=== PATIENT | female | born 1940 | race Caucasian/White ===

== ENCOUNTER 2017-05-23 14:51 | Outpatient (CLI) | payer MEDICARE, SELFPAY | END 2017-05-23 15:25 | disposition home or self-care (01) | PROVIDERS: Visit Provider Internal Medicine Hematology & Oncology | DX: C83.30 Diffuse large B-cell lymphoma, unspecified site (principal); Z45.2 Encounter for adjustment and management of vascular access device; Z48.00 Encounter for change or removal of nonsurgical wound dressing | CPT/HCPCS: 96523; J1642 ==

== ENCOUNTER 2017-05-29 14:25 | Outpatient (CLI) | payer MEDICARE, SELFPAY | END 2017-05-29 14:45 | disposition home or self-care (01) | PROVIDERS: Visit Provider Internal Medicine Hematology & Oncology | DX: C83.30 Diffuse large B-cell lymphoma, unspecified site (principal); Z45.2 Encounter for adjustment and management of vascular access device; Z48.00 Encounter for change or removal of nonsurgical wound dressing | CPT/HCPCS: 96523; J1642 ==

== ENCOUNTER 2017-06-05 13:00 | Outpatient (CLI) | payer MEDICARE, SELFPAY ==
[2017-06-05 17:06] VITALS: BMI 21.6
== END 2017-06-05 13:30 | disposition home or self-care (01) ==
LOC: INF 13:17
PROVIDERS: Family Provider Family Medicine; Visit Provider Internal Medicine Hematology & Oncology
DX: Z45.2 Encounter for adjustment and management of vascular access device (principal); Z48.00 Encounter for change or removal of nonsurgical wound dressing; C83.30 Diffuse large B-cell lymphoma, unspecified site
CPT/HCPCS: 96523; J1642

== ENCOUNTER 2017-06-13 14:19 | Outpatient (CLI) | payer MEDICARE, SELFPAY ==
[2017-06-13 14:21] VITALS: BMI 21.7
[2017-06-13 14:57] LABS: Basophils % 0.9 % (0.1-2.0); Eosinophils # 0.3 K/mm3 (0.0-0.4); Hematocrit 30.2 % (37.0-47.0); Hemoglobin 10.1 g/dL (12.2-16.2); Lymphocytes # 1.3 K/mm3 (0.7-4.5); Lymphocytes % 57.7 K/mm3 (10-50); Mean Corpuscular HGB Conc 33.6 g/dL (31.8-35.4); Mean Corpuscular Hemoglobin 28.2 pg (27.0-31.2); Mean Corpuscular Volume 84.1 fl (81-99); Mean Platelet Volume 9.7 fl (7.4-10.4); Monocytes # 0.4 K/mm3 (0.1-1.0); Monocytes % 17.3 % (1.7-9.3); Neutrophils # 0.3 K/mm3 (1.8-7.8); Platelet Count 156 K/mm3 (142-424); Red Blood Count 3.59 M/mm3 (4.20-5.40); Red Cell Distribution Width 16.2 % (11.5-17.5); White Blood Count 2.3 K/mm3 (4.8-10.8)
[2017-06-13 15:19] LABS: Chol/HDL Ratio 2.7 (1-3.5); Cholesterol 104 mg/dL (140-200); HDL Cholesterol 39 mg/dL (29-89); LDL Cholesterol 49 mg/dL (0-130); Magnesium 1.4 mg/dL (1.4-2.2); Triglycerides 80 mg/dL (30-200); VLDL Cholesterol 16 mg/dL (0-40)
[2017-06-13 15:29] LABS: Alanine Aminotransferase 18 U/L (12-78); Albumin/Globulin Ratio 0.9 (1.1-1.8); Alkaline Phosphatase 94 U/L (46-116); Anion Gap 13.8 mEq/L (5-15); Aspartate Amino Transferase 18 U/L (15-37); Bilirubin,Total 0.5 mg/dL (0.2-1.0); Blood Urea Nitrogen 17 mg/dL (7-18); Calcium 8.2 mg/dL (8.5-10.1); Carbon Dioxide 21 mmol/L (21.0-32.0); Chloride 103 mmol/L (98-107); Creatinine Clearance Estimated 34 mL/min (0-300); Creatinine,Serum 1.32 mg/dL (0.55-1.02); Estimated Glomerular Filt Rate 39 ml/min (>60); Free T4 (Free Thyroxine) 1.01 ng/dl (0.76-1.46); GFR (African American) 47 ML/MIN (>60); Globulin 3.2 gm/dl (1.3-3.2); Glucose 102 mg/dL (74-106); Potassium 3.8 mmoL/L (3.5-5.1); Sodium 134 mmol/L (136-145); Thyroid Stimulating Hormone 1.89 uIU/ml (0.358-3.740); Total Protein,Serum 6.2 gm/dL (6.4-8.2)
[2017-06-13 15:53] LABS: MANUAL DIFFERENTIAL MANUAL DIFFERENTIAL (MANUAL DIFF)
[2017-06-13 15:55] LABS: Eosinophils % 9 % (0-3); Lymphocytes % 56 % (10-50); Monocytes % 24 % (2-9); Neutrophils % 9 % (42-76); Platelet Estimate Slight Decrease; RBC Morphology Normal; Total Cells Counted 100
--- NOTE | 2017-06-13 16:17 | PC.NURSE ---
BLOOD DRAWN FROM PICC LINE AND SENT TO LAB FOR ORDERS BY DR DUNCAN. BOTH LUMENS FLUSHED EASILY AND BLOOD RETURN OBTAINED.
[2017-06-14 16:23] LABS: Phosphorous 3.4 mg/dL (2.4-4.9)
[2017-06-15 16:09] LABS: Peripheral Smear Review Scanned Result
== END 2017-06-13 15:00 | disposition home or self-care (01) ==
LOC: INF 14:20
PROVIDERS: Family Medicine; Visit Provider Internal Medicine Hematology & Oncology
DX: R42 Dizziness and giddiness (principal); E03.9 Hypothyroidism, unspecified; E78.00 Pure hypercholesterolemia, unspecified; I10 Essential (primary) hypertension; Z45.2 Encounter for adjustment and management of vascular access device
CPT/HCPCS: 80053; 80061; 83735; 84100; 84439; 84443; 85007; 85025; J1642

== ENCOUNTER 2017-06-26 11:47 | Outpatient (CLI) | payer MEDICARE, SELFPAY | END 2017-06-26 12:15 | disposition home health service (06) | PROVIDERS: Family Provider Family Medicine; Visit Provider Internal Medicine Hematology & Oncology | DX: C83.30 Diffuse large B-cell lymphoma, unspecified site (principal) | CPT/HCPCS: G0463; J1642 ==

== ENCOUNTER 2017-07-04 13:42 | Outpatient (CLI) | payer MEDICARE, SELFPAY ==
[2017-07-04 14:00] VITALS: BP 118/69; PULSE 98; RESP 18; TEMP 36.5
== END 2017-07-04 14:10 | disposition home or self-care (01) ==
LOC: INF 13:46
PROVIDERS: Visit Provider Internal Medicine Hematology & Oncology
DX: C83.30 Diffuse large B-cell lymphoma, unspecified site (principal); Z45.2 Encounter for adjustment and management of vascular access device
CPT/HCPCS: 96523

== ENCOUNTER 2017-07-12 10:42 | Outpatient (CLI) | payer MEDICARE, SELFPAY ==
[2017-07-12 11:40] VITALS: BP 120/60; PULSE 66; RESP 20; TEMP 36.4; O2SAT 96
== END 2017-07-12 11:40 | disposition home or self-care (01) ==
LOC: INF 10:44
PROVIDERS: Visit Provider Internal Medicine Hematology & Oncology
DX: Z45.2 Encounter for adjustment and management of vascular access device (principal)
CPT/HCPCS: 96523; J1642

== ENCOUNTER 2017-07-16 13:10 | Outpatient (CLI) | payer MEDICARE, SELFPAY ==
[2017-07-16 15:00] VITALS: BP 118/54; PULSE 82; RESP 18; TEMP 36.6; O2SAT 96
== END 2017-07-16 15:00 | disposition home or self-care (01) ==
LOC: INF 13:59
PROVIDERS: Family Provider Family Medicine; Visit Provider Internal Medicine Hematology & Oncology
DX: Z45.2 Encounter for adjustment and management of vascular access device (principal); Z48.00 Encounter for change or removal of nonsurgical wound dressing
CPT/HCPCS: G0463

== ENCOUNTER 2018-06-09 14:19 | Inpatient (IN) ==
--- NOTE | 2018-06-09 14:33 | History & Physical Report ---
*Admission Date: 06/09/18 <Luna Thomas 06/09/18 14:33> *Chief complaint: Shortness of breath and cough <Luna Thomas 06/09/18 14:58> *History of present illness: Ms. Bueno is a 77-year-old female with a history of hypertension, hyperlipidemia, and B-cell lymphoma who presented for follow-up in the office of [facility] for her cough and shortness of breath. She was also seen 06/02/2018 and 06/05/2018 for the same without improvement. Patient states that she is actually feeling worse and has been lethargic. She is weak and has pain in her back when she coughs. The new cough medicine has not helped. She is coughing up some yellow sputum, has nasal congestion with a runny nose, and has had fever with chills. Her shortness of breath is associated with wheezing and some chest tightness. She describes a bitemporal headache with a pressure-like sensation. She is also dizzy. Her body aches and she is weak and fatigued and has difficulty with walking. She is eating minimally and drinking poorly. Due to her failure of treatment as an outpatient she will be admitted for further evaluation and treatment with probable pneumonia. CBC done in the office revealed a white blood cell count 7300 with 20.9% lymphocytes and 75.2% granulocytes. Hemoglobin is 9.4 with a hematocrit of 29.3. <Luna Thomas 06/09/18 14:58> [facility] History Medical History: Reports:: Cancer (B-cell lymphoma) Denies:: Diabetes Mellitus Type 1, Diabetes Mellitus Type 2, MRSA <Luna Thomas 06/09/18 14:58> Have you ever received a pneumonia vaccine?: Yes <Luna Thomas 06/09/18 14:33> Other Medical History: Reports: Chemotherapy, Hypothyroidism <Luna Thomas 06/09/18 14:58> Laterality Cases: Bilateral: Other <Luna Thomas 06/09/18 14:33> Other Surgeries: Yes: Hysterectomy-Total <Luna Thomas 06/09/18 14:33> Amputation: No <Luna Thomas 06/09/18 14:33> Fractures: No <Luna Thomas 06/09/18 14:33> - *Social History Smoking Status: Former smoker <Luna Thomas 06/09/18 14:33> Alcohol Intake: never <Luna Thomas 06/09/18 14:33> *Family Hx:: Hyperlipidemia, Hypertension, Stroke <Amberly Thomashy 06/09/18 14:58> Review of Systems - Constitutional Reports body ache(s), Reports fatigue, Reports fever(s), Reports malaise, Reports weakness, Reports weight loss <ThomasLuna 06/09/18 14:58> - ENT Reports nasal congestion, Reports dizziness, Denies ear pain, Denies sore throat <ThomasLuna 06/09/18 14:58> - *Cardiovascular Reports shortness of breath, Denies chest pain, Denies irregular heart rhythm, Denies foot swelling <ThomasLuna 06/09/18 14:58> - *Respiratory Reports change in phlegm color, Reports chest congestion, Reports cough, Reports shortness of breath, Reports pain with cough, Reports wheezing, Denies coughing up blood <ThomasLuna 06/09/18 14:58> - *Gastrointestinal Reports constipation, Reports nausea, Denies bright, red blood in stools, Denies vomiting <ThomasLuna 06/09/18 14:58> - *Genitourinary Denies difficulty urinating <Amberly Thomashy 06/09/18 14:58> - *Musculoskeletal Comments: About 1 month ago patient tripped on her toe resulting in a fall. She landed on her face and was knocked out. She was evaluated in the emergency room at this time and found to have nose and left facial fractures. <ThomasLuna 06/09/18 14:58> - *Neurologic Reports headache(s), Reports dizziness, Denies abnormal walking, Denies confusion, Denies seizure-like activity <ThomasLuna 06/09/18 14:58> Meds Home Medications Medication Instructions Recorded Confirmed Type Atorvastatin Calcium [Atorvastatin 10 mg PO DAILY 06/05/17 05/12/18 History 10mg Tab] Lenalidomide [Revlimid] 20 mg PO DAILY 06/05/17 05/12/18 History Levothyroxine Sodium 50 mcg PO DAILY 06/05/17 05/12/18 History [Levothyroxine 50mcg (0.05mg) Tab] Metoprolol Tartrate [Lopressor 25 mg PO BID 06/05/17 05/12/18 History 25mg tablet] Ondansetron HCl [Ondansetron 4mg 4 mg PO NEEDED PRN 06/05/17 05/12/18 History Tab] PARoxetine HCl [Paxil] 20 mg PO DAILY 06/05/17 05/12/18 History cephALEXin [Keflex 500mg Cap] 500 mg PO TID #30 cap 04/23/18 05/12/18 Rx lenalidomide 5 mg capsule 5 mg PO DAILY 04/28/18 05/12/18 History <Shahid Lopez - 06/09/18 19:48> Allergies Allergy/AdvReac Type Severity Reaction Status Date / Time cucumber [CUCUMBER] Allergy Severe HIVES, Verified 06/09/18 16:03 SWELLING, TROUBLE BREATHING alprazolam [From XANAX] Allergy Intermediate ADVERSE Verified 06/09/18 16:03 tetanus and diphtheria Allergy Mild Verified 06/09/18 16:03 toxoids [TETANUS AND DIPHTHERIA TOXOIDS] ibuprofen [IBUPROFEN] Allergy Unknown STATED IT Verified 06/09/18 16:03 INTERACTS WITH CHEMO Iodinated Contrast Media - Allergy Unknown Verified 06/09/18 16:03 Oral and [IODINATED CONTRAST MEDIA - ORAL AND] acetaminophen [From TYLENOL] AdvReac Unknown INTERACT Verified 06/09/18 16:03 WITH CHEMO <JohnShahid - 06/09/18 19:48> Exam Vital signs and Labs for Last 24 Hours: Temp Pulse Resp BP Pulse Ox 98.3 F 87 18 130/69 99 06/09/18 16:00 06/09/18 16:00 06/09/18 16:00 06/09/18 16:00 06/09/18 16:00 Laboratory Results - last 24 hr 06/09/18 15:45: WBC 6.5, RBC 2.63 L, Hgb 8.2 L, Hct 24.7 L, MCV 93.9, MCH 31.2, MCHC 33.2, RDW 14.6, Plt Count 347, MPV 8.8, Neut % (Auto) 76.7, Lymph % (Auto) 17.1, [place] % (Auto) 3.1, Eos % (Auto) 2.7, Baso % (Auto) 0.4, Neut # (Auto) 5.0, Lymph # (Auto) 1.1, [place] # (Auto) 0.2, Eos # (Auto) 0.2, Baso # (Auto) 0.0 06/09/18 15:45: Sodium 135 L, Potassium 3.4 L, Chloride 99, Carbon Dioxide 22, Anion Gap 17.4 H, BUN 22 H, Creatinine 1.96 H, Estimated Creat Clear 23, Estimated GFR 25 L, Est GFR ( Amer) 30 L, Glucose 107 H, Calcium 8.4 L, Total Bilirubin 0.6, AST 21, ALT 33, Alkaline Phosphatase 508 H, Total Protein 7.0, Albumin 2.4 L, Globulin 4.6 H, Albumin/Globulin Ratio 0.5 L 06/09/18 15:55: Influenza Type A Ag Negative, Influenza Type B Ag Negative <Shahid Lopez 06/09/18 19:48> I & O for Last 24 hours: Intake & Output 06/07/18 06/08/18 06/09/18 06/10/18 11:59 11:59 11:59 11:59 Intake Total 1480 / 1480 Balance 1480 / 1480 Weight 135 lb 14.4 oz <Shahid Lopez 06/09/18 19:48> - Constitutional no acute distress, thin <Luna Thomas 06/09/18 14:58> Comments: Appears not to feel well <Luna Thomas 06/09/18 14:58> - *Routine HEENT Exam Head: Present: normocephalic, atraumatic <Luna Thomas 06/09/18 14:58> Eye: Present: PERRL <Luna Thomas 06/09/18 14:58> ENT: Present: mucous membranes dry, oropharynx clear, TM's clear bilaterally <Luna Thomas 06/09/18 14:58> - *Routine Neck Exam Present: supple, full ROM. Absent: carotid bruit, lymphadenopathy, thyromegaly <Luna Thomas 06/09/18 14:58> - *Routine Respiratory Exam Present: CTA bilaterally <Luna Thomas 06/09/18 14:58> Comments: Diminished breath sounds posteriorly. Pain on deep inspiration in the right lower lung. <Luna Thomas - 06/09/18 14:58> - *Routine Cardiovascular Exam Present: RRR <Luna Thomas 06/09/18 14:58> - *Routine Abdominal Exam Present: soft, normoactive bowel sounds. Absent: tenderness, distended <Luna Thomas - 06/09/18 14:58> - *Routine Extremities Exam Absent: edema, calf tenderness <Luna Thomas 06/09/18 14:58> - *Routine Neurological Exam Present: alert, oriented X3 <Luna Thomas - 06/09/18 14:58> Assessment and Plan (1) Pneumonia Current visit: Yes Status: Acute Category: Medical Code(s): J18.9 - Pneumonia, unspecified organism (2) B-cell lymphoma Current visit: Yes Status: Acute Category: Medical Code(s): C85.10 - Unspecified B-cell lymphoma, unspecified site (3) Hypertension Current visit: Yes Status: Acute Category: Medical Code(s): I10 - Essential (primary) hypertension (4) Hypothyroidism Current visit: Yes Status: Acute Category: Medical Code(s): E03.9 - Hypothyroidism, unspecified (5) Anemia Current visit: Yes Status: Acute Category: Medical Code(s): D64.9 - Anemia, unspecified (6) Renal insufficiency Current visit: Yes Status: Acute Category: Medical Code(s): N28.9 - Disorder of kidney and ureter, unspecified (7) Dehydration Current visit: Yes Status: Acute Category: Medical Code(s): E86.0 - Dehydration (8) Elevated alkaline phosphatase level Current visit: Yes Status: Acute Category: Medical Code(s): R74.8 - Abnormal levels of other serum enzymes (9) Hypokalemia Current visit: Yes Status: Acute Category: Medical Code(s): E87.6 - Hypokalemia <JohnShahid - 06/09/18 19:48> (1) Pneumonia Current visit: Yes Status: Acute Category: Medical Code(s): J18.9 - Pneumonia, unspecified organism (2) B-cell lymphoma Current visit: Yes Status: Acute Category: Medical Code(s): C85.10 - Unspecified B-cell lymphoma, unspecified site (3) Hypertension Current visit: Yes Status: Acute Category: Medical Code(s): I10 - Essential (primary) hypertension (4) Hypothyroidism Current visit: Yes Status: Acute Category: Medical Code(s): E03.9 - Hypothyroidism, unspecified <Luna Thomas - 06/09/18 15:03> - Assessment and plan all Dx Assessment and Plan for all problems:: Saw patient in office and after admission today. Her medication list in the H&P is incorrect. Patient has a RLL pneumonia and anemia along with renal insufficiency and dehydration. She should be an acute admission. <Shahid Lopez - 06/09/18 19:48> Patient will be tested for the flu. To receive Rocephin and Zithromax and be started on DuoNeb treatments. She also will be given a 1 L bolus of IV fluids. Some of home meds have been ordered. <Luna Thomas - 06/09/18 15:05>
--- NOTE | 2018-06-09 14:55 | Pharmacy Consult Notes ---
[facility] Pharmacy VTE Monitoring - Patient Demographics Admission date: 06/09/18 Report Date: 06/09/18 Time: 14:55 Allergies/Adverse Reactions: Patient Allergies cucumber [CUCUMBER] Allergy (Severe, Verified 04/28/18 13:01) HIVES, SWELLING, TROUBLE BREATHING alprazolam [From XANAX] Allergy (Intermediate, Verified 04/28/18 13:01) ADVERSE tetanus and diphtheria toxoids [TETANUS AND DIPHTHERIA TOXOIDS] Allergy (Mild, Verified 04/28/18 13:01) ibuprofen [IBUPROFEN] Allergy (Unknown, Verified 04/28/18 13:01) STATED IT INTERACTS WITH CHEMO Iodinated Contrast Media - Oral and [IODINATED CONTRAST MEDIA - ORAL AND] Allergy (Unknown, Verified 04/28/18 13:01) acetaminophen [From TYLENOL] Adverse Reaction (Unknown, Verified 04/28/18 13:01) INTERACT WITH CHEMO - VTE Risk Was VTE Risk Assessment Performed: Yes Clinical Trial Participant: No - Prophylaxis VTE Prophylaxis Ordered?: Yes Types of VTE Prophylaxis: TEDS Knee High
[2018-06-09 15:54] LABS: Basophils % 0.4 % (0.1-2.0); Eosinophils # 0.2 K/mm3 (0.0-0.4); Eosinophils % 2.7 % (0.1-12.0); Hematocrit 24.7 % (37.0-47.0); Hemoglobin 8.2 g/dL (12.2-16.2); Lymphocytes # 1.1 K/mm3 (0.7-4.5); Lymphocytes % 17.1 % (10-50); Mean Corpuscular HGB Conc 33.2 g/dL (31.8-35.4); Mean Corpuscular Hemoglobin 31.2 pg (27.0-31.2); Mean Corpuscular Volume 93.9 fl (81-99); Mean Platelet Volume 8.8 fl (7.4-10.4); Monocytes # 0.2 K/mm3 (0.1-1.0); Monocytes % 3.1 % (1.7-9.3); Neutrophils % 76.7 % (37.0-80.0); Platelet Count 347 K/mm3 (142-424); Red Blood Count 2.63 M/mm3 (4.20-5.40); Red Cell Distribution Width 14.6 % (11.5-17.5); White Blood Count 6.5 K/mm3 (4.8-10.8)
[2018-06-09 16:06] LABS: Albumin Level 2.4 gm/dL (3.4-5.0); Albumin/Globulin Ratio 0.5 (1.1-1.8); Anion Gap 17.4 mEq/L (5-15); Bilirubin,Total 0.6 mg/dL (0.2-1.0); Calcium 8.4 mg/dL (8.5-10.1); Globulin 4.6 gm/dl (1.3-3.2); Potassium 3.4 mmoL/L (3.5-5.1)
[2018-06-10 06:41] LABS: Anion Gap 13.3 mEq/L (5-15); Potassium 3.3 mmoL/L (3.5-5.1)
[2018-06-10 07:27] LABS: Basophils % 0.5 % (0.1-2.0); Eosinophils # 0.1 K/mm3 (0.0-0.4); Eosinophils % 2.4 % (0.1-12.0); Hematocrit 24.9 % (37.0-47.0); Lymphocytes # 1.1 K/mm3 (0.7-4.5); Lymphocytes % 19.3 % (10-50); Mean Corpuscular HGB Conc 31.7 g/dL (31.8-35.4); Mean Corpuscular Hemoglobin 30.3 pg (27.0-31.2); Mean Corpuscular Volume 95.6 fl (81-99); Monocytes # 0.3 K/mm3 (0.1-1.0); Monocytes % 4.6 % (1.7-9.3); Neutrophils % 73.2 % (37.0-80.0); Platelet Count 270 K/mm3 (142-424); Red Cell Distribution Width 14.6 % (11.5-17.5); White Blood Count 5.5 K/mm3 (4.8-10.8)
[2018-06-10 07:31] LABS: Hemoglobin 7.9 g/dL (12.2-16.2)
--- NOTE | 2018-06-10 08:48 | Progress Note ---
Internal Medicine - PN: Subj *Date: 06/10/18 *Time: 08:46 Interval history: Patient with no new complaints today, still coughing, feels weak. Exam Vital signs and Labs for Last 24 Hours: Temp Pulse Resp BP Pulse Ox 98.2 F 67 22 125/53 L 93 L 06/10/18 04:00 06/10/18 06:15 06/10/18 04:00 06/10/18 04:00 06/10/18 06:15 Laboratory Results - last 24 hr 06/09/18 15:45: Mycoplasma pneumon IgM Non-reactive 06/09/18 15:45: WBC 6.5, RBC 2.63 L, Hgb 8.2 L, Hct 24.7 L, MCV 93.9, MCH 31.2, MCHC 33.2, RDW 14.6, Plt Count 347, MPV 8.8, Neut % (Auto) 76.7, Lymph % (Auto) 17.1, [place] % (Auto) 3.1, Eos % (Auto) 2.7, Baso % (Auto) 0.4, Neut # (Auto) 5.0, Lymph # (Auto) 1.1, [place] # (Auto) 0.2, Eos # (Auto) 0.2, Baso # (Auto) 0.0 06/09/18 15:45: Sodium 135 L, Potassium 3.4 L, Chloride 99, Carbon Dioxide 22, Anion Gap 17.4 H, BUN 22 H, Creatinine 1.96 H, Estimated Creat Clear 23, Estimated GFR 25 L, Est GFR ( Amer) 30 L, Glucose 107 H, Calcium 8.4 L, Total Bilirubin 0.6, AST 21, ALT 33, Alkaline Phosphatase 508 H, Total Protein 7.0, Albumin 2.4 L, Globulin 4.6 H, Albumin/Globulin Ratio 0.5 L 06/09/18 15:55: Influenza Type A Ag Negative, Influenza Type B Ag Negative 06/10/18 05:21: WBC 5.5, RBC 2.60 L, Hgb 7.9 L*, Hct 24.9 L, MCV 95.6, MCH 30.3, MCHC 31.7 L, RDW 14.6, Plt Count 270, MPV 9.0, Neut % (Auto) 73.2, Lymph % (Auto) 19.3, [place] % (Auto) 4.6, Eos % (Auto) 2.4, Baso % (Auto) 0.5, Neut # (Auto) 4.0, Lymph # (Auto) 1.1, [place] # (Auto) 0.3, Eos # (Auto) 0.1, Baso # (Auto) 0.0 06/10/18 05:21: Sodium 136, Potassium 3.3 L, Chloride 103, Carbon Dioxide 23, Anion Gap 13.3, BUN 18, Creatinine 1.78 H, Estimated Creat Clear 25, Estimated GFR 27 L, Est GFR ( Amer) 33 L, Glucose 118 H, Calcium 8.0 L I & O for Last 24 hours: Intake & Output 06/07/18 06/08/18 06/09/18 06/10/18 11:59 11:59 11:59 11:59 Intake Total 2466 / 2466 Balance 2466 / 2466 Weight 135 lb 14.4 oz - Constitutional no acute distress - *Routine HEENT Exam Head: Present: normocephalic Eye: Present: EOMI, PERRL ENT: Present: mucous membranes moist - *Routine Neck Exam Present: supple. Absent: lymphadenopathy - *Routine Respiratory Exam Present: crackles (right base) - *Routine Cardiovascular Exam Present: RRR - *Routine Abdominal Exam Present: soft, normoactive bowel sounds. Absent: tenderness - *Routine Extremities Exam Absent: cyanosis, clubbing, edema - *Routine Skin Exam Present: warm. Absent: rash - *Routine Neurological Exam Present: alert, oriented X3 Assessment and Plan (1) Pneumonia Current visit: Yes Status: Acute Category: Medical Code(s): J18.9 - Pneumonia, unspecified organism (2) B-cell lymphoma Current visit: Yes Status: Acute Category: Medical Code(s): C85.10 - Unspecified B-cell lymphoma, unspecified site (3) Hypertension Current visit: Yes Status: Acute Category: Medical Code(s): I10 - Essential (primary) hypertension (4) Hypothyroidism Current visit: Yes Status: Acute Category: Medical Code(s): E03.9 - Hypothyroidism, unspecified (5) Anemia Current visit: Yes Status: Acute Category: Medical Code(s): D64.9 - Anemia, unspecified (6) Renal insufficiency Current visit: Yes Status: Acute Category: Medical Code(s): N28.9 - Disorder of kidney and ureter, unspecified (7) Dehydration Current visit: Yes Status: Acute Category: Medical Code(s): E86.0 - Dehydration (8) Elevated alkaline phosphatase level Current visit: Yes Status: Acute Category: Medical Code(s): R74.8 - Abnormal levels of other serum enzymes (9) Hypokalemia Current visit: Yes Status: Acute Category: Medical Code(s): E87.6 - Hypokalemia - Assessment and plan all Dx Assessment and Plan for all problems:: Plan transfusion of 2 units of PRBCs today, continue treatment for pneumonia.
[2018-06-10 21:32] LABS: Hematocrit 32.2 % (37.0-47.0)
[2018-06-11 06:51] LABS: Basophils % 0.8 % (0.1-2.0); Eosinophils # 0.2 K/mm3 (0.0-0.4); Eosinophils % 3.6 % (0.1-12.0); Hemoglobin 10.6 g/dL (12.2-16.2); Mean Corpuscular HGB Conc 33.1 g/dL (31.8-35.4); Mean Corpuscular Hemoglobin 30.5 pg (27.0-31.2); Mean Platelet Volume 8.6 fl (7.4-10.4); Monocytes # 0.3 K/mm3 (0.1-1.0); Monocytes % 6.7 % (1.7-9.3); Neutrophils # 3.2 K/mm3 (1.8-7.8); Neutrophils % 67.8 % (37.0-80.0); Platelet Count 242 K/mm3 (142-424); Red Blood Count 3.48 M/mm3 (4.20-5.40); Red Cell Distribution Width 15.2 % (11.5-17.5); White Blood Count 4.6 K/mm3 (4.8-10.8)
[2018-06-11 07:03] LABS: Anion Gap 12.7 mEq/L (5-15); Calcium 7.8 mg/dL (8.5-10.1); Potassium 3.7 mmoL/L (3.5-5.1)
--- NOTE | 2018-06-11 08:05 | Progress Note ---
<Luna Thomas - Last Filed: 06/11/18 08:02> Internal Medicine - PN: Subj *Date: 06/11/18 *Time: 08:02 Interval history: Still has a frequent nonproductive cough. She denies shortness of breath. She slept periodically in the night. Chest is sore from coughing. She is in some. Bowels have not moved. She denies nausea. She has been up to the bathroom. Exam Vital signs and Labs for Last 24 Hours: Temp Pulse Resp BP Pulse Ox 98.4 F 69 18 134/57 L 98 06/11/18 04:00 06/11/18 04:00 06/11/18 04:00 06/11/18 04:00 06/11/18 00:00 Laboratory Results - last 24 hr 06/10/18 09:10: Blood Type B Positive, Antibody Screen Negative, Crossmatch (AHG) See Detail 06/10/18 21:20: Hgb 11.0 L D, Hct 32.2 L 06/11/18 05:43: WBC 4.6 L, RBC 3.48 L D, Hgb 10.6 L, Hct 32.0 L, MCV 92.0, MCH 30.5, MCHC 33.1, RDW 15.2, Plt Count 242, MPV 8.6, Neut % (Auto) 67.8, Lymph % (Auto) 21.0, [place] % (Auto) 6.7, Eos % (Auto) 3.6, Baso % (Auto) 0.8, Neut # (Auto) 3.2, Lymph # (Auto) 1.0, [place] # (Auto) 0.3, Eos # (Auto) 0.2, Baso # (Auto) 0.0 06/11/18 05:43: Sodium 135 L, Potassium 3.7, Chloride 104, Carbon Dioxide 22, Anion Gap 12.7, BUN 13 D, Creatinine 1.50 H, Estimated Creat Clear 30, Estimated GFR 33 L, Est GFR ( Amer) 41 L D, Glucose 109 H, Calcium 7.8 L I & O for Last 24 hours: Intake & Output 06/08/18 06/09/18 06/10/18 06/11/18 11:59 11:59 11:59 11:59 Intake Total 2586 / 2586 1749 / 1749 Balance 2585 Weight 135 lb 14.4 oz 139 lb 8 oz - Constitutional no acute distress Comments: Calm - *Routine Respiratory Exam Comments: Right basilar crackles - *Routine Cardiovascular Exam Present: RRR - *Routine Abdominal Exam Present: soft, normoactive bowel sounds. Absent: tenderness, distended - *Routine Extremities Exam Absent: edema, calf tenderness - *Routine Neurological Exam Present: alert, oriented X3 Assessment and Plan (1) Pneumonia Current visit: Yes Status: Acute Category: Medical Code(s): J18.9 - Pneumonia, unspecified organism (2) B-cell lymphoma Current visit: Yes Status: Acute Category: Medical Code(s): C85.10 - Unspecified B-cell lymphoma, unspecified site (3) Hypertension Current visit: Yes Status: Acute Category: Medical Code(s): I10 - Essential (primary) hypertension (4) Hypothyroidism Current visit: Yes Status: Acute Category: Medical Code(s): E03.9 - Hypo thyroidism, unspecified (5) Anemia Current visit: Yes Status: Acute Category: Medical Code(s): D64.9 - Anemia, unspecified (6) Renal insufficiency Current visit: Yes Status: Acute Category: Medical Code(s): N28.9 - Disorder of kidney and ureter, unspecified (7) Dehydration Current visit: Yes Status: Acute Category: Medical Code(s): E86.0 - Dehydration (8) Elevated alkaline phosphatase level Current visit: Yes Status: Acute Category: Medical Code(s): R74.8 - Abnormal levels of other serum enzymes (9) Hypokalemia Current visit: Yes Status: Acute Category: Medical Code(s): E87.6 - Hypokalemia - Assessment and plan all Dx Assessment and Plan for all problems:: His hemoglobin this morning is 10.6. Renal function has improved. We will continue with antibiotics and duo nebs. <Shahid Lopez - Last Filed: 06/11/18 08:24> Exam Vital signs and Labs for Last 24 Hours: Temp Pulse Resp BP Pulse Ox 98.4 F 72 18 120/58 L 98 06/11/18 08:00 06/11/18 08:00 06/11/18 08:00 06/11/18 08:00 06/11/18 08:00 Laboratory Results - last 24 hr 06/10/18 09:10: Blood Type B Positive, Antibody Screen Negative, Crossmatch (AHG) See Detail 06/10/18 21:20: Hgb 11.0 L D, Hct 32.2 L 06/11/18 05:43: WBC 4.6 L, RBC 3.48 L D, Hgb 10.6 L, Hct 32.0 L, MCV 92.0, MCH 30.5, MCHC 33.1, RDW 15.2, Plt Count 242, MPV 8.6, Neut % (Auto) 67.8, Lymph % (Auto) 21.0, [place] % (Auto) 6.7, Eos % (Auto) 3.6, Baso % (Auto) 0.8, Neut # (Auto) 3.2, Lymph # (Auto) 1.0, [place] # (Auto) 0.3, Eos # (Auto) 0.2, Baso # (Auto) 0.0 06/11/18 05:43: Sodium 135 L, Potassium 3.7, Chloride 104, Carbon Dioxide 22, Anion Gap 12.7, BUN 13 D, Creatinine 1.50 H, Estimated Creat Clear 30, Estimated GFR 33 L, Est GFR ( Amer) 41 L D, Glucose 109 H, Calcium 7.8 L I & O for Last 24 hours: Intake & Output 06/08/18 06/09/18 06/10/18 06/11/18 11:59 11:59 11:59 11:59 Intake Total 879 / 269 1749 / 174 Balance 2585 / 258 174 / 174 Weight 135 lb 14.4 oz 139 lb 8 oz Assessment and Plan (1) Pneumonia Current visit: Yes Status: Acute Category: Medical Code(s): J18.9 - Pneumonia, unspecified organism (2) B-cell lymphoma Current visit: Yes Status: Acute Category: Medical Code(s): C85.10 - Unspecified B-cell lymphoma, unspecified site (3) Hypertension Current visit: Yes Status: Acute Category: Medical Code(s): I10 - Essential (primary) hypertension (4) Hypothyroidism Current visit: Yes Status: Acute Category: Medical Code(s): E03.9 - Hypothyroidism, unspecified (5) Anemia Current visit: Yes Status: Acute Category: Medical Code(s): D64.9 - Anemia, unspecified (6) Renal insufficiency Current visit: Yes Status: Acute Category: Medical Code(s): N28.9 - Disorder of kidney and ureter, unspecified (7) Dehydration Current visit: Yes Status: Acute Category: Medical Code(s): E86.0 - Dehydration (8) Elevated alkaline phosphatase level Current visit: Yes Status: Acute Category: Medical Code(s): R74.8 - Abnormal levels of other serum enzymes (9) Hypokalemia Current visit: Yes Status: Acute Category: Medical Code(s): E87.6 - Hypokalemia - Assessment and plan all Dx Assessment and Plan for all problems:: Saw patient. Plan to recheck CXR today, await culture results.
--- NOTE | 2018-06-12 08:26 | Progress Note ---
Internal Medicine - PN: Subj *Date: 06/12/18 *Time: 08:24 Interval history: Patient feels better today, no new complaints today, still coughing. Exam Vital signs and Labs for Last 24 Hours: Temp Pulse Resp BP Pulse Ox 98.2 F 68 17 136/74 97 06/12/18 08:00 06/12/18 08:00 06/12/18 08:00 06/12/18 08:00 06/12/18 08:00 I & O for Last 24 hours: Intake & Output 06/09/18 06/10/18 06/11/18 06/12/18 11:59 11:59 11:59 11:59 Intake Total 2586 / 2586 2155 / 2155 2834 / 2834 Balance 2586 / 2586 2155 / 2155 2834 / 2834 Weight 135 lb 14.4 oz 139 lb 8 oz 141 lb 4 oz Microbiology Reports for the Last 24 Hours: Microbiology 06/09/18 15:45 Blood Blood Culture - Preliminary NO GROWTH AFTER 48 HOURS 06/09/18 15:45 Blood Blood Culture - Preliminary NO GROWTH AFTER 48 HOURS - Constitutional no acute distress - *Routine HEENT Exam Head: Present: normocephalic ENT: Present: mucous membranes moist - *Routine Neck Exam Present: supple. Absent: lymphadenopathy - *Routine Respiratory Exam Present: crackles (in right base) - *Routine Cardiovascular Exam Present: RRR - *Routine Abdominal Exam Present: soft, normoactive bowel sounds. Absent: tenderness - *Routine Extremities Exam Absent: cyanosis, clubbing, edema - *Routine Skin Exam Present: warm. Absent: rash - *Routine Neurological Exam Present: alert, oriented X3 Assessment and Plan (1) Pneumonia Current visit: Yes Status: Acute Category: Medical Code(s): J18.9 - Pneumonia, unspecified organism (2) B-cell lymphoma Current visit: Yes Status: Acute Category: Medical Code(s): C85.10 - Unspecified B-cell lymphoma, unspecified site (3) Hypertension Current visit: Yes Status: Acute Category: Medical Code(s): I10 - Essential (primary) hypertension (4) Hypothyroidism Current visit: Yes Status: Acute Category: Medical Code(s): E03.9 - Hypothyroidism, unspecified (5) Anemia Current visit: Yes Status: Acute Category: Medical Code(s): D64.9 - Anemia, unspecified (6) Renal insufficiency Current visit: Yes Status: Acute Category: Medical Code(s): N28.9 - Disorder of kidney and ureter, unspecified (7) Dehydration Current visit: Yes Status: Acute Category: Medical Code(s): E86.0 - Dehydration (8) Elevated alkaline phosphatase level Current visit: Yes Status: Acute Category: Medical Code(s): R74.8 - Abnormal levels of other serum enzymes (9) Hypokalemia Current visit: Yes Status: Acute Category: Medical Code(s): E87.6 - Hypokalemia - Assessment and plan all Dx Assessment and Plan for all problems:: Patient slowly improving. Plan to saline lock IVF today.
--- NOTE | 2018-06-12 10:41 | Progress Note ---
Internal Medicine - PN: Subj *Date: 06/12/18 *Time: 10:40 Exam Vital signs and Labs for Last 24 Hours: Temp Pulse Resp BP Pulse Ox 98.2 F 68 17 136/74 97 06/12/18 08:00 06/12/18 08:00 06/12/18 08:00 06/12/18 08:00 06/12/18 08:00 I & O for Last 24 hours: Intake & Output 06/09/18 06/10/18 06/11/18 06/12/18 23:59 23:59 23:59 23:59 Intake Total 1480 / 1480 1846 / 1846 2337 / 2337 1911 Balance 1480 / 1480 1846 / 1846 2337 / 2337 1911 Weight 61.643 kg 63.276 kg 64.07 kg Microbiology Reports for the Last 24 Hours: Microbiology 06/09/18 15:45 Blood Blood Culture - Preliminary NO GROWTH AFTER 48 HOURS 06/09/18 15:45 Blood Blood Culture - Preliminary NO GROWTH AFTER 48 HOURS Assessment and Plan (1) Pneumonia Current visit: Yes Status: Acute Category: Medical Code(s): J18.9 - Pneumonia, unspecified organism (2) B-cell lymphoma Current visit: Yes Status: Acute Category: Medical Code(s): C85.10 - Unspecified B-cell lymphoma, unspecified site (3) Hypertension Current visit: Yes Status: Acute Category: Medical Code(s): I10 - Essential (primary) hypertension (4) Hypothyroidism Current visit: Yes Status: Acute Category: Medical Code(s): E03.9 - Hy pothyroidism, unspecified (5) Anemia Current visit: Yes Status: Acute Category: Medical Code(s): D64.9 - Anemia, unspecified (6) Renal insufficiency Current visit: Yes Status: Acute Category: Medical Code(s): N28.9 - Disorder of kidney and ureter, unspecified (7) Dehydration Current visit: Yes Status: Acute Category: Medical Code(s): E86.0 - Dehydration (8) Elevated alkaline phosphatase level Current visit: Yes Status: Acute Category: Medical Code(s): R74.8 - Abnormal levels of other serum enzymes (9) Hypokalemia Current visit: Yes Status: Acute Category: Medical Code(s): E87.6 - Hypokalemia The patient's infection will respond to the chosen ABx?: Yes Is the patient receiving the right drug, dose, and route?: Yes Could a more targeted ABx be ordered?: No (CULTURES PENDING)
[2018-06-13 06:14] LABS: Basophils # 0.1 K/mm3 (0-0.2); Eosinophils # 0.1 K/mm3 (0.0-0.4); Eosinophils % 2.6 % (0.1-12.0); Hemoglobin 10.7 g/dL (12.2-16.2); Lymphocytes # 1.3 K/mm3 (0.7-4.5); Lymphocytes % 25.4 % (10-50); Mean Corpuscular HGB Conc 31.5 g/dL (31.8-35.4); Mean Corpuscular Hemoglobin 29.8 pg (27.0-31.2); Mean Corpuscular Volume 94.5 fl (81-99); Mean Platelet Volume 8.4 fl (7.4-10.4); Monocytes # 0.5 K/mm3 (0.1-1.0); Monocytes % 10.1 % (1.7-9.3); Neutrophils # 3.1 K/mm3 (1.8-7.8); Neutrophils % 60.9 % (37.0-80.0); Platelet Count 228 K/mm3 (142-424); Red Blood Count 3.59 M/mm3 (4.20-5.40); Red Cell Distribution Width 15.2 % (11.5-17.5); White Blood Count 5.1 K/mm3 (4.8-10.8)
[2018-06-13 07:11] LABS: Anion Gap 13.5 mEq/L (5-15); Calcium 8.3 mg/dL (8.5-10.1); Potassium 4.5 mmoL/L (3.5-5.1)
--- NOTE | 2018-06-13 08:37 | Progress Note ---
<Cheyenne Porras - Last Filed: 06/13/18 08:34> Internal Medicine - PN: Subj *Date: 06/13/18 *Time: 08:34 Interval history: Patient states she has been clammy and diaphoretic throughout the night. She is very fatigued. I spoke with her nurse and they have checked her blood pressure, temperature, and glucose and everything has been normal. Her hemoglobin was checked and has improved. Her labs are improving. She denies any pain. She is trying to eat some breakfast this morning. Exam Vital signs and Labs for Last 24 Hours: Temp Pulse Resp BP Pulse Ox 97.9 F 75 18 120/55 L 96 06/13/18 08:00 06/13/18 08:00 06/13/18 08:23 06/13/18 08:00 06/13/18 08:00 Laboratory Results - last 24 hr 06/13/18 05:24: WBC 5.1, RBC 3.59 L, Hgb 10.7 L, Hct 34.0 L, MCV 94.5, MCH 29.8, MCHC 31.5 L, RDW 15.2, Plt Count 228, MPV 8.4, Neut % (Auto) 60.9, Lymph % (Auto) 25.4, [place] % (Auto) 10.1 H, Eos % (Auto) 2.6, Baso % (Auto) 1.0, Neut # (Auto) 3.1, Lymph # (Auto) 1.3, [place] # (Auto) 0.5, Eos # (Auto) 0.1, Baso # (Auto) 0.1 06/13/18 05:24: Sodium 134 L, Potassium 4.5 D, Chloride 99, Carbon Dioxide 26, Anion Gap 13.5, BUN 10, Creatinine 1.51 H, Estimated Creat Clear 30, Estimated GFR 33 L, Est GFR ( Amer) 40 L, Glucose 93, Calcium 8.3 L 06/13/18 07:25: POC Glucose 84 I & O for Last 24 hours: Intake & Output 06/10/18 06/11/18 06/12/18 06/13/18 11:59 11:59 11:59 11:59 Intake Total 2586 / 2586 2155 / 2155 2834 / 2834 2228 / 2228 Balance 2586 / 2586 2155 / 2155 2834 / 2834 2228 / 2228 Weight 135 lb 14.4 oz 139 lb 8 oz 141 lb 4 oz 139 lb 4 oz - Constitutional no acute distress - *Routine HEENT Exam ENT: Present: mucous membranes dry - *Routine Respiratory Exam Present: rhonchi (right), wheezes (right side of the chest). Absent: rales - *Routine Cardiovascular Exam Present: RRR - *Routine Abdominal Exam Present: soft, normoactive bowel sounds. Absent: tenderness - *Routine Extremities Exam Absent: cyanosis, clubbing, edema Assessment and Plan (1) Pneumonia Current visit: Yes Status: Acute Category: Medical Code(s): J18.9 - Pneumonia, unspecified organism (2) B-cell lymphoma Current visit: Yes Status: Acute Category: Medical Code(s): C85.10 - Unspecified B-cell lymphoma, unspecified site (3) Hypertension Current visit: Yes Status: Acute Category: Medical Code(s): I10 - Essential (primary) hypertension (4) Hypothyroidism Current visit: Yes Status: Acute Category: Medical Code(s): E03.9 - Hypothyroidism, unspecified (5) Anemia Current visit: Yes Status: Acute Category: Medical Code(s): D64.9 - Anemia, unspecified (6) Renal insufficiency Current visit: Yes Status: Acute Category: Medical Code(s): N28.9 - Disorder of kidney and ureter, unspecified (7) Dehydration Current visit: Yes Status: Acute Category: Medical Code(s): E86.0 - Dehydration (8) Elevated alkaline phosphatase level Current visit: Yes Status: Acute Category: Medical Code(s): R74.8 - Abnormal levels of other serum enzymes (9) Hypokalemia Current visit: Yes Status: Acute Category: Medical Code(s): E87.6 - Hypokalemia - Assessment and plan all Dx Assessment and Plan for all problems:: Patient's labs are improving. Will discuss further care with Dr. Lopez. <Shahid Lopez - Last Filed: 06/13/18 09:05> Exam Vital signs and Labs for Last 24 Hours: Temp Pulse Resp BP Pulse Ox 97.9 F 75 18 120/55 L 96 06/13/18 08:00 06/13/18 08:00 06/13/18 08:23 06/13/18 08:00 06/13/18 08:00 Laboratory Results - last 24 hr 06/13/18 05:24: WBC 5.1, RBC 3.59 L, Hgb 10.7 L, Hct 34.0 L, MCV 94.5, MCH 29.8, MCHC 31.5 L, RDW 15.2, Plt Count 228, MPV 8.4, Neut % (Auto) 60.9, Lymph % (Auto) 25.4, [place] % (Auto) 10.1 H, Eos % (Auto) 2.6, Baso % (Auto) 1.0, Neut # (Auto) 3.1, Lymph # (Auto) 1.3, [place] # (Auto) 0.5, Eos # (Auto) 0.1, Baso # (Auto) 0.1 06/13/18 05:24: Sodium 134 L, Potassium 4.5 D, Chloride 99, Carbon Dioxide 26, Anion Gap 13.5, BUN 10, Creatinine 1.51 H, Estimated Creat Clear 30, Estimated GFR 33 L, Est GFR ( Amer) 40 L, Glucose 93, Calcium 8.3 L 06/13/18 07:25: POC Glucose 84 I & O for Last 24 hours: Intake & Output 06/10/18 06/11/18 06/12/18 06/13/18 11:59 11:59 11:59 11:59 Intake Total 2586 / 2586 2155 / 2155 2834 / 2834 2228 / 2228 Balance 2586 / 2586 2155 / 2155 2834 / 2834 2228 / 2228 Weight 135 lb 14.4 oz 139 lb 8 oz 141 lb 4 oz 139 lb 4 oz Assessment and Plan (1) Pneumonia Current visit: Yes Status: Acute Category: Medical Code(s): J18.9 - Pneumonia, unspecified organism (2) B-cell lymphoma Current visit: Yes Status: Chronic Qualifiers: 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, intrathoracic lymph nodes Category: Medical Code(s): C85.10 - Unspecified B-cell lymphoma, unspecified site (3) Hypertension Current visit: Yes Status: Acute Category: Medical Code(s): I10 - Essential (primary) hypertension (4) Hypothyroidism Current visit: Yes Status: Acute Category: Medical Code(s): E03.9 - Hypothyroidism, unspecified (5) Anemia Current visit: Yes Status: Acute Category: Medical Code(s): D64.9 - Anemia, unspecified (6) Renal insufficiency Current visit: Yes Status: Acute Category: Medical Code(s): N28.9 - Disorder of kidney and ureter, unspecified (7) Dehydration Current visit: Yes Status: Acute Category: Medical Code(s): E86.0 - Dehydration (8) Elevated alkaline phosphatase level Current visit: Yes Status: Acute Category: Medical Code(s): R74.8 - Abnormal levels of other serum enzymes (9) Hypokalemia Current visit: Yes Status: Acute Category: Medical Code(s): E87.6 - Hypokalemia - Assessment and plan all Dx Assessment and Plan for all problems:: Saw patient, agree with above note.
[2018-06-13 19:26] LABS: Microscopic, Urine URINE MICROSCOPIC (MICROSCOPIC)
[2018-06-13 19:27] LABS: Appearance,Urine CLEAR (Clear); Bilirubin,Urine Negative (Negative); Blood, Urine TRACE-L (Negative); Color,Urine YELLOW (Yellow); Glucose,Urine (UA) Negative (Negative); Ketones,Urine Negative (Negative); Leukocyte Esterase,Urine Negative (Negative); Protein,Urine Negative (Negative); Specific Gravity, Urine 1.025 (1.005-1.030); Urobilinogen,Urine 0.2 EU/dl (0.2)
[2018-06-13 19:29] LABS: RBC,Urine Occasional #/hpf (0-3)
--- NOTE | 2018-06-14 09:19 | Progress Note ---
Internal Medicine - PN: Subj *Date: 06/14/18 *Time: 09:17 Interval history: No new complaints today, less coughing overnight. Still confused at times. Exam Vital signs and Labs for Last 24 Hours: Temp Pulse Resp BP Pulse Ox 97.7 F 72 19 120/61 97 06/14/18 04:00 06/14/18 04:00 06/14/18 04:00 06/14/18 04:00 06/14/18 04:00 Laboratory Results - last 24 hr 06/13/18 19:20: Urine Color Yellow, Urine Appearance Clear, Urine pH 6.0, Ur Specific [place] 1.025, Urine Protein Negative, Urine Glucose (UA) Negative, Urine Ketones Negative, Urine Blood Trace-l, Urine Nitrate Negative, Urine Bilirubin Negative, Urine Urobilinogen 0.2, Ur Leukocyte Esterase Negative, Urine RBC Occasional, Ur Squamous Epith Cells 3-5 I & O for Last 24 hours: Intake & Output 06/11/18 06/12/18 06/13/18 06/14/18 11:59 11:59 11:59 11:59 Intake Total 2155 / 2155 2834 / 2834 2708 / 2708 660 / 660 Output Total 100 / 100 Balance 2155 / 2155 2834 / 2834 2708 / 2708 560 / 560 Weight 139 lb 8 oz 141 lb 4 oz 139 lb 4 oz - Constitutional no acute distress - *Routine HEENT Exam Head: Present: normocephalic Eye: Present: EOMI ENT: Present: mucous membranes moist - *Routine Neck Exam Present: supple. Absent: lymphadenopathy - *Routine Respiratory Exam Present: crackles (right base) - *Routine Cardiovascular Exam Present: RRR - *Routine Abdominal Exam Present: soft, normoactive bowel sounds. Absent: tenderness - *Routine Extremities Exam Absent: cyanosis, clubbing, edema - *Routine Skin Exam Present: warm. 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, intrathoracic lymph nodes Category: Medical Code(s): C85.10 - Unspecified B-cell lymphoma, unspecified site (3) Hypertension Current visit: Yes Status: Acute Category: Medical Code(s): I10 - Essential (primary) hypertension (4) Hypothyroidism Current visit: Yes Status: Acute Category: Medical Code(s): E03.9 - Hypothyroidism, unspecified (5) Anemia Current visit: Yes Status: Acute Category: Medical Code(s): D64.9 - Anemia, unspecified (6) Renal insufficiency Current visit: Yes Status: Acute Category: Medical Code(s): N28.9 - Disorder of kidney and ureter, unspecified (7) Dehydration Current visit: Yes Status: Acute Category: Medical Code(s): E86.0 - Dehydration (8) Elevated alkaline phosphatase level Current visit: Yes Status: Acute Category: Medical Code(s): R74.8 - Abnormal levels of other serum enzymes (9) Hypokalemia Current visit: Yes Status: Acute Category: Medical Code(s): E87.6 - Hypokalemia - Assessment and plan all Dx Assessment and Plan for all problems:: Patient is slowly improving. Plan OOB today and encourage oral intake.
--- NOTE | 2018-06-15 09:24 | Progress Note ---
Internal Medicine - PN: Subj *Date: 06/15/18 *Time: 09:21 Interval history: Patient was up in chair yesterday and walked in hallway but was more confused last night. She is conversant this morning and has no complaints. Exam Vital signs and Labs for Last 24 Hours: Temp Pulse Resp BP Pulse Ox 97.8 F 74 16 106/45 L 97 06/15/18 08:00 06/15/18 08:00 06/15/18 08:00 06/15/18 08:00 06/15/18 08:00 Vital Signs Temp Pulse Resp BP BP Pulse Ox 06/15/18 08:00 97.8 F 74 16 106/45 L 97 06/15/18 06:04 94 L 06/15/18 04:00 98.4 F 81 18 111/70 96 06/15/18 00:00 98.6 F 68 19 98/50 L 96 06/14/18 20:00 97.6 F 73 18 135/54 L 97 06/14/18 16:00 98.0 F 75 20 104/47 L 96 06/14/18 12:00 97.6 F 77 18 109/46 L 98 Intake and Output 06/14/18 06/15/18 06/15/18 19:59 03:59 11:59 Intake Total 240 / 240 Balance 240 / 240 Intake: Intake, Oral Amount 240 / 240 I & O for Last 24 hours: Intake & Output 06/12/18 06/13/18 06/14/18 06/15/18 11:59 11:59 11:59 11:59 Intake Total 2834 / 2834 2708 / 2708 660 / 660 240 / 240 Output Total 100 / 100 Balance 2834 / 2834 2708 / 2708 560 / 560 240 / 240 Weight 141 lb 4 oz 139 lb 4 oz Microbiology Reports for the Last 24 Hours: Microbiology 06/09/18 15:45 Blood Blood Culture - Final NO GROWTH AFTER 5 DAYS 06/09/18 15:45 Blood Blood Culture - Final NO GROWTH AFTER 5 DAYS - Constitutional no acute distress - *Routine HEENT Exam Head: Present: normocephalic Eye: Present: EOMI ENT: Present: mucous membranes moist - *Routine Neck Exam Present: supple. Absent: lymphadenopathy - *Routine Respiratory Exam Present: CTA bilaterally - *Routine Cardiovascular Exam Present: RRR - *Routine Abdominal Exam Present: soft, normoactive bowel sounds. Absent: tenderness - *Routine Extremities Exam Absent: cyanosis, clubbing, edema - *Routine Skin Exam Present: warm. 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, intrathoracic lymph nodes Category: Medical Code(s): C85.10 - Unspecified B-cell lymphoma, unspecified site (3) Hypertension Current visit: Yes Status: Acute Category: Medical Code(s): I10 - Essential (primary) hypertension (4) Hypothyroidism Current visit: Yes Status: Acute Category: Medical Code(s): E03.9 - Hypothyroidism, unspecified (5) Anemia Current visit: Yes Status: Acute Category: Medical Code(s): D64.9 - Anemia, unspecified (6) Renal insufficiency Current visit: Yes Status: Acute Category: Medical Code(s): N28.9 - Disorder of kidney and ureter, unspecified (7) Dehydration Current visit: Yes Status: Acute Category: Medical Code(s): E86.0 - Dehydration (8) Elevated alkaline phosphatase level Current visit: Yes Status: Acute Category: Medical Code(s): R74.8 - Abnormal levels of other serum enzymes (9) Hypokalemia Current visit: Yes Status: Acute Category: Medical Code(s): E87.6 - Hypokalemia - Assessment and plan all Dx Assessment and Plan for all problems:: Plan to recheck labs and CXR tomorrow morning. Patient has improved other than her current confusion.
[2018-06-16 06:53] LABS: Basophils # 0.1 K/mm3 (0-0.2); Basophils % 1.4 % (0.1-2.0); Eosinophils # 0.2 K/mm3 (0.0-0.4); Eosinophils % 4.3 % (0.1-12.0); Hematocrit 34.8 % (37.0-47.0); Hemoglobin 11.5 g/dL (12.2-16.2); Lymphocytes # 1.2 K/mm3 (0.7-4.5); Lymphocytes % 25.8 % (10-50); Mean Corpuscular HGB Conc 33.1 g/dL (31.8-35.4); Mean Corpuscular Hemoglobin 30.8 pg (27.0-31.2); Mean Corpuscular Volume 93.1 fl (81-99); Mean Platelet Volume 8.2 fl (7.4-10.4); Monocytes # 0.4 K/mm3 (0.1-1.0); Monocytes % 8.4 % (1.7-9.3); Neutrophils # 2.9 K/mm3 (1.8-7.8); Neutrophils % 60.1 % (37.0-80.0); Platelet Count 242 K/mm3 (142-424); Red Blood Count 3.74 M/mm3 (4.20-5.40); Red Cell Distribution Width 14.6 % (11.5-17.5); White Blood Count 4.8 K/mm3 (4.8-10.8)
[2018-06-16 07:01] LABS: Albumin Level 2.2 gm/dL (3.4-5.0); Albumin/Globulin Ratio 0.5 (1.1-1.8); Anion Gap 14.2 mEq/L (5-15); Bilirubin,Total 0.3 mg/dL (0.2-1.0); Calcium 8.6 mg/dL (8.5-10.1); Globulin 4.4 gm/dl (1.3-3.2); Potassium 4.2 mmoL/L (3.5-5.1); Total Protein,Serum 6.6 gm/dL (6.4-8.2)
--- NOTE | 2018-06-16 08:29 | Progress Note ---
Internal Medicine - PN: Subj *Date: 06/16/18 *Time: 08:28 Interval history: Patient feels better, no new complaints, wants to go home. Exam Vital signs and Labs for Last 24 Hours: Temp Pulse Resp BP Pulse Ox 98.2 F 82 18 129/65 97 06/16/18 08:00 06/16/18 08:00 06/16/18 08:00 06/16/18 08:00 06/16/18 08:00 Laboratory Results - last 24 hr 06/16/18 06:24: WBC 4.8, RBC 3.74 L, Hgb 11.5 L, Hct 34.8 L, MCV 93.1, MCH 30.8, MCHC 33.1, RDW 14.6, Plt Count 242, MPV 8.2, Neut % (Auto) 60.1, Lymph % (Auto) 25.8, [place] % (Auto) 8.4, Eos % (Auto) 4.3, Baso % (Auto) 1.4, Neut # (Auto) 2.9, Lymph # (Auto) 1.2, [place] # (Auto) 0.4, Eos # (Auto) 0.2, Baso # (Auto) 0.1 06/16/18 06:24: Sodium 136, Potassium 4.2, Chloride 101, Carbon Dioxide 25, Anion Gap 14.2, BUN 17, Creatinine 1.47 H, Estimated Creat Clear 31, Estimated GFR 34 L, Est GFR ( Amer) 41 L, Glucose 98, Calcium 8.6, Total Bilirubin 0.3, AST 17, ALT 29, Alkaline Phosphatase 255 H, Total Protein 6.6, Albumin 2.2 L, Globulin 4.4 H, Albumin/Globulin Ratio 0.5 L Vital Signs Temp Pulse Resp BP Pulse Ox 06/16/18 08:00 98.2 F 82 18 129/65 97 06/16/18 04:00 98.2 F 85 18 142/97 H 95 06/16/18 00:00 99.2 F 78 18 148/59 H 96 06/15/18 20:00 97.8 F 76 18 141/67 H 98 06/15/18 16:27 97.9 F 73 16 99/46 L 98 06/15/18 12:00 98.0 F 67 17 111/45 L 96 Intake and Output 06/15/18 06/16/18 06/16/18 19:59 03:59 11:59 Intake Total 290 / 290 360 / 360 Output Total 200 / 200 Balance 290 / 290 160 / 160 Intake: Intake, Oral Amount 240 / 240 360 / 360 Intake, Total IV Amount 50 / 50 Ceftriaxone 1 gm 1 gm In 0.9 % 50 / 50 Sodium Chloride 50 ml @ 100 mls /hr IV 1300 [id number] Rx#:[id number] Output: Output, Urine Amount 200 / 200 Other: Number of Voids 1 1 Number of Unmeasured Voids 1 1 I & O for Last 24 hours: Intake & Output 06/13/18 06/14/18 06/15/18 06/16/18 11:59 11:59 11:59 11:59 Intake Total 2708 / 2708 660 / 660 240 / 240 650 / 650 Output Total 100 / 100 200 / 200 Balance 2708 / 2708 560 / 560 240 / 240 450 / 450 Weight 139 lb 4 oz - Constitutional no acute distress - *Routine HEENT Exam Head: Present: normocephalic Eye: Present: EOMI ENT: Present: mucous membranes moist - *Routine Neck Exam Present: supple. Absent: lymphadenopathy - *Routine Respiratory Exam Present: CTA bilaterally - *Routine Cardiovascular Exam Present: RRR - *Routine Abdominal Exam Present: soft, normoactive bowel sounds. Absent: tenderness - *Routine Extremities Exam Absent: cyanosis, clubbing, edema - *Routine Skin Exam Present: warm. 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, intrathoracic lymph nodes Category: Medical Code(s): C85.10 - Unspecified B-cell lymphoma, unspecified site (3) Hypertension Current visit: Yes Status: Acute Category: Medical Code(s): I10 - Essential (primary) hypertension (4) Hypothyroidism Current visit: Yes Status: Acute Category: Medical Code(s): E03.9 - Hypothyroidism, unspecified (5) Anemia Current visit: Yes Status: Acute Category: Medical Code(s): D64.9 - Anemia, unspecified (6) Renal insufficiency Current visit: Yes Status: Acute Category: Medical Code(s): N28.9 - Disorder of kidney and ureter, unspecified (7) Dehydration Current visit: Yes Status: Acute Category: Medical Code(s): E86.0 - Dehydration (8) Elevated alkaline phosphatase level Current visit: Yes Status: Acute Category: Medical Code(s): R74.8 - Abnormal levels of other serum enzymes (9) Hypokalemia Current visit: Yes Status: Acute Category: Medical Code(s): E87.6 - Hypokalemia - Assessment and plan all Dx Assessment and Plan for all problems:: CXR and labs have improved, OK to discharge home today with office f/u in 4 days.
--- NOTE | 2018-06-17 11:15 | Discharge Summary ---
General - General Admission date:: 06/09/18 Discharge date: 06/16/18 HPI HPI: Ms. Bueno is a 77-year-old female with a history of hypertension, hyperlipidemia, and B-cell lymphoma who presented for follow-up in the office of [facility] for her cough and shortness of breath. She was also seen 06/02/2018 and 06/05/2018 for the same without improvement. Patient states that she is actually feeling worse and has been lethargic. She is weak and has pain in her back when she coughs. The new cough medicine has not helped. She is coughing up some yellow sputum, has nasal congestion with a runny nose, and has had fever with chills. Her shortness of breath is associated with wheezing and some chest tightness. She describes a bitemporal headache with a pressure-like sensation. She is also dizzy. Her body aches and she is weak and fatigued and has difficulty with walking. She is eating minimally and drinking poorly. Due to her failure of treatment as an outpatient she will be admitted for further evaluation and treatment with probable pneumonia. CBC done in the office revealed a white blood cell count 7300 with 20.9% lymphocytes and 75.2% granulocytes. Hemoglobin is 9.4 with a hematocrit of 29.3. Hospital Course Hospital Course: The patient was started on Zithromax, Rocephin, duo nebs, and was given a 1 L bolus of IV fluids. Her chest x-ray showed a right lower lobe pneumonia. Flu test was negative. Her H&H dropped, therefore she was given 2 units of packed red blood cells. Her hemoglobin improved from 7.9 to 11. She continued to feel poorly and a repeat chest x-ray was ordered. It showed a worsening right lower lobe pneumonia. She became very fatigued and diaphoretic. Her blood pressure and temperature were normal and her labs were all improving. Urinalysis was ordered but showed nothing acute. The patient did improve slowly. She was able to start tolerating a diet and was able to get up and move about her room. She did have periods of confusion off and on throughout her admission. Her blood culture showed no growth. A repeat chest x-ray showed a persistent but improved pneumonia. The patient's labs were all improving and she wanted to go home. She was stable to be discharged home and will follow-up in the office [facility] in 4 days. Objective Vital signs: Temp Pulse Resp BP Pulse Ox 98.2 F 82 18 129/65 97 06/16/18 08:00 06/16/18 08:00 06/16/18 08:00 06/16/18 08:00 06/16/18 08:00 Narrative: - Constitutional no acute distress, thin Comments: Appears not to feel well - *Routine HEENT Exam Head: Present: normocephalic, atraumatic Eye: Present: PERRL ENT: Present: mucous membranes dry, oropharynx clear, TM's clear bilaterally - *Routine Neck Exam Present: supple, full ROM. Absent: carotid bruit, lymphadenopathy, thyromegaly - *Routine Respiratory Exam Present: CTA bilaterally Comments: Diminished breath sounds posteriorly. Pain on deep inspiration in the right lower lung. - *Routine Cardiovascular Exam Present: RRR - *Routine Abdominal Exam Present: soft, normoactive bowel sounds. Absent: tenderness, distended - *Routine Extremities Exam Absent: edema, calf tenderness - *Routine Neurological Exam Present: alert, oriented X3 DS: Diagnosis - Discharge Diagnosis (1) Pneumonia Status: Acute (2) B-cell lymphoma Status: Chronic (3) Hypertension Status: Acute (4) Hypothyroidism Status: Acute (5) Anemia Status: Acute (6) Renal insufficiency Status: Acute (7) Dehydration Status: Acute (8) Elevated alkaline phosphatase level Status: Acute (9) Hypokalemia Status: Acute Discharge Plan - Patient Discharge Instructions ACTIVITY: Continue current activity DIET: continue same diet Patient Instructions: Anemia, DI for Dehydration -- Adult, DI for Pneumonia -- Adult - Follow up Plan Follow up with: Shahid Lopez MD [Primary Care Provider] - 06/20/18 Disposition: Home, Self-Usp Medications: Home Medications Medication Instructions Recorded Confirmed Type Atorvastatin Calcium [Atorvastatin 10 mg PO DAILY 06/05/17 06/10/18 History 10mg Tab] Levothyroxine Sodium 50 mcg PO DAILY 06/05/17 06/10/18 History [Levothyroxine 50mcg (0.05mg) Tab] PARoxetine HCl [Paxil] 20 mg PO DAILY 06/05/17 06/10/18 History lenalidomide 5 mg capsule 5 mg PO HS 04/28/18 06/10/18 History Aspirin [Aspir 81] 81 mg PO HS 06/10/18 06/10/18 History Benzonatate [Benzonatate 200mg Cap] 200 mg PO TIDP PRN 06/10/18 06/10/18 History Celecoxib 200 mg PO BID 06/10/18 06/10/18 History Famotidine [Pepcid 20mg Tablet] 20 mg PO DAILY 06/10/18 06/10/18 History Ferrous Sulfate [Slow Release Iron] 142 mg PO DAILY 06/10/18 06/10/18 History Hydrocodone Bit/Homatrop Me-Br 1 each PO Q4HP PRN 06/10/18 06/10/18 History [Hydrocodone-Homatropine 5-1.5] Loratadine [Claritin 10mg Tablet] 10 mg PO DAILYP PRN 06/10/18 06/10/18 History Megestrol Acetate [Megestrol 40 mg PO BID 06/10/18 06/10/18 History Acetate 40mg Tablet] Morphine Sulfate [MS Contin 15mg 15 mg PO DAILY 06/10/18 06/10/18 History EXTENDED RELEASE tablet] Prescriptions/Medication Reconciliation: Continue lenalidomide 5 mg capsule 5 mg PO HS Levothyroxine Sodium [Levothyroxine 50mcg (0.05mg) Tab] 50 mcg PO DAILY Morphine Sulfate [MS Contin 15mg EXTENDED RELEASE tablet] 15 mg PO DAILY Famotidine [Pepcid 20mg Tablet] 20 mg PO DAILY Celecoxib 200 mg PO BID Ferrous Sulfate [Slow Release Iron] 142 mg PO DAILY Aspirin [Aspir 81] 81 mg PO HS PARoxetine HCl [Paxil] 20 mg PO DAILY Atorvastatin Calcium [Atorvastatin 10mg Tab] 10 mg PO DAILY Benzonatate [Benzonatate 200mg Cap] 200 mg PO TIDP PRN PRN Reason: Cough Hydrocodone Bit/Homatrop Me-Br [Hydrocodone-Homatropine 5-1.5] 1 each PO Q4HP PRN PRN Reason: Cough Megestrol Acetate [Megestrol Acetate 40mg Tablet] 40 mg PO BID Loratadine [Claritin 10mg Tablet] 10 mg PO DAILYP PRN PRN Reason: ALLERGIES
== END 2018-06-16 09:10 | disposition home or self-care (01) | DRG 194 ==
LOC: 2ND → OBSVTOIN 14:19 → 2ND 06-15 15:05
PROVIDERS: ADMIT Family Medicine; ATTEND Family Medicine
CPT/HCPCS: 36415; 71020; 71046; 80048; 80053; 81001; 82962; 85014; 85018; 85025; 86738; 86850; 87040; 87275; 87276; 94640; 94760; 94761; 97162; J0456; P9016

== ENCOUNTER → 2018-11-03 15:33 | Outpatient (CLI) | payer MEDICARE, SELFPAY ==
--- NOTE | 2018-11-03 15:39 | XR_ITS ---
XR chest 2V HISTORY: Cough and shortness of air ITS.REASON: COUGH ORDERING PHYSICIAN: Shahid Lopez MD PATIENT AGE: 78 years COMPARISON: 06/11/2018 FINDINGS: Unremarkable heart size. The carlos are prominent and may be better byway with enhanced chest CT. There is increased density in the right upper lobe medially. Possible developing infiltrate at this area. COPD. No acute bony findings. IMPRESSION: COPD with chronic changes and prominent carlos which may be better byway with CT with contrast. Infiltrate or atelectatic change in the right upper lobe
== END ==
PROVIDERS: PCP Family Medicine; Visit Provider Family Medicine
DX: R05 Cough (principal)
CPT/HCPCS: 71046

== ENCOUNTER → 2018-11-11 13:49 | Outpatient (CLI) | payer MEDICARE, SELFPAY ==
--- NOTE | 2018-11-11 13:53 | XR_ITS ---
XR chest 2V HISTORY: ITS.REASON: PNEUMONIA OF RT UPPER LOBE ORDERING PHYSICIAN: Shahid Lopez MD PATIENT AGE: 78 years COMPARISON: 11/03/2018 FINDINGS: Chronic changes are once again noted. There is normal heart size. Perihilar fibrotic changes are noted. There is increased density in the right upper lobe medially which appears slightly more apparent but may be due to patient positioning. Consider chest CT for further evaluation. There is normal heart size. IMPRESSION: COPD with chronic changes with increasing density in the right suprahilar region. This could be due to worsening infiltrate or atelectatic changes. Neoplasm is an additional consideration. Chest CT with contrast may be of further value..
== END ==
PROVIDERS: PCP Family Medicine; Visit Provider Family Medicine
DX: J18.1 Lobar pneumonia, unspecified organism (principal)
CPT/HCPCS: 71046

== ENCOUNTER → 2018-11-26 12:14 | Outpatient (CLI) | payer MEDICARE, SELFPAY ==
[2018-11-26 12:43] LABS: Blood Urea Nitrogen 21 mg/dL (7-18); Creatinine,Serum 1.55 mg/dL (0.55-1.02); Estimated Glomerular Filt Rate 32 ml/min (>60); GFR (African American) 39 ML/MIN (>60)
--- NOTE | 2018-11-26 13:15 | CT_ITS ---
CT chest wo con HISTORY: ITS.REASON: NEOPLASM,,ALLERGIC TO CONTRAST ORDERING PHYSICIAN: Shahid Lopez MD PATIENT AGE: 78 years COMPARISON: 08/18/2016. Technique: Axial images obtained. Sagittal, and coronal reformatted images are also generated and reviewed. All CT scans at the facility use one or more dose reduction, viz: automated exposure control, ma/kV adjustment per patient size (including targeted exams where dose is matched to indication, i.e. head), or iterative reconstruction technique. FINDINGS: There is a small mottled density likely retained or aspirated secretion along the left lateral wall of the distal thoracic trachea. The remainder of the airways are patent. There is evidence of some areas of bronchiectasis is now present at the perihilar areas bilaterally. This is also associated with some peribronchial soft tissue densities which are nonspecific. There is a stable 2 mm noncalcified nodule in the superior segment left lower lobe. This would suggest a benign granuloma. There is some prominence of the medial posterior mid left sided pleura. This could be some small pleural effusion or pleural thickening. There is stable slight prominence of the anterior lateral inferior pericardium suggesting pericardial thickening. Heart size is normal. There is a smaller residual soft tissue density in the pretracheal area. Again seen are the coronary and aortic calcified plaques. The visualized upper abdominal structures are unremarkable. Impression: Changes in the perihilar areas with the bronchiectasis and peribronchial densities could be related to post therapeutic such as post radiation fibrotic changes. Underlying peribronchial infiltrate is not ruled out. This could also account for the medial mid left posterior pleural reaction which could be pleural thickening from radiation changes as well. Small pretracheal soft tissue density is more nonspecific. This study cannot distinguish between residual neoplasm versus abnormal adenopathy or fibrosis. I would suggest either 3 month follow-up CT chest to confirm stability or preferably a PET/CT scan.
== END ==
PROVIDERS: Visit Provider Family Medicine
DX: D38.1 Neoplasm of uncertain behavior of trachea, bronchus and lung (principal)
CPT/HCPCS: 36415; 71250; 82565; 84520

== ENCOUNTER → 2018-11-28 13:48 | Outpatient (CLI) | payer MEDICARE, SELFPAY ==
[2018-12-01 03:26] LABS: C difficile Toxins AB, EIA Negative (Negative)
== END ==
PROVIDERS: Visit Provider Family Medicine
DX: R19.7 Diarrhea, unspecified (principal); A04.72 Enterocolitis due to Clostridium difficile, not specified as recurrent
CPT/HCPCS: 87324

== ENCOUNTER 2019-12-04 12:28 | Inpatient (IN) | payer MEDICARE, SELFPAY ==
[2019-12-04] VITALS (13 sets, daily range): BP systolic 137–209; BP diastolic 76–97; PULSE 80–122; RESP 20–26; TEMP 36.4–36.8; O2SAT 67–100; BMI 22.8; BMI 50.7
--- NOTE | 2019-12-04 12:43 | CT_ITS ---
PROCEDURE: CT CERVICAL SPINE WO CON CLINICAL INDICATION: fall COMPARISON: CT CERVICAL SPINE WO CON from 03/26/2019 TECHNIQUE: Axial images obtained with sagittal and coronal reformats. All CT scans at the facility use one or more dose reduction, viz: automated exposure control, ma/kV adjustment per patient size (including targeted exams where dose is matched to indication, i.e. head), or iterative reconstruction technique. Axial spiral CT scanning performed of the cervical spine beginning at the base of the skull and continuing to the upper T-spine. 3-D multiplanar reconstruction with 3-D manipulation of volumetric data set in image rendering was completed by the radiologist and/or technologist with the supervision of the radiologist on independent workstation. FINDINGS: No fracture nor subluxation is evident. There is basically normal curvature and alignment. There has been previous anterior cervical fusion of the C 3 4 and 5 levels. There is mild generalized osteopenia. Normal prevertebral soft tissues. There is bilateral neural foraminal narrowing at the cervical fusion levels more prominent right side than left. Facets, neural foramen and vertebral bodies intact and unremarkable. Prominent osteoarthritic changes are seen at the atlantoaxial 1joint. Scans into the upper chest show prominent focal bronchiectasis and what is likely postinflammatory scarring medial aspect of the apical segment right upper lobe IMPRESSION: Stable postsurgical changes mid cervical spine and osteoarthritic changes at the C1-2 level, no acute pathology identified Dictated by: Dr. Rivera Park MD 12/04/2019 13:[address] Rivera Park MD in [place] 12/04/2019 13:47
--- NOTE | 2019-12-04 12:43 | CT_ITS ---
PROCEDURE: CT HEAD/BRAIN WO CON CLINICAL INDICATION: fall COMPARISON: CT HEAD/BRAIN WO CON from 03/26/2019 TECHNIQUE: Axial images obtained. All CT scans at the facility use one or more dose reduction, viz: automated exposure control, ma/kV adjustment per patient size (including targeted exams where dose is matched to indication, i.e. head), or iterative reconstruction technique. . FINDINGS: No midline shift, mass effect, intracranial hemorrhage, hydrocephalus, or extra-axial fluid collection is evident. Sylvian fissures and cortical sulci are prominent. There are mild periventricular hypodensities consistent with chronic ischemic white matter changes. The calvarium has an unremarkable appearance. No mastoid effusion. There is a stable mucous retention cyst medial wall left maxillary sinus measuring 1.5 cm in diameter.. IMPRESSION: Findings of age-appropriate cortical atrophy and mild chronic ischemic white matter changes, no acute intracranial pathology noted Dictated by: Dr. Rivera Park MD 12/04/2019 13:[address] Rivera Park MD in [place] 12/04/2019 13:37
--- NOTE | 2019-12-04 12:43 | CT_ITS ---
PROCEDURE: CT FACIAL BONES WO CON CLINICAL HISTORY: fall COMPARISON: No exams were available for comparison TECHNIQUE: Axial images obtained with sagittal and coronal reformats. All CT scans at the facility use one or more dose reduction, viz: automated exposure control, ma/kV adjustment per patient size (including targeted exams where dose is matched to indication, i.e. head), or iterative reconstruction technique. FINDINGS: Bones: Unremarkable. No fracture, lytic, or blastic changes evident. Extracranial soft tissues: Unremarkable. Sinuses: Stable 1.5 cm mucous retention cyst medial wall left maxillary sinus. The paranasal sinuses otherwise appear clear.. There is mild rightward bowing of the nasal septum. Orbits: Unremarkable. Other: There is mild arthritic change of the right TMJ, left TMJ is unremarkable. IMPRESSION: Negative for facial bone fracture and negative for any significant soft tissue injury Dictated by: Dr. Rivera Park MD 12/04/2019 13:[address] Rivera Park MD in [place] 12/04/2019 13:41
--- NOTE | 2019-12-04 13:02 | CT_ITS ---
PROCEDURE: CT PELVIS WO CON CLINICAL INDICATION: hip fx after a fall COMPARISON: [id number] HIP RT 2-3V W/PELVIS IF PERFOR from 12/24/2016 TECHNIQUE: Axial images obtained with sagittal and coronal reformats. All CT scans at the facility use one or more dose reduction, viz: automated exposure control, ma/kV adjustment per patient size (including targeted exams where dose is matched to indication, i.e. head), or iterative reconstruction technique. FINDINGS: Bony pelvis: There is generalized osteopenia. There is a subcapital femoral neck fracture left side. The femoral head remains well seated within the acetabulum. There is slight anterior angulation of the femoral neck portion of the femoral neck fracture. The right hip is intact. The iliac bones and pubic bones appear intact. The SI joints are normal. There is moderate degenerate change of the AC joint. Hips:Left-sided subcapital femoral neck fracture Sacrum/coccyx: Unremarkable as visualized. No acute fracture. Soft tissues:Unremarkable Other findings: No other pertinent findings IMPRESSION: Subcapital femoral neck fracture left side Dictated by: Dr. Rivera Park MD 12/04/2019 13:[address] Rivera Park MD in [place] 12/04/2019 13:54
--- NOTE | 2019-12-04 13:14 | PC.NURSE ---
director tradingmeghann Ramos called and stated that pt is unable to lay still and that she needed pain medicine. Spoke with Dr Negrete about it and he gave a verbal order for pain meds. Pt nurse aware
--- NOTE | 2019-12-04 13:28 | PC.NURSE ---
Pt returned from rad
--- NOTE | 2019-12-04 14:24 | HMH.EDGENADL ---
ED Disposition Clinical Impression: Closed left hip fracture Qualifiers: Encounter type: initial encounter Qualified Code(s): S72.002A - Fracture of unspecified part of neck of left femur, initial encounter for closed fracture Facial contusion Qualifiers: Encounter type: initial encounter Qualified Code(s): S00.83XA - Contusion of other part of head, initial encounter Disposition: Admitted As Inpatient Condition on Discharge: Fair Referrals: Shahid Lopez MD [Primary Care Provider] - - Critical Care Critical Care Time: No Attestation: On 12/04/19, the high probability of a clinically significant, sudden or life threatening deterioration of the following system(s) required my full and direct attention, intervention and personal management. The time I documented below is in addition to time spent performing reported procedures but includes the following listed in this critical care notation. Medical Decision Making - Eduardo Inquiry Pt receiving controlled substance: Yes Eduardo was queried for this patient: No Reason not queried -: Emergent pt cond-no time Risks and benefits of using a controlled substance: were not discussed with pt by me Vital Signs: 12/04/19 12:29 12/04/19 12:52 12/04/19 13:29 Temperature 97.6 F Temperature Source Oral Pulse Rate [Right Brachial] 81 80 83 Respiratory Rate 22 Blood Pressure [Right Arm] 181/76 H 170/83 H 172/89 H Blood Pressure Mean [Right Arm] 111 112 116 Blood Pressure Source [Right Arm] Automatic Cuff Automatic Cuff Automatic Cuff Blood Pressure Position [Right Arm] Supine Sitting Sitting 02 Sat by Pulse Oximetry 100 100 98 Oxygen Delivery Method Room Air Room Air Room Air 12/04/19 14:07 Temperature Temperature Source Pulse Rate [Right Brachial] 86 Respiratory Rate Blood Pressure [Right Arm] 161/85 H Blood Pressure Mean [Right Arm] 110 Blood Pressure Source [Right Arm] Automatic Cuff Blood Pressure Position [Right Arm] Sitting 02 Sat by Pulse Oximetry 96 Oxygen Delivery Method Room Air - Lab Data Lab Results 12/04/19 15:05: Urine Color Yellow, Urine Appearance Clear, Urine pH 8.0, Ur Specific [place] 1.020, Urine Protein Negative, Urine Glucose (UA) Negative, Urine Ketones Negative, Urine Blood 2+, Urine Nitrate Negative, Urine Bilirubin Negative, Urine Urobilinogen 0.2, Ur Leukocyte Esterase 3+ A Orders (Tests/Meds): ED MEDICATIONS Discontinued Medications Generic Name Dose Route Start Last Admin Trade Name Lory PRN Reason Stop Dose Admin Morphine Sulfate 4 mg 12/04/19 13:42 12/04/19 13:44 Morphine 4mg/Ml Syringe IV 12/04/19 13:43 4 mg ONCE ONE Administration Ondansetron HCl 2 mg 12/04/19 13:37 12/04/19 13:43 Zofran 4mg/2ml Vial IV 12/04/19 13:38 2 mg ONCE ONE Administration ORDERS Category Date Time Status Consult to Orthopedic Surgery [CONS] Stat Cons 12/04/19 14:36 Ordered Hip XR left minimum 2 views [XR hip LT 2-3V w/pelvis] Exams 12/04/19 14:42 Taken Stat XR chest portable Routine Exams 12/04/19 Taken CBC [Complete Blood Count Auto Diff] Stat Lab 12/04/19 12:46 Ordered CMP [Comprehensive Metabolic Panel] Stat Lab 12/04/19 12:46 Ordered Urinalysis and Microscopic Stat Lab 12/04/19 15:05 Received Urine Culture Stat Micro 12/04/19 15:05 Received - CT Data CT Scan: Head, C-Spine, Pelvis, Other (facial) Time Received: 14:[address] Reviewed: Yes: I have viewed the radiologist's interpretation Findings Narrative: PROCEDURE: CT PELVIS WO CON CLINICAL INDICATION: hip fx after a fall COMPARISON: [id number] HIP RT 2-3V W/PELVIS IF PERFOR from 12/24/2016 TECHNIQUE: Axial images obtained with sagittal and coronal reformats. All CT scans at the facility use one or more dose reduction, viz: automated exposure control, ma/kV adjustment per patient size (including targeted exams where dose is matched to indication, i.e. head), or iterative reconstruction technique. FINDING
--- NOTE | 2019-12-04 14:42 | XR_ITS ---
PROCEDURE: XR HIP LT 2-3V W/PELVIS CLINICAL INDICATION: left hip fracture COMPARISON: XR PELVIS 1-2V from 03/26/2019 CT PELVIS WO CON from 12/04/2019 FINDINGS: There is mildly impacted left transcervical femoral neck fracture with superior displacement of the distal fracture fragment by approximately 2 cm and lateral displacement of the distal fracture fragment by 1.7 cm. IMPRESSION: Impacted/displaced left femoral neck fracture Dictated by: Meño Herrera MD 12/04/2019 15:28 Electronically signed by Meño Herrera MD in [place] 12/04/2019 15:28
[2019-12-04 15:09] LABS: Microscopic, Urine URINE MICROSCOPIC (MICROSCOPIC)
[2019-12-04 15:10] LABS: Appearance,Urine CLEAR (Clear); Bilirubin,Urine Negative (Negative); Blood, Urine 2+ (Negative); Color,Urine YELLOW (Yellow); Glucose,Urine (UA) Negative (Negative); Ketones,Urine Negative (Negative); Leukocyte Esterase,Urine 3+ (Negative); Nitrate,Urine Negative (Negative); Protein,Urine Negative (Negative); Urobilinogen,Urine 0.2 EU/dl (0.2)
--- NOTE | 2019-12-04 15:11 | PC.NURSE ---
calling dr will at this time.
--- NOTE | 2019-12-04 15:11 | PC.NURSE ---
Dr velasco speaking with dr will
--- NOTE | 2019-12-04 15:14 | PC.NURSE ---
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
--- NOTE | 2019-12-04 15:31 | PC.NURSE ---
Dr Arreola at bedside
[2019-12-04 15:37] LABS: Bacteria,Urine 2+ /lpf
--- NOTE | 2019-12-04 16:11 | HMH.ORTHOCON ---
*Admission Date: 12/04/19 *Reason for consult:: L hip fracture *History of present illness: 79-year-old female with a chief complaint of left hip pain after a fall at home earlier today. She slipped on a rug in her home and fell, landing on the left side. She had immediate pain in her left hip and was unable to ambulate, thus presented to [facility] ER for evaluation. She denies any loss of consciousness during this fall and had no preceding headache, dizziness, chest pain or shortness of breath. She reports current pain only in the left hip, no pain elsewhere. No open wounds over the hip, no bruising or erythema, no numbness or tingling in the left lower extremity. Medical history is significant for hypertension, hypothyroidism, history of B-cell lymphoma. She has undergone total hysterectomy. She is retired, a former smoker; BMI 22. Home medications include atorvastatin, levothyroxine, paroxetine, aspirin, benzonatate, celecoxib, famotidine, hydrocodone, loratadine, Tod Strahl, MS Contin, albuterol, fluticasone, meclizine, montelukast, valsartan. She is allergic to alprazolam, tetanus and diphtheria toxoids, ibuprofen, iodinated contrast material, and acetaminophen. She reports a history of chronic low back pain, which is treated with narcotic medication. Her primary care physician is Dr. Lopez. She reports being very active, and walks as frequently as she can. She has been 1 year off of her chemotherapy for lymphoma and is considered in remission; she follows up every 3 months with her oncologist. She has just recently recovered enough energy to start increasing her activity and she continues to drive herself. Review of Systems - Review of Systems Review of systems:: pertinent systems reviewed and negative unless documented below - *Neurologic Denies headache(s), Denies numbness, Denies weakness [facility] History I have reviewed the patient's past medical history: Yes Medical History: Reports:: Cancer (throat, uterian) Denies:: Diabetes Mellitus Type 1, Diabetes Mellitus Type 2, MRSA *Have you ever received a pneumonia vaccine?: Yes *Have you received a flu vaccine this season?: Yes Other Medical History: Reports: Arthritis, Chemotherapy, Hypothyroidism Laterality Cases: Bilateral: Other Other Surgeries: Yes: Hysterectomy-Total, Other Amputation: No Fractures: No - *Social History Smoking Status: Former smoker Alcohol Intake: never *Occupational Status:: retired Housing: house Household Members: none *Travel in the last 8 weeks: None Family Hx:: Asthma, Hypertension, Stroke Meds Home Medications Medication Instructions Recorded Confirmed Type Atorvastatin Calcium [Lipitor 10mg 10 mg PO DAILY 06/05/17 03/26/19 History Tab] Levothyroxine Sodium 50 mcg PO DAILY 06/05/17 03/26/19 History [Levothyroxine 50mcg (0.05mg) Tab] PARoxetine HCl [Paxil] 20 mg PO DAILY 06/05/17 03/26/19 History Aspirin [Aspir 81] 81 mg PO HS 06/10/18 03/26/19 History Benzonatate [Benzonatate 200mg Cap] 200 mg PO TIDP PRN 06/10/18 03/26/19 History Celecoxib 200 mg PO BID 06/10/18 03/26/19 History Famotidine [Pepcid 20mg Tablet] 20 mg PO DAILY 06/10/18 03/26/19 History Hydrocodone Bit/Homatrop Me-Br 1 each PO Q4HP PRN 06/10/18 03/26/19 History [Hydrocodone-Homatropine 5-1.5] Loratadine [Claritin 10mg 10 mg PO DAILYP PRN 06/10/18 03/26/19 History Tablet] Megestrol Acetate [Megestrol 40 mg PO BID 06/10/18 03/26/19 History Acetate 40mg Tablet] Morphine Sulfate [MS Contin 15mg 15 mg PO DAILY 06/10/18 03/26/19 History EXTENDED RELEASE tablet] Albuterol Sulfate [Ventolin HFA 1 puff INHALATION Q4H PRN 03/26/19 03/26/19 History Inhaler] Fluticasone Propionate [Flonase 1 spr NS DAILY 03/26/19 03/26/19 History 50mcg nasal spray 16gm] Meclizine HCl [Meclizine 12.5mg 12.5 mg PO TID PRN 03/26/19 03/26/19 History Tab] Montelukast Sodium [Montelukast 10 mg PO DAILY 03/26/19 03/26/19 History 10mg Tab]
--- NOTE | 2019-12-04 16:21 | PC.NURSE ---
PT HAS BEEN ADMITTED TO SECOND FLOOR. REPORT CALLED TO SAIMA COLLADO RN.
--- NOTE | 2019-12-04 16:35 | HMH.HP ---
*Admission Date: 12/04/19 *Chief complaint: left hip pain *History of present illness: 79-year-old female with a chief complaint of left hip pain after a fall at home earlier today. She slipped on a rug in her home and fell, landing on the left side. She had immediate pain in her left hip and was unable to ambulate, thus she presented to [facility] ER for evaluation. She denies any loss of consciousness during this fall and had no preceding headache, dizziness, chest pain or shortness of breath. She reports current pain only in the left hip, no pain elsewhere. No open wounds over the hip, no bruising or erythema, no numbness or tingling in the left lower extremity. Medical history is significant for hypertension, hypothyroidism, history of B-cell lymphoma. She has undergone total hysterectomy. She is retired, a former smoker; BMI 22. Home medications include atorvastatin, levothyroxine, paroxetine, aspirin, benzonatate, celecoxib, famotidine, hydrocodone, loratadine, Tod Strahl, MS Contin, albuterol, fluticasone, meclizine, montelukast, valsartan. She is allergic to alprazolam, tetanus and diphtheria toxoids, ibuprofen, iodinated contrast material, and acetaminophen. She reports a history of chronic low back pain, which is treated with narcotic medication. Her primary care physician is Dr. Lopez. She reports being very active, and walks as frequently as she can. She has been 1 year off of her chemotherapy for lymphoma and is considered in remission; she follows up every 3 months with her oncologist. She has just recently recovered enough energy to start increasing her activity and she continues to drive herself. (the above as per Dr. Arreola) [facility] History I have reviewed the patient's past medical history: Yes Medical History: Reports:: Cancer (B cell lymphoma), Hyperlipidemia, Hypertension Denies:: Diabetes Mellitus Type 1, Diabetes Mellitus Type 2, MRSA *Have you ever received a pneumonia vaccine?: Yes *Have you received a flu vaccine this season?: Yes Other Medical History: Reports: Arthritis, Chemotherapy, Hypothyroidism Laterality Cases: Bilateral: Other Other Surgeries: Yes: Hysterectomy-Total, Other (bone spurs) Amputation: No Fractures: No - *Social History Smoking Status: Former smoker Alcohol Intake: never *Occupational Status:: retired Housing: house Household Members: none *Travel in the last 8 weeks: None Family Hx:: Asthma, Hypertension, Stroke Review of Systems - Constitutional Reports weakness, Denies fever(s), Denies headache(s) - Eyes Denies blurry vision, Denies double vision - ENT Reports nasal congestion, Denies sore throat - *Cardiovascular Denies chest pain, Denies shortness of breath, Denies rapid, pounding, or irregular heartbeat - *Respiratory Denies cough, Denies shortness of breath - *Gastrointestinal Denies abdominal pain, Denies loose stools, Denies nausea, Denies vomiting - *Genitourinary Denies difficulty urinating, Denies painful urination - *Musculoskeletal Reports joint pain (left hip), Reports back pain (low back - chronic) - *Neurologic Denies headache(s), Denies numbness, Denies dizziness, Denies weakness Meds Home Medications Medication Instructions Recorded Confirmed Type Atorvastatin Calcium [Lipitor 10mg 10 mg PO DAILY 06/05/17 12/04/19 History Tab] Levothyroxine Sodium 50 mcg PO DAILY 06/05/17 12/04/19 History [Levothyroxine 50mcg (0.05mg) Tab] PARoxetine HCl [Paxil] 20 mg PO DAILY 06/05/17 12/04/19 History Celecoxib 200 mg PO BID 06/10/18 12/04/19 History Famotidine [Pepcid 20mg Tablet] 20 mg PO DAILY 06/10/18 12/04/19 History Montelukast Sodium [Montelukast 10 mg PO DAILY 03/26/19 12/04/19 History 10mg Tab] Allergies Allergy/AdvReac Type Severity Reaction Status Date / Time cucumber [CUCUMBER] Allergy Severe HIVES, Verified 12/04/19 16:45 SWELLING, TROUBLE BREATHING alprazolam [From XANAX] Allergy
[2019-12-04 17:17] LABS: Basophils % 0.2 % (0.1-2.0); Eosinophils # 0.1 K/mm3 (0.0-0.4); Eosinophils % 0.6 % (0.1-12.0); Hematocrit 41.6 % (37.0-47.0); Hemoglobin 14.4 g/dL (12.2-16.2); Lymphocytes # 1.9 K/mm3 (0.7-4.5); Lymphocytes % 15.7 % (10-50); Mean Corpuscular HGB Conc 34.5 g/dL (31.8-35.4); Mean Corpuscular Hemoglobin 31.5 pg (27.0-31.2); Mean Corpuscular Volume 91.2 fl (81-99); Mean Platelet Volume 7.4 fl (7.4-10.4); Monocytes # 0.5 K/mm3 (0.1-1.0); Monocytes % 3.9 % (1.7-9.3); Neutrophils # 9.8 K/mm3 (1.8-7.8); Neutrophils % 79.6 % (37.0-80.0); Platelet Count 221 K/mm3 (142-424); Red Blood Count 4.56 M/mm3 (4.20-5.40); Red Cell Distribution Width 13.4 % (11.5-17.5); White Blood Count 12.3 K/mm3 (4.8-10.8)
[2019-12-04 17:25] LABS: Chloride 108 mmol/L (98-107); Potassium 3.8 mmoL/L (3.5-5.1); Sodium 139 mmol/L (136-145)
[2019-12-04 17:28] LABS: Alanine Aminotransferase 26 U/L (12-78); Albumin/Globulin Ratio 1.3 (1.1-1.8); Alkaline Phosphatase 116 U/L (38-126); Aspartate Amino Transferase 38 U/L (14-36); Bilirubin,Total 0.6 mg/dl (0.2-1.3); Blood Urea Nitrogen 19 mg/dl (7-17); Calcium 9.1 mg/dl (8.4-10.2); Creatinine Clearance Estimated 36 mL/min (50-200); Estimated Glomerular Filt Rate 43 ml/min (>60); GFR (African American) 52 ML/MIN (>60); Glucose 96 mg/dl (74-100)
--- NOTE | 2019-12-04 18:01 | PC.NURSE ---
Pt was a new admit this shift from the ER with a LT hip fx. Pt is pleasant and cooperative. Pt has complained of pain since since arrival to the unit and requested something different than Morphine. Dr. Arreola was contacted and orders were received to DC Morphine and begin Dilaudid. No complaints of SOA. F/C is patent and draining clear, yellow urine to gravity at bedside. NANDINI hose in place to BLE. IPC sleeve in place to RLE. Pt requires 1 assist when turning/repositioning. Hip sx is scheduled tomorrow AM and consent has been obtained and placed on chart. Lungs CTA. B/P slightly elevated, although other VSS. A&O X4. Call light within reach. Will continue to monitor.
[2019-12-04 18:56] LABS: Anion Gap 9.8 mEq/L (5-15); Carbon Dioxide 25 mmol/L (22.0-30.0)
[2019-12-04 19:04] LABS: Activated Partial Thrombo Time 22.1 seconds (23.6-34.0); INR 1.01 (0.9-1.1); Prothrombin Time 10.4 seconds (9.4-11.8)
--- NOTE | 2019-12-04 19:09 | PC.NURSE ---
report given to chito
--- NOTE | 2019-12-04 20:10 | HMH.ACPN2 ---
Internal Medicine - PN: Subj *Date: 12/04/19 *Time: 20:10 Interval history: The patient received 0.5 mg of Dilaudid for pain. She soon began itching and feeling flushed. She was given Benadryl 25 mg by mouth and 40 mg of Solu-Medrol IV but she became less responsive. Her eyes rolled back in her head. Her oxygen saturations dropped. Dr. Peraza was on the floor at the time. Patient's blood pressure was in the range of 200/70. She seemed to be trying to doze off and would respond to stimulation. Her heart rate remained regular. Narcan 1 mg was given IV and she became more alert and responsive though still uncomfortable. Chest x-ray and EKG were ordered. Exam Vital signs and Labs for Last 24 Hours: Temp Pulse Resp BP Pulse Ox 98.2 F 88 20 147/87 H 98 12/04/19 16:23 12/04/19 16:30 12/04/19 16:30 12/04/19 16:23 12/04/19 16:30 Laboratory Results - last 24 hr 12/04/19 15:05: Urine Color Yellow, Urine Appearance Clear, Urine pH 8.0, Ur Specific [place] 1.020, Urine Protein Negative, Urine Glucose (UA) Negative, Urine Ketones Negative, Urine Blood 2+, Urine Nitrate Negative, Urine Bilirubin Negative, Urine Urobilinogen 0.2, Ur Leukocyte Esterase 3+ A, Urine RBC 3-5, Urine WBC 5-10, Ur Squamous Epith Cells 3-5, Urine Bacteria 2+ 12/04/19 17:05: WBC 12.3 H, RBC 4.56, Hgb 14.4, Hct 41.6, MCV 91.2, MCH 31.5 H, MCHC 34.5, RDW 13.4, Plt Count 221, MPV 7.4, Neut % (Auto) 79.6, Lymph % (Auto) 15.7, [place] % (Auto) 3.9, Eos % (Auto) 0.6, Baso % (Auto) 0.2, Neut # (Auto) 9.8 H, Lymph # (Auto) 1.9, [place] # (Auto) 0.5, Eos # (Auto) 0.1, Baso # (Auto) 0.0 12/04/19 17:05: PT 10.4, INR 1.01, APTT 22.1 L 12/04/19 17:05: Sodium 139, Potassium 3.8, Chloride 108 H, Carbon Dioxide 25, Anion Gap 9.8, BUN 19 H, Creatinine 1.20 H, Estimated Creat Clear 36, Estimated GFR 43 L, Est GFR ( Amer) 52 L, Glucose 96, Calcium 9.1, Total Bilirubin 0.6, AST 38 H, ALT 26, Alkaline Phosphatase 116, Total Protein 7.0, Albumin 4.0, Globulin 3.0, Albumin/Globulin Ratio 1.3 12/04/19 17:05: Blood Type B Positive, Antibody Screen Negative I & O for Last 24 hours: Intake & Output 12/02/19 12/03/19 12/04/19 12/05/19 11:59 11:59 11:59 11:59 Intake Total 360 / 360 Balance 360 / 360 Weight 323 lb 13.745 oz - Constitutional somnolent - *Routine HEENT Exam Eye: Present: PERRL (Eyes rolled back in her head.) - *Routine Respiratory Exam Absent: respiratory distress (She tended to stop breathing and have to be reminded to breathe.) - *Routine Cardiovascular Exam Present: RRR (EKG showed sinus tachycardia at 117 with no evidence of acute injury) - *Routine Abdominal Exam Present: soft. Absent: tenderness - *Routine Extremities Exam Absent: edema - *Routine Neurological Exam Present: alert (As described above. Became more alert after receiving Narcan.) Assessment and Plan (1) Left displaced femoral neck fracture Current visit: Yes Status: Acute Category: Medical Code(s): S72.002A - Fracture of unspecified part of neck of left femur, initial encounter for closed fracture (2) Fall Current visit: No Status: Acute Category: Medical Code(s): W19.XXXA - Unspecified fall, initial encounter (3) Hypertension Current visit: No Status: Acute Category: Medical Code(s): I10 - Essential (primary) hypertension (4) Hypothyroidism Current visit: No Status: Acute Category: Medical Code(s): E03.9 - Hypothyroidism, unspecified (5) B-cell lymphoma Current visit: No Status: Chronic Qualifiers: 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
--- NOTE | 2019-12-04 20:22 | XR_ITS ---
PROCEDURE: XR CHEST PORTABLE CLINICAL HISTORY: soa, decreased O2 sat COMPARISON: CXR2V XR chest 2V from 06/11/2018 CXR2V XR chest 2V from 06/16/[address] chest wo con from 11/26/2018 XR CHEST AP from 03/26/2019 FINDINGS: The cardiomediastinal silhouette and pulmonary vascularity are within normal limits. Scarring noted in the right upper lobe medially with volume loss similar to multiple previous exams in a previous chest CT. No new areas of consolidation. Bone plate along the lower cervical spine IMPRESSION: Chronic changes. No change no acute finding Dictated by: Meño Herrera MD 12/05/2019 06:34 Electronically signed by Meño Herrera MD in [place] 12/05/2019 06:34
--- NOTE | 2019-12-04 20:24 | ECG_ITS ---
APPROVED REPORT Exam: Resting ECG HR:116 bpm ECG Measurements Heart Rate 116 AXES MN 166 P 73 QRSd 88 QRS 67 QT 336 T 89 QTc 467 <Conclusion> Sinus tachycardia Nonspecific ST and T wave abnormality Abnormal ECG Electronically signed by : Tanvir Vela, 12/07/2019 17:13:50
--- NOTE | 2019-12-04 21:09 | PC.NURSE ---
Dr Arreola updated on pt status. Clarification of new medication order Morphine. Give Morphine 2 mg Q4 hrs as needed for pain at this time.
[2019-12-04 21:15] LABS: Chloride 105 mmol/L (98-107)
[2019-12-04 21:16] LABS: Potassium 4.2 mmoL/L (3.5-5.1); Sodium 138 mmol/L (136-145)
[2019-12-04 21:18] LABS: Alanine Aminotransferase 28 U/L (12-78); Alkaline Phosphatase 113 U/L (38-126); Anion Gap 12.2 mEq/L (5-15); Aspartate Amino Transferase 41 U/L (14-36); Bilirubin,Total 0.6 mg/dl (0.2-1.3); Blood Urea Nitrogen 20 mg/dl (7-17); Carbon Dioxide 25 mmol/L (22.0-30.0); Creatinine Clearance Estimated 31 mL/min (50-200); Estimated Glomerular Filt Rate 36 ml/min (>60); GFR (African American) 44 ML/MIN (>60)
[2019-12-04 21:19] LABS: Albumin Level 3.9 g/dl (3.5-5.0); Albumin/Globulin Ratio 1.3 (1.1-1.8); Calcium 9.2 mg/dl (8.4-10.2); Globulin 3.1 g/dL (1.3-3.2)
[2019-12-04 21:31] LABS: Glucose 192 mg/dl (74-100)
--- NOTE | 2019-12-04 22:10 | PC.NURSE ---
1934- pt c/o itching and hot all over. family concerned of Dilaudid reaction. MD in building (Stu) notified 1941- Benadryl 25 mg and Solu-Medrol 40 mg administered 1954- family came out in hallway for help, stated pt was shaking all over like a seizure 1955- VS obtained, O2 applied (O2 67%) 3L NC. Pt O2 recovered, BP was elevated 1999- MD Peraza assessed pt, ordered: EKG, BMP, CXR, Narcan 1mg. 2004- 1mg of Narcan administered 2019- VSS. Pt is resting in bed with family at bedside
[2019-12-05] VITALS (25 sets, daily range): BP systolic 94–152; BP diastolic 40–70; PULSE 87–107; RESP 12–21; TEMP 36.3–43; O2SAT 92–100; BMI 50.8
--- NOTE | 2019-12-05 02:48 | PC.NURSE ---
Family remains at bedside. Pt is resting comfortably in bed. Pt has had no c/o pain so far this shift. Vital signs have remained stable. Call light is within reach. Will continue to monitor.
--- NOTE | 2019-12-05 07:49 | PC.NURSE ---
pt to OR
--- NOTE | 2019-12-05 08:16 | PC.NURSE ---
at this time verified with lab that patient had not had a covid 19 test
--- NOTE | 2019-12-05 09:33 | HMH.ANESCL ---
[facility] Anesthesia Checklist - Patient Identification Patient Identification: Arm Band - Structural Data Admitted From: Home Planned Operative Procedure/s: left total hip arthroplasty Consent for Planned Operative Procedure(s) Verified: Yes Verified Documents: Surgical Consent, History and Physical - NPO Status Verified Time NPO: 00:00 - Additional verifications Anesthesia Reactions: No - Airway Assessment C-Spine Mobility Assessed: Yes TMJ Mobility Assessed: Yes Dentition: Good Dentition (lower partial, upper intact) - Neurological Assessment Level of Consciousness: Awake, Alert - Anesthesia Plan Anesthesia Risk discussed: Yes Anesthesia Plan: Verified ASA Class: III Anesthesia Type: MAC w/Spinal [facility] History I have reviewed the patient's past medical history: Yes Medical History: Reports:: Asthma, Cancer (B cell lymphoma), Gastroesophageal Reflux Disease(GERD), Hyperlipidemia, Hypertension Denies:: Diabetes Mellitus Type 1, Diabetes Mellitus Type 2, MRSA *Have you ever received a pneumonia vaccine?: Yes *Have you received a flu vaccine this season?: Yes Other Medical History: Reports: Arthritis, Chemotherapy, Hypothyroidism Anesthesia experience/problems:: nac Laterality Cases: Bilateral: Other Other Surgeries: Yes: Hysterectomy-Total, Other (bone spurs) Amputation: No Fractures: Yes - *Social History Last grade of school completed: Advanced degree Smoking Status: Never smoker Alcohol Intake: never Substance Use Type: denies use *Occupational Status:: retired Housing: house Household Members: none *Travel in the last 8 weeks: None Family Hx:: Stroke
--- NOTE | 2019-12-05 10:20 | P.CONPHA_ITS ---
[facility] Pharmacy VTE Monitoring - Patient Demographics Admission date: 12/05/19 Report Date: 12/05/19 Time: 10:20 Allergies/Adverse Reactions: Patient Allergies cucumber [CUCUMBER] Allergy (Severe, Verified 12/04/19 16:45) HIVES, SWELLING, TROUBLE BREATHING alprazolam [From XANAX] Allergy (Intermediate, Verified 12/04/19 16:45) ADVERSE tetanus and diphtheria toxoids [TETANUS AND DIPHTHERIA TOXOIDS] Allergy (Mild, Verified 12/04/19 16:45) ibuprofen [IBUPROFEN] Allergy (Unknown, Verified 12/04/19 16:45) STATED IT INTERACTS WITH CHEMO Iodinated Contrast Media [IODINATED CONTRAST MEDIA - ORAL AND] Allergy (Unknown, Verified 12/04/19 16:45) acetaminophen [From TYLENOL] Adverse Reaction (Unknown, Verified 12/04/19 16:45) INTERACT WITH CHEMO Height: 1.7 m Weight: 66.633 kg Patient Problems: Current Active Problems Closed left hip fracture (Acute) Facial contusion (Acute) Left displaced femoral neck fracture (Acute) Adverse reaction to narcotic drug (Acute) - VTE Risk Labs: VTE Related Lab Results Hgb 14.4 g/dL (12.2-16.2) 12/04/19 17:05 Hct 41.6 % (37.0-47.0) 12/04/19 17:05 Plt Count 221 K/mm3 (142-424) 12/04/19 17:05 PT 10.4 seconds (9.4-11.8) 12/04/19 17:05 INR 1.01 (0.9-1.1) 12/04/19 17:05 APTT 22.1 seconds (23.6-34.0) L 12/04/19 17:05 BUN 20 mg/dl (7-17) H 12/04/19 20:43 Creatinine 1.40 mg/dl (0.52-1.04) H 12/04/19 20:43 Estimated Creat Clear 31 mL/min (50-200) 12/04/19 20:43 Was VTE Risk Assessment Performed: Yes VTE Score: 5 VTE Risk Level: Low Risk - Prophylaxis Types of VTE Prophylaxis: TEDS Knee High, IPCS Knee High (ICDS ORDERED) Location of Applied Device: Right Leg
--- NOTE | 2019-12-05 12:45 | P.PN_ITS ---
[facility] Anesthesia Record Part I Intake, IV Amount: 1,700 Estimated blood loss (mL): 200 Urine output (mL): 200 Blood Pressure: 133/56 SaO2: 96 Pulse Rate: 97 Respiratory Rate: 16 Temperature: 97.5 F Patient is:: Drowsy, Stable
--- NOTE | 2019-12-05 12:53 | XR_ITS ---
PROCEDURE: XR HIP LT 2-3V W/PELVIS CLINICAL INDICATION: s/p L MAHESH Follow-up hip replacement COMPARISON: XR HIP LT 2-3V W/PELVIS from 12/04/2019 FINDINGS: Status post total left hip replacement. There is good alignment with no evidence of orthopedic complication. Postsurgical gas and clips noted. There is a Sanchez catheter present. IMPRESSION: Good alignment status post total hip arthroplasty on the left Dictated by: Meño Herrera MD 12/05/2019 14:01 Electronically signed by Meño Herrera MD in [place] 12/05/2019 14:01
--- NOTE | 2019-12-05 13:06 | HMH.OPNOTE ---
Date of procedure: 12/05/19 Pre-op Diagnosis:: L femoral neck fracture Post-op Diagnosis:: L femoral neck fracture Procedure performed:: L total hip arthroplasty Surgeon:: Kiarra Arreola MD Motor Polarizer(s):: Liliane Elizabeth ALMOND PASTE MOLDER:: Pito White Anesthesia: MAC, spinal, LMA Estimated blood loss (mL): 200 Clinical Note:: 79-year-old female who sustained a fall at home yesterday. She slipped on a rug in her home and fell, landing on the left side. She had immediate pain in her left hip and was unable to ambulate, thus presented to [facility] ER for evaluation. She denied any loss of consciousness during the fall and had no preceding headache, dizziness, chest pain or shortness of breath. She reported pain only only in the left hip, no pain elsewhere. No open wounds over the hip, no bruising or erythema, no numbness or tingling in the left lower extremity. Medical history is significant for hypertension, hypothyroidism, history of B-cell lymphoma. She is a former smoker; BMI 22. Home medications include atorvastatin, levothyroxine, paroxetine, aspirin, benzonatate, celecoxib, famotidine, hydrocodone, loratadine, Tod Strahl, MS Contin, albuterol, fluticasone, meclizine, montelukast, valsartan. On further questioning, she no longer takes MS Contin or hydrocodone; she took those while being treated for cancer. She is allergic to alprazolam, tetanus and diphtheria toxoids, ibuprofen, iodinated contrast material, and acetaminophen. The tylenol/ibuprofen are not true allergies; they were contraindicated with her chemotherapy medication and she has been off that 1 year. I discussed treatment options with the patient and her family, and I recommend surgical intervention, particularly arthroplasty. We had a discussion regarding the risks and benefits of both hemiarthroplasty and total hip arthroplasty, including potential benefits for activity and long-term outcomes. We also discussed the technique of cementing versus press-fit femoral stems. After talking with the patient about her current level of activity and her goals in the future, we have agreed upon a total hip arthroplasty with a cemented femoral component. We talked about the risks of surgery, including bleeding, infection, intraoperative fracture, postoperative periprosthetic infection, postoperative hip dislocation, possible limb length discrepancy, possible use of a cane or walker for assistance, need for postoperative hip precautions and use of an abductor pillow, and need for potential revision surgery in the future. The patient vocalized understanding and provided informed consent for the procedure. She was seen and cleared by Dr. Peraza. Operative findings:: IMPLANTS: [employer] total hip arthroplasty system (Synergy stem/R3 cup) 56mm 3-hole R3 acetabular shell 6.5mm cancellous screws x2 in cup, 25mm in length each 0 degree polyethylene acetabular liner (UHMWPE) Synergy cemented femoral stem, size 12; high-offset neck oxinium femoral head, 36mm +4 Operative note:: The patient was identified in preoperative holding and the L hip signed by myself. Consent was verified with the patient and all questions answered. She was then taken to the operating room where spinal anesthesia was administered on her hospital bed. Once spinal was performed, she was transferred to the operative table and 1g Ancef and the first dose of tranexamic acid (10mg/kg) was infused intravenously. She was placed into the right lateral decubitus position with an axillary roll, arms on arm boards supported with pillows, and all bony prominences including the right lower extremity well-padded. SCD was placed on the right lower extremity. The left hip was then prepped and draped in the usual sterile fashion. Timeout was performed, identifying the correct patient, correct procedure and correct site. The procedure was begun by making a longitudinal, curvilinear incision over the posterolateral aspect
--- NOTE | 2019-12-05 13:32 | PC.NURSE ---
received report @ [id number] from Aby Gilmore RN in the OR.
[2019-12-05 13:34] LABS: Coronavirus 19 IgG Antibody Negative (Negative); Coronavirus 19 IgM Antibody Negative (Negative)
--- NOTE | 2019-12-05 13:46 | HMH.ORTHPN ---
Subjective Date: 12/05/19 Time: 13:45 Principal diagnosis: L femoral neck fracture Interval history: The patient underwent L MAHESH this morning for displaced femoral neck fracture sustained yesterday during a fall at home. She did well during surgery with no immediately complications. 1700cc LR given, 200cc UOP, 200cc EBL. 1g Ancef + 2 doses of TKA given (10mg/kg). PN: Obj Ex Vital signs: Temp Pulse Resp BP Pulse Ox 97.5 F L 97 H 16 133/56 L 95 12/05/19 12:47 12/05/19 12:47 12/05/19 12:47 12/05/19 12:47 12/05/19 08:00 - Constitutional no acute distress - Routine Respiratory Exam Present: CTA bilaterally. Absent: wheezes - Routine Cardiovascular Exam Present: RRR - Routine Extremities Exam Comments: spinal remains in effect, no motor/sensory below waist abduction pillow in place between legs dressing L hip c/d/i, no strikethrough palpable pedal pulses LLE, foot warm/pink L calf soft, compressible, non-tender - Routine Neurological Exam Present: alert, oriented X3 - Urinary Catheter Management Aaron Cath placed during this visit: no Progress Note: A&P (1) Left displaced femoral neck fracture Status: Acute Current Visit: Yes (2) Fall Status: Acute Current Visit: No (3) Hypertension Status: Acute Current Visit: No (4) Hypothyroidism Status: Acute Current Visit: No (5) B-cell lymphoma Status: Chronic Current Visit: No (6) Adverse reaction to narcotic drug Status: Acute Current Visit: Yes Assessment and Plan for All Diagnoses:: 79yo F POD 0 s/p L MAHESH for displaced femoral neck fracture -- WBAT LLE, out of bed ad tommy with assistance and a walker -- PT/OT to eval -- posterior hip precautions -- abduction pillow while in bed -- ice pack L hip as needed -- complete 24hr surgical antibiotic prophy -- pain control: percocet/morphine as needed -- d/c aaron tomorrow -- DVT prophy: SCDs, lovenox; lovenox to start tomorrow -- encourage IS 10x/hr while awake -- dispo planning: care management to see, dispo pending performance with PT
--- NOTE | 2019-12-05 13:58 | HMH.ACPN2 ---
Internal Medicine - PN: Subj *Date: 12/05/19 *Time: 13:58 Interval history: The patient has returned from surgery. She is awake and complaining of discomfort. I wish I could go to sleep. She received 2 mg of morphine after her surgery while in recovery. She tolerated this well. She is receiving some Toradol IV at the present time. Exam Vital signs and Labs for Last 24 Hours: Temp Pulse Resp BP Pulse Ox 97.5 F L 97 H 16 133/56 L 95 12/05/19 12:47 12/05/19 12:47 12/05/19 12:47 12/05/19 12:47 12/05/19 08:00 Laboratory Results - last 24 hr 12/04/19 15:05: Urine Color Yellow, Urine Appearance Clear, Urine pH 8.0, Ur Specific [place] 1.020, Urine Protein Negative, Urine Glucose (UA) Negative, Urine Ketones Negative, Urine Blood 2+, Urine Nitrate Negative, Urine Bilirubin Negative, Urine Urobilinogen 0.2, Ur Leukocyte Esterase 3+ A, Urine RBC 3-5, Urine WBC 5-10, Ur Squamous Epith Cells 3-5, Urine Bacteria 2+ 12/04/19 17:05: WBC 12.3 H, RBC 4.56, Hgb 14.4, Hct 41.6, MCV 91.2, MCH 31.5 H, MCHC 34.5, RDW 13.4, Plt Count 221, MPV 7.4, Neut % (Auto) 79.6, Lymph % (Auto) 15.7, [place] % (Auto) 3.9, Eos % (Auto) 0.6, Baso % (Auto) 0.2, Neut # (Auto) 9.8 H, Lymph # (Auto) 1.9, [place] # (Auto) 0.5, Eos # (Auto) 0.1, Baso # (Auto) 0.0 12/04/19 17:05: PT 10.4, INR 1.01, APTT 22.1 L 12/04/19 17:05: Sodium 139, Potassium 3.8, Chloride 108 H, Carbon Dioxide 25, Anion Gap 9.8, BUN 19 H, Creatinine 1.20 H, Estimated Creat Clear 36, Estimated GFR 43 L, Est GFR ( Amer) 52 L, Glucose 96, Calcium 9.1, Total Bilirubin 0.6, AST 38 H, ALT 26, Alkaline Phosphatase 116, Total Protein 7.0, Albumin 4.0, Globulin 3.0, Albumin/Globulin Ratio 1.3 12/04/19 17:05: Blood Type B Positive, Antibody Screen Negative 12/04/19 20:43: Sodium 138, Potassium 4.2, Chloride 105, Carbon Dioxide 25, Anion Gap 12.2, BUN 20 H, Creatinine 1.40 H, Estimated Creat Clear 31, Estimated GFR 36 L, Est GFR ( Amer) 44 L, Glucose 192 H D, Calcium 9.2, Total Bilirubin 0.6, AST 41 H, ALT 28, Alkaline Phosphatase 113, Total Protein 7.0, Albumin 3.9, Globulin 3.1, Albumin/Globulin Ratio 1.3 12/05/19 13:02: SARS-CoV-2 IgG Ab (Rapid) Negative, SARS-CoV-2 IgM Ab (Rapid) Negative I & O for Last 24 hours: Intake & Output 12/03/19 12/04/19 12/05/19 12/06/19 11:59 11:59 11:59 11:59 Intake Total 581 / 581 1700 / 1700 Balance 581 / 581 1700 / 1700 Weight 146 lb 14.4 oz Microbiology Reports for the Last 24 Hours: Microbiology 12/04/19 15:05 Urine,Catheterized Urine Culture - Preliminary - Constitutional mild distress (Due to pain) - *Routine HEENT Exam Eye: Present: PERRL - *Routine Respiratory Exam Present: CTA bilaterally - *Routine Cardiovascular Exam Present: RRR - *Routine Extremities Exam Absent: edema (The foot and toes are warm. Good capillary refill. She moves the toes.) - *Routine Neurological Exam Present: alert (Awake, appropriately responsive.) Assessment and Plan (1) Left displaced femoral neck fracture Current visit: Yes Status: Acute Category: Medical Code(s): S72.002A - Fracture of unspecified part of neck of left femur, initial encounter for closed fracture (2) Fall Current visit: No Status: Acute Category: Medical Code(s): W19.XXXA - Unspecified fall, initial encounter (3) Hypertension Current visit: No Status: Acute Category: Medical Code(s): I10 - Essential (primary) hypertension (4) Hypothyroidism Current visit: No Status: Acute Category: Medical Code(s): E03.9 - Hypothyroidism, unspecified (5) B-cell lymphoma Current visit: No Status: Chronic Qualifiers: 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
[2019-12-05 16:20] LABS: Hematocrit 30.7 % (37.0-47.0)
[2019-12-05 16:24] LABS: Hemoglobin 10.5 g/dL (12.2-16.2)
--- NOTE | 2019-12-05 17:17 | PC.NURSE ---
Left total hip surgery this shift. Pt has done well postop. Is tolerating a soft mechanical diet. Pulling 1500 on IS. Complains of pain in left hip area. Dressing is CDI. No adverse reactions noted to Morphine or Toradol. Is A&Ox3. Can wiggle toes on both feet and has positive reflexes. No edema noted. Sanchez cath with clear yellow output. TEDS and SCDs on RLE. IGg and IGm COVID-19 tests both negative today. Sats in the 90s on 2L NC. Multiple family members @ BS and are attentive to care.
[2019-12-06] VITALS (19 sets, daily range): BP systolic 99–149; BP diastolic 43–69; PULSE 94–107; RESP 13–20; TEMP 36.4–37.6; O2SAT 83–99; BMI 23.7
--- NOTE | 2019-12-06 04:15 | PC.NURSE ---
Pt has rested t/o this shift. Abductor wedge still in place. Pt remains on 2L NC. No complaints of pain this shift. Family has remained at bedside. Call light is within reach. Will continue to monitor.
--- NOTE | 2019-12-06 05:24 | PC.NURSE ---
PT HAD ABDUCTION PILLOW WHEN WEIGHED
[2019-12-06 06:08] LABS: Basophils % 0.1 % (0.1-2.0); Eosinophils % 0.1 % (0.1-12.0); Lymphocytes # 1.6 K/mm3 (0.7-4.5); Lymphocytes % 11.9 % (10-50); Mean Corpuscular HGB Conc 32.5 g/dL (31.8-35.4); Mean Corpuscular Hemoglobin 31.2 pg (27.0-31.2); Mean Corpuscular Volume 96.2 fl (81-99); Monocytes # 0.5 K/mm3 (0.1-1.0); Monocytes % 3.9 % (1.7-9.3); Neutrophils # 11.1 K/mm3 (1.8-7.8); Neutrophils % 83.9 % (37.0-80.0); Platelet Count 130 K/mm3 (142-424); Red Blood Count 2.76 M/mm3 (4.20-5.40); Red Cell Distribution Width 13.5 % (11.5-17.5); White Blood Count 13.2 K/mm3 (4.8-10.8)
[2019-12-06 06:10] LABS: Hemoglobin 8.6 g/dL (12.2-16.2)
[2019-12-06 06:11] LABS: Hematocrit 26.5 % (37.0-47.0)
[2019-12-06 06:17] LABS: Anion Gap 8.5 mEq/L (5-15); Blood Urea Nitrogen 36 mg/dl (7-17); Carbon Dioxide 27 mmol/L (22.0-30.0); Chloride 102 mmol/L (98-107); Creatinine Clearance Estimated 22 mL/min (50-200); Estimated Glomerular Filt Rate 21 ml/min (>60); GFR (African American) 26 ML/MIN (>60); Glucose 129 mg/dl (74-100); Potassium 4.5 mmoL/L (3.5-5.1); Sodium 133 mmol/L (136-145)
--- NOTE | 2019-12-06 08:06 | PC.NURSE ---
Reviewed chart and labs. WBC 13.2, Creatinine 2.20, BUN 36, urine growing gram neg rods, SBP 100, Temp 99.[address] Contact[address] Dr. Peraza with results as pt is triggering for SIRS, sepsis and organ dysfunction. New orders received for the following: obtain blood cx, draw lactic, give 200mL NS bolus now and increase maintenance fluids to 200mL/hr after bolus complete. Informed Dr. Peraza that pt received 2 doses of Cefazolin 1g yesterday and asked if he wanted additional IV abx coverage. He states no additional abx now that he will assess pt when he arrives to unit shortly.
[2019-12-06 08:56] LABS: Lactic Acid 1.7 mmol/L (0.7-2.1)
--- NOTE | 2019-12-06 09:54 | HMH.PTEV ---
Physical Therapy Evaluation Rehab PT IP Evaluation Start: 12/05/19 12:54 Freq: ONCE Status: Active Protocol: Document 12/06/19 09:48 CJ (Rec: 12/06/19 09:54 CJ [id number]) Subjective/History History History This is the initial IP PT evaluation for Laurie Bueno. Pt is an 79 y/o female admitted to [facility] s/p fall at home. Pt tripped over rug which caused her to fall fx L hip. Pt was admitted to med/ surg after L MAHESH Subjective Subjective Pt rpeorts pain in L hip and inability at this time to DF L foot - possibly due to nerve block Rehab PT IP Eval Objective Appearance Patient Behavior Appropriate,Cooperative Patient Orientation Person,Place,Time Difficulty following instructions none Speech Pattern Clear,Soft-Spoken Ambulation Patient Able to Ambulate Yes Ambulation Observation IP General Gait Pattern Observation Antalgic Gait,Shuffling Step Ambulation Distance (feet) 3 Ambulation Assistive Device None Ambulation Ability Maximum x 1 (75% assist) Balance Ability to Arise Unable Sitting Balance Steady, safe Standing Balance Unsteady Dynamic Sitting Balance Ability Fair Dynamic Standing Balance Ability Poor Transfers Bed Transfer Ability Minimal x 1 (25% assist) Chair Transfer Ability Minimal x 1 (25% assist) Sit to Stand Bed Transfer Ability Moderate x 1 (50% assist) Sit to Stand Chair Transfer Ability Maximum x 1 (75% assist) ROM LLE PT ROM Status ABN Abnormal ROM Comment no DF, MMT LLE PT MMT ABN Abnormal MMT Grade 3-/5 gross Rehab PT IP prob,goals,plan Problems Date of Evaluation: 12/06/19 PT IP Problems Bed Mobility,Transfers,Gait, Balance,Self care,Safety Rehab Potential Rehab Potential Fair Equipment Needs Assistive Devices Rolling / Wheeled Walker Plan PT Intervention Plan Bed Mobility,Transfers,Gait, Balance,Self care,Safety, Therapeutic Exercise PT Plan Frequency BID Discharge Goals Bed Transfer Ability Contact Guard/Hand Hold Sit to Stand Chair Transfer Ability Minimal x 1 (25% assist) Ambulation Assistive Device Rolling Walker Ambulation Distance (feet) 15 Discharge Plan PT Discharge Plan Pt would benefit from
--- NOTE | 2019-12-06 12:12 | P.PN_ITS ---
[facility] Anesthesia Record Part II Discharge Time: 13:30 Destination: Medical Surgical Department PACU nurse assessment reviewed?: Yes Patient Condition:: Good Anesthesia Complications:: None Swallowing reflex intact?: Yes Cyanosis?: No Blood Pressure: 132/48 Pulse Rate: 100 Temperature: 97.5 F Mental Status: Alert & Oriented Pain level:: 0 Nausea and/or vomitting:: None Intake, IV Amount: 0
--- NOTE | 2019-12-06 12:18 | HMH.ACPN2 ---
Internal Medicine - PN: Subj *Date: 12/06/19 *Time: 12:18 Interval history: Ms. Bueno is feeling okay except for pain. Her blood work comes back showing elevated BUN and creatinine. Her hemoglobin is 8.6 down from [address] Arreola did acknowledge some blood loss during the procedure. Apparently she had typed and crossed 2 units prior to surgery. We will give a unit. With the elevation in BUN and creatinine I ordered 200 cc bolus of her IV fluids and increased the rate to 125 cc an hour. Exam Vital signs and Labs for Last 24 Hours: Temp Pulse Resp BP Pulse Ox 97.5 F L 100 H 18 132/48 L 97 12/06/19 12:13 12/06/19 12:13 12/06/19 07:57 12/06/19 12:13 12/06/19 07:57 Laboratory Results - last 24 hr 12/04/19 15:05: Urine Color Yellow, Urine Appearance Clear, Urine pH 8.0, Ur Specific [place] 1.020, Urine Protein Negative, Urine Glucose (UA) Negative, Urine Ketones Negative, Urine Blood 2+, Urine Nitrate Negative, Urine Bilirubin Negative, Urine Urobilinogen 0.2, Ur Leukocyte Esterase 3+ A, Urine RBC 3-5, Urine WBC 5-10, Ur Squamous Epith Cells 3-5, Urine Bacteria 2+ 12/04/19 17:05: Crossmatch (AHG) See Detail 12/05/19 13:02: SARS-CoV-2 IgG Ab (Rapid) Negative, SARS-CoV-2 IgM Ab (Rapid) Negative 12/05/19 16:06: Hgb 10.5 L D, Hct 30.7 L 12/06/19 05:45: WBC 13.2 H, RBC 2.76 L D, Hgb 8.6 L D, Hct 26.5 L, MCV 96.2, MCH 31.2, MCHC 32.5, RDW 13.5, Plt Count 130 L D, MPV 8.0, Neut % (Auto) 83.9 H, Lymph % (Auto) 11.9, [place] % (Auto) 3.9, Eos % (Auto) 0.1, Baso % (Auto) 0.1, Neut # (Auto) 11.1 H, Lymph # (Auto) 1.6, [place] # (Auto) 0.5, Eos # (Auto) 0.0, Baso # (Auto) 0.0 12/06/19 05:45: Sodium 133 L, Potassium 4.5, Chloride 102, Carbon Dioxide 27, Anion Gap 8.5, BUN 36 H D, Creatinine 2.20 H D, Estimated Creat Clear 22, Estimated GFR 21 L, Est GFR ( Amer) 26 L D, Glucose 129 H, Calcium 8.0 L D 12/06/19 08:40: Lactate 1.7 Laboratory Tests 12/04/19 12/04/19 12/04/19 17:05 17:05 20:43 WBC 12.3 H Hgb 14.4 Sodium 139 138 BUN 19 H 20 H Creatinine 1.20 H 1.40 H 12/05/19 12/06/19 12/06/19 16:06 05:45 05:45 WBC 13.2 H Hgb 10.5 L D 8.6 L D Sodium 133 L BUN 36 H D Creatinine 2.20 H D I & O for Last 24 hours: Intake & Output 12/04/19 12/05/19 12/06/19 12/07/19 11:59 11:59 11:59 11:59 Intake Total 581 / 581 3188 / 3188 0 / 0 Output Total 210 / 210 Balance 581 / 581 2978 / 2978 0 / 0 Weight 146 lb 14.4 oz 151 lb 5 oz Microbiology Reports for the Last 24 Hours: Microbiology 12/04/19 15:05 Urine,Catheterized Urine Culture - Preliminary Gram Negative Rods Gram Negative Rods#2 - Constitutional no acute distress (She looks good.) - *Routine HEENT Exam ENT: Present: mucous membranes dry - *Routine Neck Exam Absent: JVD - *Routine Respiratory Exam Present: CTA bilaterally - *Routine Cardiovascular Exam Present: RRR - *Routine Abdominal Exam Present: soft. Absent: tenderness - *Routine Extremities Exam Present: full ROM, normal capillary refill - *Routine Neurological Exam Present: alert, oriented X3 Assessment and Plan (1) Left displaced femoral neck fracture Current visit: Yes Status: Acute Category: Medical Code(s): S72.002A - Fracture of unspecified part of neck of left femur, initial encounter for closed fracture (2) Fall Current visit: No Status: Acute Category: Medical Code(s): W19.XXXA - Unspecified fall, initial encounter (3) Hypertension Current visit: No Status: Acute Category: Medical Code(s): I10 - Essential (primary) hypertension (4) Hypothyroidism Current visit: No Status: Acute Category: Medical Code(s): E03.9 - Hypothyroidism, unspecified (5) B-cell lymphoma Current visit: No Status: Chronic Qualifiers: 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
--- NOTE | 2019-12-06 12:28 | HMH.ORTHPN ---
Subjective Date: 12/06/19 Time: 12:00 Principal diagnosis: L femoral neck fracture Interval history: The patient is doing well today, though she didn't get much rest overnight. She's had pain, primarily in the neck and lower back, and intermittent nausea and fatigue. No fevers reported, though change in labs, with intermittent hypotension and borderline tachycardia triggered sepsis criteria. Lactate was normal; blood cultures sent. She has maintained good O2 sats on room air, though she's needed occasional supplemental 2L O2 via NC. Aaron was removed this morning per standing post-op orders. She has had little UOP; only 210cc since surgery, as of 4am. Creatinine was elevated this morning so toradol was stopped. NS was increased to 200cc/hr. Urine culture positive for gram negative rods this morning; invanz started. She currently denies pain in the L hip, though she is struggling with mobility despite assistance and working with PT today. Dorsiflexion is lagging but the remainder of her motor/sensory has returned s/p spinal anesthetic. PN: Obj Ex Vital signs: Temp Pulse Resp BP Pulse Ox 97.5 F L 100 H 18 132/48 L 97 12/06/19 12:13 12/06/19 12:13 12/06/19 07:57 12/06/19 12:13 12/06/19 07:57 - Constitutional no acute distress - Routine HEENT Exam Head: Present: normocephalic Eye: Present: EOMI ENT: Present: mucous membranes moist - Routine Respiratory Exam Absent: respiratory distress, wheezes - Routine Cardiovascular Exam Present: RRR - Routine Extremities Exam Comments: patient in bedside chair; assisted back to bed with help of patient's nurse in bed: abduction pillow in place between legs dressing L hip c/d/i, no strikethrough palpable pedal pulses LLE, foot warm/pink L calf soft, compressible, non-tender +PF/EHL LLE; DF intact but decreased in arc of motion/strength SILT distally LLE in all distributions - Routine Skin Exam Present: warm - Routine Neurological Exam Present: alert, oriented X3 - Urinary Catheter Management Aaron Cath placed during this visit: no Progress Note: A&P (1) Left displaced femoral neck fracture Status: Acute Current Visit: Yes (2) Fall Status: Acute Current Visit: No (3) Hypertension Status: Acute Current Visit: No (4) Hypothyroidism Status: Acute Current Visit: No (5) B-cell lymphoma Status: Chronic Current Visit: No (6) Adverse reaction to narcotic drug Status: Acute Current Visit: Yes (7) Postoperative anemia due to acute blood loss Status: Acute Current Visit: Yes (8) UTI (urinary tract infection), bacterial Status: Acute Current Visit: Yes (9) Gram-negative bacteremia Status: Acute Current Visit: Yes (10) Renal insufficiency Status: Acute Current Visit: No Assessment and Plan for All Diagnoses:: 79yo F POD 1 s/p L MAHESH for displaced femoral neck fracture -- WBAT LLE, out of bed ad tommy with assistance and a walker -- PT/OT to continue -- posterior hip precautions -- abduction pillow while in bed -- ice pack L hip as needed -- finished 24hr surgical prophy antibiotics; now on invanz 1g q24hr for UTI (gram neg rods) -- pain control: percocet/morphine as needed -- replace aaron for accurate I/O; UOP suboptimal with bump in Cr overnight. IVF rate increased and toradol stopped. -- Hgb 8.6 today, patient symptomatic. With surgical EBL and increase in IVF, this will continue to drop. Transfuse 1 unit PRBC now. -- DVT prophy: SCDs, lovenox -- encourage IS 10x/hr while awake -- dispo planning: care management to see; anticipate SNF referral
[2019-12-06 13:44] LABS: Microscopic, Urine URINE MICROSCOPIC (MICROSCOPIC)
[2019-12-06 13:46] LABS: Appearance,Urine CLOUDY (Clear); Bilirubin,Urine Negative (Negative); Blood, Urine 3+ (Negative); Color,Urine YELLOW (Yellow); Glucose,Urine (UA) Negative (Negative); Ketones,Urine Negative (Negative); Leukocyte Esterase,Urine 1+ (Negative); Nitrate,Urine Negative (Negative); PH,Urine 5.5 (5.0-8.5); Protein,Urine TRACE (Negative); Specific Gravity, Urine >= 1.030 (1.005-1.030); Urobilinogen,Urine 0.2 EU/dl (0.2)
[2019-12-06 13:58] LABS: Amorphous Sediment,Urine 1+ /lpf; Bacteria,Urine 1+ /lpf; WBC,Urine 20-50 #/hpf (0-3)
--- NOTE | 2019-12-06 16:50 | PC.NURSE ---
Pt triggered for SIRS, organ dysfunction and sepsis when reviewing AM labs. Dr. Peraza made aware. Blood cultures and a lactic acid were obtained. NS bolus of 200mL infused and liter flow increased to 200mL until she received her 1unit of PRBC. Pt tolerated transfusion well. Invanz IV initiated. Aaron discontinued @ [address] Arreola standing orders. Pt received PT and got OOB to chair for aprox 2hrs. She is able to pivot feet and shuffle aprox 2'. Is a max assist with 2 people. Niece brought her walker from home per pt request. Dr. Peraza ordered to reinsert aaron catheter, which has been completed. Minimal UOP. Aprox 80mL sent to lab for standing order UA with CX. Pt received 1 dose of pain med today (Percocet 5/325). No side effects noted. Also received 1 dose of Zofran this morning for nausea.
[2019-12-06 17:29] LABS: Hematocrit 27.4 % (37.0-47.0); Hemoglobin 9.4 g/dL (12.2-16.2)
--- NOTE | 2019-12-06 18:19 | PC.NURSE ---
Pt complains of nausea. Cold compress applied to forehead. Zofran not due until 193. Pt has had a reaction to Phenergan in the past and has requested not to have it. She wishes to wait for Zofran. Singulair po due @ 1800. Will HOLD Singulair until Zofran given. Will notify underwriting assistant RN to give both meds tonight.
[2019-12-07] VITALS (7 sets, daily range): BP systolic 140–165; BP diastolic 64–77; PULSE 66–100; RESP 15–24; TEMP 36.8–37.9; O2SAT 90–98; BMI 24.9
--- NOTE | 2019-12-07 04:01 | PC.NURSE ---
Pt has rested intermittently t/o this shift. Pt has complained about leg pain, hip pain and back pain with a MCCLURE x2 this shift. Medication administered per AUG. Pt has verbalized discomfort and annoyance regarding the abductor wedge. This RN educated the pt along with the pt's family the importance of the abductor pillow. Pt verbalized understanding. Family has remained at bedside this shift. Call light is within reach. No other complaints at this time. Will continue to monitor.
[2019-12-07 05:45] LABS: Basophils % 0.1 % (0.1-2.0); Eosinophils % 0.3 % (0.1-12.0); Hematocrit 27.6 % (37.0-47.0); Hemoglobin 9.1 g/dL (12.2-16.2); Lymphocytes # 1.2 K/mm3 (0.7-4.5); Lymphocytes % 11.3 % (10-50); Mean Corpuscular HGB Conc 33.1 g/dL (31.8-35.4); Mean Corpuscular Hemoglobin 31.3 pg (27.0-31.2); Mean Corpuscular Volume 94.5 fl (81-99); Mean Platelet Volume 7.9 fl (7.4-10.4); Monocytes # 0.4 K/mm3 (0.1-1.0); Monocytes % 4.3 % (1.7-9.3); Neutrophils # 8.6 K/mm3 (1.8-7.8); Platelet Count 102 K/mm3 (142-424); Red Blood Count 2.92 M/mm3 (4.20-5.40); Red Cell Distribution Width 14.3 % (11.5-17.5); White Blood Count 10.2 K/mm3 (4.8-10.8)
[2019-12-07 05:51] LABS: Anion Gap 10.1 mEq/L (5-15); Blood Urea Nitrogen 29 mg/dl (7-17); Calcium 8.1 mg/dl (8.4-10.2); Carbon Dioxide 23 mmol/L (22.0-30.0); Chloride 104 mmol/L (98-107); Creatinine Clearance Estimated 37 mL/min (50-200); Estimated Glomerular Filt Rate 39 ml/min (>60); GFR (African American) 48 ML/MIN (>60); Glucose 111 mg/dl (74-100); Potassium 4.1 mmoL/L (3.5-5.1); Sodium 133 mmol/L (136-145)
--- NOTE | 2019-12-07 08:57 | HMH.ACPN2 ---
<Luna Thomas - Last Filed: 12/07/19 08:57> Internal Medicine - PN: Subj *Date: 12/07/19 *Time: 08:57 Interval history: Did not sleep last night. States she has had a headache which kept her awake. She is not eating and drinking. Denies nausea. Bowels have not moved. Urine culture reveals Escherichia coli and Citrobacter freunda laboratory data this morning revealed hemoglobin of 9.1 hematocrit of 27.6 and white blood cell count of 10,200. Blood chemistries sodium is low at 133 potassium 4.1 BUN 29 and creatinine improved to 1.3. Daughter is at bedside and states patient complained of leg and hip pain during the night. Patient denies today. Exam Vital signs and Labs for Last 24 Hours: Temp Pulse Resp BP Pulse Ox 98.5 F 98 H 16 143/67 H 93 L 12/07/19 08:00 12/07/19 08:00 12/07/19 08:00 12/07/19 08:00 12/07/19 08:00 Laboratory Results - last 24 hr 12/04/19 17:05: Blood Type B Positive, Antibody Screen Negative, Crossmatch (AHG) See Detail 12/06/19 08:40: Lactate 1.7 12/06/19 13:40: Urine Color Yellow, Urine Appearance Cloudy, Urine pH 5.5, Ur Specific [place] >= 1.030, Urine Protein Trace, Urine Glucose (UA) Negative, Urine Ketones Negative, Urine Blood 3+, Urine Nitrate Negative, Urine Bilirubin Negative, Urine Urobilinogen 0.2, Ur Leukocyte Esterase 1+ A, Urine RBC 10-20, Urine WBC 20-50, Ur Squamous Epith Cells 10-20, Amorphous Sediment 1+, Urine Bacteria 1+ 12/06/19 17:18: Hgb 9.4 L, Hct 27.4 L 12/07/19 05:25: WBC 10.2, RBC 2.92 L, Hgb 9.1 L, Hct 27.6 L, MCV 94.5, MCH 31.3 H, MCHC 33.1, RDW 14.3, Plt Count 102 L, MPV 7.9, Neut % (Auto) 84.0 H, Lymph % (Auto) 11.3, [place] % (Auto) 4.3, Eos % (Auto) 0.3, Baso % (Auto) 0.1, Neut # (Auto) 8.6 H, Lymph # (Auto) 1.2, [place] # (Auto) 0.4, Eos # (Auto) 0.0, Baso # (Auto) 0.0 12/07/19 05:25: Sodium 133 L, Potassium 4.1, Chloride 104, Carbon Dioxide 23, Anion Gap 10.1, BUN 29 H, Creatinine 1.30 H D, Estimated Creat Clear 37, Estimated GFR 39 L, Est GFR ( Amer) 48 L D, Glucose 111 H, Calcium 8.1 L I & O for Last 24 hours: Intake & Output 12/04/19 12/05/19 12/06/19 12/07/19 11:59 11:59 11:59 11:59 Intake Total 581 / 581 3188 / 3188 2978 / 2978 Output Total 210 / 210 605 / 605 Balance 581 / 581 2978 / 2978 2373 / 2373 Weight 146 lb 14.4 oz 151 lb 5 oz 158 lb 11.725 oz Microbiology Reports for the Last 24 Hours: Microbiology 12/04/19 15:05 Urine,Catheterized Urine Culture - Final Escherichia coli Citrobacter freundii - Constitutional no acute distress - *Routine Respiratory Exam Comments: Right basilar crackles. - *Routine Cardiovascular Exam Present: RRR - *Routine Abdominal Exam Present: soft, normoactive bowel sounds. Absent: tenderness - *Routine Extremities Exam Absent: edema Comments: Abductor pillow in place. Left hip dressing clean and dry. - *Routine Neurological Exam Present: alert (Patient seems oriented.) Assessment and Plan (1) Left displaced femoral neck fracture Current visit: Yes Status: Acute Category: Medical Code(s): S72.002A - Fracture of unspecified part of neck of left femur, initial encounter for closed fracture (2) Fall Current visit: No Status: Acute Category: Medical Code(s): W19.XXXA - Unspecified fall, initial encounter (3) Hypertension Current visit: No Status: Acute Category: Medical Code(s): I10 - Essential (primary) hypertension (4) Hypothyroidism Current visit: No Status: Acute Category: Medical Code(s): E03.9 - Hypothyroidism, unspecified (5) B-cell lymphoma Current visit: No Status: Chronic Qualifiers: 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
--- NOTE | 2019-12-07 10:33 | HMH.OTEV ---
OT Inpatient Evaluation Rehab OT IP Evaluation Start: 12/05/19 12:54 Freq: ONCE Status: Complete Protocol: Document 12/07/19 10:25 [facility] (Rec: 12/07/19 10:31 [facility] [id number]) Rehab OT IP Assessment Subjective History Pt oriented to person on arrival. Pt appears very tired and required mod verbal cues for engagement in therapy evaluation. Pt was admitted via ED on 12/04/19 after having a fall at home. The fall resulted in a fractured left hip, requiring surgical intervention on 12/05/19. Pt has a past medical history of CA, hyperlipdemia, HTN, and Hypothyroidism. Pt reports prior to hip fx she lived at home alone. Pt was independent with all ADL's and IADL's. Pt did still drive and did not require AE during ambulation. Family has been assisting with grocery shopping due to COVID-19 pandemic, but pt is able to do this independently if she needs to. Subjective I just don't know if I can stand. Objective Patient Orientation Person Upper Extremity Gross ROM WFL Bed Mobility bed mobility-scooting,bed mobility - supine/sit,bed mobility - rolling Assist Level Moderate x 1 (50% assist) Rehab OT IP prob,goals,plan Problems Date of Evaluation: 12/07/19 OT IP Problems Bed Mobility,Transfers,Gait, Balance,Self care,Safety Rehab Potential Rehab Potential Good Equipment Needs Assistive Devices Rolling / Wheeled Walker Plan OT intervention Plan Bed Mobility,Transfers,Balance ,Self care,Safety,Therapeutic Exercise OT Plan Frequency Daily Duration LOS Discharge Goals Bed Mobility Ability Assistance x1 Sit to Stand Chair Transfer Ability Moderate x 1 (50% assist) Chair Transfer Ability Moderate x 1 (50% assist) Chair Transfer Technique Sit to/from Ambulatory Chair Transfer Assistive Devices Rolling Walker Feeding Ability
--- NOTE | 2019-12-07 12:17 | HMH.ORTHPN ---
Subjective Date: 12/07/19 Time: 11:30 Principal diagnosis: L femoral neck fracture Interval history: The patient does not feel well this morning. She did not sleep much overnight, reporting significant neck/back pain, alternating with L hip pain. She is not eating or drinking well, denies nausea. PN: Obj Ex Vital signs: Temp Pulse Resp BP Pulse Ox 98.6 F 98 H 15 165/77 H 90 L 12/07/19 11:48 12/07/19 11:48 12/07/19 11:48 12/07/19 11:48 12/07/19 11:48 - Constitutional no acute distress - Routine HEENT Exam Head: Present: normocephalic Eye: Present: EOMI - Routine Extremities Exam Comments: patient in bedside chair; abduction pillow in place between legs dressing L hip c/d/i, no strikethrough palpable pedal pulses LLE, foot warm/pink L calf soft, compressible, non-tender +PF/EHL LLE; still struggling with DF SILT distally LLE in all distributions - Urinary Catheter Management Sanchez Cath placed during this visit: no Progress Note: A&P (1) Left displaced femoral neck fracture Status: Acute Current Visit: Yes (2) Fall Status: Acute Current Visit: No (3) Hypertension Status: Acute Current Visit: No (4) Hypothyroidism Status: Acute Current Visit: No (5) B-cell lymphoma Status: Chronic Current Visit: No (6) Adverse reaction to narcotic drug Status: Acute Current Visit: Yes (7) Postoperative anemia due to acute blood loss Status: Acute Current Visit: Yes (8) UTI (urinary tract infection), bacterial Status: Acute Current Visit: Yes (9) Renal insufficiency Status: Acute Current Visit: No (10) Infection due to Citrobacter Status: Acute Current Visit: Yes (11) E. coli infect Status: Acute Current Visit: Yes Assessment and Plan for All Diagnoses:: 79yo F POD 2 s/p L MAHESH for displaced femoral neck fracture -- WBAT LLE, out of bed ad tommy with assistance and a walker -- PT/OT to continue -- posterior hip precautions -- abduction pillow while in bed -- ice pack L hip as needed -- continue IV antibiotics for UTI -- pain control: percocet/morphine as needed -- DVT prophy: SCDs, lovenox -- encourage IS 10x/hr while awake -- dispo planning: care management to see; anticipate SNF referral
--- NOTE | 2019-12-07 15:01 | SW/DCPLANNER ---
Addendum entered by Maria Antonia Charles 12/11/19 06:52: approval for 5 days was all that was approved [id number] Addendum entered by Maria Antonia Charles 12/10/19 14:49: INSURANCE GAVE APPROVAL AND PATIENT WILL DISCHARGE TO [facility] THIS AFTERNOON..... Addendum entered by Maria Antonia Charles 12/10/19 13:47: PATIENT HAS BEEN APPROVED BY [facility] PENDING INSURANCE APPROVAL.... MD WANTING TO SEND HER BUT SHE CAN NOT GO UNTIL I GET AN APPROVAL.... Addendum entered by Maria Antonia Charles 12/09/19 09:58: SENDING UPDATES TO [facility] ON THIS PATIENT PER INSURANCE COMPANY... WAITING ON A REPLY BUT PATIENT IS NOT READY TODAY... Addendum entered by Maria Antonia Charles 12/08/19 14:55: HAVE HAD MULTIPLE CONVERSATIONS WITH JUAN MANUEL SALMERON VIA TEXT MESSAGE REGARDING ACCEPTING THIS PATIENT... I SENT HER INFORMATION THIS MORNING AND SHE REQUESTED MORE LABS, CT ETC., I TOLD HER THAT IF SHE NEEDED MORE INFORMATION, I HAVE SENT HER ALL I HAD AND SHE WOULD NEED TO CALL DR DUNCAN AND ASK FOR THESE THINGS... I TOLD HER I NEEDED AN ANSWER AND IF SHE COULDN'T GIVE IT TO ME I WOULD NEED TO SEND IT SOMEWHERE ELSE. I WENT BACK TOLD PATIENT AND HER NIECE WHOM IS THE POA THAT DR DUNCAN IS PLANNING ON DISCHARGING HER FOR REHAB PENDING NO SETBACKS AND [facility] HAS NOT BEEN ABLE TO GIVE ME AN ANSWER AND ASKED IF I COULD SEND IT OTHER PLACES AND THEY SUGGESTED [facility]... I AM WAITING ON AN ANSWER BUT I DID CALL AND THEY DO HAVE BEDS...IF ACCEPTED AND NO SETBACKS SHE WILL DISCHARGE TO [facility] IN THE AM.... Addendum entered by Maria Antonia Charles 12/08/19 10:43: I SENT REFERRAL TO [facility] THIS MORNING AFTER SPEAKING WITH JUAN MANUEL AND SHE SAID FOR ME TO SEND IT AND SHE WILL LOOK AT IT.. I SPOKE WITH PATIENT THIS MORNING AND HER NIECE WHOM IS HER POA AND THEY BOTH AGREED IF [facility] DOESN'T HAVE A BED THEY WILL ALLOW ME TO LOOK AT [facility] OR EVEN [facility]... JUAN MANUEL IS COMING UP TO SEE ANOTHER PATIENT AND STATED SHE WILL SEE HER ALSO... WAITING TO HEAR BACK FROM HER... Original Note: WHEN IN TO SEE PATIENT FOR POST DISCHARGE PLANS.... THE NIECE, MARIANO WAS PRESENT WHILE I MADE A VISIT AND SHE IS INTERESTED IN [facility] BUT I TOLD HER THAT I DIDN'T KNOW IF THEY HAD ANY BEDS AND SHE STATED ANOTHER OPTION WOULD BE A FACILITY IN [facility]... I TOLD HER SINCE SHE WAS FEELING SO BAD AND SLEEPY AND WAS NOT GOING ANYWHERE TODAY OR [facility] I WOULD EXPLORE [facility] AND CONFIRM WHETHER OR NOT THEY COULD HAVE A BED WHEN SHE IS READY, IF NOT I WILL LOOK AT OTHER FACILITIES OF INTEREST..
--- NOTE | 2019-12-07 18:49 | PC.NURSE ---
Pt alert and oriented and able to make needs known. RR even and unlabored. Pt has been up to chiar this shift and have encouraged use of IS. Pt has been weak and sleepy, have made Dr. Lopez aware of this and he stated he was going to order labs for the am. CB in reach and niece- poa is at bedside at this time. Will cont to mx. VSS. Abductor pillow in place, pt back in bed at this time. Gown and linens changed this shift. Sanchez in place and draining properly light yellow urine.
--- NOTE | 2019-12-07 19:10 | PC.NURSE ---
report given to luciano
--- NOTE | 2019-12-07 23:16 | PC.NURSE ---
RT monitored pt during room air sat=93%, pt placed back on 2L NC
[2019-12-08] VITALS (17 sets, daily range): BP systolic 126–167; BP diastolic 56–91; PULSE 47–97; RESP 14–20; TEMP 36.3–37.4; O2SAT 92–97; BMI 25.7
--- NOTE | 2019-12-08 03:21 | PC.NURSE ---
A&OX4. PT TOLERATING RA AT THIS TIME, O2 SAT 93-94%. PT HAS NOT SLEPT WELL THIS SHIFT. PT HAS NOT C/O ANY PAIN IN HER L HIP. PT ONLY C/O SORE THROAT. ADMINISTERED THROAT SPRAY PER AUG. PT ALSO HAD TEMP OF 100.3 AT BEGINNING OF SHIFT, TREATED W/ TYLENOL PER AUG. ON REASSESSMENT, PT TEMP DOWN TO 99.8. THIS NURSE ADJUSTED PT IN BED T/O SHIFT. ABDUCTOR PILLOW IN PLACE T/O NIGHT. FAMILY AT BEDSIDE. NO OTHER COMPLAINTS THUS FAR. F/C PRESENT DRAINING BRIGHT YELLOW URINE. PT REFUSED A BATH THIS SHIFT. VSS WILL CONTINUE TO MONITOR.
[2019-12-08 06:05] LABS: Basophils % 0.2 % (0.1-2.0); Eosinophils % 0.4 % (0.1-12.0); Hematocrit 25.6 % (37.0-47.0); Hemoglobin 8.6 g/dL (12.2-16.2); Lymphocytes # 1.2 K/mm3 (0.7-4.5); Lymphocytes % 12.8 % (10-50); Mean Corpuscular HGB Conc 33.6 g/dL (31.8-35.4); Mean Corpuscular Hemoglobin 31.4 pg (27.0-31.2); Mean Corpuscular Volume 93.6 fl (81-99); Mean Platelet Volume 8.2 fl (7.4-10.4); Monocytes # 0.4 K/mm3 (0.1-1.0); Monocytes % 4.6 % (1.7-9.3); Neutrophils # 7.3 K/mm3 (1.8-7.8); Platelet Count 113 K/mm3 (142-424); Red Blood Count 2.74 M/mm3 (4.20-5.40); Red Cell Distribution Width 13.8 % (11.5-17.5)
[2019-12-08 06:14] LABS: Chloride 105 mmol/L (98-107); Potassium 3.7 mmoL/L (3.5-5.1); Sodium 133 mmol/L (136-145)
[2019-12-08 06:17] LABS: Anion Gap 8.7 mEq/L (5-15); Blood Urea Nitrogen 16 mg/dl (7-17); Calcium 7.9 mg/dl (8.4-10.2); Carbon Dioxide 23 mmol/L (22.0-30.0); Creatinine Clearance Estimated 52 mL/min (50-200); Estimated Glomerular Filt Rate 53 ml/min (>60); GFR (African American) 64 ML/MIN (>60); Glucose 101 mg/dl (74-100)
--- NOTE | 2019-12-08 08:14 | HMH.ACPN2 ---
<Luna Thomas - Last Filed: 12/08/19 08:14> Internal Medicine - PN: Subj *Date: 12/08/19 *Time: 08:14 Interval history: Patient states headache is better today. She did sleep some last night. Left hip does not hurt at present. She feels she is eating better. She continues with Sanchez catheter. She did sit up in a chair yesterday and work with physical therapy. Bowels have not moved. Laboratory data: Hemoglobin is 8.6 with hematocrit of 25.6. Renal function has normalized. Exam Vital signs and Labs for Last 24 Hours: Temp Pulse Resp BP Pulse Ox 98.3 F 89 14 137/56 L 95 12/08/19 04:00 12/08/19 04:00 12/08/19 04:00 12/08/19 04:00 12/08/19 04:00 Laboratory Results - last 24 hr 12/08/19 05:37: WBC 9.0, RBC 2.74 L, Hgb 8.6 L, Hct 25.6 L, MCV 93.6, MCH 31.4 H, MCHC 33.6, RDW 13.8, Plt Count 113 L, MPV 8.2, Neut % (Auto) 82.0 H, Lymph % (Auto) 12.8, [place] % (Auto) 4.6, Eos % (Auto) 0.4, Baso % (Auto) 0.2, Neut # (Auto) 7.3, Lymph # (Auto) 1.2, [place] # (Auto) 0.4, Eos # (Auto) 0.0, Baso # (Auto) 0.0 12/08/19 05:37: Sodium 133 L, Potassium 3.7, Chloride 105, Carbon Dioxide 23, Anion Gap 8.7, BUN 16 D, Creatinine 1.00 D, Estimated Creat Clear 52, Estimated GFR 53 L, Est GFR ( Amer) 64 D, Glucose 101 H, Calcium 7.9 L I & O for Last 24 hours: Intake & Output 12/05/19 12/06/19 12/07/19 12/08/19 11:59 11:59 11:59 11:59 Intake Total 581 / 581 3188 / 3188 3098 / 3098 2432 / 2432 Output Total 210 / 210 605 / 605 1300 / 1300 Balance 581 / 581 2978 / 2978 2493 / 2493 1132 / 1132 Weight 146 lb 14.4 oz 151 lb 5 oz 158 lb 11.725 oz 163 lb 9.328 oz Microbiology Reports for the Last 24 Hours: Microbiology 12/06/19 13:40 Urine,Catheterized Urine Culture - Preliminary NO GROWTH AFTER 24 HOURS 12/04/19 15:05 Urine,Catheterized Urine Culture - Final Escherichia coli Citrobacter freundii - Constitutional no acute distress Comments: Awake and alert and appears comfortable - *Routine Respiratory Exam Present: CTA bilaterally (Anteriorly and posteriorly) - *Routine Cardiovascular Exam Present: RRR - *Routine Abdominal Exam Present: soft, normoactive bowel sounds. Absent: tenderness, distended - *Routine Extremities Exam Absent: edema, calf tenderness Comments: Left hip dressing is clean dry and intact - *Routine Neurological Exam Present: alert, oriented X3 Assessment and Plan (1) Left displaced femoral neck fracture Current visit: Yes Status: Acute Category: Medical Code(s): S72.002A - Fracture of unspecified part of neck of left femur, initial encounter for closed fracture (2) Fall Current visit: No Status: Acute Category: Medical Code(s): W19.XXXA - Unspecified fall, initial encounter (3) Hypertension Current visit: No Status: Acute Category: Medical Code(s): I10 - Essential (primary) hypertension (4) Hypothyroidism Current visit: No Status: Acute Category: Medical Code(s): E03.9 - Hypothyroidism, unspecified (5) B-cell lymphoma Current visit: No Status: Chronic Qualifiers: 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 encounter (7) Postoperative anemia due to acute blood loss Current visit: Yes Status: Acute Category: Medical Code(s): D62 - Acute posthemorrhagic anemia (8) UTI (urinary tract infection), bacterial Current visit: Yes Status: Acute Category: Medical Code(s): N39.0 - Urinary tract infection, site not specified; A49.9 - Bacterial infection,
--- NOTE | 2019-12-08 12:38 | HMH.ORTHPN ---
Subjective Date: 12/08/19 Time: 12:00 Principal diagnosis: L femoral neck fracture Interval history: The patient appears improved today, though she still has pain in her neck. Her L knee is also sore, but the L hip has little pain. Her throat is still sore but she is tolerating slightly increased PO intake. PN: Obj Ex Vital signs: Temp Pulse Resp BP Pulse Ox 99.3 F 95 H 16 153/65 H 92 L 12/08/19 11:50 12/08/19 11:50 12/08/19 11:50 12/08/19 11:50 12/08/19 11:50 - Constitutional no acute distress - Routine Extremities Exam Comments: patient in bedside chair; abduction pillow in place between legs dressing L hip c/d/i, no strikethrough palpable pedal pulses LLE, foot warm/pink L calf soft, compressible, non-tender +PF/EHL LLE; DF lagging. Increased motion in toes/dorsum of foot but ankle DF decreased. SILT distally LLE in all distributions - Urinary Catheter Management Sanchez Cath placed during this visit: no Progress Note: A&P (1) Left displaced femoral neck fracture Status: Acute Current Visit: Yes (2) Fall Status: Acute Current Visit: No (3) Hypertension Status: Acute Current Visit: No (4) Hypothyroidism Status: Acute Current Visit: No (5) B-cell lymphoma Status: Chronic Current Visit: No (6) Adverse reaction to narcotic drug Status: Acute Current Visit: Yes (7) Postoperative anemia due to acute blood loss Status: Acute Current Visit: Yes (8) UTI (urinary tract infection), bacterial Status: Acute Current Visit: Yes (9) Renal insufficiency Status: Acute Current Visit: No (10) Infection due to Citrobacter Status: Acute Current Visit: Yes (11) E. coli infect Status: Acute Current Visit: Yes Assessment and Plan for All Diagnoses:: 79yo F POD 3 s/p L MAHESH for displaced femoral neck fracture -- WBAT LLE, out of bed ad tommy with assistance and a walker -- PT/OT to continue -- posterior hip precautions -- abduction pillow while in bed -- ice pack L hip as needed -- continue IV antibiotics for UTI -- pain control: percocet/morphine as needed -- DVT prophy: SCDs, lovenox -- encourage IS 10x/hr while awake -- slight foot drop present, may be due to post-op pain/weakness, or neuropraxia. Should this fail to improve in the next week, may consider AFO. -- dispo planning: referral sent to SNF, ok to transfer from ortho standpoint when accepted. Will change dressing at discharge.
[2019-12-08 17:05] LABS: Hematocrit 27.6 % (37.0-47.0)
[2019-12-08 17:23] LABS: Hemoglobin 9.8 g/dL (12.2-16.2)
--- NOTE | 2019-12-08 17:33 | PC.NURSE ---
Pt is alert and oriented x 4, although at times had thought the reflection on light was something on the wall and that there was a squirrel in room and spoke about kittens being in a closet. Pt is slightly drowsy from meds given at this time. She states the pain med and zofran helped with her pain and nausea. POA remains at bedside. Hemoglobin now 9.8 after receiving x 1 unit of blood. Have offered pt to change IV and pt refuses to change at this time and wants to wait. CB in reach. VSS. Pt did have a lg bm this am after prune juice and miralax. Will cont to mx this shift. Pulses remain 2 plus, lungs cta, and bs x [address] quads. Abductor pillow in place.
--- NOTE | 2019-12-08 18:17 | PC.NURSE ---
Dr. John Md is aware of the prior note, as he called to get an update on pt at this time.
--- NOTE | 2019-12-08 19:08 | PC.NURSE ---
report given to luciano
[2019-12-09 04:00] VITALS: BP 177/76; PULSE 86; RESP 20; TEMP 37; O2SAT 94
[2019-12-09 05:00] VITALS: BMI 25.7
--- NOTE | 2019-12-09 07:00 | PC.NURSE ---
A&OX4. PT HAS TOLERATED ROOM AIR WELL THROUGHOUT SHIFT. RESPIRATIONS REGULAR AND UNLABORED. EXPIRATORY WHEEZES NOTED TO R UPPER AND LOWER LOBE WITH A FEW CRACKLES NOTED TO THE R LOWER LOBE. NO COUGH NOTED. NO EDEMA NOTED. HEART RATE REGULAR. +2 PULSES NOTED THROUGHOUT. SOFT, NONTENDER ABDOMEN WITH ACTIVE BOWEL SOUNDS HEARD IN ALL 4 QUADRANTS. DRESSING NOTED TO L HIP R/T HIP FRACTURE. DRESSING CDI. ABDUCTOR PILLOW IN PLACE THROUGHOUT SHIFT. HAND MARKETING INSTRUCTOR EQUAL. PT RECEIVED BED BATH AND LINEN CHANGE. PT REPORTED PAIN THROUGHOUT SHIFT AND WAS ADMINISTERED ACETAMINOPHEN 500MG ONCE AND MORPHINE 2MG ONCE. ON REASSESSMENT, PT WAS RESTING W EYES CLOSED. PT WAS TURNED Q2 HOURS EXCEPT WHEN FAMILY REFUSED STATING THE PT WAS RESTING WELL AND THEY DIDN'T WANT US TO WAKE. INCENTIVE SPIROMETER ENCOURAGED 10 TIMES EVERY HOUR WHILE AWAKE. PT REPORTS NO NAUSEA THROUGHOUT SHIFT. FAMILY HAS REMAINED AT BEDSIDE. HERNANDEZ CATH IN PLACE WITH CLEAR YELLOW URINE FLOWING INTO CATHETER BAG. NO KINKS NOTED. PT CURRENTLY RESTING IN BED. VSS. BED IN LOWEST POSITION. CALL LIGHT WITHIN REACH. NO CONCERNS AT THIS TIME. WILL CONTINUE TO MONITOR.
[2019-12-09 07:49] VITALS: BP 155/69; PULSE 89; RESP 18; TEMP 36.7; O2SAT 95
--- NOTE | 2019-12-09 07:53 | HMH.ACPN2 ---
<Cheyenne Porras - Last Filed: 12/09/19 07:53> Internal Medicine - PN: Subj *Date: 12/09/19 *Time: 07:53 Interval history: Patient states she is feeling a little bit better this morning. She states she slept but her caregiver states she did not. She did eat some breakfast. She denies any pain in her leg and less she moves. H&H has improved with transfusion. Exam Vital signs and Labs for Last 24 Hours: Temp Pulse Resp BP Pulse Ox 98.6 F 86 20 177/76 H 94 L 12/09/19 04:00 12/09/19 04:00 12/09/19 04:00 12/09/19 04:00 12/09/19 04:00 Laboratory Results - last 24 hr 12/08/19 09:20: Blood Type B Positive, Antibody Screen Negative, Crossmatch (AHG) See Detail 12/08/19 16:55: Hgb 9.8 L D, Hct 27.6 L I & O for Last 24 hours: Intake & Output 12/06/19 12/07/19 12/08/19 12/09/19 11:59 11:59 11:59 11:59 Intake Total 3188 / 3188 3098 / 3098 2792 / 2792 730 / 730 Output Total 210 / 210 605 / 605 1300 / 1300 3000 / 3000 Balance 2978 / 2978 2493 / 2493 1492 / 1492 -2270 / -2270 Weight 151 lb 5 oz 158 lb 11.725 oz 163 lb 9.328 oz 164 lb 0.383 oz Microbiology Reports for the Last 24 Hours: Microbiology 12/06/19 13:40 Urine,Catheterized Urine Culture - Final NO GROWTH AFTER 48 HOURS 12/06/19 08:40 Blood Blood Culture - Preliminary NO GROWTH AFTER 48 HOURS 12/06/19 08:40 Blood Blood Culture - Preliminary NO GROWTH AFTER 48 HOURS - Constitutional no acute distress - *Routine Respiratory Exam Present: CTA bilaterally - *Routine Cardiovascular Exam Present: RRR - *Routine Abdominal Exam Present: soft, normoactive bowel sounds. Absent: tenderness - *Routine Extremities Exam Absent: cyanosis, clubbing, edema - *Routine Skin Exam Present: warm. Absent: rash Comments: Dressing in place on left hip clean and dry. - *Routine Neurological Exam Present: alert, oriented X3 Assessment and Plan (1) Left displaced femoral neck fracture Current visit: Yes Status: Acute Category: Medical Code(s): S72.002A - Fracture of unspecified part of neck of left femur, initial encounter for closed fracture (2) Fall Current visit: No Status: Acute Category: Medical Code(s): W19.XXXA - Unspecified fall, initial encounter (3) Hypertension Current visit: No Status: Acute Category: Medical Code(s): I10 - Essential (primary) hypertension (4) Hypothyroidism Current visit: No Status: Acute Category: Medical Code(s): E03.9 - Hypothyroidism, unspecified (5) B-cell lymphoma Current visit: No Status: Chronic Qualifiers: 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 encounter (7) Postoperative anemia due to acute blood loss Current visit: Yes Status: Acute Category: Medical Code(s): D62 - Acute posthemorrhagic anemia (8) UTI (urinary tract infection), bacterial Current visit: Yes Status: Acute Category: Medical Code(s): N39.0 - Urinary tract infection, site not specified; A49.9 - Bacterial infection, unspecified (9) Renal insufficiency Current visit: No Status: Acute Category: Medical Code(s): N28.9 - Disorder of kidney and ureter, unspecified (10) Infection due to Citrobacter Current visit: Yes Status: Acute Category: Medical Code(s): A49.8 - Other bacterial infections of unspecified site (11) E. coli infect Current visit: Yes Status: Acute Category: Medical Code(s): A49.8 - Other bacterial infections of unspecified site - Assessment and plan all Dx Assessment
--- NOTE | 2019-12-09 08:55 | HMH.DCSUM ---
General - General Admission date:: 12/04/19 <Shahid Lopez - 12/10/19 16:32> 12/04/19 <Cheyenne Porras - 12/09/19 09:20> Discharge date: 12/10/19 <Cheyenne Porras - 12/10/19 08:50> HPI HPI: 79-year-old female with a chief complaint of left hip pain after a fall at home earlier today. She slipped on a rug in her home and fell, landing on the left side. She had immediate pain in her left hip and was unable to ambulate, thus she presented to [facility] ER for evaluation. She denies any loss of consciousness during this fall and had no preceding headache, dizziness, chest pain or shortness of breath. She reports current pain only in the left hip, no pain elsewhere. No open wounds over the hip, no bruising or erythema, no numbness or tingling in the left lower extremity. Medical history is significant for hypertension, hypothyroidism, history of B-cell lymphoma. She has undergone total hysterectomy. She is retired, a former smoker; BMI 22. Home medications include atorvastatin, levothyroxine, paroxetine, aspirin, benzonatate, celecoxib, famotidine, hydrocodone, loratadine, Tod Strahl, MS Contin, albuterol, fluticasone, meclizine, montelukast, valsartan. She is allergic to alprazolam, tetanus and diphtheria toxoids, ibuprofen, iodinated contrast material, and acetaminophen. She reports a history of chronic low back pain, which is treated with narcotic medication. Her primary care physician is Dr. Lopez. She reports being very active, and walks as frequently as she can. She has been 1 year off of her chemotherapy for lymphoma and is considered in remission; she follows up every 3 months with her oncologist. She has just recently recovered enough energy to start increasing her activity and she continues to drive herself. (the above as per Dr. Arreola) <Cheyenne Porras - 12/09/19 09:20> Hospital Course Hospital Course: The patient cervical spine CT showed no acute fracture. Her face CT was negative for fracture. Her head CT showed nothing acute. Her pelvic CT showed a subcapital femoral neck fracture on the left side. She had a hip x-ray as well showing an impacted and displaced left femoral neck fracture. She was seen in consultation by Dr. Arreola and after talking with the family, they agreed upon a total hip arthroplasty with a cemented femoral component. She wanted to proceed with surgery the next day and placed the patient n.p.o. after midnight and ordered 1 g of Ancef. The patient did receive 0.5 mg of Dilaudid for pain and soon began itching and feeling flushed. She was given 25 mg of Benadryl and 40 mg of Solu-Medrol but became less responsive. Her oxygen saturations dropped and Dr. ePraza was called to the floor. Her blood pressure was in the range of 200/70. She seemed to be trying to doze off, but would respond to stimulation. Her heart rate remained regular. She was given 1 mg of Narcan and became more alert and responsive, though still uncomfortable. A chest x-ray and EKG were ordered. The chest x-ray showed nothing acute. EKG showed a nonspecific ST and T wave abnormality and sinus tachycardia. The patient's condition did improve. She was able to be taken to the OR on 12/05/2019 and a left total hip arthroplasty was performed. She did well with the surgery with no immediate complications. Dr. Arreola felt she could be weightbearing as tolerated on the left lower extremity and out of bed ad tommy. with assistance and a walker. PT and OT were ordered and an abduction pillow was ordered while she was in bed. She received morphine for pain control and tolerated this well. She also received some Toradol due to continued pain. Her H&H did drop and she was given a unit of blood. Her BUN and creatinine elevated as well and she was given a 200 cc bolus of IV fluids and her IV fluid rate was increased. Her urine culture was growing gram-negative's and she was started on Invanz. She was evaluat
--- NOTE | 2019-12-09 11:36 | HMH.ORTHPN ---
Subjective Date: 12/09/19 Time: 10:30 Principal diagnosis: L femoral neck fracture Interval history: The patient appears improved today, still not resting well at night but seems to be more comfortable. She says the L hip is the only thing that doesn't hurt at the moment. She has chronic neck and periscapular/mid-thoracic back pain and has undergone cervical spine surgery in the past. No numbness reported at the moment in the LLE, though foot drop persists. PN: Obj Ex Vital signs: Temp Pulse Resp BP Pulse Ox 98.0 F 89 18 155/69 H 95 12/09/19 07:49 12/09/19 07:49 12/09/19 07:49 12/09/19 07:49 12/09/19 07:49 - Constitutional no acute distress - Routine HEENT Exam Head: Present: normocephalic Eye: Present: EOMI ENT: Present: mucous membranes moist - Routine Respiratory Exam Absent: respiratory distress, wheezes - Routine Cardiovascular Exam Present: RRR - Routine Abdominal Exam Present: soft. Absent: distended - Routine Extremities Exam Comments: patient in bedside chair; abduction pillow in place between legs dressing L hip c/d/i, no strikethrough palpable pedal pulses LLE, foot warm/pink L calf soft, compressible, non-tender +PF/EHL LLE; DF lagging. Increased motion in toes/dorsum of foot but ankle DF decreased. SILT distally LLE in all distributions - Routine Skin Exam Present: warm - Routine Neurological Exam Present: alert, oriented X3, moving all extremities, normal tone, vision grossly intact, hearing grossly intact, normal speech. Absent: sensory deficit - Routine Psychiatric Exam Present: normal affect - Urinary Catheter Management Sanchez Cath placed during this visit: no Progress Note: A&P (1) Left displaced femoral neck fracture Status: Acute Current Visit: Yes (2) Fall Status: Acute Current Visit: No (3) Hypertension Status: Acute Current Visit: No (4) Hypothyroidism Status: Acute Current Visit: No (5) B-cell lymphoma Status: Chronic Current Visit: No (6) Adverse reaction to narcotic drug Status: Acute Current Visit: Yes (7) Postoperative anemia due to acute blood loss Status: Acute Current Visit: Yes (8) UTI (urinary tract infection), bacterial Status: Acute Current Visit: Yes (9) Renal insufficiency Status: Acute Current Visit: No (10) Infection due to Citrobacter Status: Acute Current Visit: Yes (11) E. coli infect Status: Acute Current Visit: Yes Assessment and Plan for All Diagnoses:: 79yo F POD 4 s/p L MAHESH for displaced femoral neck fracture -- WBAT LLE, out of bed ad tommy with assistance and a walker -- PT/OT to continue -- posterior hip precautions -- abduction pillow while in bed -- ice pack L hip as needed -- continue treatment for UTI per Dr. Lopez -- pain control: percocet/morphine as needed -- DVT prophy: SCDs, lovenox -- encourage IS 10x/hr while awake -- slight foot drop present, may be due to post-op pain/weakness, or neuropraxia. AFO has been ordered. -- dispo planning: referral sent to SNF, ok to transfer from ortho standpoint when accepted. Will change dressing at discharge.
--- NOTE | 2019-12-09 11:37 | PC.NURSE ---
Contacted Dr. Nelson for consult on this pt. Was told that they do not do inhouse consults and will have to set up appointment for outpatient consult upon discharge.
[2019-12-09 16:00] VITALS: BP 151/74; PULSE 86; RESP 18; TEMP 36.7; O2SAT 97
[2019-12-09 20:00] VITALS: BP 152/65; PULSE 90; RESP 18; TEMP 37; O2SAT 95
[2019-12-10 04:00] VITALS: BP 162/72; PULSE 87; RESP 18; TEMP 37.1; O2SAT 94
[2019-12-10 05:00] VITALS: BMI 25.4
--- NOTE | 2019-12-10 05:15 | PC.NURSE ---
shift summary, pt rested well t/o shift, family at bedside, no complaints t/o shift
[2019-12-10 06:27] LABS: Chloride 100 mmol/L (98-107); Sodium 134 mmol/L (136-145)
[2019-12-10 06:30] LABS: Blood Urea Nitrogen 9 mg/dl (7-17); Creatinine Clearance Estimated 51 mL/min (50-200); Estimated Glomerular Filt Rate 60 ml/min (>60); GFR (African American) 73 ML/MIN (>60)
[2019-12-10 06:31] LABS: Anion Gap 5.9 mEq/L (5-15); Calcium 8.2 mg/dl (8.4-10.2); Carbon Dioxide 31 mmol/L (22.0-30.0); Glucose 108 mg/dl (74-100)
[2019-12-10 06:38] LABS: Potassium 2.9 mmoL/L (3.5-5.1)
[2019-12-10 06:53] LABS: Basophils % 0.2 % (0.1-2.0); Eosinophils # 0.1 K/mm3 (0.0-0.4); Eosinophils % 0.9 % (0.1-12.0); Hematocrit 29.6 % (37.0-47.0); Hemoglobin 10.5 g/dL (12.2-16.2); Lymphocytes # 1.6 K/mm3 (0.7-4.5); Lymphocytes % 19.7 % (10-50); Mean Corpuscular HGB Conc 35.6 g/dL (31.8-35.4); Mean Corpuscular Hemoglobin 29.4 pg (27.0-31.2); Mean Corpuscular Volume 82.7 fl (81-99); Mean Platelet Volume 7.7 fl (7.4-10.4); Monocytes # 0.5 K/mm3 (0.1-1.0); Monocytes % 6.1 % (1.7-9.3); Neutrophils # 5.9 K/mm3 (1.8-7.8); Neutrophils % 73.2 % (37.0-80.0); Platelet Count 191 K/mm3 (142-424); Red Blood Count 3.58 M/mm3 (4.20-5.40); Red Cell Distribution Width 18.3 % (11.5-17.5); White Blood Count 8.1 K/mm3 (4.8-10.8)
[2019-12-10 08:00] VITALS: BP 148/74; PULSE 85; RESP 18; TEMP 37.1; O2SAT 94
--- NOTE | 2019-12-10 08:47 | HMH.ACPN2 ---
<Cheyenne Porras - Last Filed: 12/10/19 08:47> Internal Medicine - PN: Subj *Date: 12/10/19 *Time: 08:47 Interval history: Patient states she is feeling a little bit better this morning. She still is not hungry. She has minimal pain in her leg. She was able to get up and work with physical therapy and sit in a chair yesterday. She has been seen by Ortho. Exam Vital signs and Labs for Last 24 Hours: Temp Pulse Resp BP Pulse Ox 98.7 F 85 18 148/74 H 94 L 12/10/19 08:00 12/10/19 08:00 12/10/19 08:00 12/10/19 08:00 12/10/19 08:00 Laboratory Results - last 24 hr 12/10/19 05:44: WBC 8.1, RBC 3.58 L D, Hgb 10.5 L, Hct 29.6 L, MCV 82.7, MCH 29.4, MCHC 35.6 H, RDW 18.3 H D, Plt Count 191 D, MPV 7.7, Neut % (Auto) 73.2, Lymph % (Auto) 19.7, [place] % (Auto) 6.1, Eos % (Auto) 0.9, Baso % (Auto) 0.2, Neut # (Auto) 5.9, Lymph # (Auto) 1.6, [place] # (Auto) 0.5, Eos # (Auto) 0.1, Baso # (Auto) 0.0 12/10/19 05:44: Sodium 134 L, Potassium 2.9 L* D, Chloride 100, Carbon Dioxide 31 H D, Anion Gap 5.9, BUN 9 D, Creatinine 0.90, Estimated Creat Clear 51, Estimated GFR 60, Est GFR ( Amer) 73, Glucose 108 H, Calcium 8.2 L I & O for Last 24 hours: Intake & Output 12/07/19 12/08/19 12/09/19 12/10/19 11:59 11:59 11:59 11:59 Intake Total 3098 / 3098 2792 / 2792 970 / 970 430 / 430 Output Total 605 / 605 1300 / 1300 3000 / 3000 2601 / 2601 Balance 2493 / 2493 1492 / 1492 -2029 / -2029 -217 / -217 Weight 158 lb 11.725 oz 163 lb 9.328 oz 164 lb 0.383 oz 162 lb 7.691 oz - Constitutional no acute distress - *Routine Respiratory Exam Present: CTA bilaterally - *Routine Cardiovascular Exam Present: RRR - *Routine Abdominal Exam Present: soft, normoactive bowel sounds. Absent: tenderness - *Routine Extremities Exam Absent: cyanosis, clubbing, edema - *Routine Skin Exam Present: warm. Absent: rash Comments: dressing in place on left hip, clean and dry - *Routine Neurological Exam Present: alert, oriented X3 Assessment and Plan (1) Left displaced femoral neck fracture Current visit: Yes Status: Acute Category: Medical Code(s): S72.002A - Fracture of unspecified part of neck of left femur, initial encounter for closed fracture (2) Fall Current visit: No Status: Acute Category: Medical Code(s): W19.XXXA - Unspecified fall, initial encounter (3) Hypertension Current visit: No Status: Acute Category: Medical Code(s): I10 - Essential (primary) hypertension (4) Hypothyroidism Current visit: No Status: Acute Category: Medical Code(s): E03.9 - Hypothyroidism, unspecified (5) B-cell lymphoma Current visit: No Status: Chronic Qualifiers: 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 encounter (7) Postoperative anemia due to acute blood loss Current visit: Yes Status: Acute Category: Medical Code(s): D62 - Acute posthemorrhagic anemia (8) UTI (urinary tract infection), bacterial Current visit: Yes Status: Acute Category: Medical Code(s): N39.0 - Urinary tract infection, site not specified; A49.9 - Bacterial infection, unspecified (9) Renal insufficiency Current visit: No Status: Acute Category: Medical Code(s): N28.9 - Disorder of kidney and ureter, unspecified (10) Infection due to Citrobacter Current visit: Yes Status: Acute Category: Medical Code(s): A49.8 - Other bacterial infections of unspecified site (11) E. coli infect Current visit: Yes Status: Acute Category: Medical Code(s): A49.8 - Other bacterial infections of unspecified site - Assessme
--- NOTE | 2019-12-10 09:09 | P.PN_ITS ---
Subjective Date: 12/10/19 Time: 08:00 Principal diagnosis: L femoral neck fracture Interval history: The patient is doing well this morning, pain in the L hip is minimal. She continues to have back/neck pain and a sore throat. Taking in more food, urinating and moving bowels. She is getting out of bed with PT but progress has been slow. PN: Obj Ex Vital signs: Temp Pulse Resp BP Pulse Ox 98.7 F 85 18 148/74 H 94 L 12/10/19 08:00 12/10/19 08:00 12/10/19 08:00 12/10/19 08:00 12/10/19 08:00 - Constitutional no acute distress - Routine Respiratory Exam Absent: respiratory distress, wheezes - Routine Cardiovascular Exam Present: RRR - Routine Extremities Exam Comments: patient in bedside chair; abduction pillow in place between legs dressing L hip c/d/i, no strikethrough dressing removed, small collection of serous drainage under dressing incision without erythema/ecchymosis, nico intact, no active drainage palpable pedal pulses LLE, foot warm/pink L calf soft, compressible, non-tender +PF/EHL LLE; DF lagging. Increased motion in toes/dorsum of foot but ankle DF l acking. SILT distally LLE in all distributions - Routine Skin Exam Present: warm - Routine Neurological Exam Present: alert, oriented X3 - Urinary Catheter Management Sanchez Cath placed during this visit: no Progress Note: A&P (1) Left displaced femoral neck fracture Status: Acute Current Visit: Yes (2) Fall Status: Acute Current Visit: No (3) Hypertension Status: Acute Current Visit: No (4) Hypothyroidism Status: Acute Current Visit: No (5) B-cell lymphoma Status: Chronic Current Visit: No (6) Adverse reaction to narcotic drug Status: Acute Current Visit: Yes (7) Postoperative anemia due to acute blood loss Status: Acute Current Visit: Yes (8) UTI (urinary tract infection), bacterial Status: Acute Current Visit: Yes (9) Renal insufficiency Status: Acute Current Visit: No (10) Infection due to Citrobacter Status: Acute Current Visit: Yes (11) E. coli infect Status: Acute Current Visit: Yes Assessment and Plan for All Diagnoses:: 79yo F POD 5 s/p L MAHESH for displaced femoral neck fracture -- WBAT LLE, out of bed ad tommy with assistance and a walker -- PT/OT to continue -- posterior hip precautions -- abduction pillow while in bed -- ice pack L hip as needed -- continue treatment for UTI per Dr. Lopez -- pain control: percocet/morphine as needed -- DVT prophy: SCDs, lovenox -- encourage IS 10x/hr while awake -- slight foot drop present, may be due to post-op pain/weakness, or neuropraxia. AFO to be fitted today. -- dispo planning: planned d/c to SNF today.
[2019-12-10 09:16] LABS: Coronavirus 19 IgG Antibody Negative (Negative); Coronavirus 19 IgM Antibody Negative (Negative)
--- NOTE | 2019-12-10 15:11 | PC.NURSE ---
report called to Kelly @ [facility]. Pt to go by EMS.
--- NOTE | 2019-12-10 16:03 | PC.NURSE ---
pt to [facility] via stretcher with EMS
== END 2019-12-10 16:07 | DRG 470 ==
LOC: ER 15:15 → 2ND 17:26
PROVIDERS: Orthopaedic Surgery; Admitting Provider Family Medicine; Emergency Provider Emergency Medicine; PCP Family Medicine; Visit Provider Family Medicine
PROC: 0SRB049 Replacement of Left Hip Joint with Ceramic on Polyethylene Synthetic Substitute, Cemented, Open Approach (ICD-10-PCS; CPT 27130; principal; 2019-12-05 08:00)
DX: S72.012A Unspecified intracapsular fracture of left femur, initial encounter for closed fracture (principal); C83.32 Diffuse large B-cell lymphoma, intrathoracic lymph nodes; N39.0 Urinary tract infection, site not specified; D62 Acute posthemorrhagic anemia; W01.0XXA Fall on same level from slipping, tripping and stumbling without subsequent striking against object, initial encounter; Y92.019 Unspecified place in single-family (private) house as the place of occurrence of the external cause; E03.9 Hypothyroidism, unspecified; E86.0 Dehydration; L27.0 Generalized skin eruption due to drugs and medicaments taken internally; T40.2X5A Adverse effect of other opioids, initial encounter; Y92.230 Patient room in hospital as the place of occurrence of the external cause; B96.20 Unspecified Escherichia coli [E. coli] as the cause of diseases classified elsewhere; E87.6 Hypokalemia; Z79.899 Other long term (current) drug therapy; Z88.8 Allergy status to other drugs, medicaments and biological substances; Z88.7 Allergy status to serum and vaccine; Z87.891 Personal history of nicotine dependence
CPT/HCPCS: 27130; 36415; 70450; 70486; 71045; 72125; 72192; 73502; 80048; 80053; 81001; 83605; 85014; 85018; 85025; 85610; 85730; 86328; 86850; 87040; 87086; 87088; 87186; 93005; 94761; 96365; 96374; 96375; 97110; 97116; 97161; 97166; 97530; 99284; C1713; C1776; J1335; J2310; J2405; J2704; P9016

== ENCOUNTER → 2019-12-18 12:26 | Outpatient (CLI) | payer MEDICARE, SELFPAY ==
--- NOTE | 2019-12-18 12:31 | XR_ITS ---
PROCEDURE: XR HIP LT 2-3V W/PELVIS CLINICAL INDICATION: ls/p lt hip fx COMPARISON: XR HIP LT 2-3V W/PELVIS from 12/05/2019 FINDINGS: The total hip prosthesis is again seen stable and unchanged in appearance from the previous study. Medullary stem is well positioned within the proximal femur. The metallic skin sutures are still seen in place. The postsurgical gas seen in the soft tissues on the previous study has resolved. IMPRESSION: Satisfactory appearance of total left hip prosthesis Dictated by: Dr. Rivera Park MD 12/18/2019 13:[address] Rivera Park MD in [place] 12/18/2019 13:31
== END ==
PROVIDERS: PCP Family Medicine; Visit Provider Orthopaedic Surgery
DX: Z87.81 Personal history of (healed) traumatic fracture (principal)
CPT/HCPCS: 73502

== ENCOUNTER → 2020-01-08 12:30 | Outpatient (CLI) | payer MEDICARE, SELFPAY ==
--- NOTE | 2020-01-08 12:35 | XR_ITS ---
PROCEDURE: XR HIP LT 2-3V W/PELVIS CLINICAL INDICATION: LT MAHESH COMPARISON: CR XR HIP LT 2-3V W/PELVIS from 12/18/2019 FINDINGS: The left hip prosthesis is again noted stable and unchanged from the most recent study. There is no evidence of loosening. Metallic skin sutures have been removed although 1 suture is still remaining. There is less diffuse soft tissue swelling about the left hip than seen previously. IMPRESSION: Satisfactory appearance left total hip prosthesis Dictated Dr. Rivera Washington MD 01/08/2020 13:47 Dr. Rivera Park MD in [place] 01/08/2020 13:47
== END ==
PROVIDERS: PCP Family Medicine; Visit Provider Orthopaedic Surgery
DX: S72.002A Fracture of unspecified part of neck of left femur, initial encounter for closed fracture (principal)
CPT/HCPCS: 73502

== ENCOUNTER → 2020-01-28 14:08 | Outpatient (CLI) | payer MEDICARE, SELFPAY ==
[2020-02-05 18:01] LABS: Albumin 3.5 g/dL (2.9-4.4); Alpha-1-Globulin 0.3 g/dL (0.0-0.4); Alpha-2-Globulin 0.9 g/dL (0.4-1.0); Protein, Total 6.5 g/dL (6.0-8.5)
[2020-02-06 09:41] LABS: Immunoglobulin A, Qn, CHARGE YES; Immunoglobulin G, Qn, CHARGE YES; Immunoglobulin M, Qn, CHARGE YES
== END ==
PROVIDERS: Visit Provider Specialist
DX: M21.372 Foot drop, left foot (principal); R29.2 Abnormal reflex; R29.898 Other symptoms and signs involving the musculoskeletal system; Z85.79 Personal history of other malignant neoplasms of lymphoid, hematopoietic and related tissues; Z87.81 Personal history of (healed) traumatic fracture; Z92.21 Personal history of antineoplastic chemotherapy
CPT/HCPCS: 36415; 82784; 84155; 84165; 86334

== ENCOUNTER → 2020-02-15 12:25 | Outpatient (CLI) | payer MEDICARE, SELFPAY ==
--- NOTE | 2020-02-15 12:30 | XR_ITS ---
PROCEDURE: XR HIP LT 2-3V W/PELVIS CLINICAL INDICATION: pelvis weightbearing if tolerated Follow-up hip replacement COMPARISON: CR XR HIP LT 2-3V W/PELVIS from 01/08/2020 FINDINGS: Status post total left hip replacement. There is good alignment. The acetabular screw does project just beyond the inner cortex the iliopectineal line. This is not significantly changed. There are degenerative changes in the SI joints right hip and lumbar spine. IMPRESSION: No change good alignment status post left hip replacement Dictated by: Meño Herrera MD 02/15/2020 13:03 Meño Herrera MD in [facility] 02/15/2020 13:03
== END ==
PROVIDERS: PCP Family Medicine; Visit Provider Orthopaedic Surgery
DX: S72.002D Fracture of unspecified part of neck of left femur, subsequent encounter for closed fracture with routine healing (principal); Z87.81 Personal history of (healed) traumatic fracture
CPT/HCPCS: 73502

== ENCOUNTER → 2020-03-03 11:56 | Outpatient (CLI) | payer MEDICARE, SELFPAY ==
[2020-03-03 12:37] LABS: Basophils % 0.5 % (0.1-2.0); Eosinophils # 0.1 K/mm3 (0.0-0.4); Eosinophils % 0.6 % (0.1-12.0); Hematocrit 41.7 % (37.0-47.0); Hemoglobin 13.9 g/dL (12.2-16.2); Lymphocytes # 2.1 K/mm3 (0.7-4.5); Lymphocytes % 27.3 % (10-50); Mean Corpuscular HGB Conc 33.4 g/dL (31.8-35.4); Mean Corpuscular Hemoglobin 30.6 pg (27.0-31.2); Mean Corpuscular Volume 91.6 fl (81-99); Mean Platelet Volume 7.4 fl (7.4-10.4); Monocytes # 0.4 K/mm3 (0.1-1.0); Monocytes % 5.2 % (1.7-9.3); Neutrophils # 5.1 K/mm3 (1.8-7.8); Neutrophils % 66.4 % (37.0-80.0); Platelet Count 239 K/mm3 (142-424); Red Blood Count 4.55 M/mm3 (4.20-5.40); Red Cell Distribution Width 15.5 % (11.5-17.5); White Blood Count 7.6 K/mm3 (4.8-10.8)
[2020-03-03 14:48] LABS: Chloride 105 mmol/L (98-107)
[2020-03-03 14:49] LABS: Potassium 4.7 mmoL/L (3.5-5.1); Sodium 139 mmol/L (136-145)
[2020-03-03 14:51] LABS: Alanine Aminotransferase 43 U/L (12-78); Alkaline Phosphatase 103 U/L (38-126); Anion Gap 11.7 mEq/L (5-15); Aspartate Amino Transferase 35 U/L (14-36); Bilirubin,Total 0.5 mg/dl (0.2-1.3); Blood Urea Nitrogen 25 mg/dl (7-17); Carbon Dioxide 27 mmol/L (22.0-30.0); Estimated Glomerular Filt Rate 43 ml/min (>60); GFR (African American) 52 ML/MIN (>60)
[2020-03-03 14:52] LABS: Albumin Level 4.1 g/dl (3.5-5.0); Albumin/Globulin Ratio 1.6 (1.1-1.8); Calcium 9.5 mg/dl (8.4-10.2); Globulin 2.6 g/dL (1.3-3.2); Glucose 59 mg/dl (74-100); Total Protein,Serum 6.7 g/dl (6.3-8.2)
[2020-03-03 15:43] LABS: Vitamin B12 979 pg/mL (239-931)
== END ==
PROVIDERS: Family Medicine; Visit Provider Nurse Practitioner Family
DX: D47.2 Monoclonal gammopathy (principal); G62.9 Polyneuropathy, unspecified; M21.372 Foot drop, left foot; Z85.79 Personal history of other malignant neoplasms of lymphoid, hematopoietic and related tissues
CPT/HCPCS: 36415; 80053; 82607; 83735; 84100; 85025

== ENCOUNTER → 2020-03-10 10:26 | Outpatient (CLI) | payer MEDICARE, SELFPAY ==
--- NOTE | 2020-03-10 10:28 | XR_ITS ---
PROCEDURE: XR DEXA AXIAL SKELETON CLINICAL HISTORY: CLOSED FRACTURE OF LT HIP, OSTEOPEROSIS SCREENING recent fx of lt hip, post menopausal COMPARISON: CR BONE3 BONE DENSITOMETRY(HIP:LT SPINE from 06/29/2015 FINDINGS: The right hip BMD is 0.642 with a T-score of -1.9. The right forearm BMD is 0.546 with a T-score of -2.5. The lumbar spine BMD is 0.990 with a T-score of -0.5. Previously the lowest bone density was at the femur neck with a T-score -0.9 the bone density has decreased compared to the previous exam IMPRESSION: This patient is considered osteoporotic according to the World Health Organization criteria. Fracture risk is high. Treatment is advised. Based on these results a follow-up exam is recommended in 1 year. Dictated by: Meño Herrera MD 03/11/2020 15:05 Meño Herrera MD in [place] 03/11/2020 15:05
== END ==
PROVIDERS: PCP Family Medicine; Visit Provider Family Medicine
DX: S72.002D Fracture of unspecified part of neck of left femur, subsequent encounter for closed fracture with routine healing (principal); Z78.0 Asymptomatic menopausal state
CPT/HCPCS: 77080

== ENCOUNTER → 2020-05-20 12:29 | Outpatient (CLI) | payer MEDICARE, SELFPAY ==
--- NOTE | 2020-05-20 12:34 | XR_ITS ---
PROCEDURE: XR HIP LT 2-3V W/PELVIS CLINICAL INDICATION: left MAHESH Follow-up total hip replacement COMPARISON: CR XR HIP LT 2-3V W/PELVIS from 02/15/2020 FINDINGS: S/p total hip replacement on the left with good alignment. The acetabular screw projects medial to the iliopectineal line as before. Incidental note made of mild osteoarthritic changes of the right hip and SI joints. IMPRESSION: Status post left hip replacement with good alignment Dictated by: Meño Herrera MD 05/20/2020 13:54 Meño Herrera MD in [place] 05/20/2020 13:54
== END ==
PROVIDERS: PCP Family Medicine; Visit Provider Orthopaedic Surgery
DX: M25.552 Pain in left hip; Z96.642 Presence of left artificial hip joint
CPT/HCPCS: 73502

== ENCOUNTER → 2021-03-09 11:41 | Outpatient (CLI) | payer MEDICARE, SELFPAY ==
--- NOTE | 2021-03-09 11:48 | XR_ITS ---
PROCEDURE: XR SHOULDER LT MIN 2V CLINICAL INDICATION: ACUTE PAIN OF LT SHOULDER COMPARISON: No exams were available for comparison FINDINGS: The clavicle is intact and the AC joint. There is no subacromial stenosis. The humeral head and glenoid normal. There are no soft tissue calcifications. There has been previous anterior cervical fusion C5 through C7. IMPRESSION: No acute findings. Dictated by: Dr. Rivera Park MD 03/09/2021 12:39 Dr. Rivera Park MD in [place] 03/09/2021 12:39
--- NOTE | 2021-03-09 11:48 | XR_ITS ---
PROCEDURE: XR FOOT RT MIN 3V CLINICAL INDICATION: BUNION, RT FOOT, PAIN IN RT FOOT COMPARISON: No exams were available for comparison FINDINGS: No fracture or dislocation. No lytic or blastic change. There is normal mineralization. There is moderate hallux valgus. There is a small bone fragment with smooth borders adjacent to the medial aspect of the head of the 1st metatarsal possibly an old avulsed osteophyte. The plantar arch is normal. There are prominent spurs of the calcaneus at the insertion of Achilles tendon and plantar tendon. Other findings:None. IMPRESSION: Prominent hallux valgus and calcaneal spurs as noted Dictated by: Dr. Rivera Park MD 03/09/2021 12:37 Dr. Rivera Park MD in [place] 03/09/2021 12:37
== END ==
PROVIDERS: PCP Family Medicine; Visit Provider Family Medicine
DX: M25.512 Pain in left shoulder (principal); M79.671 Pain in right foot; M21.611 Bunion of right foot
CPT/HCPCS: 73030; 73630

== ENCOUNTER → 2021-04-11 10:14 | Outpatient (CLI) | payer MEDICARE, SELFPAY ==
[2021-04-11 11:06] LABS: Adenovirus,PCR Not Detected (NotDetected); Bordetella Pertussis Not Detected (NotDetected); Chlamydophila Pneumoniae, PCR Not Detected (NotDetected); Coronavirus 19, PCR Not Detected (NotDetected); Coronavirus 229E Not Detected (NotDetected); Coronavirus NL63 Not Detected (NotDetected); Coronavirus OC43 Not Detected (NotDetected); Coronovirus HKU1,PCR Not Detected (NotDetected); Human Metapneumovirus Not Detected (NotDetected); Influenza A, PCR Not Detected (NotDetected); Influenza AH1, 2009 Not Detected (NotDetected); Influenza AH1, PCR Not Detected (NotDetected); Influenza AH3,PCR Not Detected (NotDetected); Influenza B, PCR Not Detected (NotDetected); Mycoplasma Pneumoniae, PCR Not Detected (NotDetected); Parainfluenza 1, PCR Not Detected (NotDetected); Parainfluenza 2, PCR Not Detected (NotDetected); Parainfluenza 3, PCR Not Detected (NotDetected); Parainfluenza 4, PCR Not Detected (NotDetected); Respiratory Syncytial Virus Not Detected (NotDetected); Rhinovirus/Enterovirus Not Detected (NotDetected)
[2021-04-11 11:27] LABS: Basophils % 0.3 % (0.1-2.0); Eosinophils # 0.1 K/mm3 (0.0-0.4); Eosinophils % 0.4 % (0.1-12.0); Hematocrit 41.4 % (37.0-47.0); Hemoglobin 13.1 g/dL (12.2-16.2); Lymphocytes # 2.1 K/mm3 (0.7-4.5); Lymphocytes % 16.4 % (10-50); Mean Corpuscular HGB Conc 31.7 g/dL (31.8-35.4); Mean Corpuscular Hemoglobin 30.2 pg (27.0-31.2); Mean Corpuscular Volume 95.3 fl (81-99); Mean Platelet Volume 8.2 fl (7.4-10.4); Monocytes # 0.5 K/mm3 (0.1-1.0); Monocytes % 3.7 % (1.7-9.3); Neutrophils % 79.1 % (37.0-80.0); Platelet Count 249 K/mm3 (142-424); Red Blood Count 4.34 M/mm3 (4.20-5.40); Red Cell Distribution Width 13.8 % (11.5-17.5); White Blood Count 12.7 K/mm3 (4.8-10.8)
== END ==
PROVIDERS: PCP Family Medicine; Visit Provider Family Medicine
DX: Z20.822 Contact with and (suspected) exposure to COVID-19 (principal)
CPT/HCPCS: 36415; 85025; 87581; 87632; 87798; C9803; U0003; U0005

== ENCOUNTER 2021-11-27 02:48 | Inpatient (IN) | payer MEDICARE, SELFPAY ==
[2021-11-27] VITALS (11 sets, daily range): BP systolic 136–186; BP diastolic 69–91; PULSE 91–104; RESP 15–22; TEMP 36.7–37.7; O2SAT 94–98; BMI 23.5
--- NOTE | 2021-11-27 03:07 | XR_ITS ---
PROCEDURE INFORMATION: Exam: XR Chest Exam date and time: 11/27/2021 3:25 AM Age: 81 years old Clinical indication: Cough TECHNIQUE: Imaging protocol: Radiologic exam of the chest. Views: 1 view. COMPARISON: SD XR CHEST PORTABLE 12/04/2019 8:24 PM FINDINGS: Lungs: No acute appearing consolidation or airspace disease. Chronic interstitial changes. Pleural spaces: No pleural effusion. No pneumothorax. Heart/Mediastinum: No acute findings or cardiomegaly. Bones/joints: No acute findings. IMPRESSION: 1. No acute cardiopulmonary findings. 2. Chronic interstitial changes.
[2021-11-27 03:14] LABS: Influenza A, PCR Not Detected (NotDetected); Influenza B, PCR Not Detected (NotDetected)
--- NOTE | 2021-11-27 03:15 | HMH.EDURI ---
ED Disposition Clinical Impression: UTI (urinary tract infection), bacterial, COVID-19, SIRS (systemic inflammatory response syndrome) Hypothyroidism Qualifiers: Hypothyroidism type: unspecified Qualified Code(s): E03.9 - Hypothyroidism, unspecified Disposition: Admitted as Observation Condition on Discharge: Fair Referrals: Shahid Lopez MD [Primary Care Provider] - - Critical Care Critical Care Time: No Attestation: On 11/27/21, the high probability of a clinically significant, sudden or life threatening deterioration of the following system(s) required my full and direct attention, intervention and personal management. The time I documented below is in addition to time spent performing reported procedures but includes the following listed in this critical care notation. Medical Decision Making - Medical Records Medical records reviewed: Yes: I reviewed the patient's medical records. - Eduardo Inquiry Pt receiving controlled substance: No Vital Signs: 11/27/21 03:00 11/27/21 03:30 11/27/21 04:00 Temperature 98.2 F Temperature Source Oral Pulse Rate 99 H 100 H Pulse Rate [Apical] 104 H Respiratory Rate 18 Blood Pressure 174/91 H 186/89 H Blood Pressure [Right Arm] 186/90 H Blood Pressure Mean [Right Arm] 122 Blood Pressure Source [Right Arm] Automatic Cuff Blood Pressure Position [Right Arm] Sitting 02 Sat by Pulse Oximetry 98 98 96 Oxygen Delivery Method Room Air Room Air Room Air 11/27/21 04:26 Temperature Temperature Source Pulse Rate 100 H Pulse Rate [Apical] Respiratory Rate Blood Pressure 171/83 H Blood Pressure [Right Arm] Blood Pressure Mean [Right Arm] Blood Pressure Source [Right Arm] Blood Pressure Position [Right Arm] 02 Sat by Pulse Oximetry 98 Oxygen Delivery Method Room Air - Lab Data Lab results reviewed: Yes: I reviewed the patient's lab results. Lab Results 11/27/21 02:55: SARS-CoV-2 (PCR) Detected A, Influenza A Untype (PCR) Not detected, Influenza Type B (PCR) Not detected 11/27/21 03:00: WBC 6.6, RBC 4.71, Hgb 14.5, Hct 43.8, MCV 93.0, MCH 30.8, MCHC 33.1, RDW 13.7, Plt Count 247, MPV 8.2, Neut % (Auto) 79.0, Lymph % (Auto) 11.2, [place] % (Auto) 9.0, Eos % (Auto) 0.1, Baso % (Auto) 0.7, Neut # (Auto) 5.2, Lymph # (Auto) 0.7, [place] # (Auto) 0.6, Eos # (Auto) 0.0, Baso # (Auto) 0.1, ESR 20 11/27/21 03:00: Sodium 133 L, Potassium 3.7, Chloride 96 L, Carbon Dioxide 25, Anion Gap 15.7 H, BUN 12, Creatinine 1.10 H, Estimated Creat Clear 42, Estimated GFR 47 L, Est GFR ( Amer) 57 L, Glucose 136 H, Calcium 9.6, Magnesium 1.5 L, C-Reactive Protein 20.3 H, Procalcitonin 0.093 11/27/21 03:00: Total Bilirubin 0.4, Direct Bilirubin 0.0, Conjugated Bilirubin 0.0, Indirect Bilirubin 0.4, Unconjugated Bilirubin 0.5, AST 42 H, ALT 33, Alkaline Phosphatase 124, Total Protein 7.5, Albumin 4.3 11/27/21 03:50: Urine Color Yellow, Urine Appearance Sl cloudy, Urine pH 8.0, Ur Specific [place] 1.015, Urine Protein Trace, Urine Glucose (UA) Negative, Urine Ketones 2+, Urine Blood Trace-i, Urine Nitrate Positive, Urine Bilirubin Negative, Urine Urobilinogen 0.2, Ur Leukocyte Esterase Negative, Urine RBC Occasional, Urine WBC 5-10, Urine Bacteria 1+ Result diagrams: 11/27/21 03:00 11/27/21 03:00 Orders (Tests/Meds): ED MEDICATIONS Generic Name Dose Route Start Last Admin Trade Name Freq PRN Reason Stop Dose Admin Lactated Ringer's 1,000 mls @ 999 mls/hr 11/27/21 03:15 11/27/21 03:16 Lactated Ringer's 1000 Ml Bag IV 11/27/21 04:15 999 mls/hr .[id number] Administration Ceftriaxone Sodium 1 gm/ 50 mls @ 100 mls/hr 11/27/21 04:45 Sodium Chloride IV 12/11/21 04:44 Q24H ZULEYKA Discontinued Medications Generic Name Dose Route Start Last Admin Trade Name Freq PRN Reason Stop Dose Admin Acetaminophen 1,000 mg 11/27/21 04:21 11/27/21 04:23 Acetaminophen 500mg Tab PO 11/27/21 04:22 1,000 mg ONCE ONE Administration Dexamethasone Sodi
[2021-11-27 03:18] LABS: Basophils # 0.1 K/mm3 (0-0.2); Basophils % 0.7 % (0.1-2.0); Eosinophils % 0.1 % (0.1-12.0); Hematocrit 43.8 % (37.0-47.0); Hemoglobin 14.5 g/dL (12.2-16.2); Lymphocytes # 0.7 K/mm3 (0.7-4.5); Lymphocytes % 11.2 % (10-50); Mean Corpuscular HGB Conc 33.1 g/dL (31.8-35.4); Mean Corpuscular Hemoglobin 30.8 pg (27.0-31.2); Mean Platelet Volume 8.2 fl (7.4-10.4); Monocytes # 0.6 K/mm3 (0.1-1.0); Neutrophils # 5.2 K/mm3 (1.8-7.8); Platelet Count 247 K/mm3 (142-424); Red Blood Count 4.71 M/mm3 (4.20-5.40); Red Cell Distribution Width 13.7 % (11.5-17.5); White Blood Count 6.6 K/mm3 (4.8-10.8)
[2021-11-27 03:23] LABS: Anion Gap 15.7 mEq/L (5-15); Blood Urea Nitrogen 12 mg/dl (7-17); Calcium 9.6 mg/dl (8.4-10.2); Carbon Dioxide 25 mmol/L (22.0-30.0); Chloride 96 mmol/L (98-107); Creatinine Clearance Estimated 42 mL/min (50-200); Estimated Glomerular Filt Rate 47 ml/min (>60); GFR (African American) 57 ML/MIN (>60); Glucose 136 mg/dl (74-100); Magnesium 1.5 mg/dl (1.6-2.3); Potassium 3.7 mmoL/L (3.5-5.1); Sodium 133 mmol/L (136-145)
[2021-11-27 03:28] LABS: C-Reactive Protein 20.3 mg/L (0-4)
[2021-11-27 03:30] LABS: Alanine Aminotransferase 33 U/L (12-78); Albumin Level 4.3 g/dl (3.5-5.0); Alkaline Phosphatase 124 U/L (38-126); Aspartate Amino Transferase 42 U/L (14-36); Bilirubin,Indirect 0.4 mg/dL (0.0-0.9); Bilirubin,Total 0.4 mg/dl (0.2-1.3); Bilirubin,Unconjugated 0.5 mg/dL (0.0-1.1); Total Protein,Serum 7.5 g/dl (6.3-8.2)
[2021-11-27 03:40] LABS: Erythrocyte Sedimentation Rate 20 mm/hr (0-30)
[2021-11-27 03:40] LABS: Coronavirus 19, PCR Detected (NotDetected)
[2021-11-27 03:42] LABS: Procalcitonin 0.093 ng/mL (0.0-2.0)
[2021-11-27 03:59] LABS: Microscopic, Urine URINE MICROSCOPIC (MICROSCOPIC)
[2021-11-27 04:00] LABS: Appearance,Urine SL CLOUDY (Clear); Bilirubin,Urine Negative (Negative); Blood, Urine TRACE-I (Negative); Color,Urine YELLOW (Yellow); Glucose,Urine (UA) Negative (Negative); Ketones,Urine 2+ (Negative); Leukocyte Esterase,Urine Negative (Negative); Nitrate,Urine POSITIVE (Negative); Protein,Urine TRACE (Negative); Specific Gravity, Urine 1.015 (1.005-1.030); Urobilinogen,Urine 0.2 EU/dl (0.2)
[2021-11-27 04:03] LABS: Bacteria,Urine 1+ /lpf; RBC,Urine Occasional #/hpf (0-3)
--- NOTE | 2021-11-27 04:37 | PC.NURSE ---
Dr. Lopez paged for Dr. Ryder
--- NOTE | 2021-11-27 04:39 | PC.NURSE ---
Dr. Ryder on phone with Dr. Lopez
--- NOTE | 2021-11-27 04:41 | PC.NURSE ---
Dr. Ryder s/w John Baker
[2021-11-27 04:48] LABS: Lactic Acid 1.7 mmol/L (0.7-2.1)
--- NOTE | 2021-11-27 05:21 | PC.NURSE ---
pt to floor via stretcher [id number]
--- NOTE | 2021-11-27 07:13 | P.CONPHA_ITS ---
[facility] Pharmacy VTE Monitoring - Patient Demographics Admission date: 11/27/21 Report Date: 11/27/21 Time: 07:13 Allergies/Adverse Reactions: Patient Allergies cucumber [CUCUMBER] Allergy (Severe, Verified 05/09/21 14:02) HIVES, SWELLING, TROUBLE BREATHING alprazolam [From XANAX] Allergy (Intermediate, Verified 05/09/21 14:02) ADVERSE tetanus and diphtheria toxoids [TETANUS AND DIPHTHERIA TOXOIDS] Allergy (Mild, Verified 05/09/21 14:02) Iodinated Contrast Media [IODINATED CONTRAST MEDIA - ORAL AND] Allergy (Unknown, Verified 05/09/21 14:02) Height: 1.7 m Weight: 68.039 kg Patient Problems: Current Active Problems Hypothyroidism (Acute) UTI (urinary tract infection), bacterial (Acute) COVID-19 (Acute) SIRS (systemic inflammatory response syndrome) (Acute) - VTE Risk Labs: VTE Related Lab Results Hgb 14.5 g/dL (12.2-16.2) 11/27/21 03:00 Hct 43.8 % (37.0-47.0) 11/27/21 03:00 Plt Count 247 K/mm3 (142-424) 11/27/21 03:00 BUN 12 mg/dl (7-17) 11/27/21 03:00 Creatinine 1.10 mg/dl (0.52-1.04) H 11/27/21 03:00 Estimated Creat Clear 42 mL/min (50-200) 11/27/21 03:00 VTE Score: 2 VTE Risk Level: Very Low Risk - Prophylaxis VTE Prophylaxis Ordered?: Yes Types of VTE Prophylaxis: TEDS Knee High Location of Applied Device: Bilateral Lower Extremeties
--- NOTE | 2021-11-27 07:16 | HMH.PHAINT ---
MEDICATION RECONCILIATION COMPLETED ON PATIENT USING EXTERNAL FILL HISTORY FROM PHARMACY. -KIRSTEN SIMPSON, JHD
--- NOTE | 2021-11-27 08:20 | HMH.HP ---
*Admission Date: 11/27/21 <Luna Thomas 11/27/21 08:47> *Chief complaint: Respiratory symptoms with nausea and vomiting <Luna Thomas 11/27/21 08:47> *History of present illness: Ms. Bueno is an 80-year-old female with a history of hypertension, hyperlipidemia, hypothyroidism, B-cell lymphoma, and left hip fracture in 2019 was brought to the emergency room by a friend after feeling badly yesterday with nausea and vomiting, fever, severe headache, body aches, productive cough and some shortness of breath. She states she was unable to eat and drink yesterday. With evaluation in the emergency room Blood pressure was elevated. COVID was positive. She received a liter of IV fluids and was given Tylenol, dexamethasone 10 mg IV, Ketorolac 15 mg IV and Zofran IV. She was felt to have a urinary tract infection as well And was started on Rocephin IV. Laboratory data showed some renal insufficiency with a BUN of 12 and creatinine of 1.10. CBC was normal. Urine and blood cultures are pending. Chest x-ray showed the following: IMPRESSION: 1. No acute cardiopulmonary findings. 2. Chronic interstitial changes. This morning patient feels slightly better. She denies nausea but does not want to eat. She has been incontinent of urine due to urgency. She states her bowels have been moving normally. At present she denies chest pain and shortness of breath. <MarthaLuna 11/27/21 08:47> [facility] History Medical History: Reports:: Asthma, Cancer (B-cell lymphoma), Gastroesophageal Reflux Disease(GERD), Hyperlipidemia, Hypertension, Migraine Denies:: Diabetes Mellitus Type 1, Diabetes Mellitus Type 2, MRSA <ThomasLuna 11/27/21 08:47> *Have you ever received a pneumonia vaccine?: Yes <Luna Thomas 11/27/21 08:47> *Have you received a flu vaccine this season?: Yes <Luna Thomas 11/27/21 08:47> Other Medical History: Reports: Arthritis, Cataracts, Chemotherapy, Hypothyroidism <Luna Thomas 11/27/21 08:47> Laterality Cases: Left: Total Hip Replacement, Bilateral: Other <Luna Thomas 11/27/21 08:47> Other Surgeries: Yes: Cancer Surgery, Colonoscopy, Hysterectomy-Total, Other (Oral surgery; bone spurs removed from neck in 2016) <ThomasLuna 11/27/21 08:47> Amputation: No <Thomas,Luna 11/27/21 08:47> Fractures: Yes <Thomas,Luna 11/27/21 08:47> - *Social History Last grade of school completed: Advanced degree <MarthaLuna 11/27/21 08:47> Smoking Status: Never smoker <MarthaLuna 11/27/21 08:47> Alcohol Intake: never <MarthaLuna 11/27/21 08:47> Substance Use Type: denies use <MarthaLuna 11/27/21 08:47> *Occupational Status:: retired <MarthaLuna 11/27/21 08:47> Housing: house <MarthaLuna 11/27/21 08:47> Household Members: family <MarthaLuna 11/27/21 08:47> *Travel in the last 8 weeks: None <MarthaUlna 11/27/21 08:47> Family Hx:: Stroke, Other <MarthaLuna 11/27/21 08:47> Review of Systems - Constitutional Reports body ache(s), Reports fatigue, Reports fever(s), Reports lack of energy <Luna Thomas 11/27/21 08:47> - Eyes Reports change in vision <Luna Thomas 11/27/21 08:47> - ENT Reports ear pain, Reports nasal congestion, Reports sore throat <Amberly Thomashy 11/27/21 08:47> - *Cardiovascular Reports shortness of breath (With coughing), Denies chest pain, Denies leg swelling <Luna Thomas 11/27/21 08:47> - *Respiratory Reports cough, Reports shortness of breath, Denies coughing up blood <Luna Thomas 11/27/21 08:47> - *Gastrointestinal Reports abdominal pain, Reports nausea, Reports vomiting, Denies change in stools, Denies heartburn, Denies vomiting blood <Luna Thomas 11/27/21 08:47> - *Genitourinary Reports difficulty urinating, Reports painful urination, Reports urinary incontinence, Reports urinary urgency, Denies blood in urine <Luna Thomas - 11/27/21 08:47> - *Musculoskeletal Reports body aches, Denies joint pain
--- NOTE | 2021-11-27 19:17 | PC.NURSE ---
pt has been pleasant t/o shift. pt has complained of MCCLURE, ordered med administered. stand by assist when ambulating to the bathroom. call sun and personal items within reach. no other complaints at this time. will continue to monitor
[2021-11-28 04:00] VITALS: BP 151/71; PULSE 80; RESP 15; TEMP 36.7; O2SAT 98
[2021-11-28 04:54] VITALS: BMI 22.6
--- NOTE | 2021-11-28 05:26 | PC.NURSE ---
Pt has been pleasant this shift. Pt has not rested well, states she has nights where she can't fall asleep. Pt has voiced x1 c/o of headache, admin meds per AUG. Pt remains on RA with O2 sats >90%. Patient is standby assist to bathroom, and tolerates well. Bed alarm on for safety.
[2021-11-28 07:00] LABS: Basophils % 0.5 % (0.1-2.0); Eosinophils % 0.6 % (0.1-12.0); Hematocrit 40.9 % (37.0-47.0); Hemoglobin 12.7 g/dL (12.2-16.2); Lymphocytes # 1.5 K/mm3 (0.7-4.5); Lymphocytes % 23.9 % (10-50); Mean Corpuscular HGB Conc 30.9 g/dL (31.8-35.4); Mean Corpuscular Hemoglobin 30.3 pg (27.0-31.2); Mean Corpuscular Volume 98.1 fl (81-99); Monocytes # 0.6 K/mm3 (0.1-1.0); Monocytes % 9.8 % (1.7-9.3); Neutrophils # 4.1 K/mm3 (1.8-7.8); Neutrophils % 65.3 % (37.0-80.0); Platelet Count 224 K/mm3 (142-424); Red Blood Count 4.18 M/mm3 (4.20-5.40); Red Cell Distribution Width 13.8 % (11.5-17.5); White Blood Count 6.3 K/mm3 (4.8-10.8)
[2021-11-28 07:09] LABS: Chloride 100 mmol/L (98-107); Sodium 133 mmol/L (136-145)
[2021-11-28 07:10] LABS: Potassium 3.7 mmoL/L (3.5-5.1)
[2021-11-28 07:12] LABS: Anion Gap 9.7 mEq/L (5-15); Blood Urea Nitrogen 22 mg/dl (7-17); Carbon Dioxide 27 mmol/L (22.0-30.0); Creatinine Clearance Estimated 37 mL/min (50-200); Estimated Glomerular Filt Rate 43 ml/min (>60); GFR (African American) 52 ML/MIN (>60)
[2021-11-28 07:13] LABS: Calcium 8.7 mg/dl (8.4-10.2); Glucose 118 mg/dl (74-100)
[2021-11-28 08:00] VITALS: BP 148/77; PULSE 89; RESP 16; TEMP 37.1; O2SAT 97
--- NOTE | 2021-11-28 08:17 | HMH.ACPN2 ---
<Luna Thomas - Last Filed: 11/28/21 08:17> Internal Medicine - PN: Subj *Date: 11/28/21 *Time: 08:17 Interval history: Patient states she did not sleep all night due to headache. She states the headache comes and goes in severity. She has not had any further nausea or vomiting or diarrhea. She ate very little yesterday but did eat a baked potato and retained. She has not improved urinary output. She is walked to the bathroom with standby assistance. She denies chest pain and shortness of breath. Exam Vital signs and Labs for Last 24 Hours: Temp Pulse Resp BP Pulse Ox 98.1 F 80 15 151/71 H 98 11/28/21 04:00 11/28/21 04:00 11/28/21 04:00 11/28/21 04:00 11/28/21 04:00 Laboratory Results - last 24 hr 11/28/21 06:45: WBC 6.3, RBC 4.18 L, Hgb 12.7, Hct 40.9, MCV 98.1, MCH 30.3, MCHC 30.9 L, RDW 13.8, Plt Count 224, MPV 8.0, Neut % (Auto) 65.3, Lymph % (Auto) 23.9, [place] % (Auto) 9.8 H, Eos % (Auto) 0.6, Baso % (Auto) 0.5, Neut # (Auto) 4.1, Lymph # (Auto) 1.5, [place] # (Auto) 0.6, Eos # (Auto) 0.0, Baso # (Auto) 0.0 11/28/21 06:45: Sodium 133 L, Potassium 3.7, Chloride 100, Carbon Dioxide 27, Anion Gap 9.7, BUN 22 H D, Creatinine 1.20 H, Estimated Creat Clear 37, Estimated GFR 43 L, Est GFR ( Amer) 52 L, Glucose 118 H, Calcium 8.7 I & O for Last 24 hours: Intake & Output 11/25/21 11/26/21 11/27/21 11/28/21 11:59 11:59 11:59 11:59 Intake Total 1050 / 1050 326 / 326 Balance 1050 / 1050 326 / 326 Weight 150 lb 0.005 oz 144 lb 2.917 oz Microbiology Reports for the Last 24 Hours: Microbiology 11/27/21 03:50 Urine,Catheterized Urine Culture - Preliminary NO GROWTH AFTER 24 HOURS - Constitutional no acute distress Comments: Conversant and appears comfortable - *Routine Respiratory Exam Present: CTA bilaterally (Anteriorly and posteriorly) - *Routine Cardiovascular Exam Present: RRR (Few premature beats) - *Routine Abdominal Exam Present: soft, normoactive bowel sounds. Absent: tenderness, distended - *Routine Extremities Exam Present: full ROM, pulses intact. Absent: edema, calf tenderness - *Routine Neurological Exam Present: alert, oriented X3 Assessment and Plan (1) UTI (urinary tract infection), bacterial Status: Acute Category: Medical Code(s): N39.0 - Urinary tract infection, site not specified; A49.9 - Bacterial infection, unspecified (2) SIRS (systemic inflammatory response syndrome) Status: Acute Category: Medical Code(s): R65.10 - Systemic inflammatory response syndrome (SIRS) of non-infectious origin without acute organ dysfunction (3) COVID-19 Status: Acute Category: Medical Code(s): U07.1 - COVID-19 (4) Hypertension Status: Chronic Category: Medical Code(s): I10 - Essential (primary) hypertension (5) History of B-cell lymphoma Status: Chronic Category: Medical Code(s): Z85.72 - Personal history of non-Hodgkin lymphomas (6) Hypothyroidism Status: Chronic Qualifiers: Hypothyroidism type: unspecified Qualified Code(s): E03.9 - Hypothyroidism, unspecified Category: Medical Code(s): E03.9 - Hypothyroidism, unspecified (7) Renal insufficiency Status: Chronic Category: Medical Code(s): N28.9 - Disorder of kidney and ureter, unspecified (8) Headache Status: Acute Category: Medical Code(s): R51.9 - Headache, unspecified - Assessment and plan all Dx Assessment and Plan for all problems:: Continue with current care. Possibly home today. <Shahid Lopez - Last Filed: 11/28/21 08:36> Internal Medicine - PN: Subj *Date: 11/28/21 *Time: 08:35 Exam Vital signs and Labs for Last 24 Hours: Temp Pulse Resp BP Pulse Ox 98.7 F 89 16 148/77 H 97 11/28/21 08:00 11/28/21 08:00 11/28/21 08:00 11/28/21 08:00 11/28/21 08:00 Laboratory Results - last 24 hr 11/28/21 06:45: WBC 6.3, RBC 4.18 L, Hgb 12.7, Hct 40.9, MCV 98.1, MCH 30.3, MCHC
--- NOTE | 2021-11-28 10:46 | PC.NURSE ---
new iv placed on patient. some anxiety with being stuck but tolerated well. has understanding of diagnosis, and need to stay for iv fluids. no questions regarding medications being given. cleaned up bedside table for patient. no needs voiced stated she was going to try and get some rest.
[2021-11-28 14:46] VITALS: BMI 22.6
[2021-11-28 16:00] VITALS: BP 149/76; PULSE 87; RESP 18; TEMP 36.7; O2SAT 95
--- NOTE | 2021-11-28 16:30 | PC.NURSE ---
PT IS RESTING IN BED. MEDICATED PER AUG FOR NAUSEA AND MCCLURE. PT HAS BEEN AMBULATING TO THE BATHROOM WITH CANE AND STANDBY ASSIST. TOLERATED TAKING A SHOWER THIS SHIFT. LUNG SOUNDS CLEAR. ABDOMEN SOFT/NON TENDER WITH ACTIVE BOWEL SOUNDS. NO SWELLING NOTED TO BLE. WILL CONTINUE TO MONITOR.
[2021-11-28 20:00] VITALS: BP 172/87; PULSE 85; RESP 16; TEMP 36.6; O2SAT 95
[2021-11-29 03:57] VITALS: BP 152/77; PULSE 94; RESP 14; TEMP 36.5; O2SAT 95
--- NOTE | 2021-11-29 04:38 | PC.NURSE ---
Pt has rested much better tonight. Pt has voiced no c/o of pain or SOA this shift. Pt has been up ambulating with stand by assist using her cane multiple times t/o the night to void. Pt remains on RA with O2 sat 95%. Bed alarm on for safety.
[2021-11-29 04:54] VITALS: BMI 23.2
[2021-11-29 07:48] LABS: Basophils % 0.4 % (0.1-2.0); Eosinophils % 0.1 % (0.1-12.0); Hematocrit 38.8 % (37.0-47.0); Hemoglobin 12.9 g/dL (12.2-16.2); Lymphocytes # 1.4 K/mm3 (0.7-4.5); Lymphocytes % 26.6 % (10-50); Mean Corpuscular HGB Conc 33.2 g/dL (31.8-35.4); Mean Corpuscular Hemoglobin 29.6 pg (27.0-31.2); Mean Corpuscular Volume 89.3 fl (81-99); Mean Platelet Volume 7.6 fl (7.4-10.4); Monocytes # 0.5 K/mm3 (0.1-1.0); Monocytes % 8.6 % (1.7-9.3); Neutrophils # 3.3 K/mm3 (1.8-7.8); Neutrophils % 64.2 % (37.0-80.0); Platelet Count 205 K/mm3 (142-424); Red Blood Count 4.34 M/mm3 (4.20-5.40); Red Cell Distribution Width 13.2 % (11.5-17.5); White Blood Count 5.2 K/mm3 (4.8-10.8)
[2021-11-29 07:53] LABS: Chloride 102 mmol/L (98-107); Potassium 3.6 mmoL/L (3.5-5.1); Sodium 133 mmol/L (136-145)
[2021-11-29 07:56] LABS: Anion Gap 7.6 mEq/L (5-15); Blood Urea Nitrogen 13 mg/dl (7-17); Calcium 8.2 mg/dl (8.4-10.2); Carbon Dioxide 27 mmol/L (22.0-30.0); Creatinine Clearance Estimated 45 mL/min (50-200); Estimated Glomerular Filt Rate 53 ml/min (>60); GFR (African American) 64 ML/MIN (>60); Glucose 109 mg/dl (74-100)
--- NOTE | 2021-11-29 07:59 | HMH.ACPN2 ---
<Luna Thomas - Last Filed: 11/29/21 08:06> Internal Medicine - PN: Subj *Date: 11/29/21 *Time: 08:06 Interval history: not feeling very well this AM ; Headache is better but is still present; she had a large amount of diarrhea yesterday; described it as loose and yellow; + nausea but no vomiting; voiding QS; denies SOB and CP; some dizziness with ambulation. BUN is 13 with CR of !; CBC is normal Exam Vital signs and Labs for Last 24 Hours: Temp Pulse Resp BP Pulse Ox 97.7 F 94 H 14 152/77 H 95 11/29/21 03:57 11/29/21 03:57 11/29/21 03:57 11/29/21 03:57 11/29/21 03:57 Laboratory Results - last 24 hr 11/27/21 03:50: Urine Color Yellow, Urine Appearance Sl cloudy, Urine pH 8.0, Ur Specific [place] 1.015, Urine Protein Trace, Urine Glucose (UA) Negative, Urine Ketones 2+, Urine Blood Trace-i, Urine Nitrate Positive, Urine Bilirubin Negative, Urine Urobilinogen 0.2, Ur Leukocyte Esterase Negative, Urine RBC Occasional, Urine WBC 5-10, Urine Bacteria 1+ 11/29/21 07:30: WBC 5.2, RBC 4.34, Hgb 12.9, Hct 38.8, MCV 89.3, MCH 29.6, MCHC 33.2, RDW 13.2, Plt Count 205, MPV 7.6, Neut % (Auto) 64.2, Lymph % (Auto) 26.6, [place] % (Auto) 8.6, Eos % (Auto) 0.1, Baso % (Auto) 0.4, Neut # (Auto) 3.3, Lymph # (Auto) 1.4, [place] # (Auto) 0.5, Eos # (Auto) 0.0, Baso # (Auto) 0.0 11/29/21 07:30: Sodium 133 L, Potassium 3.6, Chloride 102, Carbon Dioxide 27, Anion Gap 7.6, BUN 13 D, Creatinine 1.00, Estimated Creat Clear 45, Estimated GFR 53 L, Est GFR ( Amer) 64 D, Glucose 109 H, Calcium 8.2 L I & O for Last 24 hours: Intake & Output 11/26/21 11/27/21 11/28/21 11/29/21 11:59 11:59 11:59 11:59 Intake Total 1050 / 1050 446 / 446 1568 / 1568 Balance 1050 / 1050 446 / 446 1568 / 1568 Weight 150 lb 0.005 oz 144 lb 2.917 oz 148 lb 2.41 oz Microbiology Reports for the Last 24 Hours: Microbiology 11/27/21 03:50 Urine,Catheterized Urine Culture - Final Escherichia coli 11/27/21 03:00 Blood Blood Culture - Preliminary NO GROWTH AFTER 48 HOURS 11/27/21 03:00 Blood Blood Culture - Preliminary NO GROWTH AFTER 48 HOURS - Constitutional no acute distress Comments: appears not to feel well - *Routine Respiratory Exam Present: CTA bilaterally (A&P) - *Routine Cardiovascular Exam Present: RRR - *Routine Abdominal Exam Present: soft, normoactive bowel sounds. Absent: tenderness - *Routine Extremities Exam Present: pulses intact. Absent: edema, calf tenderness - *Routine Neurological Exam Present: alert, oriented X3 Assessment and Plan (1) UTI (urinary tract infection), bacterial Status: Acute Category: Medical Code(s): N39.0 - Urinary tract infection, site not specified; A49.9 - Bacterial infection, unspecified (2) SIRS (systemic inflammatory response syndrome) Status: Acute Category: Medical Code(s): R65.10 - Systemic inflammatory response syndrome (SIRS) of non-infectious origin without acute organ dysfunction (3) COVID-19 Status: Acute Category: Medical Code(s): U07.1 - COVID-19 (4) Hypertension Status: Chronic Category: Medical Code(s): I10 - Essential (primary) hypertension (5) History of B-cell lymphoma Status: Chronic Category: Medical Code(s): Z85.72 - Personal history of non-Hodgkin lymphomas (6) Hypothyroidism Status: Chronic Qualifiers: Hypothyroidism type: unspecified Qualified Code(s): E03.9 - Hypothyroidism, unspecified Category: Medical Code(s): E03.9 - Hypothyroidism, unspecified (7) Renal insufficiency Status: Chronic Category: Medical Code(s): N28.9 - Disorder of kidney and ureter, unspecified (8) Headache Status: Acute Category: Medical Code(s): R51.9 - Headache, unspecified (9) E. coli UTI Status: Acute Category: Medical Code(s): N39.0 - Urinary tract infection, site not specified; B96.20 - Unspecified Escherichia
[2021-11-29 08:00] VITALS: BP 166/82; PULSE 97; RESP 16; TEMP 37.2; O2SAT 93
--- NOTE | 2021-11-29 10:30 | PC.NURSE ---
PT IS RESTING IN BED. ALERT AND ORIENTED X4. PT STATES SHE DOES NOT FEEL ANY BETTER THAN SHE DID YESTERDAY. NO COMPLAINTS OF SOA. AMBULATES TO THE BATHROOM WITH CANE AND STANDBY ASSIST. APPETITE CONTINUES TO BE POOR. LUNG SOUNDS CLEAR. ABDOMEN SOFT/NON TENDER WITH ACTIVE BOWEL SOUNDS. WILL CONTINUE TO MONITOR.
[2021-11-29 12:00] VITALS: BP 139/80; PULSE 96; RESP 18; TEMP 37.7; O2SAT 95
[2021-11-29 16:00] VITALS: BP 141/81; PULSE 89; RESP 18; TEMP 36.8; O2SAT 94
[2021-11-29 20:00] VITALS: BP 147/70; PULSE 90; RESP 16; TEMP 36.6; O2SAT 96
[2021-11-30] VITALS: BP 127/75; PULSE 89; RESP 18; TEMP 36.9; O2SAT 97
[2021-11-30 04:00] VITALS: BP 145/73; PULSE 87; RESP 16; TEMP 37.1; O2SAT 94
[2021-11-30 04:56] VITALS: BMI 22.8
--- NOTE | 2021-11-30 06:16 | PC.NURSE ---
Pt has rested well this shift. Pt voiced x1 c/o of nausea, admin meds per AUG. Lung sounds are clear, pt voiced no c/o of SOA. Pt ambulated with stand by assist and her cane to bathroom and tolerated well. Pt voiced this morning she is feeling much better.
[2021-11-30 07:39] VITALS: BP 145/77; PULSE 87; RESP 18; TEMP 37.1; O2SAT 94
--- NOTE | 2021-11-30 08:24 | HMH.ACPN2 ---
<Cheyenne Porras - Last Filed: 11/30/21 08:24> Internal Medicine - PN: Subj *Date: 11/30/21 *Time: 08:24 Interval history: Patient states she is feeling better this morning. She is still achy with a headache. She feels weak. She does not feel like eating any breakfast this morning. She states she had difficulty resting last night because people were in and out of her room. She denies any shortness of breath or chest pain. She was nauseated yesterday but it has improved today. Exam Vital signs and Labs for Last 24 Hours: Temp Pulse Resp BP Pulse Ox 98.8 F 87 18 145/77 H 94 L 11/30/21 07:39 11/30/21 07:39 11/30/21 07:39 11/30/21 07:39 11/30/21 07:39 I & O for Last 24 hours: Intake & Output 11/27/21 11/28/21 11/29/21 11/30/21 11:59 11:59 11:59 11:59 Intake Total 1050 / 1050 446 / 446 1568 / 1568 480 / 480 Balance 1050 / 1050 446 / 446 1568 / 1568 480 / 480 Weight 150 lb 0.005 oz 144 lb 2.917 oz 148 lb 2.41 oz 145 lb 8.081 oz Microbiology Reports for the Last 24 Hours: Microbiology 11/27/21 03:50 Urine,Catheterized Urine Culture - Final Escherichia coli 11/27/21 03:00 Blood Blood Culture - Preliminary NO GROWTH AFTER 48 HOURS 11/27/21 03:00 Blood Blood Culture - Preliminary NO GROWTH AFTER 48 HOURS - Constitutional no acute distress - *Routine Respiratory Exam Present: CTA bilaterally - *Routine Cardiovascular Exam Present: RRR - *Routine Abdominal Exam Present: soft, normoactive bowel sounds. Absent: tenderness - *Routine Extremities Exam Absent: cyanosis, clubbing, edema - *Routine Skin Exam Present: warm. Absent: rash - *Routine Neurological Exam Present: alert, oriented X3 Assessment and Plan (1) UTI (urinary tract infection), bacterial Status: Acute Category: Medical Code(s): N39.0 - Urinary tract infection, site not specified; A49.9 - Bacterial infection, unspecified (2) SIRS (systemic inflammatory response syndrome) Status: Acute Category: Medical Code(s): R65.10 - Systemic inflammatory response syndrome (SIRS) of non-infectious origin without acute organ dysfunction (3) COVID-19 Status: Acute Category: Medical Code(s): U07.1 - COVID-19 (4) Hypertension Status: Chronic Category: Medical Code(s): I10 - Essential (primary) hypertension (5) History of B-cell lymphoma Status: Chronic Category: Medical Code(s): Z85.72 - Personal history of non-Hodgkin lymphomas (6) Hypothyroidism Status: Chronic Qualifiers: Hypothyroidism type: unspecified Qualified Code(s): E03.9 - Hypothyroidism, unspecified Category: Medical Code(s): E03.9 - Hypothyroidism, unspecified (7) Renal insufficiency Status: Chronic Category: Medical Code(s): N28.9 - Disorder of kidney and ureter, unspecified (8) Headache Status: Acute Category: Medical Code(s): R51.9 - Headache, unspecified (9) E. coli UTI Status: Acute Category: Medical Code(s): N39.0 - Urinary tract infection, site not specified; B96.20 - Unspecified Escherichia coli [E. coli] as the cause of diseases classified elsewhere - Assessment and plan all Dx Assessment and Plan for all problems:: Patient is improving. Will discuss further care with Dr. Lopez. <Shahid Lopez - Last Filed: 11/30/21 08:40> Internal Medicine - PN: Subj *Date: 11/30/21 *Time: 08:39 Exam Vital signs and Labs for Last 24 Hours: Temp Pulse Resp BP Pulse Ox 98.8 F 87 18 145/77 H 94 L 11/30/21 07:39 11/30/21 07:39 11/30/21 07:39 11/30/21 07:39 11/30/21 07:39 I & O for Last 24 hours: Intake & Output 11/27/21 11/28/21 11/29/21 11/30/21 23:59 23:59 23:59 23:59 Intake Total 1376 / 1376 855 / 855 1313 / 1313 Balance 1376 / 1376 855 / 855 1313 / 1313 Weight 150 lb 0.005 oz 144 lb 2.917 oz 148 lb 2.41 oz 145 lb 8.081 oz Microbiology Reports for
--- NOTE | 2021-11-30 10:14 | PC.NURSE ---
Called and spoke with family that will be picking pt up and she stated she was in [facility] at this time and would be here in approx 1.5-2 hrs to pick pt up.
--- NOTE | 2021-11-30 11:26 | PC.NURSE ---
[facility] and pharmacist stated Dr. Lopez stated to change ceftin dose to 500 mg as directed instead of 250 mg. Will educate pt of the above.
[2021-11-30 12:54] VITALS: BP 163/78; PULSE 76; RESP 18; TEMP 36.5; O2SAT 93
--- NOTE | 2021-12-01 08:41 | HMH.DCSUM ---
General - General Admission date:: 11/27/21 Discharge date: 11/30/21 HPI HPI: Ms. Bueno is an 80-year-old female with a history of hypertension, hyperlipidemia, hypothyroidism, B-cell lymphoma, and left hip fracture in 2019 was brought to the emergency room by a friend after feeling badly yesterday with nausea and vomiting, fever, severe headache, body aches, productive cough and some shortness of breath. She states she was unable to eat and drink yesterday. With evaluation in the emergency room Blood pressure was elevated. COVID was positive. She received a liter of IV fluids and was given Tylenol, dexamethasone 10 mg IV, Ketorolac 15 mg IV and Zofran IV. She was felt to have a urinary tract infection as well And was started on Rocephin IV. Laboratory data showed some renal insufficiency with a BUN of 12 and creatinine of 1.10. CBC was normal. Urine and blood cultures are pending. Chest x-ray showed the following: IMPRESSION: 1. No acute cardiopulmonary findings. 2. Chronic interstitial changes. This morning patient feels slightly better. She denies nausea but does not want to eat. She has been incontinent of urine due to urgency. She states her bowels have been moving normally. At present she denies chest pain and shortness of breath. Hospital Course Hospital Course: The patient was started on COVID vitamins and continued on Rocephin and IV fluids. She continued with a headache but had no further vomiting or diarrhea. She was able to begin eating and could walk to the bathroom with some assistance. She denied any chest pain or shortness of breath. Her BUN and creatinine were elevated. She was started on IV fluids. Her headache improved, but she began having a large amount of diarrhea again. Her urine culture returned positive for E. coli, but her blood cultures were negative. She was continued on antibiotics. Her renal function began improving. By 11/30/2021, she was feeling better. She still had a slight headache and felt weak. She was no longer nauseated and her diarrhea improved. She was stable to be discharged home on oral antibiotics and Zofran as needed for nausea. She will follow-up in the office in 2 weeks. Objective Vital signs: Temp Pulse Resp BP Pulse Ox 97.7 F 76 18 163/78 H 93 L 11/30/21 12:54 11/30/21 12:54 11/30/21 12:54 11/30/21 12:54 11/30/21 12:54 Narrative: - Constitutional no acute distress [facility] 11/27[facility] 08[facility]47> - *Routine HEENT Exam Head: Present: normocephalic, atraumatic <[facility] 11/27/21 08:47> Eye: Present: PERRL. Absent: conjunctival icterus, scleral injection, conjunctivae pink <Thomas,[facility] 11/27/21 08:47> ENT: Present: mucous membranes dry, nares patent <Thomas,[facility] 11/27/21 08:47> - *Routine Neck Exam Present: supple. Absent: carotid bruit, lymphadenopathy, thyromegaly <Thomas,[facility] 11/27/21 08:47> - *Routine Respiratory Exam Present: CTA bilaterally (Anteriorly and posteriorly) <Thomas,[facility] 11/27/21 08:47> - *Routine Cardiovascular Exam Present: RRR [facility] 08[facility]47> - *Routine Abdominal Exam Present: soft, normoactive bowel sounds. Absent: tenderness, distended, organomegaly <Thomas,[facility] 11/27/21 08:47> - *Routine Rectal Exam Rectal:: deferred <[facility] 11/27/21 08:47> - *Routine Genitalia Exam Genitalia:: deferred <[facility] 11/27/21 08:47> - *Routine Extremities Exam Present: pulses intact. Absent: edema, calf tenderness [facility] 11/27/21 08:47> - *Routine Neurological Exam Present: alert, oriented X3, normal speech (Slow to answer) Results Labs on day of discharge: Preliminary micro results at discharge 11/27/21 03:00 Blood Culture - Preliminary Blood NO GROWTH AFTER 48 HOURS 11/27/21 03:00 Blood Culture - Preliminary Blood NO GROWTH AFTER 48 HOURS DS: Diagnosis - Discharge Diagnosis (1) UTI (urinary trac
--- NOTE | 2021-12-01 13:02 | CARE MANAGER ---
Spoke with patient's daughter. She reports the patient is doing well. She has a cough, but it is her normal allergy cough. Picked up medication that was ordered and is aware of follow up appointment with MD. Denies any questions or concerns. FREDO Tao
== END 2021-11-30 12:40 | disposition home or self-care (01) | DRG 178 ==
LOC: ER 04:43 → 2ND 04:50
PROVIDERS: Admitting Provider Family Medicine; Emergency Provider Emergency Medicine; PCP Family Medicine; Visit Provider Family Medicine
DX: N39.0 Urinary tract infection, site not specified (principal); U07.1 COVID-19; C85.10 Unspecified B-cell lymphoma, unspecified site; E03.9 Hypothyroidism, unspecified; E78.5 Hyperlipidemia, unspecified; K21.9 Gastro-esophageal reflux disease without esophagitis; G43.909 Migraine, unspecified, not intractable, without status migrainosus; Z96.642 Presence of left artificial hip joint; I12.9 Hypertensive chronic kidney disease with stage 1 through stage 4 chronic kidney disease, or unspecified chronic kidney disease; N18.9 Chronic kidney disease, unspecified; B96.20 Unspecified Escherichia coli [E. coli] as the cause of diseases classified elsewhere
CPT/HCPCS: 36415; 71045; 80048; 80076; 81001; 83605; 83735; 84145; 85025; 85651; 86140; 87040; 87086; 87088; 87186; 99285; C9803; J0696; J2405; U0003; U0005

== ENCOUNTER 2022-03-09 21:32 | Emergency (ER) | payer MEDICARE, SELFPAY ==
[2022-03-09 21:34] VITALS: BP 197/92; PULSE 87; RESP 17; TEMP 36.5; O2SAT 99; BMI 22.3
--- NOTE | 2022-03-09 21:52 | HMH.EDGENADL ---
Discharge Plan Disposition Patient Disposition: Home, Self-Care Condition: Good Chief Complaint: Wound/Laceration Prescriptions Prescriptions: No Action celecoxib [Celebrex] 200 mg capsule 200 mg PO BID B12 Active 1,000 mcg tablet,chewable 1,000 mcg PO DAILY Adult 50 Plus Probiotic 4 billion cell capsule 4,000 mmu cells PO DAILY Rx Instructions: administer with a meal acetaminophen 500 MG tablet 500 mg PO Q6HP PRN (Reason: Mild Pain,Fever,Headache) Qty: 60 0RF atorvastatin 10 MG tablet 10 mg PO DAILY Qty: 30 0RF levothyroxine 50 MCG tablet 50 mcg PO DAILY Qty: 30 0RF duloxetine 60 MG capsule,delayed release(DR/EC) 60 mg PO DAILY famotidine 20 MG tablet 20 mg PO DAILY montelukast 10 MG tablet 10 mg PO PM cefuroxime axetil 250 MG tablet 250 mg PO BID Qty: 20 0RF ondansetron 4 MG tablet,disintegrating 4 mg PO TIDP PRN (Reason: Nausea And Vomiting) Qty: 20 0RF Referrals Follow up/Referrals: Shahid Lopez MD [Primary Care Provider] - See instructions Activity Restrictions/Add. Instructions Additional Instructions/Restrictions: Keep your wound clean and dry. Please keep a close eye on your wound to ensure that you are not observing any signs of infection that we discussed. Follow-up with your primary care physician in 2 to 3 days for wound check and have the stitches taken out in 7 to 10 days. Return to the ER if you have any additional concerns. Clinical Impressions Clinical Impression: Finger laceration Instructions Patient Instructions: DI for Laceration Repair, DI for Wound Infection Discharge ED Provider: Lyssa Lawson General Adult HPI General Chief complaint: Wound/Laceration Stated complaint: ao 03/09@1930@HOME INJURED r HAND Time Seen by Provider: 03/09/22 21:52 Mode of Arrival: Family Vehicle Source of Information: Patient Limitations: No Limitations Description of Symptoms (Recalled from ER Triage Doc. by RN): 81 yo female presents with cc right hand injury. states she was moving a pot of hastings when she fell outside on the wooden deck. upon hitting the deck and while trying to protect herself she avulsed the skin on her 3rd and 4th digits on her hand. 5th digit has some abrasion areas. states her 5th digit hurts more than any of it History of Present Illness HPI narrative: Patient is an 81-year-old female presenting with a chief complaint of right hand injury. Patient was moving a pot of hastings, tripped on her deck and fell back into the screen door. She hit her head on the flexible screen door but denies headache, vision changes, injury to her head, scalp, face or neck. Has no pain aside from pain in her right hand and skin avulsion of the right third and fourth digit. Patient is ambulatory, denies difficulty breathing, chest pain, abdominal pain, other musculoskeletal injuries. No blood thinner use. Onset (ago): hour(s) Related Data Home Medications Medication Instructions Recorded Confirmed celecoxib 200 mg capsule (Celebrex) 200 mg PO BID Arthritis 02/01/20 11/27/21 mecobalamin (vitamin B12) 1,000 1,000 mcg PO DAILY Supplement 02/01/20 11/27/21 mcg chewable tablet (B12 Active) lactobacillus combination no.9 4 4,000 mmu cells PO DAILY gut health 05/09/21 11/27/21 billion cell capsule (Adult 50 Plus Probiotic) duloxetine 60 mg capsule,delayed 60 mg PO DAILY fibromyalgia 11/27/21 11/27/21 release famotidine 20 mg tablet 20 mg PO DAILY GERD 11/27/21 11/27/21 montelukast 10 mg tablet 10 mg PO PM Allergy symptoms 11/27/21 11/27/21 Previous Rx's Medication Instructions Recorded acetaminophen 500 mg tablet 500 mg PO Q6HP PRN Mild 12/10/19 Pain,Fever,Headache #60 tabs atorvastatin 10 mg tablet 10 mg PO DAILY High cholesterol 12/10/19 #30 tabs levothyroxine 50 mcg tablet 50 mcg PO DAILY thyroid #30 tabs 12/10/19 cefuroxime axetil 250 mg tablet 250 mg PO BID #20 tabs 11/30/21 ondansetron 4 mg disi
[2022-03-09 22:00] VITALS: BP 190/91; PULSE 82; O2SAT 97
--- NOTE | 2022-03-09 22:01 | PC.NURSE ---
Dr. Dinh at [facility]
--- NOTE | 2022-03-09 22:15 | XR_ITS ---
PROCEDURE INFORMATION: Exam: XR Right Hand Exam date and time: 03/09/2022 10:18 PM Age: 81 years old Clinical indication: Injury or trauma; Fall; Blunt trauma (contusions or hematomas); Right; Ring finger; Additional info: Pain/fall skin torn TECHNIQUE: Imaging protocol: Radiologic exam of the Right hand. Views: 3 or more views. 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 No acute fracture or dislocation. Soft tissues: Soft tissue swelling around the ring finger proximal interphalangeal joint. IMPRESSION: No acute fracture or dislocation.
[2022-03-09 23:00] VITALS: BP 201/92; PULSE 82; O2SAT 98
--- NOTE | 2022-03-09 23:25 | PC.NURSE ---
SHARON from Dr. Lawson for 1% Lidocaine 10ml for lac repair.
--- NOTE | 2022-03-10 00:57 | PC.NURSE ---
VO from to use xenofrom and gauze for dressing of finer then splint little finger
[2022-03-10 01:25] VITALS: BP 179/86; PULSE 82; RESP 16; TEMP 36.1; O2SAT 97
== END 2022-03-10 01:27 | disposition home or self-care (01) ==
PROVIDERS: Emergency Provider Emergency Medicine; PCP Family Medicine
DX: S61.212A Laceration without foreign body of right middle finger without damage to nail, initial encounter; S61.214A Laceration without foreign body of right ring finger without damage to nail, initial encounter; W19.XXXA Unspecified fall, initial encounter
CPT/HCPCS: 12004; 73130; 99283

== ENCOUNTER → 2022-04-12 12:03 | Outpatient (CLI) | payer MEDICARE, SELFPAY ==
[2022-04-12 12:55] LABS: Basophils % 0.5 % (0.1-2.0); Eosinophils # 0.1 K/mm3 (0.0-0.4); Eosinophils % 1.6 % (0.1-12.0); Hematocrit 43.4 % (37.0-47.0); Hemoglobin 13.7 g/dL (12.2-16.2); Lymphocytes # 1.1 K/mm3 (0.7-4.5); Lymphocytes % 12.8 % (10-50); Mean Corpuscular HGB Conc 31.6 g/dL (31.8-35.4); Mean Corpuscular Hemoglobin 29.2 pg (27.0-31.2); Mean Corpuscular Volume 92.4 fl (81-99); Mean Platelet Volume 8.2 fl (7.4-10.4); Monocytes # 0.4 K/mm3 (0.1-1.0); Neutrophils # 6.9 K/mm3 (1.8-7.8); Neutrophils % 80.1 % (37.0-80.0); Platelet Count 286 K/mm3 (142-424); Red Cell Distribution Width 13.7 % (11.5-17.5); White Blood Count 8.6 K/mm3 (4.8-10.8)
== END ==
PROVIDERS: PCP Family Medicine; Visit Provider Family Medicine
DX: Z20.822 Contact with and (suspected) exposure to COVID-19 (principal)
CPT/HCPCS: 36415; 85025; 87275; 87276; C9803; U0003; U0005

== ENCOUNTER 2023-05-05 01:06 | Emergency (ER) | payer MEDICARE, SELFPAY ==
[2023-05-05 01:09] VITALS: BP 202/73; PULSE 57; RESP 17; TEMP 36.8; O2SAT 96; BMI 21.9
--- NOTE | 2023-05-05 02:10 | XR_ITS ---
PROCEDURE INFORMATION: Exam: XR Right Hip Exam date and time: 05/05/2023 2:50 AM Age: 82 years old Clinical indication: Hip pain; Right hip; Additional info: Fall TECHNIQUE: Imaging protocol: Radiologic exam of the right hip. Views: 2 or 3 views hip with pelvis when performed. COMPARISON: CT PELVIS WO CON 12/04/2019 1:11 PM FINDINGS: Bones/joints: Left hip arthroplasty. The right hip is well-maintained. There is a linear lucency extending from the superior articular surface of the acetabulum. Soft tissues: Unremarkable. IMPRESSION: Lucency superior acetabulum, correlate with CT to evaluate for nondisplaced fracture.
--- NOTE | 2023-05-05 02:11 | XR_ITS ---
PROCEDURE INFORMATION: Exam: XR Lumbosacral Spine Exam date and time: 05/05/2023 2:58 AM Age: 82 years old Clinical indication: Low back pain; Additional info: Fall TECHNIQUE: Imaging protocol: Radiologic exam of the lumbosacral spine. Views: 2 or 3 views. COMPARISON: LSWO CT LUMBAR SPINE W/O CONTRAST 12/24/2016 7:43 AM FINDINGS: Bones/joints: Degenerative disc disease. Narrowing at L4-L5 and L5-S1. Hypertrophic changes of the posterior facets. Multiple marginal osteophytes. Soft tissues: Unremarkable. IMPRESSION: Moderate degenerative disc disease. Narrowing at L4-L5 and L5-S1. Hypertrophic changes of the posterior facets. Multiple marginal osteophytes.
--- NOTE | 2023-05-05 02:46 | XR_ITS ---
PROCEDURE INFORMATION: Exam: XR Right Femur Exam date and time: 05/05/2023 2:53 AM Age: 82 years old Clinical indication: Pain; Thigh; Right; Additional info: Injury TECHNIQUE: Imaging protocol: Radiologic exam of the right femur. Views: 2 views. COMPARISON: CR Hip R 05/05/2023 2:50 AM FINDINGS: Bones/joints: Unremarkable. No acute fracture. Soft tissues: Unremarkable. IMPRESSION: No acute findings.
--- NOTE | 2023-05-05 02:46 | XR_ITS ---
PROCEDURE INFORMATION: Exam: XR Right Knee Exam date and time: 05/05/2023 2:55 AM Age: 82 years old Clinical indication: Pain; Knee; Right; Additional info: Injury TECHNIQUE: Imaging protocol: Radiologic exam of the right knee. Views: 3 views. COMPARISON: CR XR FEMUR RT 2V 05/05/2023 2:53 AM FINDINGS: Bones/joints: Normal. Soft tissues: Normal. IMPRESSION: No acute findings.
--- NOTE | 2023-05-05 03:17 | CT_ITS ---
PROCEDURE INFORMATION: Exam: CT Pelvis Without Contrast; Skeletal Exam date and time: 05/05/2023 4:04 AM Age: 82 years old Clinical indication: Pelvic pain; Additional info: Right hip pain after fall. Normal XR TECHNIQUE: Imaging protocol: Computed tomography of the pelvis without contrast. Exam focused on the skeleton. Radiation optimization: All CT scans at this facility use at least one of these dose optimization techniques: automated exposure control; mA and/or kV adjustment per patient size (includes targeted exams where dose is matched to clinical indication); or iterative reconstruction. REPORTING DATA: Count of CT and Cardiac NM exams in prior 12 months: This patient has received 0 known CTs and 0 known cardiac nuclear medicine studies in the 12 months prior to the current study. COMPARISON: CT PELVIS WO CON 12/04/2019 1:11 PM FINDINGS: Bones/joints: Degenerative changes of the lumbar spine. Prior left hip arthroplasty. Mild diffuse osteopenia. No evidence of right hip fracture or dislocation. Soft tissues: Unremarkable. IMPRESSION: No evidence of acute traumatic injury.
--- NOTE | 2023-05-05 03:17 | CT_ITS ---
PROCEDURE INFORMATION: Exam: CT Right Lower Extremity Without Contrast, Hip Exam date and time: 05/05/2023 4:07 AM Age: 82 years old Clinical indication: Pain; Hip; Right; Additional info: Right hip pain after fall. Normal XR TECHNIQUE: Imaging protocol: CT of the right lower extremity without contrast was performed. Exam focused on the hip. Radiation optimization: All CT scans at this facility use at least one of these dose optimization techniques: automated exposure control; mA and/or kV adjustment per patient size (includes targeted exams where dose is matched to clinical indication); or iterative reconstruction. REPORTING DATA: Count of CT and Cardiac NM exams in prior 12 months: This patient has received 0 known CTs and 0 known cardiac nuclear medicine studies in the 12 months prior to the current study. COMPARISON: CR XR HIP RT 2-3V W/PELVIS 05/05/2023 2:50 AM FINDINGS: Bones/joints: There is narrowing of the femoroacetabular space. Some small marginal osteophytes are present.. No acute fracture or dislocation. Soft tissues: Normal. IMPRESSION: Mild osteoarthritic degenerative changes. No fracture or dislocation noted.
[2023-05-05 03:18] VITALS: BP 219/101; PULSE 46; O2SAT 97
--- NOTE | 2023-05-05 03:19 | PC.NURSE ---
ROUNDED ON PATIENT, SHE IS BACK FROM RADIOLOGY AND CHOOSES TO REMAIN IN WHEELCHAIR FOR COMFORT
[2023-05-05 03:30] VITALS: BP 202/105; PULSE 71; O2SAT 97
[2023-05-05 04:00] VITALS: BP 200/100; PULSE 81; O2SAT 96
--- NOTE | 2023-05-05 04:02 | PC.NURSE ---
pt to radiology
--- NOTE | 2023-05-05 04:52 | HMH.EDGENADL ---
Discharge Plan Disposition Patient Disposition: Home, Self-Care Condition: Good Chief Complaint: Fall Prescriptions Prescriptions: No Action celecoxib [Celebrex] 200 mg capsule 200 mg PO BID B12 Active 1,000 mcg tablet,chewable 1,000 mcg PO DAILY Adult 50 Plus Probiotic 4 billion cell capsule 4,000 mmu cells PO DAILY Rx Instructions: administer with a meal acetaminophen 500 MG tablet 500 mg PO Q6HP PRN (Reason: Mild Pain,Fever,Headache) Qty: 60 0RF atorvastatin 10 MG tablet 10 mg PO DAILY Qty: 30 0RF levothyroxine 50 MCG tablet 50 mcg PO DAILY Qty: 30 0RF duloxetine 60 MG capsule,delayed release(DR/EC) 60 mg PO DAILY famotidine 20 MG tablet 20 mg PO DAILY montelukast 10 MG tablet 10 mg PO PM cefuroxime axetil 250 MG tablet 250 mg PO BID Qty: 20 0RF ondansetron 4 MG tablet,disintegrating 4 mg PO TIDP PRN (Reason: Nausea And Vomiting) Qty: 20 0RF Referrals Follow up/Referrals: Shahid Lopez MD [Primary Care Provider] - See instructions Activity Restrictions/Add. Instructions Additional Instructions/Restrictions: Visit PCP in approximately 2 days for recheck. For your pain you can take ibuprofen 400 to 600 mg by mouth every 6 hours as needed for pain and acetaminophen (Tylenol) up to 1000 mg by mouth every 6 hours as needed for pain. Clinical Impressions Clinical Impression: Acute pain of right hip Instructions Patient Instructions: How to Prevent Falls, DI for Hip Pain Discharge ED Provider: Meli Hilliard General Adult HPI General Chief complaint: Fall Stated complaint: AO 05/04/23 2100 injury Right Leg Time Seen by Provider: 05/05/23 02:28 Mode of Arrival: Family Vehicle Source of Information: Patient Limitations: No Limitations Description of Symptoms (Recalled from ER Triage Doc. by RN): right posterior hip pain, from falling into recliner History of Present Illness HPI narrative: Patient is an 82-year-old female with previous medical history of multiple comorbidities including hypothyroidism, history of B-cell lymphoma. She presents to the emergency department due to right hip pain after twisting her hip. Patient was transferring from 1 chair to another when she felt her hip pulled the wrong direction and she has had persistent pain in her right hip since then. It radiates to her thigh. No change in sensation or pulses or motor function but she does have pain with ranging her right hip. She has difficulty bearing weight at this time. Related Data Home Medications Medication Instructions Recorded Confirmed celecoxib 200 mg capsule (Celebrex) 200 mg PO BID Arthritis 02/01/20 11/27/21 mecobalamin (vitamin B12) 1,000 1,000 mcg PO DAILY Supplement 02/01/20 11/27/21 mcg chewable tablet (B12 Active) lactobacillus combination no.9 4 4,000 mmu cells PO DAILY gut health 05/09/21 11/27/21 billion cell capsule (Adult 50 Plus Probiotic) duloxetine 60 mg capsule,delayed 60 mg PO DAILY fibromyalgia 11/27/21 11/27/21 release famotidine 20 mg tablet 20 mg PO DAILY GERD 11/27/21 11/27/21 montelukast 10 mg tablet 10 mg PO PM Allergy symptoms 11/27/21 11/27/21 Previous Rx's Medication Instructions Recorded acetaminophen 500 mg tablet 500 mg PO Q6HP PRN Mild 12/10/19 Pain,Fever,Headache #60 tabs atorvastatin 10 mg tablet 10 mg PO DAILY High cholesterol 12/10/19 #30 tabs levothyroxine 50 mcg tablet 50 mcg PO DAILY thyroid #30 tabs 12/10/19 cefuroxime axetil 250 mg tablet 250 mg PO BID #20 tabs 11/30/21 ondansetron 4 mg disintegrating 4 mg PO TIDP PRN Nausea And 11/30/21 tablet Vomiting #20 tabs Allergies Allergy/AdvReac Type Severity Reaction Status Date / Time cucumber [CUCUMBER] Allergy Severe HIVES, Verified 05/09/21 14:02 SWELLING, TROUBLE BREATHING alprazolam [From XANAX] Allergy Intermediate ADVERSE Verified 05/09/21 14:02 tetanus and diphtheria Allergy Mild Verified 05/09/21 14:02
--- NOTE | 2023-05-05 05:00 | PC.NURSE ---
Pt ambulated with walker around nurses station without issue. Pt uses cane at home. Dr Hilliard notified
[2023-05-05 05:09] VITALS: BP 174/88; PULSE 79; RESP 20; TEMP 36.6; O2SAT 97
== END 2023-05-05 05:11 | disposition home or self-care (01) ==
PROVIDERS: Emergency Provider Emergency Medicine; PCP Family Medicine
DX: M25.551 Pain in right hip (principal); E03.9 Hypothyroidism, unspecified; Z85.72 Personal history of non-Hodgkin lymphomas; W08.XXXA Fall from other furniture, initial encounter
CPT/HCPCS: 72100; 72192; 73502; 73552; 73562; 73700; 99285

== ENCOUNTER 2024-03-10 14:15 | Outpatient (POV) | payer MEDICARE, SELFPAY | END 2024-03-10 23:59 | disposition home or self-care (01) | LOC: SC 03-11 06:41 | PROVIDERS: Visit Provider Dermatology | DX: Z00.00 Encounter for general adult medical examination without abnormal findings (principal) ==

== ENCOUNTER 2024-04-12 12:14 | Observation (INO) | payer MEDICARE, SELFPAY ==
[2024-04-12] VITALS (41 sets, daily range): BP systolic 133–242; BP diastolic 63–112; PULSE 79–110; RESP 12–23; TEMP 36.5–36.8; O2SAT 92–100; BMI 21.9; BMI 23.5
--- NOTE | 2024-04-12 12:34 | CT_ITS ---
PROCEDURE INFORMATION: Exam: CT Cervical Spine Without Contrast Exam date and time: 04/12/2024 1:15 PM Age: 83 years old Clinical indication: Injury or trauma; Fall; Blunt trauma TECHNIQUE: Imaging protocol: Computed tomography of the cervical spine without contrast. Radiation optimization: All CT scans at this facility use at least one of these dose optimization techniques: automated exposure control; mA and/or kV adjustment per patient size (includes targeted exams where dose is matched to clinical indication); or iterative reconstruction. COMPARISON: CT HEAD/BRAIN WO CON 04/12/2024 1:15 PM FINDINGS: Bones: Status post C4-C6 ACDF. No hardware-related complication noted. Vertebral alignment is maintained. There is preservation of vertebral body heights. Facet joints are aligned. Odontoid process is intact. Atlantoaxial interval maintained. No acute fracture. Uncovertebral and facet arthropathy result in varying degrees of neural foraminal narrowing at multiple levels. Lungs: Region of architectural distortion and traction bronchiectasis in right upper lobe noted. Soft tissues: Prevertebral and paravertebral soft tissues are maintained IMPRESSION: No acute fracture. No traumatic subluxation.
--- NOTE | 2024-04-12 12:34 | XR_ITS ---
PROCEDURE INFORMATION: Exam: XR Left Femur Exam date and time: 04/12/2024 1:24 PM Age: 83 years old Clinical indication: Injury or trauma; Fall; Blunt trauma; Thigh or upper leg; Left TECHNIQUE: Imaging protocol: Radiologic exam of the left femur. Views: 2 views. COMPARISON: CT ANGIO ABDOMEN PELVIS 04/12/2024 1:22 PM FINDINGS: Bones/joints: No evidence of acute fracture or malalignment. Left total hip arthroplasty. Hardware appears intact with no evidence of loosening. No perihardware fracture. Soft tissues: Unremarkable. IMPRESSION: 1. No evidence of acute osseous abnormality in the left hip. 2. Left total hip arthroplasty with no evidence of hardware malfunction/failure.
--- NOTE | 2024-04-12 12:34 | XR_ITS ---
PROCEDURE INFORMATION: Exam: XR Right Femur Exam date and time: 04/12/2024 1:24 PM Age: 83 years old Clinical indication: Injury or trauma; Fall; Blunt trauma; Thigh or upper leg; Right TECHNIQUE: Imaging protocol: Radiologic exam of the right femur. Views: 2 views. COMPARISON: CR XR FEMUR RT 2V 05/05/2023 2:53 AM FINDINGS: Bones/joints: No evidence of acute fracture or malalignment. Soft tissues: Unremarkable. IMPRESSION: No evidence of acute osseous abnormality in the right hip.
--- NOTE | 2024-04-12 12:34 | CT_ITS ---
PROCEDURE INFORMATION: Exam: CTA Chest With Contrast Exam date and time: 04/12/2024 1:22 PM Age: 83 years old Clinical indication: Injury or trauma; Fall; Blunt trauma (contusions or hematomas); Additional info: Fall, systolic 240, prev mass TECHNIQUE: Imaging protocol: Computed tomographic angiography of the chest with contrast. Exam focused on the arteries. 3D rendering (Not supervised by radiologist): MIP and/or 3D reconstructed images were created by the technologist. Radiation optimization: All CT scans at this facility use at least one of these dose optimization techniques: automated exposure control; mA and/or kV adjustment per patient size (includes targeted exams where dose is matched to clinical indication); or iterative reconstruction. Contrast material: ISO 370; Contrast volume: 80 ml; Contrast route: INTRAVENOUS (IV); COMPARISON: CHESTWO CT chest wo con 11/26/2018 1:19 PM FINDINGS: Limitations: Photon starvation and beam hardening artifact from hip hardware limits visualization of pelvic structures. Pulmonary arteries: No pulmonary emboli. Aorta: No evidence of aortic dissection or intramural hematoma. Atherosclerotic plaque without evidence of significant stenosis. Celiac trunk and mesenteric arteries: No aneurysm, occlusion, or significant stenosis. Renal arteries: No aneurysm, occlusion, or significant stenosis. Right iliac arteries: No aneurysm, occlusion, or significant stenosis. Left iliac arteries: No aneurysm, occlusion, or significant stenosis. Lungs: Pulmonary fibrosis with atelectasis and bronchiectasis surrounding the right hilum. No evidence of pulmonary contusion. No pulmonary edema. Pleural spaces: No pneumothorax. No pleural effusion. Heart: No cardiomegaly. No pericardial effusion. Esophagus: Dilated patulous esophagus with air-fluid levels posing increased risk for aspiration. Lymph nodes: No pathologically enlarged lymph nodes by imaging criteria. Liver: Unremarkable. Gallbladder and biliary ducts: Unremarkable. Pancreas: Hypoenhancing mass in the pancreatic body measuring 4.5 x 2.2 cm with distal pancreatic ductal dilatation in the pancreatic tail. Spleen: Unremarkable. Adrenal glands: Unremarkable. Kidneys: Simple renal cyst in the right kidney. No evidence of acute kidney injury. Urinary bladder: Unremarkable as visualized. Intestine: Short segment of circumferential wall thickening in the ascending colon, grossly unchanged from noncontrast pelvis CT performed 5 minutes prior. No evidence of acute gastrointestinal pathology. Reproductive: Unremarkable as visualized. Appendix: No evidence of appendicitis. Intraperitoneal space: No free fluid. No pneumoperitoneum. Bones/joints: Post-operative changes of prior left total hip arthroplasty. Chronic compression fracture deformity T12. No evidence of acute osseous abnormality in the chest, abdomen or pelvis. Soft tissues: Unremarkable. IMPRESSION: 1. No acute findings in the chest, abdomen or pelvis. 2. Dilated patulous esophagus with air-fluid levels posing increased risk for aspiration. 3. Hypoenhancing mass in the pancreatic body suspicious for malignancy. 4. Short segment of circumferential wall thickening in the ascending colon, grossly unchanged from noncontrast pelvis CT performed 5 minutes prior. Findings could represent peristalsis, although appear suspicious for colorectal malignancy. COMMENTS: Consistent with the [employer]'s Incidental Findings Committee white paper (J Am Kareem Radiol 2018): Any incidental renal lesion less than 1 cm or classified as too small to characterize, or any incidental cystic renal lesion characterized as simple-appearing, is likely benign. No follow-up imaging is recommended for these lesions per consensus recommendations based on imaging criteria.
--- NOTE | 2024-04-12 12:34 | CT_ITS ---
PROCEDURE INFORMATION: Exam: CT Head Without Contrast Exam date and time: 04/12/2024 1:15 PM Age: 83 years old Clinical indication: Injury or trauma; Fall; Blunt trauma (contusions or hematomas) TECHNIQUE: Imaging protocol: Computed tomography of the head without contrast. Radiation optimization: All CT scans at this facility use at least one of these dose optimization techniques: automated exposure control; mA and/or kV adjustment per patient size (includes targeted exams where dose is matched to clinical indication); or iterative reconstruction. COMPARISON: CT CERVICAL SPINE WO CON 04/12/2024 1:15 PM FINDINGS: Brain: There is no evidence of acute intracranial hemorrhage, extra-axial collection or locoregional mass effect. There are scattered hypodensities in the periventricular and subcortical white matter. The appearance is nonspecific, but most likely represents chronic small vessel disease in a person of this age Cerebral ventricles: The ventricles, sulci and cisterns are normal in size and configuration for patient's age. No hydrocephalus or midline structure shift Pituitary gland and sella: Sellar/parasellar structures, craniocervical junction and orbits are unremarkable Paranasal sinuses: Mucous retention cyst versus polyp in the left maxillary sinus. Mastoid air cells: Visualized mastoid air cells are well aerated. Bones: No calvarial fracture Soft tissues: Unremarkable. Vasculature: There are calcifications in vertebral arteries and carotid siphons. IMPRESSION: No acute intracranial abnormality. No calvarial fracture.
--- NOTE | 2024-04-12 12:34 | CT_ITS ---
PROCEDURE INFORMATION: Exam: CTA Abdomen and Pelvis With Contrast Exam date and time: 04/12/2024 1:22 PM Age: 83 years old Clinical indication: Injury or trauma; Fall; Blunt trauma; Pelvic area; Bilateral; Additional info: Fall, prev uterine mass, midline back pain TECHNIQUE: Imaging protocol: Computed tomographic angiography of the abdomen and pelvis with contrast. Exam focused on the arteries. 3D rendering (Not supervised by radiologist): MIP and/or 3D reconstructed images were created by the technologist. Radiation optimization: All CT scans at this facility use at least one of these dose optimization techniques: automated exposure control; mA and/or kV adjustment per patient size (includes targeted exams where dose is matched to clinical indication); or iterative reconstruction. Contrast material: ISO 370; Contrast volume: 80 ml; Contrast route: INTRAVENOUS (IV); COMPARISON: CT BONY PELVIS 04/12/2024 1:18 PM FINDINGS: Limitations: Photon starvation and beam hardening artifact from hip hardware limits visualization of pelvic structures. Lungs: Pulmonary fibrosis with atelectasis and bronchiectasis surrounding the right hilum. No evidence of pulmonary contusion. No pulmonary edema. Heart: No cardiomegaly. No pericardial effusion. Esophagus: Dilated patulous esophagus with air-fluid levels posing increased risk for aspiration. Aorta: No evidence of aortic dissection or intramural hematoma. Atherosclerotic plaque without evidence of significant stenosis. Celiac trunk and mesenteric arteries: No aneurysm, occlusion, or significant stenosis. Renal arteries: No aneurysm, occlusion, or significant stenosis. Right iliac arteries: No aneurysm, occlusion, or significant stenosis. Left iliac arteries: No aneurysm, occlusion, or significant stenosis. Liver: Unremarkable. Gallbladder and biliary ducts: Unremarkable. Pancreas: Hypoenhancing mass in the pancreatic body measuring 4.5 x 2.2 cm with distal pancreatic ductal dilatation in the pancreatic tail. Spleen: Unremarkable. Adrenal glands: Unremarkable. Kidneys and ureters: Simple renal cyst in the right kidney. No evidence of acute kidney injury. Stomach and bowel: Short segment of circumferential wall thickening in the ascending colon, grossly unchanged from noncontrast pelvis CT performed 5 minutes prior. No evidence of acute gastrointestinal pathology. Appendix: No evidence of appendicitis. Intraperitoneal space: No free fluid. No pneumoperitoneum. Lymph nodes: No pathologically enlarged lymph nodes by imaging criteria. Urinary bladder: Unremarkable as visualized. Reproductive: Unremarkable as visualized. Bones/joints: Post-operative changes of prior left total hip arthroplasty. Chronic compression fracture deformity T12. No evidence of acute osseous abnormality in the chest, abdomen or pelvis. Soft tissues: Unremarkable. IMPRESSION: 1. No acute findings in the chest, abdomen or pelvis. 2. Dilated patulous esophagus with air-fluid levels posing increased risk for aspiration. 3. Hypoenhancing mass in the pancreatic body suspicious for malignancy. 4. Short segment of circumferential wall thickening in the ascending colon, grossly unchanged from noncontrast pelvis CT performed 5 minutes prior. Findings could represent peristalsis, although appear suspicious for colorectal malignancy.
--- NOTE | 2024-04-12 12:34 | CT_ITS ---
PROCEDURE INFORMATION: Exam: CT Pelvis Without Contrast, Skeleton Exam date and time: 04/12/2024 1:18 PM Age: 83 years old Clinical indication: Injury or trauma; Fall; Blunt trauma (contusions or hematomas); Bilateral; Hip; Additional info: Fall, b/l hip pain TECHNIQUE: Imaging protocol: Computed tomography of the pelvis without contrast. Exam focused on the skeleton. Radiation optimization: All CT scans at this facility use at least one of these dose optimization techniques: automated exposure control; mA and/or kV adjustment per patient size (includes targeted exams where dose is matched to clinical indication); or iterative reconstruction. COMPARISON: CR XR FEMUR RT 2V 05/05/2023 2:53 AM FINDINGS: Bones/joints: No evidence of acute fracture or malalignment. Pubic symphysis and bilateral sacroiliac joints are congruent. Soft tissues: Unremarkable. IMPRESSION: No evidence of acute osseous abnormality in the pelvis.
--- NOTE | 2024-04-12 12:44 | ECG_ITS ---
APPROVED REPORT Exam: Resting ECG HR:81 bpm ECG Measurements Heart Rate 81 AXES IN 191 P 79 QRSd 101 QRS 68 QT 383 T 91 QTc 420 Conclusion SINUS RHYTHM SEPTAL MYOCARDIAL INFARCTION , PROBABLY OLD [40+ ms Q WAVE IN V1/V2] ABNORMAL ECG Electronically signed by : TOM CHAMBERLAIN, 04/12/2024 15:46:15
--- NOTE | 2024-04-12 12:47 | HMH.EDGENADL ---
Discharge Plan Disposition Patient Disposition: Admitted Prescriptions Prescriptions: No Action celecoxib [Celebrex] 200 mg capsule 200 mg PO BID B12 Active 1,000 mcg tablet,chewable 1,000 mcg PO DAILY Adult 50 Plus Probiotic 4 billion cell capsule 4,000 mmu cells PO DAILY Rx Instructions: administer with a meal acetaminophen 500 MG tablet 500 mg PO Q6HP PRN (Reason: Mild Pain,Fever,Headache) Qty: 60 0RF atorvastatin 10 MG tablet 10 mg PO DAILY Qty: 30 0RF levothyroxine 50 MCG tablet 50 mcg PO DAILY Qty: 30 0RF duloxetine 60 MG capsule,delayed release(DR/EC) 60 mg PO DAILY famotidine 20 MG tablet 20 mg PO DAILY montelukast 10 MG tablet 10 mg PO PM cefuroxime axetil 250 MG tablet 250 mg PO BID Qty: 20 0RF ondansetron 4 MG tablet,disintegrating 4 mg PO TIDP PRN (Reason: Nausea And Vomiting) Qty: 20 0RF Referrals Follow up/Referrals: Shahid Lopez MD [Primary Care Provider] - See instructions Clinical Impressions Clinical Impression: Hypertensive emergency, Pancreatic mass, Mass of colon, Acute hip pain, Chest pain Print Language Print Language: Bangladeshi Discharge ED Provider: Rod Madrigal General Adult HPI General Chief complaint: Fall Stated complaint: fall rt hip pain Time Seen by Provider: 04/12/24 12:18 Mode of Arrival: EMS Source of Information: Patient and EMS Limitations: No Limitations Description of Symptoms (Recalled from ER Triage Doc. by RN): pt presents to ED with c/o right hip pain. pt was in shower and had an almost fall. was able to grab the pinmaker bar and sit down. pt reports pain in right hip ongoing approx 1 week prior to today. pt reports she bent over approx 1 week ago she bent over to flower picker leaves that had blown into her house and felt pain since then. 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 Approximately 1 week ago patient bent over to flower picker leads that are blown to the front door of her house without falling resulting in right hip pain. Today in the shower she twisted , grabbed herself on the handlebars in her shower however had resultant moderate to severe right hip pain. She has a history of low blood pressure that she used to take medication for to raise however has never had a history of high blood pressure. In route patient's blood pressure was 233/77 without any evidence of acute neurologic deficit. She does have a history of neuropathy in her hands and feet which is reportedly at his baseline with tingliness however is still able to feel. She has dull frontal chest pain as well. No abdominal pain. No other acute complaints at this time. Related Data Home Medications ?Medication ?Instructions ?Recorded ?Confirmed celecoxib 200 mg capsule (Celebrex) 200 mg PO BID Arthritis 02/01/20 11/27/21 mecobalamin (vitamin B12) 1,000 1,000 mcg PO DAILY Supplement 02/01/20 11/27/21 mcg chewable tablet (B12 Active) lactobacillus combination no.9 4 4,000 mmu cells PO DAILY gut health 05/09/21 11/27/21 billion cell capsule (Adult 50 Plus Probiotic) duloxetine 60 mg capsule,delayed 60 mg PO DAILY fibromyalgia 11/27/21 11/27/21 release famotidine 20 mg tablet 20 mg PO DAILY GERD 11/27/21 11/27/21 montelukast 10 mg tablet 10 mg PO PM Allergy symptoms 11/27/21 11/27/21 Previous Rx's ?Medication ?Instructions ?Recorded acetaminophen 500 mg tablet 500 mg PO Q6HP PRN Mild 12/10/19 Pain,Fever,Headache #60 tabs atorvastatin 10 mg tablet 10 mg PO DAILY High cholesterol 12/10/19 #30 tabs levothyroxine 50 mcg tablet 50 mcg PO DAILY thyroid #30 tabs 12/10/19 cefuroxime axetil 250 mg tablet 250 mg PO BID #20 tabs 11/30/21 ondansetron 4 mg disintegrating 4 mg PO TIDP PRN Nausea And 11/30/21 tablet Vomiting #20 tabs Allergies Allergy/AdvReac Type Severity Reaction Status Date / Time cucumber [CUCUMBER] Allergy Severe HIVES, Verified 05/09/21 14:02 SWELLING, TROUBLE BREATHING alprazolam [From XANAX] Allergy Intermediate ADVERSE Verified 05/09/21 14:02 tetanus and diphtheria Allergy Mild Verified 05/09/21 14:02 toxoids [TETANUS AND DIPHTHERIA TOXOIDS] Iodinated Contrast Media Allergy Unknown Verified 05/09/21 14:02 [IODINATED CONTRAST MEDIA - ORAL AND] [facility] Disclaimer: The information contained in this section may have been updated after the patient was seen, as this information can be updated by other users. Social History Smoking Status: Never smoker alcohol intake: never substance use type: denies use current occupational status: retired Travel in the last 8 weeks: None household members: family housing: house current occupational exposures/hazards: No caffeine: No Other Medical History Have you received the Flu Vaccine for this season: No Have you received the Pneumonia Vaccine: No ROS Obtained: Yes Systems reviewed as appropriate & no additional complaints except as documented Physical Exam General General appearance: alert and in no apparent distress Head Head exam: atraumatic and normocephalic Eye Eye exam: Present PERRL and EOMI ENT ENT exam: Present mucous membranes moist Neck Neck exam: Present normal inspection Chest Chest inspection: Present normal inspection and symmetric chest wall rise Respiratory Respiratory exam: Present normal lung sounds bilaterally; Absent respiratory distress Cardiovascular Cardiovascular exam: Present regular rate, normal rhythm and other (Palpable bilateral radial pulses, palpable dorsal pedal pulses.) Abdominal Exam Abdominal exam: Present soft; Absent tenderness Extremities Exam Extremities exam: Present normal inspection and other (Bilateral hip tenderness, 5 out of 5 strength bilateral hips and knees.) Neurological Exam Neurological exam: Present alert, CN II-XII intact and motor sensory deficit (Slightly decreased sensation in the bilateral feet globally, still able to feel light touch) Psychiatric Psychiatric exam: Present normal affect Skin Skin exam: Present warm and dry Medical Decision Making Medical Records Screening: Per USPSTF and CDC recommendations, given the prevalence of disease in our region, it is our hospital?s policy to screen for HIV and viral Hepatitis for all patients aged 18 and over and those with ongoing risk factors. Eduardo Inquiry Pt receiving controlled substance: No Vital Signs: 04/12/24 12:14 04/12/24 12:15 04/12/24 12:19 Temperature 98.2 F Temperature Source Oral Pulse Rate 87 90 Pulse Rate [Left Radial] 83 Respiratory Rate 16 Blood Pressure 229/94 H 242/104 H Blood Pressure [Right Arm] 229/94 H Blood Pressure Mean [Right Arm] 139 02 Sat by Pulse Oximetry 99 99 99 Oxygen Delivery Method Room Air Room Air Room Air 04/12/24 12:21 04/12/24 12:30 04/12/24 12:35 Temperature Temperature Source Pulse Rate 85 94 H 87 Pulse Rate [Left Radial] Respiratory Rate Blood Pressure 227/112 H 225/108 H 204/94 H Blood Pressure [Right Arm] Blood Pressure Mean [Right Arm] 02 Sat by Pulse Oximetry 99 99 99 Oxygen Delivery Method Room Air Room Air Room Air 04/12/24 13:01 04/12/24 13:05 04/12/24 13:40 Temperature Temperature Source Pulse Rate 79 102 H 108 H Pulse Rate [Left Radial] Respiratory Rate 21 16 Blood Pressure 197/92 H 205/94 H 219/99 H Blood Pressure [Right Arm] Blood Pressure Mean [Right Arm] 02 Sat by Pulse Oximetry 99 98 94 L Oxygen Delivery Method 04/12/24 13:42 04/12/24 13:50 04/12/24 13:53 Temperature Temperature Source Pulse Rate 109 H 106 H 108 H Pulse Rate [Left Radial] Respiratory Rate 12 15 13 Blood Pressure 207/98 H 204/89 H 197/85 H Blood Pressure [Right Arm] Blood Pressure Mean [Right Arm] 02 Sat by Pulse Oximetry 96 96 96 Oxygen Delivery Method 04/12/24 13:56 04/12/24 14:00 04/12/24 14:10 Temperature Temperature Source Pulse Rate 107 H 107 H 107 H Pulse Rate [Left Radial] Respiratory Rate 14 13 13 Blood Pressure 192/88 H 187/93 H 178/88 H Blood Pressure [Right Arm] Blood Pressure Mean [Right Arm] 02 Sat by Pulse Oximetry 96 94 L 94 L Oxygen Delivery Method Room Air 04/12/24 14:20 04/12/24 14:30 04/12/24 14:40 Temperature Temperature Source Pulse Rate 108 H 110 H 108 H Pulse Rate [Left Radial] Respiratory Rate 12 14 14 Blood Pressure 197/88 H 189/89 H 174/86 H Blood Pressure [Right Arm] Blood Pressure Mean [Right Arm] 02 Sat by Pulse Oximetry 95 94 L 94 L Oxygen Delivery Method Room Air 04/12/24 14:50 04/12/24 15:00 04/12/24 15:10 Temperature Temperature Source Pulse Rate 108 H 104 H 110 H Pulse Rate [Left Radial] Respiratory Rate 13 14 20 Blood Pressure 187/84 H 175/81 H 153/78 H Blood Pressure [Right Arm] Blood Pressure Mean [Right Arm] 02 Sat by Pulse Oximetry 94 L 92 L 95 Oxygen Delivery Method Lab Data Lab Results 04/12/24 12:42: WBC 6.4, RBC 4.48, Hgb 13.2, Hct 39.3, MCV 87.7, MCH 29.4, MCHC 33.5, RDW 13.7, Plt Count 231, MPV 7.9, Neut % (Auto) 69.9, Lymph % (Auto) 23.2, Tyrrell % (Auto) 5.2, Eos % (Auto) 1.2, Baso % (Auto) 0.6, Neut # (Auto) 4.5, Lymph # (Auto) 1.5, Tyrrell # (Auto) 0.3, Eos # (Auto) 0.1, Baso # (Auto) 0.0, Sodium 137, Potassium 4.3, Chloride 104, Carbon Dioxide 25, Anion Gap 12.3, BUN 15, Creatinine 1.20 H, Estimated Creat Clear 34, Estimated GFR 43 L, Est GFR ( Amer) 52 L, Glucose 131 H, Calcium 9.9, Total Bilirubin 0.7, AST 28, ALT 17, Alkaline Phosphatase 104, Troponin I < 0.01, Total Protein 7.1, Albumin 4.1, Globulin 3.0, Albumin/Globulin Ratio 1.4, HIV 1&2 Antibody Rapid Preliminary reactive 04/12/24 12:42 04/12/24 12:42 Orders (Tests/Meds): ED MEDICATIONS Generic Name Dose Route Start Last Admin Trade Name Freq PRN Reason Stop Dose Admin Nicardipine HCl 25 mg/ Sodium 250 mls @ 50 mls/hr 04/12/24 12:38 04/12/24 13:56 Chloride IV 05/12/24 12:37 10 mg/hr .Q5H ZULEYKA 100 mls/hr Infusion Protocol 5 MG/HR Sodium Chloride 8 ml 04/12/24 12:49 Sodium Chloride 0.9% 10ml Vial IV 05/12/24 12:48 NEEDED PRN dilute pepcid Discontinued Medications Generic Name Dose Route Start Last Admin Trade Name Freq PRN Reason Stop Dose Admin Acetaminophen 1,000 mg 04/12/24 12:37 04/12/24 12:50 Acetaminophen 1,000mg/100ml Vial IV 04/12/24 12:38 1,000 mg ONCE ONE Administration Diphenhydramine HCl 50 mg 04/12/24 12:49 04/12/24 13:05 Diphenhydramine 50mg/Ml Vial IV 04/12/24 12:50 50 mg ONCE ONE Administration Famotidine 20 mg 04/12/24 12:49 04/12/24 13:05 Famotidine 20mg/2ml Vial IV 04/12/24 12:50 20 mg ONCE ONE Administration Iopamidol 80 ml 04/12/24 13:17 04/12/24 13:37 Iopamidol-370 (76%);100ml Bottle IV 04/12/24 13:18 80 ml ONCE ONE Administration Methylprednisolone Sodium Succinate 125 mg 04/12/24 12:49 04/12/24 13:05 Methylprednisolone Sod Succ 125mg Vial IV 04/12/24 12:50 125 mg ONCE ONE Administration Morphine Sulfate 4 mg 04/12/24 12:37 04/12/24 12:51 Morphine 4mg/Ml Syringe IV 04/12/24 12:38 4 mg ONCE ONE Administration Sodium Chloride 50 ml 04/12/24 13:17 04/12/24 13:37 0.9 % Sodium Chloride 50 Ml Vial IV 04/12/24 13:18 50 ml ONCE ONE Administration Sodium Chloride 10 ml 04/12/24 13:17 04/12/24 13:37 Sodium Chloride 0.9% 10ml Syr (Rad Only) IV 04/12/24 13:18 10 ml ONCE ONE Administration ORDERS Category Date Time Status CT angio abdomen pelvis Stat Cat Scan 04/12/24 12:[address] angio chest - dissection Stat Cat Scan 04/12/24 12:[address] bony pelvis Stat Cat Scan 04/12/24 12:[address] cervical spine wo con Stat Cat Scan 04/12/24 12:[address] head/brain wo con Stat Cat Scan 04/12/24 12:34 Completed Femur XR left 2 views [XR femur LT 2V] Stat Exams 04/12/24 12:34 Completed Femur XR right 2 views [XR femur RT 2V] Stat Exams 04/12/24 12:34 Completed CBC w/Auto Diff [Complete Blood Count Auto Diff] Stat Lab 04/12/24 12:42 Completed CMP [Comprehensive Metabolic Panel] Stat Lab 04/12/24 12:42 Completed HIV (1&2) Antibody Rapid Stat Lab 04/12/24 12:42 Completed Hep C Ab with Reflex to RNA Stat Lab 04/12/24 12:42 Received Trop I [Troponin I] Stat Lab 04/12/24 12:42 Completed Troponin I Q3H Lab 04/12/24 15:45 Ordered Troponin I Q3H Lab 04/12/24 18:45 Ordered ECG Data Tracing #1: Independently interpreted by me rate is 81, rhythm is regular, axis is normal, no ST elevation in anatomical contiguous leads, QTc 420, Q waves in the septal anterior leads. HEART Score History (anamnesis): Highly suspicious ECG: Non-specific disturbance Age: >65 years Risk factors: 1-2 risk factors Troponin: </= normal limit HEART Score: 6 Medical Decision Narrative: In summary patient is a 83-year-old female with past medical history described above who presents emergency department for evaluation of multiple complaints including acute on subacute right hip pain, chronic left hip pain, chest pain, severely uncontrolled suspected newly diagnosed hypertension. Patient had systolics ranging between 220 and just over 240 upon arrival on multiple reads. With severely uncontrolled hypertension and chest pain aortic dissection is high on the differential. Differential also includes fracture, musculoskeletal strain, diffuse recurrent malignancy, among others. Upon initial exam patient's neuropathy appears to be at baseline and has no acute focal neurologic deficit making CVA unlikely. Cardene drip will be started immediately with systolic goal of 180 given hypertensive emergency. Workup we conducted with noncontrasted CT scan of the head, CTA of the chest, abdomen, pelvis, CT bony pelvis and cervical spine. Initial inventions include morphine, Tylenol in addition to the Cardene drip. Upon ordering these CAT scans patient has a documented contrast allergy for which she became sleepy she does not recall having her airway close or it having anaphylaxis or ever having her heart stop. Family discussion with radiology practitioner assistant at bedside was had over the phone and patient has a mild reaction . Patient was consented however out of an abundance of caution will be pretreated with methylprednisolone diphenhydramine famotidine however will not delay her time to CT scan as aortic dissection is emergent. EKG at bedside has no ST elevation in anatomical contiguous leads, new Q waves compared to prior however previous EKG is 4 years old. Initial workup reviewed by me, hematologic labs are nonactionable, slightly elevated creatinine without BEVERLEY per rifle criteria, initial troponin undetectably low. HIV preliminary reactive, confirmatory testing pending. Bony pelvis CT no acute osseous abnormality. Noncontrasted head and plain film bilateral femurs no acute abnormality. Radiology contacted me discussing care, patient has a hypoenhancing mass in the pancreas suspicious for malignancy, short segment circumferential bowel wall thickening in the ascending colon unchanged from Noncon pelvis CT which could represent peristalsis however it is also suspicious for colorectal malignancy. Case was discussed with Dr. Ching regarding management patient admitted to their service for continued evaluation at this time. Critical Care Critical Care Time Critical Care Time: Yes Attestation: On 04/12/24, the high probability of a clinically significant, sudden or life threatening deterioration of the following system(s) required my full and direct attention, intervention and personal management. The time I documented below is in addition to time spent performing reported procedures but includes the following listed in this critical care notation. Total Time Total Critical Care Time: 45
[2024-04-12] MEDS: ACETAMINOPHEN 1,000MG/100ML VIAL 1000 MG IV (12:50)
[2024-04-12] MEDS: NICARDIPINE HCL 25 MG in 0.9 % SODIUM CHLORIDE 240 ML 50 MG IV (12:51)
[2024-04-12] MEDS: MORPHINE 4MG/ML SYRINGE 4 MG IV (12:51)
[2024-04-12 12:58] LABS: Basophils % 0.6 % (0.1-2.0); Eosinophils # 0.1 K/mm3 (0.0-0.4); Eosinophils % 1.2 % (0.1-12.0); Hematocrit 39.3 % (37.0-47.0); Hemoglobin 13.2 g/dL (12.2-16.2); Lymphocytes # 1.5 K/mm3 (0.7-4.5); Lymphocytes % 23.2 % (10-50); Mean Corpuscular HGB Conc 33.5 g/dL (31.8-35.4); Mean Corpuscular Hemoglobin 29.4 pg (27.0-31.2); Mean Corpuscular Volume 87.7 fl (81-99); Mean Platelet Volume 7.9 fl (7.4-10.4); Monocytes # 0.3 K/mm3 (0.1-1.0); Monocytes % 5.2 % (1.7-9.3); Neutrophils # 4.5 K/mm3 (1.8-7.8); Neutrophils % 69.9 % (37.0-80.0); Platelet Count 231 K/mm3 (142-424); Red Blood Count 4.48 M/mm3 (4.20-5.40); Red Cell Distribution Width 13.7 % (11.5-17.5); White Blood Count 6.4 K/mm3 (4.8-10.8)
[2024-04-12 13:04] LABS: Albumin Level 4.1 g/dl (3.5-5.0); Chloride 104 mmol/L (98-107); Potassium 4.3 mmoL/L (3.5-5.1); Sodium 137 mmol/L (136-145)
--- NOTE | 2024-04-12 13:04 | HMH.ITSTN ---
GFR completion/results were overrode for the use of contrast media by the Physician on a risk vs. benefit situation with this patient. Physician given documentation stating protocol for pre-treating pt's allergy to contrast. Pt to CT as soon as pre-medication meds are given per Physician. Patient is aware of her contrast allergy & made aware of risks. Consent form signed by patient, physician, & techs.
[2024-04-12] MEDS: METHYLPREDNISOLONE SOD SUCC 125MG VIAL 125 MG IV (13:05)
[2024-04-12] MEDS: diphenhydrAMINE 50MG/ML VIAL 50 MG IV (13:05)
[2024-04-12] MEDS: FAMOTIDINE 20MG/2ML VIAL 20 MG IV (13:05)
[2024-04-12 13:07] LABS: Alanine Aminotransferase 17 U/L (12-78); Albumin/Globulin Ratio 1.4 (1.1-1.8); Alkaline Phosphatase 104 U/L (38-126); Anion Gap 12.3 mEq/L (5-15); Aspartate Amino Transferase 28 U/L (14-36); Bilirubin,Total 0.7 mg/dl (0.2-1.3); Blood Urea Nitrogen 15 mg/dl (7-17); Calcium 9.9 mg/dl (8.4-10.2); Carbon Dioxide 25 mmol/L (22.0-30.0); Creatinine Clearance Estimated 34 mL/min (50-200); Estimated Glomerular Filt Rate 43 ml/min (>60); GFR (African American) 52 ML/MIN (>60); Glucose 131 mg/dl (74-100); Total Protein,Serum 7.1 g/dl (6.3-8.2)
[2024-04-12] MEDS: IOPAMIDOL-370 (76%);100ML BOTTLE 80 ML IV (13:37)
[2024-04-12] MEDS: 0.9 % SODIUM CHLORIDE 50 ML VIAL IV (13:37)
[2024-04-12] MEDS: SODIUM CHLORIDE 0.9% 10ML SYR (RAD ONLY) 10 ML IV (13:37)
--- NOTE | 2024-04-12 13:38 | PC.NURSE ---
pt arrived back to room from ct
--- NOTE | 2024-04-12 14:02 | PC.NURSE ---
pt O2 sat reading 88%, went in pts room to check on her. applied 2L NC to pt.
[2024-04-12 14:40] LABS: Troponin I < 0.01 ng/ml (0.00-0.034)
--- NOTE | 2024-04-12 15:10 | PC.NURSE ---
page made out to dr rangel for bed admission. dr rangel an employee sponsor or advocate and for dr ramirez.
--- NOTE | 2024-04-12 15:14 | PC.NURSE ---
house steward/stewardess called for bed placement
--- NOTE | 2024-04-12 15:48 | PC.NURSE ---
report called to ignacio on second floor
[2024-04-12] MEDS: NICARDIPINE HCL 25 MG in 0.9 % SODIUM CHLORIDE 240 ML 100 MG IV (16:08)
--- NOTE | 2024-04-12 16:09 | PC.NURSE ---
arrived by stretcher from ED
[2024-04-12] MEDS: 0.9 % SODIUM CHLORIDE 1000ML 1,000 ML 999 ML IV (16:21)
[2024-04-12 16:54] LABS: Troponin I < 0.01 ng/ml (0.00-0.034)
[2024-04-12] MEDS: CARVEDILOL 12.5MG TABLET 12.5 MG PO (17:55)
[2024-04-12 19:20] LABS: Troponin I < 0.01 ng/ml (0.00-0.034)
[2024-04-13] VITALS (8 sets, daily range): BP systolic 116–177; BP diastolic 58–76; PULSE 66–93; RESP 18–22; TEMP 36.4–37; O2SAT 94–99; BMI 24.0
--- NOTE | 2024-04-13 04:42 | PC.NURSE ---
Patient rested well throughout shift, daughter remained at bedside. No episodes of high blood pressures, patient is a/o and able to voice needs to staff. Reviewed POC and d/c goals. No new c/o
--- NOTE | 2024-04-13 08:25 | EXP.HP ---
History of Present Illness *Admission Date: 04/13/24 *Reason for visit:: Intractable right hip pain. Hypertension *History of present illness: Ms. 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 She was brought to [facility] for evaluation after severe right hip pain. She describes sitting down in the shower after slipping but not falling followed by pain in the right hip. She was able to get out of the shower. She was then unable to get up after this. Her grandson did help her, gave her Tylenol, and gabapentin , which did not help. She was thus brought to the ER for evaluation. She had a very thorough workup in the emergency room. CBC was normal. Blood chemistry showed BUN of 15 and creatinine of 1.2. Electrolytes were normal. Liver function studies were normal and troponin I's were normal. She received morphine for her pain and was also given a liter of IV fluids and Solu-Medrol. She was started on a Cardene drip. CT scan of the pelvis and regular x-ray of the femur showed no fractures. She was hypertensive in the ER and had abdominal and pelvis CTA to assess for aortic dissection. This was normal for that but pancreas did reveal hypoenhancing mass in the pancreatic body measuring 4.5 x 2.2 cm. She also showed short segment of circumferential wall thickening of the ascending colon. Cervical spine CT showed no acute fracture chest CTA showed no acute findings in the chest.. [facility] Disclaimer: The information contained in this section may have been updated after the patient was seen, as this information can be updated by other users. Medical History (Updated 04/13/24 @ 08:53 by Luna Thomas APRN) Stage III chronic kidney disease Hypertension Hypothyroidism History of B-cell lymphoma Surgical History (Updated 04/13/24 @ 08:53 by Luna Thomas APRN) Fracture of left hip requiring operative repair History of tooth extraction H/O hysterectomy for benign disease Family History (Updated 04/13/24 @ 08:54 by Luna Thomas APRN) Other Stroke Social History Smoking Status: Never smoker alcohol intake: never substance use type: denies use current occupational status: retired Travel in the last 8 weeks: None household members: family housing: house current occupational exposures/hazards: No caffeine: No Other Medical History Have you received the Flu Vaccine for this season: No Have you received the Pneumonia Vaccine: No Review of Systems Constitutional Constitutional: Reports frequent falls and Reports headache(s) Eyes Eyes: Denies change in vision ENT Ears, Nose, Mouth, and Throat: Denies dizziness, Denies dysphagia, Denies otalgia, Reports headache(s), Reports nasal discharge, Reports post nasal drip, Reports sinus pressure, Denies sore throat and Denies vertigo *Cardiovascular Cardiovascular: Denies chest pain, Denies dyspnea, Denies edema, Denies palpitations and Denies syncope *Respiratory Respiratory: Denies chest congestion, Reports cough (Infrequent) and Denies dyspnea *Gastrointestinal Gastrointestinal: Denies abdominal pain, Denies change in bowel habits, Denies dysphagia, Denies heartburn, Denies hematemesis, Denies melena, Denies nausea and Denies vomiting *Genitourinary Genitourinary: Denies difficulty voiding *Musculoskeletal Musculoskeletal: Reports abnormal gait (Uses a cane with walking) and Reports arthralgias (Right hip and right knee) *Neurologic Neurologic: Reports abnormal gait (Uses a cane with walking), Denies convulsions, Denies dizziness, Reports frequent falls, Reports headache(s), Denies syncope and Denies vertigo Psychiatric Psychiatric: Reports anxiety Endocrine Endocrine: Denies palpitations Meds Home Medications and Allergies Home Medications ?Medication ?Instructions ?Recorded ?Confirmed ?Type acetaminophen 500 mg tablet 500 mg PO Q6HP PRN Mild 12/10/19 04/12/24 Rx Pain,Fever,Headache #60 tabs atorvastatin 10 mg tablet 10 mg PO DAILY High cholesterol 12/10/19 04/12/24 Rx #30 tabs levothyroxine 50 mcg tablet 50 mcg PO DAILY thyroid #30 tabs 12/10/19 04/12/24 Rx celecoxib 200 mg capsule (Celebrex) 200 mg PO BID Arthritis 02/01/20 04/12/24 History mecobalamin (vitamin B12) 1,000 1,000 mcg PO DAILY Supplement 02/01/20 04/12/24 History mcg chewable tablet (B12 Active) lactobacillus combination no.9 4 4,000 mmu cells PO DAILY gut health 05/09/21 04/12/24 History billion cell capsule (Adult 50 Plus Probiotic) duloxetine 60 mg capsule,delayed 60 mg PO DAILY fibromyalgia 11/27/21 04/12/24 History release famotidine 20 mg tablet 20 mg PO DAILY GERD 11/27/21 04/12/24 History montelukast 10 mg tablet 10 mg PO PM Allergy symptoms 11/27/21 04/12/24 History gabapentin 300 mg capsule 300 mg PO HS 04/12/24 04/12/24 History New Prescriptions to Start Prescriptions: Allergies Allergy/AdvReac Type Severity Reaction Status Date / Time cucumber [CUCUMBER] Allergy Severe HIVES, Verified 05/09/21 14:02 SWELLING, TROUBLE BREATHING alprazolam [From XANAX] Allergy Intermediate ADVERSE Verified 05/09/21 14:02 tetanus and diphtheria Allergy Mild Verified 05/09/21 14:02 toxoids [TETANUS AND DIPHTHERIA TOXOIDS] Iodinated Contrast Media Allergy Unknown Verified 05/09/21 14:02 [IODINATED CONTRAST MEDIA - ORAL AND] Exam Data for Last 24 hours Vital signs and Labs for Last 24 Hours: Temp Pulse Resp BP Pulse Ox O2 Del Method O2 Flow Rate 97.9 F 80 20 134/76 99 Room Air 3 04/13/24 04:00 04/13/24 06:00 04/13/24 06:00 04/13/24 06:00 04/13/24 06:00 04/13/24 07:39 04/13/24 06:37 Laboratory Results - last 24 hr 04/12/24 12:42: WBC 6.4, RBC 4.48, Hgb 13.2, Hct 39.3, MCV 87.7, MCH 29.4, MCHC 33.5, RDW 13.7, Plt Count 231, MPV 7.9, Neut % (Auto) 69.9, Lymph % (Auto) 23.2, [place] % (Auto) 5.2, Eos % (Auto) 1.2, Baso % (Auto) 0.6, Neut # (Auto) 4.5, Lymph # (Auto) 1.5, [place] # (Auto) 0.3, Eos # (Auto) 0.1, Baso # (Auto) 0.0, Sodium 137, Potassium 4.3, Chloride 104, Carbon Dioxide 25, Anion Gap 12.3, BUN 15, Creatinine 1.20 H, Estimated Creat Clear 34, Estimated GFR 43 L, Est GFR ( Amer) 52 L, Glucose 131 H, Calcium 9.9, Total Bilirubin 0.7, AST 28, ALT 17, Alkaline Phosphatase 104, Troponin I < 0.01, Total Protein 7.1, Albumin 4.1, Globulin 3.0, Albumin/Globulin Ratio 1.4, HIV 1&2 Antibody Rapid Preliminary reactive 04/12/24 16:30: Troponin I < 0.01 04/12/24 18:45: Troponin I < 0.01 I & O for Last 24 hours: Intake & Output 04/10/24 04/11/24 04/12/24 04/13/24 11:59 11:59 11:59 11:59 Intake Total 2180.833 / 2180.833 Output Total 550 / 550 Balance 1630.833 / 1630.833 Weight 149 lb 3.13 oz Constitutional Constitutional: no acute distress *Routine HEENT Exam Head: Present normocephalic and atraumatic Eye: Present PERRL; Absent conjunctival icterus, scleral injection or conjunctivae pink ENT: Present mucous membranes dry *Routine Neck Exam Neck: Absent carotid bruit, lymphadenopathy or thyromegaly *Routine Respiratory Exam Respiratory: Present CTA bilaterally (Anteriorly and posteriorly) *Routine Cardiovascular Exam Cardiovascular: Present RRR Comments: Monitor showing sinus rhythm with occasional PAC and rare PVC *Routine Abdominal Exam Abdominal: Present soft and normoactive bowel sounds; Absent tenderness, distended, guarding, organomegaly or mass *Routine Rectal Exam Rectal:: deferred *Routine Genitalia Exam Genitalia:: deferred *Routine Extremities Exam Extremities: Present full ROM; Absent edema, calf tenderness or palpable cord Routine Back/Spine/Pelvis Exam Back/Spine: Absent CVA tenderness *Routine Neurological Exam Neurological: Present alert, oriented X3 and moving all extremities; Absent altered mental status Assessment and Plan *Assessment and plan (1) Acute pain of right hip: Status: Acute Category: Medical Code(s): M25.551 - Pain in right hip (2) Hypertensive emergency: Status: Acute Category: Medical Code(s): I16.1 - Hypertensive emergency (3) History of B-cell lymphoma: Status: Chronic Category: Medical Code(s): Z85.72 - Personal history of non-Hodgkin lymphomas (4) Hypothyroidism: Status: Chronic Qualifiers: Hypothyroidism type: unspecified Qualified Code(s): E03.9 - Hypothyroidism, unspecified Category: Medical Code(s): E03.9 - Hypothyroidism, unspecified (5) Pancreatic mass: Status: Acute Category: Medical Code(s): K86.89 - Other specified diseases of pancreas Plan Blood pressure is satisfactory this a.m. Cardene drip was stopped at 530 this morning. Will consult physical therapy. Dr. Lopez entry - Saw patient, agree with above note. Will ask PT and OT to see patient.
[2024-04-13] MEDS: FAMOTIDINE 20MG TABLET 20 MG PO (09:51)
[2024-04-13] MEDS: LEVOTHYROXINE 50MCG (0.05MG) TAB 50 MCG PO (09:52)
--- NOTE | 2024-04-13 10:00 | HMH.PTEV ---
Physical Therapy Evaluation Rehab PT IP Evaluation Start: 04/13/24 08:43 Freq: ONCE Status: Active Protocol: Document 04/13/24 09:45 LEFTY (Rec: 04/13/24 09:58 LEFTY [id number]) Subjective/History History History Ms. 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 She presents w / chief c/o R hip pain. Pt states she lives at home w/ her grandson in a 3-story house. She uses a cane at home for ambulation. Additionally, pt demonstrates L foot drop and reports having a brace she wears at home. Pt was previously independent w/ all ADLs before admission. Subjective Subjective Pt presents reclined in bed this morning w/ family at bedside. Pt is alert and oriented x3 this morning. She states her pain in the R hip/ thigh is a 3/10 when walking, but denies pain when not weight bearing. Pt reports unsteadiness when standing and ambulating. She consents to PT services. New diagnosis of cancer in past 12 No months? Rehab PT IP Eval Objective Appearance Patient Behavior Appropriate,Cooperative Patient Orientation Person,Place,Birthday Difficulty following instructions none Speech Pattern Clear,Appropriate,Coherent Ambulation Patient Able to Ambulate Yes Ambulation Observation IP General Gait Pattern Observation Decrease Stride Lngth (L) Ambulation Distance (feet) 15 Ambulation Assistive Device Rolling Walker Ambulation Ability Contact Guard/Hand Hold Balance Ability to Arise Able, uses arms to help Sitting Balance Steady, safe Standing Balance Steady, wide stance Dynamic Sitting Balance Ability Good Dynamic Standing Balance Ability Fair Transfers Bed Transfer Ability Independent Sit to Stand Bed Transfer Ability Minimal x 1 (25% assist) Rehab PT IP prob,goals,plan Problems Date of Evaluation: 04/13/24 PT IP Problems Transfers,Gait,Balance Rehab Potential Rehab Potential Good Plan PT Intervention Plan Transfers,Gait,Balance PT Plan Frequency BID Duration LOS Discharge Goals Bed Transfer Ability Independent Sit to Stand Chair Transfer Ability Supervision/Stand by Ambulation Assistive Device Rolling Walker Ambulation Distance (feet) 30 Discharge Plan PT Discharge Plan Currently, pt is most appropriate for home health once medically stable for d/c. Pt is independent w/ bed mobility; however, she requires minimal assist x1 for [id number] transfer. Pt demonstrates L foot drop that contributes to increased stance time on the R LE and decreased step length on the L . Pt ambulated today w/o use of her orthosis. Proper orthosis wear and gait training may improve ambulation ability from contact guard to independent. PT services are indicated to increase strength for transfers, static and dynamic standing balance, and gait. Eval Complexity Eval Charge Codes 40670 - High Complexity PHYSICIAN CERTIFICATION: I certify the specified therapy services for Laurie Bueno are required, authorized, and reviewed every 30 days.
--- NOTE | 2024-04-13 10:23 | SW/DCPLANNER ---
Addendum entered by Mary Valverde 04/15/24 12:02: Patient information/order was faxed to [facility] and [facility] are not able to accept patient due to insurance. Frances w/ [facility] stated they could accept patient but due to out of network w/ insurance patient would have a 20% OOP. Frances stated that she will call and discuss this w/ patient's family. Original Note: I spoke w/ patient regarding plans once medically stable for discharge. PT/OT evaluated patient this AM and recommended returning home w/ home health services. Patient is agreeable to home health and does not have an agency preference. I will set up services at time of discharge. Discharge date is unknown at this time.
--- NOTE | 2024-04-13 13:37 | HMH.PHAINT1 ---
Pharmacy Intervention Comments: MEDICATION RECONCILIATION COMPLETED ON PATIENT USING EXTERNAL FILL HISTORY FROM PHARMACY AND PATIENT'S OWN RX BOTTLES. -KIRSTEN SIMPSON, JHD
[2024-04-13] MEDS: ACETAMINOPHEN 325MG TAB 650 MG PO (20:41)
[2024-04-13] MEDS: ATORVASTATIN 10 MG PO (20:41)
[2024-04-14] VITALS: BP 155/73; PULSE 70; PULSE 73; RESP 16; TEMP 36.8; O2SAT 95
[2024-04-14 04:00] VITALS: BP 168/78; PULSE 75; PULSE 80; RESP 16; TEMP 36.8; O2SAT 94; BMI 23.8
--- NOTE | 2024-04-14 04:36 | PC.NURSE ---
83 yo female pt is A/O X 4. She is able to ambulate with use of walker and standby assist. Pt did report pain to her right hip area. Medicated with tylenol which pt reported as effective. She has been able to rest on and off throughout the night without any complaints
[2024-04-14] MEDS: ACETAMINOPHEN 325MG TAB 650 MG PO (06:20)
[2024-04-14] MEDS: *PAT OWN MED* LEVOTHYROXINE 50MCG (0.05MG) TAB 50 MCG PO (06:20)
--- NOTE | 2024-04-14 07:54 | EXP.ACUTE.PN ---
Subjective *Date: 04/14/24 *Time: 08:48 Interval history: Continues to have the right hip pain which radiates down to the knee. Also her toes hurt. She states the Tylenol helps a little. She has been awake all night due to the discomfort. She is able to eat. She has walked with a walker. Physical therapy note reviewed. Blood pressure has been consistently a little elevated. She denies chest pain and shortness of breath. Medical Exam Vital signs and Labs for Last 24 Hours: Vital Signs Temp Pulse Pulse Resp BP Pulse Ox O2 Del Method 04/14/24 07:00 Room Air 04/14/24 04:56 Room Air 04/14/24 04:00 80 04/14/24 04:00 98.3 F 75 16 168/78 H 94 L Room Air 04/14/24 03:00 Room Air 04/14/24 01:00 Room Air 04/14/24 00:00 70 04/14/24 00:00 98.3 F 73 16 155/73 H 95 Room Air 04/13/24 23:00 Room Air 04/13/24 21:00 Room Air 04/13/24 20:00 80 04/13/24 20:00 97 Room Air 04/13/24 20:00 98.6 F 87 18 146/76 H 97 Room Air 04/13/24 18:16 Room Air 04/13/24 17:00 Room Air 04/13/24 16:00 90 04/13/24 16:00 98 F 93 H 19 177/71 H 94 L Room Air 04/13/24 15:00 Room Air 04/13/24 13:00 Room Air 04/13/24 12:00 90 04/13/24 12:00 98.1 F 78 19 116/58 L 96 Room Air 04/13/24 10:56 Room Air 04/13/24 08:49 Room Air 04/13/24 08:00 80 04/13/24 08:00 97.6 F 66 18 116/62 95 Room Air Intake and Output 04/13/24 04/14/24 04/14/24 19:59 03:59 11:59 Intake Total 630 / 630 Output Total 0 / 0 0 / 0 0 / 0 Balance 630 / 630 0 / 630 0 / 630 Intake: Intake, Oral Amount 630 / 630 Output: Output, Urine Amount 0 / 0 0 / 0 0 / 0 Other: Number of Unmeasured Voids 1 1 1 Number of Bowel Movements 1 Weight 148 lb 9.6 oz Patient Weight 04/14/24 11:59 Weight 148 lb 9.6 oz I & O for Labs for Last 24 Hours: Intake & Output 04/11/24 04/12/24 04/13/24 04/14/24 11:59 11:59 11:59 11:59 Intake Total 2180.833 / 2180.833 630 / 630 Output Total 550 / 550 0 / 0 Balance 1630.833 / 1630.833 630 / 630 Weight 149 lb 3.13 oz 148 lb 9.6 oz Constitutional: Present no acute distress Respiratory: Present CTA bilaterally Cardiac: Present Regular Rate and Regular Rhythm GI: Present soft and normal bowel sounds; Absent distention or tenderness Extremities: Present full ROM and tenderness (Right hip anteriorly and posteriorly); Absent edema or calf tenderness Neuro: Present alert and oriented x 3 Assessment and Plan *Assessment and plan (1) Acute pain of right hip: Status: Acute Category: Medical Code(s): M25.551 - Pain in right hip (2) Hypertensive emergency: Status: Acute Category: Medical Code(s): I16.1 - Hypertensive emergency (3) History of B-cell lymphoma: Status: Chronic Category: Medical Code(s): Z85.72 - Personal history of non-Hodgkin lymphomas (4) Hypothyroidism: Status: Chronic Qualifiers: Hypothyroidism type: unspecified Qualified Code(s): E03.9 - Hypothyroidism, unspecified Category: Medical Code(s): E03.9 - Hypothyroidism, unspecified (5) Pancreatic mass: Status: Acute Category: Medical Code(s): K86.89 - Other specified diseases of pancreas (6) Hypertension: Status: Chronic Category: Medical Code(s): I10 - Essential (primary) hypertension Plan Add blood pressure medicine. Pain control. Patient states gabapentin makes her sleepy. She would like to go home. Dr. Lopez entry - Saw patient, agree with above note. Will resume low dose Gabapentin and Amlodipine.
[2024-04-14 08:00] VITALS: BP 168/73; PULSE 82; PULSE 90; RESP 18; TEMP 36.7; O2SAT 91
[2024-04-14] MEDS: *PAT OWN MED* FAMOTIDINE 20MG TABLET 20 MG PO (09:11)
[2024-04-14] MEDS: DULOXETINE 30 MG PO (09:11)
[2024-04-14] MEDS: GABAPENTIN 100MG CAPSULE 100 MG PO (09:16)
[2024-04-14] MEDS: AMLODIPINE 2.5MG TABLET 2.5 MG PO (09:16)
[2024-04-14 09:22] LABS: HCV Ab Non Reactive (Non Reactive); HIV Screen 4th Generation wRfx Non Reactive (Non Reactive)
[2024-04-14 12:00] VITALS: BP 159/86; PULSE 70; PULSE 74; RESP 18; TEMP 36.7; O2SAT 94
--- NOTE | 2024-04-16 14:36 | P.DS_ITS ---
General Admission date:: 04/12/24 Discharge date: 04/14/24 HPI HPI HPI: Ms. 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 She was brought to [facility] for evaluation after severe right hip pain. She describes sitting down in the shower after slipping but not falling followed by pain in the right hip. She was able to get out of the shower. She was then unable to get up after this. Her grandson did help her, gave her Tylenol, and gabapentin , which did not help. She was thus brought to the ER for evaluation. She had a very thorough workup in the emergency room. CBC was normal. Blood chemistry showed BUN of 15 and creatinine of 1.2. Electrolytes were normal. Liver function studies were normal and troponin I's were normal. She received morphine for her pain and was also given a liter of IV fluids and Solu-Medrol. She was started on a Cardene drip. CT scan of the pelvis and regular x-ray of the femur showed no fractures. She was hypertensive in the ER and had abdominal and pelvis CTA to assess for aortic dissection. This was normal for that but pancreas did reveal hypoenhancing mass in the pancreatic body measuring 4.5 x 2.2 cm. She also showed short segment of circumferential wall thickening of the ascending colon. Cervical spine CT showed no acute fracture chest CTA showed no acute findings in the chest.. Hospital Course Hospital Course Hospital Course: PT and OT were consulted to see the patient. She continued with some right hip pain that radiated down to the her knee. She was able to walk with a walker. Physical therapy thought she could have home health once medically stable for discharge. She wanted to go home and was stable to be discharged on 04/14/2024 with home health. Her low-dose gabapentin and amlodipine will be resumed. Exam Data for Last 24 hours Vital signs and Labs for Last 24 Hours: Temp Pulse Resp BP Pulse Ox O2 Del Method O2 Flow Rate 98.1 F 74 18 159/86 H 94 L Room Air 3 04/14/24 12:00 04/14/24 12:00 04/14/24 12:00 04/14/24 12:00 04/14/24 12:00 04/14/24 12:00 04/13/24 06:37 I & O for Last 24 hours: Intake & Output 04/14/24 04/15/24 04/16/24 04/17/24 11:59 11:59 11:59 11:59 Intake Total 965 / 965 Output Total 0 / 0 Balance 965 / 965 Weight 148 lb 9.6 oz Narrative: Constitutional Constitutional: no acute distress *Routine HEENT Exam Head: Present normocephalic and atraumatic Eye: Present PERRL; Absent conjunctival icterus, scleral injection or conjunctivae pink ENT: Present mucous membranes dry *Routine Neck Exam Neck: Absent carotid bruit, lymphadenopathy or thyromegaly *Routine Respiratory Exam Respiratory: Present CTA bilaterally (Anteriorly and posteriorly) *Routine Cardiovascular Exam Cardiovascular: Present RRR Comments: Monitor showing sinus rhythm with occasional PAC and rare PVC *Routine Abdominal Exam Abdominal: Present soft and normoactive bowel sounds; Absent tenderness, distended, guarding, organomegaly or mass *Routine Rectal Exam Rectal:: deferred *Routine Genitalia Exam Genitalia:: deferred *Routine Extremities Exam Extremities: Present full ROM; Absent edema, calf tenderness or palpable cord Routine Back/Spine/Pelvis Exam Back/Spine: Absent CVA tenderness *Routine Neurological Exam Neurological: Present alert, oriented X3 and moving all extremities; Absent altered mental status DS: Diagnosis Discharge Diagnosis (1) Acute pain of right hip: Status: Acute Code(s): M25.551 - Pain in right hip (2) Hypertensive emergency: Status: Acute Code(s): I16.1 - Hypertensive emergency (3) History of B-cell lymphoma: Status: Chronic Code(s): Z85.72 - Personal history of non-Hodgkin lymphomas (4) Hypothyroidism: Status: Chronic Code(s): E03.9 - Hypothyroidism, unspecified Qualifiers: Hypothyroidism type: unspecified Qualified Code(s): E03.9 - Hypothyroidism, unspecified (5) Pancreatic mass: Status: Acute Code(s): K86.89 - Other specified diseases of pancreas (6) Hypertension: Status: Chronic Code(s): I10 - Essential (primary) hypertension Meds Home Medications and Allergies Home Medications ?Medication ?Instructions ?Recorded ?Confirmed ?Type acetaminophen 500 mg tablet 500 mg PO Q6HP PRN Mild 12/10/19 04/12/24 Rx Pain,Fever,Headache #60 tabs atorvastatin 10 mg tablet 10 mg PO DAILY High cholesterol 12/10/19 04/12/24 Rx #30 tabs levothyroxine 50 mcg tablet 50 mcg PO DAILY thyroid #30 tabs 12/10/19 04/12/24 Rx celecoxib 200 mg capsule (Celebrex) 200 mg PO BID 02/01/20 04/13/24 History mecobalamin (vitamin B12) 1,000 1,000 mcg PO DAILY Supplement 02/01/20 04/12/24 History mcg chewable tablet (B12 Active) lactobacillus combination no.9 4 4,000 mmu cells PO DAILY 05/09/21 04/12/24 History billion cell capsule (Adult 50 Plus Probiotic) montelukast 10 mg tablet 10 mg PO PM 11/27/21 04/13/24 History dicyclomine 20 mg tablet 20 mg PO BIDP PRN Stomach Pain 04/13/24 04/13/24 History duloxetine 30 mg capsule,delayed 30 mg PO DAILY 04/13/24 04/13/24 History release oxybutynin chloride 5 mg 5 mg PO DAILY 04/13/24 04/13/24 History tablet,extended release 24 hr amlodipine 5 mg tablet 5 mg PO DAILY #30 tabs 04/14/24 Rx famotidine 20 mg tablet 40 mg (2 x 20 mg) PO HS #60 tabs 04/14/24 Rx gabapentin 100 mg capsule 100 mg PO BID #60 caps 04/14/24 Rx New Prescriptions to Start Prescriptions: amlodipine Shahid Lopez famotidine Shahid Lopez gabapentin Shahid Lopez Allergies Allergy/AdvReac Type Severity Reaction Status Date / Time cucumber (CUCUMBER) Allergy Severe HIVES, Verified 05/09/21 14:02 SWELLING, TROUBLE BREATHING alprazolam (From XANAX) Allergy Intermediate ADVERSE Verified 05/09/21 14:02 tetanus and diphtheria Allergy Mild Verified 05/09/21 14:02 toxoids (TETANUS AND DIPHTHERIA TOXOIDS) Iodinated Contrast Media Allergy Unknown Verified 05/09/21 14:02 (IODINATED CONTRAST MEDIA - ORAL AND) Discharge Plan Disposition Patient Disposition: Home Health Service Condition: Fair Discharge Order Discharge Orders: Discharge Order (Routine); Ordered 04/14/24 Ordered By: Shahid Lopez Follow up Plan Follow up with: Shahid Lopez MD [Primary Care Provider] - 04/21/24 10:15 am Prescriptions/Medication Reconciliation: New gabapentin 100 mg capsule 100 mg PO BID Qty: 60 0RF amlodipine 5 mg tablet 5 mg PO DAILY Qty: 30 0RF Continued celecoxib [Celebrex] 200 mg capsule 200 mg PO BID B12 Active 1,000 mcg tablet,chewable 1,000 mcg PO DAILY Adult 50 Plus Probiotic 4 billion cell capsule 4,000 mmu cells PO DAILY Rx Instructions: administer with a meal acetaminophen 500 MG tablet 500 mg PO Q6HP PRN (Reason: Mild Pain,Fever,Headache) Qty: 60 0RF atorvastatin 10 MG tablet 10 mg PO DAILY Qty: 30 0RF levothyroxine 50 MCG tablet 50 mcg PO DAILY Qty: 30 0RF montelukast 10 MG tablet 10 mg PO PM dicyclomine 20 mg tablet 20 mg PO BIDP PRN (Reason: Stomach Pain) oxybutynin chloride 5 mg tablet extended release 24hr 5 mg PO DAILY duloxetine 30 mg capsule,delayed release(DR/EC) 30 mg PO DAILY Changed famotidine 20 MG tablet 40 mg PO HS Qty: 60 0RF Discontinued gabapentin 300 mg capsule 300 mg PO BID irbesartan 75 mg tablet 75 mg PO DAILY Problem Reconciliation Problems Reviewed?: Yes Patient Discharge Instructions ACTIVITY: Continue current activity DIET: continue same diet Patient Instructions: High Blood Pressure Print Language: Nauruan Providers Primary Care Provider: Shahid Lopez Admit Provider: Tanvir Vela Attending Provider: Shahid Lopez
== END 2024-04-14 13:45 | disposition home health service (06) ==
LOC: ER 15:08 → 2ND 15:55
PROVIDERS: Admitting Provider Internal Medicine Adolescent Medicine; Emergency Provider Emergency Medicine; PCP Family Medicine; Visit Provider Family Medicine
DX: I16.1 Hypertensive emergency (principal); M25.551 Pain in right hip; Z85.72 Personal history of non-Hodgkin lymphomas; E03.9 Hypothyroidism, unspecified; K86.89 Other specified diseases of pancreas; I12.9 Hypertensive chronic kidney disease with stage 1 through stage 4 chronic kidney disease, or unspecified chronic kidney disease; N18.2 Chronic kidney disease, stage 2 (mild); Z79.899 Other long term (current) drug therapy
CPT/HCPCS: 36415; 70450; 71275; 72125; 72192; 73552; 74174; 80053; 84484; 85025; 86703; 86803; 87389; 93005; 97116; 97163; 99291; G0378; G0432; J0131; J1200; J2270; J2404; J2919; J7030; Q9967; S0028

== ENCOUNTER 2024-05-18 07:42 | Outpatient (CLI) | payer MEDICARE, SELFPAY ==
--- NOTE | 2024-05-18 07:44 | MR_ITS ---
FINAL REPORT TECHNIQUE: MR examination of the upper abdomen was performed without intravenous contrast. Multiplanar MRCP images were obtained with 3D multiplanar reconstructions, and interpreted. 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 There is a mass again demonstrated in the tail of the pancreas, which was seen on the prior CTA of April 12. This mass measures 5.2 x 2.1 cm, and when correlated with CT examination is worrisome for adenocarcinoma. No pancreatic ductal dilatation is identified. Images of the liver reveal no evidence of an obvious mass. There is mild biliary ductal dilatation up to 8 mm. No other mass or adenopathy is identified. IMPRESSION: No evidence of high-grade biliary obstruction. There is a mass again demonstrated in the tail of the pancreas as described, when correlated with the prior CT of April this appearance is worrisome for adenocarcinoma. Reviewed, Interpreted and Dictated by Ceci Ruiz MD Transcribed by Ginger Gaines Authenticated and [facility]
== END 2024-05-18 23:59 | disposition home or self-care (01) ==
LOC: RAD 07:42
PROVIDERS: PCP Family Medicine; Visit Provider Family Medicine
DX: D37.8 Neoplasm of uncertain behavior of other specified digestive organs (principal)
CPT/HCPCS: 74181; 76376

== ENCOUNTER 2024-05-21 16:14 | Outpatient (CLI) | payer MEDICARE, SELFPAY ==
[2024-05-22 12:10] LABS: CA 19-9 129 U/mL (0-35)
== END 2024-05-21 23:59 | disposition home or self-care (01) ==
LOC: LAB 16:15
PROVIDERS: PCP Family Medicine; Visit Provider Family Medicine
DX: D37.8 Neoplasm of uncertain behavior of other specified digestive organs (principal)
CPT/HCPCS: 36415; 86301

== ENCOUNTER 2024-06-19 10:54 | Outpatient (CLI) | payer MEDICARE, SELFPAY ==
[2024-06-19 12:08] LABS: Anion Gap 11.9 mEq/L (5-15); Blood Urea Nitrogen 14 mg/dl (7-17); Calcium 8.9 mg/dl (8.4-10.2); Carbon Dioxide 27 mmol/L (22.0-30.0); Chloride 102 mmol/L (98-107); Estimated Glomerular Filt Rate 53 ml/min (>60); GFR (African American) 64 ML/MIN (>60); Glucose 132 mg/dl (74-100); Potassium 3.9 mmoL/L (3.5-5.1); Sodium 137 mmol/L (136-145)
== END 2024-06-19 23:59 | disposition home or self-care (01) ==
LOC: LAB 10:56
PROVIDERS: PCP Family Medicine; Visit Provider Family Medicine
DX: N28.9 Disorder of kidney and ureter, unspecified (principal)
CPT/HCPCS: 36415; 80048

== ENCOUNTER 2024-10-25 10:48 | Inpatient (IN) | payer MEDICARE, SELFPAY ==
[2024-10-25] VITALS (16 sets, daily range): BP systolic 129–201; BP diastolic 75–89; PULSE 82–91; RESP 16–20; TEMP 36.5–36.9; O2SAT 94–99; BMI 21.1; BMI 22.4
--- NOTE | 2024-10-25 11:09 | ECG_ITS ---
APPROVED REPORT Exam: Resting ECG HR:81 bpm ECG Measurements Heart Rate 81 AXES [place] 129 P 262 QRSd 94 QRS 40 QT 370 T 85 QTc 407 Conclusion JUNCTIONAL RHYTHM ABNORMAL RHYTHM ECG No STEMI Electronically signed by : EVELIA SAUNDERS, 10/27/2024 19:59:11
--- NOTE | 2024-10-25 11:19 | ED_ITS ---
Discharge Plan Disposition Patient Disposition: Admitted Condition: Good Clinical Impressions Clinical Impression: General weakness, Elevated troponin Discharge ED Provider: Liliane Cole General Adult HPI General Chief complaint: Weakness Stated complaint: Can't walk, legs tingling Time Seen by Provider: 10/25/24 11:10 Mode of Arrival: Wheelchair Source of Information: Patient and Relative Description of Symptoms (Recalled from ER Triage Doc. by RN): pt has pancreatic cancer. finished radiation in october. reports increased weakness,loss of appetite, off balance. weakness. x1-2 weeks History of Present Illness HPI narrative: This patient is an 84-year-old female with a history of pancreatic cancer who recently completed radiation at the beginning of this month, B-cell lymphoma, hypertension, CKD presented to the emergency department for evaluation with concern for general weakness, loss of appetite, difficulty walking. She states that the beginning of the week, she was walking with her cane. Over the course of this week, she has had to switch to using a walker and now is barely able to walk at all. She states that she feels too weak to walk and has no energy. She has she feels that she is going to fall if she tries to walk. No headache, visual disturbance, unilateral numbness or tingling, chest pain, shortness of breath, abdominal pain, or other concerns. Related Data Home Medications ?Medication ?Instructions ?Recorded ?Confirmed celecoxib 200 mg capsule (Celebrex) 200 mg PO BID 02/01/20 10/25/24 mecobalamin (vitamin B12) 1,000 1,000 mcg PO DAILY Supplement 02/01/20 10/25/24 mcg chewable tablet (B12 Active) lactobacillus combination no.9 4 4,000 mmu cells PO DAILY 05/09/21 10/25/24 billion cell capsule (Adult 50 Plus Probiotic) montelukast 10 mg tablet 10 mg PO PM 11/27/21 10/25/24 dicyclomine 20 mg tablet 20 mg PO BIDP PRN Stomach Pain 04/13/24 10/25/24 duloxetine 30 mg capsule,delayed 30 mg PO DAILY 04/13/24 10/25/24 release oxybutynin chloride 5 mg 5 mg PO DAILY 04/13/24 10/25/24 tablet,extended release 24 hr atorvastatin 10 mg tablet 10 mg PO DAILY 10/26/24 10/25/24 famotidine 20 mg tablet 20 mg PO HS 10/26/24 10/26/24 gabapentin 100 mg capsule 100 mg PO TID 10/26/24 10/26/24 levothyroxine 50 mcg tablet 50 mcg PO DAILY 10/26/24 10/25/24 Previous Rx's ?Medication ?Instructions ?Recorded acetaminophen 500 mg tablet 500 mg PO Q6HP PRN Mild 12/10/19 Pain,Fever,Headache #60 tabs amlodipine 5 mg tablet 5 mg PO DAILY #30 tabs 04/14/24 Allergies Allergy/AdvReac Type Severity Reaction Status Date / Time cucumber (CUCUMBER) Allergy Severe HIVES, Verified 07/09/24 14:25 SWELLING, TROUBLE BREATHING alprazolam (From XANAX) Allergy Intermediate ADVERSE Verified 07/09/24 14:25 tetanus and diphtheria Allergy Mild Verified 07/09/24 14:25 toxoids (TETANUS AND DIPHTHERIA TOXOIDS) Iodinated Contrast Media Allergy Unknown Verified 07/09/24 14:25 (IODINATED CONTRAST MEDIA - ORAL AND) [facility] Disclaimer: The information contained in this section may have been updated after the patient was seen, as this information can be updated by other users. Medical History (Updated 10/25/24 @ 21:14 by Ceci Peraza MD) Renal insufficiency Polyneuropathy Leg weakness, bilateral Finger laceration E. coli UTI SIRS (systemic inflammatory response syndrome) COVID-19 E. coli infect Infection due to Citrobacter Gram-negative bacteremia Postoperative anemia due to acute blood loss Adverse reaction to narcotic drug Left displaced femoral neck fracture Facial contusion Closed left hip fracture B-cell lymphoma Pneumonia Dental trauma Epistaxis Concussion with loss of consciousness Nasal fracture Facial fracture Stage III chronic kidney disease Hypertension History of B-cell lymphoma Surgical History Fracture of left hip requiring operative repair History of tooth extraction H/O hysterectomy for benign disease Family History Other Stroke Social History (Updated 10/25/24 @ 16:16 by Patricia Chun RN) Smoking Status: Never smoker alcohol intake: never substance use type: denies use current occupational status: retired Travel in the last 8 weeks?: None household members: family housing: house current occupational exposures/hazards: No caffeine: No Have you lived/traveled outside US in past 30 days?: No Contact w/someone who lives/traveled outside US past 30 days?: No Exposure to someone with infectious disease in past 14 days?: No Do you have a fever (greater than 100.4 F or 38 C)?: No Have you tested positive for COVID-19?: No Exposed to someone with COVID-19 in past 14 days?: No Do you have a sore throat?: No Do you have a cough?: No Do you have any weakness?: No Do you have any diarrhea?: No Are you experiencing any unusual bleeding?: No Do you have any muscle aches/pain?: No Do you have any abdominal pain?: No Are you experiencing loss of taste or smell?: No Other Medical History Have you received the Flu Vaccine for this season: No Have you received the Pneumonia Vaccine: Yes ROS Obtained: Yes All systems reviewed & no additional complaints except as documented Physical Exam General General appearance: alert and in no apparent distress Head Head exam: atraumatic and normocephalic Eye Eye exam: Present normal appearance, PERRL and EOMI ENT ENT exam: Present normal exam, normal oropharynx, mucous membranes moist and normal external ear exam Neck Neck exam: Present normal inspection, full ROM and trachea midline; Absent tenderness Chest Chest inspection: Present normal inspection and symmetric chest wall rise; Absent tenderness Respiratory Respiratory exam: Present normal lung sounds bilaterally; Absent respiratory distress, wheezes, stridor or accessory muscle use Cardiovascular Cardiovascular exam: Present regular rate and normal rhythm Abdominal Exam Abdominal exam: Present soft; Absent distention, tenderness or guarding Extremities Exam Extremities exam: Present normal inspection, full ROM and normal capillary refill; Absent tenderness or edema Back Exam Back exam: Present normal inspection and full ROM; Absent tenderness Neurological Exam Neurological exam: Present alert, oriented X3, CN II-XII intact, normal gait and other (Generally weak without any focal deficits); Absent motor sensory deficit Psychiatric Psychiatric exam: Present normal affect and normal mood Skin Skin exam: Present warm and dry Medical Decision Making Medical Records Medical records reviewed: Yes I reviewed the patient's medical records. Screening: Per USPSTF and CDC recommendations, given the prevalence of disease in our region, it is our hospital?s policy to screen for HIV and viral Hepatitis for all patients aged 18 and over and those with ongoing risk factors. Eduardo Inquiry Pt receiving controlled substance: No Vital Signs: 10/25/24 11:00 10/25/24 11:01 10/25/24 11:30 Temperature 97.7 F Temperature Source Oral Pulse Rate 86 82 Pulse Rate [Right] 86 Respiratory Rate 20 Blood Pressure 167/85 H 183/75 H Blood Pressure [Right Arm] 129/80 Blood Pressure Mean [Right Arm] 96 Blood Pressure Source [Right Arm] Blood Pressure Position [Right Arm] 02 Sat by Pulse Oximetry 99 99 97 Oxygen Delivery Method Room Air 10/25/24 12:00 10/25/24 12:30 10/25/24 13:00 Temperature Temperature Source Pulse Rate 89 89 86 Pulse Rate [Right] Respiratory Rate Blood Pressure 188/86 H 186/87 H 175/84 H Blood Pressure [Right Arm] Blood Pressure Mean [Right Arm] Blood Pressure Source [Right Arm] Blood Pressure Position [Right Arm] 02 Sat by Pulse Oximetry 97 98 98 Oxygen Delivery Method 10/25/24 13:30 10/25/24 14:00 10/25/24 14:26 Temperature Temperature Source Pulse Rate 86 87 88 Pulse Rate [Right] Respiratory Rate Blood Pressure 187/87 H 201/89 H 181/80 H Blood Pressure [Right Arm] Blood Pressure Mean [Right Arm] Blood Pressure Source [Right Arm] Blood Pressure Position [Right Arm] 02 Sat by Pulse Oximetry 97 97 98 Oxygen Delivery Method 10/25/24 14:30 10/25/24 15:00 10/25/24 15:09 Temperature Temperature Source Pulse Rate 89 89 Pulse Rate [Right] Respiratory Rate Blood Pressure 185/87 H 190/88 H Blood Pressure [Right Arm] Blood Pressure Mean [Right Arm] Blood Pressure Source [Right Arm] Blood Pressure Position [Right Arm] 02 Sat by Pulse Oximetry 97 98 Oxygen Delivery Method Room Air 10/25/24 15:30 10/25/24 15:46 10/25/24 15:54 Temperature 97.7 F 98 F Temperature Source Oral Pulse Rate 89 89 Pulse Rate [Right] 90 Respiratory Rate 20 20 Blood Pressure 164/86 H 164/86 H Blood Pressure [Right Arm] 164/86 H Blood Pressure Mean [Right Arm] 112 Blood Pressure Source [Right Arm] Automatic Cuff Blood Pressure Position [Right Arm] Supine 02 Sat by Pulse Oximetry 97 98 Oxygen Delivery Method Room Air Lab Data Lab results reviewed: Yes I reviewed the patient's lab results. Lab Results 10/25/24 11:02: WBC 7.3, RBC 4.40, Hgb 13.2, Hct 39.3, MCV 89.3, MCH 30.0, MCHC 33.6, RDW 14.3, Plt Count 173, MPV 11.0 H, Neut % (Auto) 76.6, Lymph % (Auto) 13.8, [place] % (Auto) 7.9, Eos % (Auto) 1.0, Baso % (Auto) 0.4, Neut # (Auto) 5.6, Lymph # (Auto) 1.0, [place] # (Auto) 0.6, Eos # (Auto) 0.1, Baso # (Auto) 0.0, Sodium 137, Potassium 3.9, Chloride 103, Carbon Dioxide 25, Anion Gap 12.9, BUN 25 H, Creatinine 1.20 H, Estimated Creat Clear 33, Estimated GFR 43 L, Est GFR ( Amer) 52 L, Glucose 132 H, Calcium 10.1, Phosphorus 3.5, Magnesium 1.9, Total Bilirubin 0.9, AST 70 H, ALT 70, Alkaline Phosphatase 337 H, Troponin I 0.49 H, NT-Pro-B Natriuret Pep 1210 H, Total Protein 7.3, Albumin 4.5, Globulin 2.8, Albumin/Globulin Ratio 1.6 10/25/24 11:18: VBG pH 7.35, VBG pCO2 37.5, VBG pO2 45.1 H, VBG HCO3 20.1 L, VBG Total CO2 21.3 L, VBG O2 Saturation 80.8 H, VBG Base Excess -5.6 L, VBG Lactic Acid 2.4 H 10/25/24 14:24: Troponin I 0.42 H 10/25/24 11:02 10/25/24 11:02 Orders (Tests/Meds): ED MEDICATIONS Generic Name Dose Route Start Last Admin Trade Name Lory PRN Reason Stop Dose Admin Amlodipine Besylate 5 mg 10/26/24 09:00 10/26/24 09:14 Amlodipine 5mg Tablet PO 11/25/24 08:59 5 mg DAILY ZULEYKA Administration Duloxetine HCl 30 mg 10/26/24 09:00 10/26/24 09:14 Duloxetine 30mg Capsule. PO 11/25/24 08:59 30 mg DAILY ZULEYKA Administration Gabapentin 100 mg 10/26/24 09:00 10/26/24 09:15 Gabapentin 100mg Capsule PO 11/25/24 08:59 100 mg BID ZULEYKA Administration Levothyroxine Sodium 50 mcg 10/26/24 07:00 10/26/24 06:50 Levothyroxine 50mcg (0.05mg) Tab PO 11/25/24 06:59 50 mcg DAILYDM ZULEYKA Administration Discontinued Medications Generic Name Dose Route Start Last Admin Trade Name Lory PRN Reason Stop Dose Admin Irbesartan 75 mg 10/26/24 09:00 10/26/24 09:59 Irbesartan 75mg Tablet PO 11/25/24 08:59 Not Given DAILY ZULEYKA ORDERS Category Date Time Status Cardiology Consult [Consult to Cardiology] [CONS] Cons 10/25/24 14:50 Active Routine BNP [NT Pro Brain Natriuretic Pep.] Stat Lab 10/25/24 11:02 Completed CBC w/Auto Diff [Complete Blood Count Auto Diff] Stat Lab 10/25/24 11:02 Completed CMP [Comprehensive Metabolic Panel] Stat Lab 10/25/24 11:02 Completed MAG [Magnesium] Stat Lab 10/25/24 11:02 Completed PHOS [Phosphorous] Stat Lab 10/25/24 11:02 Completed Trop I [Troponin I] Stat Lab 10/25/24 11:02 Completed Troponin I Q3H Lab 10/25/24 14:24 Completed Troponin I Q3H Lab 10/25/24 17:30 Completed UA [Urinalysis and Microscopic] Stat Lab 10/25/24 19:08 Completed Urine Culture Stat Micro 10/25/24 19:08 Received VBG [Venous Blood Gas] Stat RT 10/25/24 11:18 Completed CA echo doppler complete Stat Y 10/25/24 14:50 Ordered ECG Data Tracing #1: I reviewed this ECG and interpreted as documented below: Normal sinus rhythm with a ventricular rate of [address] changes concerning for ischemia. Normal intervals ECG initial impression date: 10/25/24 ECG initial impression time: 11:12 Medical Decision Narrative: In summary, this patient is a 84-year-old female presenting to the Emergency Department for evaluation of general weakness and difficulty walking this progressed over the last week. She notes she is felt weaker overall since finishing radiation at the beginning of the month. Differential diagnoses considered include but are not limited to dehydration, electrolyte derangement, BEVERLEY on CKD, CHF, malnutrition, functional decline. Ruling out the most morbid conditions drove assessment. It should be noted patient's history includes pancreatic cancer, hypertension which may or may not be at goal therapy. This complicates all aspects of care by increasing patient's risk for morbidity. I reviewed patient's past medical records and noted prior evaluations by oncology for pancreatic adenocarcinoma. On exam, the patient is lying in bed in no acute distress. Cardiopulmonary exam is normal, abdominal exam is benign. She is generally weak without any focal neurologic deficits that would suggest stroke as a cause of her general weakness. EKG obtained is reassuring. Workup includes lab evaluation to evaluate for infectious, metabolic, cardiac derangements as a cause of general weakness. On reassessment, the patient is resting comfortably but continues to feel generally weak. EKG obtained is reassuring with no acute ischemia noted. Troponin did come back significantly elevated as well as BNP with no prior cardiac history or workup reported by the patient. Workup otherwise is reassuring with kidney function is around her baseline, no significant derangements on her CBC. She has not yet provided a urine specimen. Ultimately, given her elevation in troponins and BNP, weakness, and lack of prior cardiac workup I feel she would benefit from admission for further evaluation. I had an interactive discussion with Dr. Peraza who admitted the patient on behalf of Dr. Lopez. Critical Care Critical Care Time Critical Care Time: No
[2024-10-25 11:29] LABS: Basophils % 0.4 % (0.1-2.0); Eosinophils # 0.1 Kmm3 (0.0-0.4); Hematocrit 39.3 % (37.0-47.0); Hemoglobin 13.2 g/dL (12.2-16.2); Immature Granulocytes # 0.02 10^3uL; Immature Granulocytes % 0.3 %; Lymphocytes % 13.8 % (10-50); Mean Corpuscular HGB Conc 33.6 g/dL (31.8-35.4); Mean Corpuscular Volume 89.3 fl (81-99); Monocytes # 0.6 K/mm3 (0.1-1.0); Monocytes % 7.9 % (1.7-9.3); Neutrophils # 5.6 K/mm3 (1.8-7.8); Neutrophils % 76.6 % (37.0-80.0); Nucleated Red Blood Cells # 0 10^3/uL; Nucleated Red Blood Cells % 0 %; Platelet Count 173 K/mm3 (142-424); Red Cell Distribution Width 14.3 % (11.5-17.5); Red Cell Distribution Width-SD 46.5 fL; White Blood Count 7.3 K/mm3 (4.8-10.8)
[2024-10-25 11:42] LABS: VBG Base Excess -5.6 mmol/L (-2.4-2.3); VBG HCO3 20.1 mmol/L (23-30); VBG Oxygen Saturation 80.8 % (50-70); VBG PCO2 37.5 mmol/L (35-51); VBG PH 7.35 mmol/L (7.31-7.41); VBG PO2 45.1 mmol/L (28-40); VBG Total CO2 21.3 mmol/L (23-27)
[2024-10-25 11:44] LABS: Alanine Aminotransferase 70 U/L (12-78); Albumin Level 4.5 g/dl (3.5-5.0); Albumin/Globulin Ratio 1.6 (1.1-1.8); Alkaline Phosphatase 337 U/L (38-126); Anion Gap 12.9 mEq/L (5-15); Aspartate Amino Transferase 70 U/L (14-36); Bilirubin,Total 0.9 mg/dl (0.2-1.3); Blood Urea Nitrogen 25 mg/dl (7-17); Calcium 10.1 mg/dl (8.4-10.2); Carbon Dioxide 25 mmol/L (22.0-30.0); Chloride 103 mmol/L (98-107); Creatinine Clearance Estimated 33 mL/min (50-200); Estimated Glomerular Filt Rate 43 ml/min (>60); GFR (African American) 52 ML/MIN (>60); Globulin 2.8 g/dL (1.3-3.2); Glucose 132 mg/dl (74-100); Magnesium 1.9 mg/dl (1.6-2.3); Phosphorous 3.5 mg/dl (2.5-4.5); Potassium 3.9 mmoL/L (3.5-5.1); Sodium 137 mmol/L (136-145); Total Protein,Serum 7.3 g/dl (6.3-8.2)
[2024-10-25 11:55] LABS: NT Pro Brain Natriuretic Pep. 1210 pg/mL (0-450)
[2024-10-25 12:10] LABS: Troponin I 0.49 ng/ml (0.00-0.034)
[2024-10-25 12:36] LABS: Lactate Venous 2.4 mmol/L (0.4-2.0)
--- NOTE | 2024-10-25 15:27 | PC.NURSE ---
report called to Patricia
[2024-10-25 15:31] LABS: Troponin I 0.42 ng/ml (0.00-0.034)
[2024-10-25 16:35] LABS: Reflex Lactic Add Lactic Reflex
--- NOTE | 2024-10-25 16:49 | PC.NURSE ---
med rec completed with external med list and pt interview
[2024-10-25 18:26] LABS: Troponin I 0.46 ng/ml (0.00-0.034)
[2024-10-25 19:21] LABS: Microscopic, Urine URINE MICROSCOPIC (MICROSCOPIC)
[2024-10-25 19:36] LABS: Appearance,Urine CLEAR (Clear); Bilirubin,Urine Negative (Negative); Blood, Urine Negative (Negative); Color,Urine YELLOW (Yellow); Glucose,Urine (UA) Negative (Negative); Ketones,Urine Negative (Negative); Leukocyte Esterase,Urine Negative (Negative); Nitrate,Urine Negative (Negative); Protein,Urine TRACE (Negative); Specific Gravity, Urine 1.015 (1.005-1.030); Urobilinogen,Urine 0.2 EU/dl (0.2)
[2024-10-25 19:52] LABS: Bacteria,Urine 4+ /lpf; Squamous Epithelial Cell,Urine Occasional #/hpf (0-5)
--- NOTE | 2024-10-25 20:50 | EXP.HP ---
History of Present Illness *Admission Date: 10/25/24 *Reason for visit:: Weakness of the legs *History of present illness: Ms. Bueno is an 84-year-old female with a history of pancreatic cancer who recently completed radiation at the beginning of this month. She is followed by Dr. Christine, oncology [facility] and her radiation treatments have been in [place]. She also has history of B-cell lymphoma, hypertension and CKD. She presented to the emergency department with concern for general weakness, but more specifically with leg weakness. She has known polyneuropathy documented with difficulty walking. She states that the beginning of the week, she was walking with her cane. Over the course of this week, she has had to switch to using a walker and now is barely able to walk at all. She states that she feels too weak to walk and has no energy. She has she feels that she is going to fall if she tries to walk. No headache, visual disturbance, unilateral numbness or tingling, chest pain, shortness of breath, abdominal pain, or other concerns, though her appetite has been poor. Also in her past history is hysterectomy for uterine cancer. In the ER Troponin I was found elevated. EKG was stable compared to prior, not acute. She was admitted for further evaluation. [facility] Disclaimer: The information contained in this section may have been updated after the patient was seen, as this information can be updated by other users. Medical History (Updated 10/25/24 @ 21:14 by Ceci Peraza MD) Renal insufficiency Polyneuropathy Leg weakness, bilateral Finger laceration E. coli UTI SIRS (systemic inflammatory response syndrome) COVID-19 E. coli infect Infection due to Citrobacter Gram-negative bacteremia Postoperative anemia due to acute blood loss Adverse reaction to narcotic drug Left displaced femoral neck fracture Facial contusion Closed left hip fracture B-cell lymphoma Pneumonia Dental trauma Epistaxis Concussion with loss of consciousness Nasal fracture Facial fracture Stage III chronic kidney disease Hypertension History of B-cell lymphoma Surgical History Fracture of left hip requiring operative repair History of tooth extraction H/O hysterectomy for benign disease Family History Other Stroke Social History (Updated 10/25/24 @ 16:16 by Patricia Chun RN) Smoking Status: Never smoker alcohol intake: never substance use type: denies use current occupational status: retired Travel in the last 8 weeks?: None household members: family housing: house current occupational exposures/hazards: No caffeine: No Have you lived/traveled outside [place] in past 30 days?: No Contact w/someone who lives/traveled outside US past 30 days?: No Exposure to someone with infectious disease in past 14 days?: No Do you have a fever (greater than 100.4 F or 38 C)?: No Have you tested positive for COVID-19?: No Exposed to someone with COVID-19 in past 14 days?: No Do you have a sore throat?: No Do you have a cough?: No Do you have any weakness?: No Do you have any diarrhea?: No Are you experiencing any unusual bleeding?: No Do you have any muscle aches/pain?: No Do you have any abdominal pain?: No Are you experiencing loss of taste or smell?: No Other Medical History Have you received the Flu Vaccine for this season: Yes Have you received the Pneumonia Vaccine: Yes Review of Systems Review of Systems Review of systems:: pertinent systems reviewed and negative unless documented below Constitutional Constitutional: Reports as per HPI, Reports poor appetite and Reports weakness Eyes Eyes: Reports system reviewed and no additional complaints, except as documented ENT Ears, Nose, Mouth, and Throat: Reports system reviewed and no additional complaints, except as documented, Reports disequilibrium and Denies dysphagia *Cardiovascular Cardiovascular: Denies chest pain, Denies chest pain at rest, Denies chest pain with activity, Denies dyspnea, Denies dyspnea on exertion, Denies edema, Denies irregular heart rhythm, Denies leg edema, Denies palpitations and Denies syncope *Respiratory Respiratory: Denies dyspnea and Denies dyspnea on exertion *Gastrointestinal Gastrointestinal: Denies abdominal pain, Denies change in bowel habits, Denies diarrhea, Denies dysphagia, Denies hematochezia, Denies melena and Denies nausea *Genitourinary Genitourinary: Reports system reviewed and no additional complaints, except as documented *Musculoskeletal Musculoskeletal: Reports as per HPI and Reports muscle weakness Integumentary/Breasts Skin/Breast: Reports system reviewed and no additional complaints, except as documented *Neurologic Neurologic: Reports as per HPI, Denies abnormal movements, Denies convulsions, Reports disequilibrium, Reports localized weakness, Denies syncope and Reports weakness Psychiatric Psychiatric: Reports system reviewed and no additional complaints, except as documented Endocrine Endocrine: Reports system reviewed and no additional complaints, except as documented and Denies palpitations Hematologic/Lymphatic Hematologic/Lymphatic: Reports as per HPI (Hx Lymphoma) Allergic/Immunologic Allergic/Immunologic: Reports system reviewed and no additional complaints, except as documented Meds Home Medications and Allergies Home Medications ?Medication ?Instructions ?Recorded ?Confirmed ?Type acetaminophen 500 mg tablet 500 mg PO Q6HP PRN Mild 12/10/19 10/25/24 Rx Pain,Fever,Headache #60 tabs atorvastatin 10 mg tablet 10 mg PO DAILY High cholesterol 12/10/19 10/25/24 Rx #30 tabs levothyroxine 50 mcg tablet 50 mcg PO DAILY thyroid #30 tabs 12/10/19 10/25/24 Rx celecoxib 200 mg capsule (Celebrex) 200 mg PO BID 02/01/20 10/25/24 History mecobalamin (vitamin B12) 1,000 1,000 mcg PO DAILY Supplement 02/01/20 10/25/24 History mcg chewable tablet (B12 Active) lactobacillus combination no.9 4 4,000 mmu cells PO DAILY 05/09/21 10/25/24 History billion cell capsule (Adult 50 Plus Probiotic) montelukast 10 mg tablet 10 mg PO PM 11/27/21 10/25/24 History dicyclomine 20 mg tablet 20 mg PO BIDP PRN Stomach Pain 04/13/24 10/25/24 History duloxetine 30 mg capsule,delayed 30 mg PO DAILY 04/13/24 10/25/24 History release oxybutynin chloride 5 mg 5 mg PO DAILY 04/13/24 10/25/24 History tablet,extended release 24 hr amlodipine 5 mg tablet 5 mg PO DAILY #30 tabs 04/14/24 10/25/24 Rx famotidine 20 mg tablet 40 mg (2 x 20 mg) PO HS #60 tabs 04/14/24 10/25/24 Rx gabapentin 100 mg capsule 100 mg PO BID #60 caps 04/14/24 10/25/24 Rx irbesartan 75 mg tablet 75 mg PO DAILY 06/05/24 10/25/24 History New Prescriptions to Start Prescriptions: Allergies Allergy/AdvReac Type Severity Reaction Status Date / Time cucumber (CUCUMBER) Allergy Severe HIVES, Verified 07/09/24 14:25 SWELLING, TROUBLE BREATHING alprazolam (From XANAX) Allergy Intermediate ADVERSE Verified 07/09/24 14:25 tetanus and diphtheria Allergy Mild Verified 07/09/24 14:25 toxoids (TETANUS AND DIPHTHERIA TOXOIDS) Iodinated Contrast Media Allergy Unknown Verified 07/09/24 14:25 (IODINATED CONTRAST MEDIA - ORAL AND) Exam Data for Last 24 hours Vital signs and Labs for Last 24 Hours: Temp Pulse Resp BP Pulse Ox O2 Del Method 98.5 F 91 H 16 142/86 H 94 L Room Air 10/25/24 20:00 10/25/24 20:00 10/25/24 20:00 10/25/24 20:00 10/25/24 20:00 10/25/24 20:00 Laboratory Results - last 24 hr 10/25/24 11:02: WBC 7.3, RBC 4.40, Hgb 13.2, Hct 39.3, MCV 89.3, MCH 30.0, MCHC 33.6, RDW 14.3, Plt Count 173, MPV 11.0 H, Neut % (Auto) 76.6, Lymph % (Auto) 13.8, [place] % (Auto) 7.9, Eos % (Auto) 1.0, Baso % (Auto) 0.4, Neut # (Auto) 5.6, Lymph # (Auto) 1.0, [place] # (Auto) 0.6, Eos # (Auto) 0.1, Baso # (Auto) 0.0, Sodium 137, Potassium 3.9, Chloride 103, Carbon Dioxide 25, Anion Gap 12.9, BUN 25 H, Creatinine 1.20 H, Estimated Creat Clear 33, Estimated GFR 43 L, Est GFR ( Amer) 52 L, Glucose 132 H, Calcium 10.1, Phosphorus 3.5, Magnesium 1.9, Total Bilirubin 0.9, AST 70 H, ALT 70, Alkaline Phosphatase 337 H, Troponin I 0.49 H, NT-Pro-B Natriuret Pep 1210 H, Total Protein 7.3, Albumin 4.5, Globulin 2.8, Albumin/Globulin Ratio 1.6 10/25/24 11:18: VBG pH 7.35, VBG pCO2 37.5, VBG pO2 45.1 H, VBG HCO3 20.1 L, VBG Total CO2 21.3 L, VBG O2 Saturation 80.8 H, VBG Base Excess -5.6 L, VBG Lactic Acid 2.4 H 10/25/24 14:24: Troponin I 0.42 H 10/25/24 17:30: Lactate 1.0, Troponin I 0.46 H 10/25/24 19:08: Urine Color Yellow, Urine Appearance Clear, Urine pH 7.0, Ur Specific [place] 1.015, Urine Protein Trace, Urine Glucose (UA) Negative, Urine Ketones Negative, Urine Blood Negative, Urine Nitrate Negative, Urine Bilirubin Negative, Urine Urobilinogen 0.2, Ur Leukocyte Esterase Negative, Urine RBC None, Urine WBC 5-10, Ur Squamous Epith Cells Occasional, Urine Bacteria 4+ I & O for Last 24 hours: Intake & Output 10/23/24 10/24/24 10/25/24 10/26/24 11:59 11:59 11:59 11:59 Intake Total 440 / 440 Output Total 0 / 0 Balance 440 / 440 Weight 135 lb 143 lb 2 oz Constitutional Constitutional: no acute distress and cachectic (not cachectic) *Routine HEENT Exam Head: Present normocephalic Eye: Present EOMI and PERRL ENT: Present mucous membranes dry *Routine Neck Exam Neck: Present supple and normal carotid upstroke Routine Chest/Breast/Axilla Exam Chest wall: Absent tenderness *Routine Respiratory Exam Respiratory: Present CTA bilaterally; Absent respiratory distress, rhonchi or wheezes *Routine Cardiovascular Exam Cardiovascular: Present RRR; Absent ectopic *Routine Abdominal Exam Abdominal: Present soft; Absent tenderness *Routine Rectal Exam Rectal:: deferred *Routine Genitalia Exam Genitalia:: deferred *Routine Extremities Exam Extremities: Present normal capillary refill; Absent cyanosis, clubbing, edema, calf tenderness or joint swelling Routine Back/Spine/Pelvis Exam Back/Spine: Present kyphosis *Routine Skin Exam Skin: Present intact and pallor; Absent cyanosis, erythema or rash *Routine Neurological Exam Neurological: Present alert, oriented X3, normal reflexes (at patellae and Achilles, equal) and plantar reflex (slightly upgoing on right) Routine Psychiatric Exam Psychiatric: Present normal affect, normal thought process and anxious Assessment and Plan *Assessment and plan (1) Leg weakness, bilateral: Status: Acute Category: Medical Code(s): R29.898 - Other symptoms and signs involving the musculoskeletal system (2) Polyneuropathy: Status: Acute Category: Medical Code(s): G62.9 - Polyneuropathy, unspecified (3) General weakness: Status: Acute Category: Medical Code(s): R53.1 - Weakness (4) Elevated troponin: Status: Acute Category: Medical Code(s): R79.89 - Other specified abnormal findings of blood chemistry (5) Primary adenocarcinoma of body of pancreas: Status: Acute Category: Medical Code(s): C25.1 - Malignant neoplasm of body of pancreas (6) History of B-cell lymphoma: Status: Chronic Category: Medical Code(s): Z85.72 - Personal history of non-Hodgkin lymphomas (7) Hypertension: Status: Chronic Category: Medical Code(s): I10 - Essential (primary) hypertension (8) Renal insufficiency: Status: Acute Category: Medical Code(s): N28.9 - Disorder of kidney and ureter, unspecified Plan See orders. Serial Troponins ordered. Will Cardiology consult be available? Echocardiogram ordered. Will PT consult be available?
[2024-10-25 22:15] LABS: Creatine Kinase 55 U/L (30-135)
[2024-10-25 22:27] LABS: Erythrocyte Sedimentation Rate 56 mm/hr (0-30)
[2024-10-25 22:47] LABS: Thyroid Stimulating Hormone 1.23 uIU/mL (0.465-4.68)
[2024-10-25 23:05] LABS: Hepatitis C Ab Qual. W/ RFX NEGATIVE (Negative)
[2024-10-25 23:06] LABS: Vitamin B12 > 1000 pg/mL (239-931)
[2024-10-26] VITALS (7 sets, daily range): BP systolic 138–151; BP diastolic 57–75; PULSE 79–100; RESP 14–16; TEMP 36.7–37.1; O2SAT 95–98; BMI 22.8
--- NOTE | 2024-10-26 06:18 | PC.NURSE ---
Pt A&OX4 and has tolerated room. lung sounds clear and bowel sounds active. VSS. She has rested well the majority of the shift. She ambulated to the bathroom with x1 assist. No complaints at this time, call light within reach.
[2024-10-26] MEDS: LEVOTHYROXINE 50MCG (0.05MG) TAB 50 MCG PO (06:50)
--- NOTE | 2024-10-26 07:50 | HMH.PHAINT1 ---
Pharmacy Intervention Comments: HOME MEDICATION LIST VERIFIED USING LIST FROM OUTPATIENT PHARMACY AND MOST RECENT DISCHARGE FROM THIS FACILITY
[2024-10-26] MEDS: AMLODIPINE 5MG TABLET 5 MG PO (09:14)
[2024-10-26] MEDS: DULOXETINE 30MG CAPSULE.DR 30 MG PO (09:14)
[2024-10-26] MEDS: GABAPENTIN 100MG CAPSULE 100 MG PO ×2 (09:15→20:50)
--- NOTE | 2024-10-26 11:01 | EXP.ACUTE.PN ---
Subjective *Date: 10/26/24 *Time: 11:01 Interval history: She feels better. Still with leg weakness. TSH was normal. B12 was greater than 1000. Creatinine kinase was 55. Elevated but not dramatically so. Troponin remains elevated at the same level. She has no cardiac symptoms. Medical Exam Vital signs and Labs for Last 24 Hours: Vital Signs Temp Pulse Pulse Resp BP BP Pulse Ox 10/26/24 09:00 10/26/24 08:00 10/26/24 08:00 91 H 10/26/24 08:00 98.1 F 92 H 15 139/73 97 10/26/24 06:39 10/26/24 05:00 10/26/24 04:00 98.4 F 88 16 138/57 L 95 10/26/24 03:56 80 10/26/24 03:00 10/26/24 01:00 10/26/24 00:00 98.3 F 90 16 140/66 98 10/26/24 00:00 90 10/25/24 23:00 10/25/24 21:00 10/25/24 20:00 10/25/24 20:00 85 10/25/24 20:00 98.5 F 91 H 16 142/86 H 94 L 10/25/24 18:44 10/25/24 17:53 90 10/25/24 17:00 10/25/24 15:54 98 F 89 20 164/86 H 10/25/24 15:46 97.7 F 90 20 164/86 H 98 10/25/24 15:30 89 164/86 H 97 10/25/24 15:09 10/25/24 15:00 89 190/88 H 98 10/25/24 14:30 89 185/87 H 97 10/25/24 14:26 88 181/80 H 98 10/25/24 14:00 87 201/89 H 97 10/25/24 13:30 86 187/87 H 97 10/25/24 13:00 86 175/84 H 98 10/25/24 12:30 89 186/87 H 98 10/25/24 12:00 89 188/86 H 97 10/25/24 11:30 82 183/75 H 97 O2 Del Method 10/26/24 09:00 Room Air 10/26/24 08:00 Room Air 10/26/24 08:00 10/26/24 08:00 10/26/24 06:39 Room Air 10/26/24 05:00 Room Air 10/26/24 04:00 Room Air 10/26/24 03:56 10/26/24 03:00 Room Air 10/26/24 01:00 Room Air 10/26/24 00:00 Room Air 10/26/24 00:00 10/25/24 23:00 Room Air 10/25/24 21:00 Room Air 10/25/24 20:00 Room Air 10/25/24 20:00 10/25/24 20:00 Room Air 10/25/24 18:44 Room Air 10/25/24 17:53 10/25/24 17:00 Room Air 10/25/24 15:54 10/25/24 15:46 Room Air 10/25/24 15:30 10/25/24 15:09 Room Air 10/25/24 15:00 10/25/24 14:30 10/25/24 14:26 10/25/24 14:00 10/25/24 13:30 10/25/24 13:00 10/25/24 12:30 10/25/24 12:00 10/25/24 11:30 Intake and Output 10/25/24 10/26/24 10/26/24 19:59 03:59 11:59 Intake Total 440 / 690 250 / 690 Output Total 0 / 0 0 / 0 Balance 440 / 690 0 / 690 250 / 690 Intake: Intake, Oral Amount 440 / 690 250 / 690 Output: Output, Urine Amount 0 / 0 0 / 0 Other: Number of Unmeasured Voids 1 1 Weight 143 lb 2 oz 145 lb 14.4 oz Patient Weight 10/26/24 11:59 Weight 145 lb 14.4 oz Laboratory Results - last 24 hr 10/25/24 11:02: WBC 7.3, RBC 4.40, Hgb 13.2, Hct 39.3, MCV 89.3, MCH 30.0, MCHC 33.6, RDW 14.3, Plt Count 173, MPV 11.0 H, Neut % (Auto) 76.6, Lymph % (Auto) 13.8, [place] % (Auto) 7.9, Eos % (Auto) 1.0, Baso % (Auto) 0.4, Neut # (Auto) 5.6, Lymph # (Auto) 1.0, [place] # (Auto) 0.6, Eos # (Auto) 0.1, Baso # (Auto) 0.0, Sodium 137, Potassium 3.9, Chloride 103, Carbon Dioxide 25, Anion Gap 12.9, BUN 25 H, Creatinine 1.20 H, Estimated Creat Clear 33, Estimated GFR 43 L, Est GFR ( Amer) 52 L, Glucose 132 H, Calcium 10.1, Phosphorus 3.5, Magnesium 1.9, Total Bilirubin 0.9, AST 70 H, ALT 70, Alkaline Phosphatase 337 H, Troponin I 0.49 H, NT-Pro-B Natriuret Pep 1210 H, Total Protein 7.3, Albumin 4.5, Globulin 2.8, Albumin/Globulin Ratio 1.6 10/25/24 11:18: VBG pH 7.35, VBG pCO2 37.5, VBG pO2 45.1 H, VBG HCO3 20.1 L, VBG Total CO2 21.3 L, VBG O2 Saturation 80.8 H, VBG Base Excess -5.6 L, VBG Lactic Acid 2.4 H 10/25/24 14:24: Troponin I 0.42 H 10/25/24 17:30: Lactate 1.0, Troponin I 0.46 H 10/25/24 19:08: Urine Color Yellow, Urine Appearance Clear, Urine pH 7.0, Ur Specific [place] 1.015, Urine Protein Trace, Urine Glucose (UA) Negative, Urine Ketones Negative, Urine Blood Negative, Urine Nitrate Negative, Urine Bilirubin Negative, Urine Urobilinogen 0.2, Ur Leukocyte Esterase Negative, Urine RBC None, Urine WBC 5-10, Ur Squamous Epith Cells Occasional, Urine Bacteria 4+ 10/25/24 21:45: ESR 56 H, Total Creatine Kinase 55, Vitamin B12 > 1000 H, TSH 1.23, HCV Ab PANTERA w/Rflx PCR Qn Negative I & O for Labs for Last 24 Hours: Intake & Output 10/23/24 10/24/24 10/25/24 10/26/24 11:59 11:59 11:59 11:59 Intake Total 690 / 690 Output Total 0 / 0 Balance 690 / 690 Weight 135 lb 145 lb 14.4 oz Head: Present normocephalic Neck: Present normal inspection Respiratory: Present CTA bilaterally; Absent respiratory distress Cardiac: Present Reg Rate and Rhythm GI: Present soft; Absent distention or tenderness Rectal (female): Present deferred (female): Present deferred Extremities: Absent edema Skin: Present intact Neuro: Present alert and oriented x 3 Assessment and Plan *Assessment and plan (1) Polyneuropathy: Status: Acute Category: Medical Code(s): G62.9 - Polyneuropathy, unspecified (2) Leg weakness, bilateral: Status: Acute Category: Medical Code(s): R29.898 - Other symptoms and signs involving the musculoskeletal system (3) Elevated troponin: Status: Acute Category: Medical Code(s): R79.89 - Other specified abnormal findings of blood chemistry (4) General weakness: Status: Acute Category: Medical Code(s): R53.1 - Weakness (5) Primary adenocarcinoma of body of pancreas: Status: Acute Category: Medical Code(s): C25.1 - Malignant neoplasm of body of pancreas (6) Renal insufficiency: Status: Acute Category: Medical Code(s): N28.9 - Disorder of kidney and ureter, unspecified (7) History of B-cell lymphoma: Status: Chronic Category: Medical Code(s): Z85.72 - Personal history of non-Hodgkin lymphomas (8) Hypertension: Status: Chronic Category: Medical Code(s): I10 - Essential (primary) hypertension Plan She needs cardiac consult and PT consult.
--- NOTE | 2024-10-26 15:09 | PC.NURSE ---
patient is a/ox4, remains on room air tolerating well. family at bedside most of the shift. VSS. ambulates to the bathroom x1 and/or 2 assist with walker. patient is continent of bowel and bladder. offered patient ensure, patient accepted. no c/o pain or nausea. bed low and locked, call light within reach. family stated they were going home to get her foot/leg brace. no further requests at this time.
[2024-10-27] VITALS (21 sets, daily range): BP systolic 121–177; BP diastolic 63–94; PULSE 80–98; RESP 14–20; TEMP 36.4–36.7; O2SAT 92–99; BMI 23.2
[2024-10-27] MEDS: LEVOTHYROXINE 50MCG (0.05MG) TAB 50 MCG PO (07:50)
--- NOTE | 2024-10-27 08:28 | EXP.PN ---
Subjective *Date: 10/27/24 *Time: 08:49 Interval history: Patient denies chest pain and shortness of breath. She feels about the same. She did sleep during the night. She is eating normally for her. She does not like breakfast. She states her legs just will not work. She usually uses a walker at home but has not been able to get her legs to function. She has been voiding but unable to make it to the bathroom. Exam Data for Last 24 hours Vital signs and Labs for Last 24 Hours: Temp Pulse Resp BP Pulse Ox O2 Del Method 98 F 88 16 155/75 H 98 Room Air 10/27/24 08:00 10/27/24 08:00 10/27/24 08:00 10/27/24 08:00 10/27/24 08:00 10/27/24 08:00 I & O for Last 24 hours: Intake & Output 10/24/24 10/25/24 10/26/24 10/27/24 11:59 11:59 11:59 11:59 Intake Total 690 / 690 855 / 855 Output Total 0 / 0 0 / 0 Balance 690 / 690 855 / 855 Weight 135 lb 145 lb 14.4 oz 148 lb 3.2 oz Constitutional Constitutional: no acute distress *Routine Respiratory Exam Respiratory: Present CTA bilaterally (Anteriorly and posteriorly) *Routine Cardiovascular Exam Cardiovascular: Present RRR *Routine Abdominal Exam Abdominal: Present soft and normoactive bowel sounds; Absent tenderness or distended *Routine Extremities Exam Extremities: Present pulses intact; Absent edema or calf tenderness Comments: Difficulty with moving legs and toes. *Routine Neurological Exam Neurological: Present alert and oriented X3 Assessment and Plan *Assessment and plan (1) Polyneuropathy: Status: Acute Category: Medical Code(s): G62.9 - Polyneuropathy, unspecified (2) Leg weakness, bilateral: Status: Acute Category: Medical Code(s): R29.898 - Other symptoms and signs involving the musculoskeletal system (3) Elevated troponin: Status: Acute Category: Medical Code(s): R79.89 - Other specified abnormal findings of blood chemistry (4) General weakness: Status: Acute Category: Medical Code(s): R53.1 - Weakness (5) Primary adenocarcinoma of body of pancreas: Status: Acute Category: Medical Code(s): C25.1 - Malignant neoplasm of body of pancreas (6) Renal insufficiency: Status: Acute Category: Medical Code(s): N28.9 - Disorder of kidney and ureter, unspecified (7) History of B-cell lymphoma: Status: Chronic Category: Medical Code(s): Z85.72 - Personal history of non-Hodgkin lymphomas (8) Hypertension: Status: Chronic Category: Medical Code(s): I10 - Essential (primary) hypertension Plan Cardiology to see patient this morning. Will have a PT evaluation as well. Dr. Lopez entry - Saw patient, agree with above note.
[2024-10-27] MEDS: GABAPENTIN 100MG CAPSULE 100 MG PO ×2 (08:44→20:56)
[2024-10-27] MEDS: DULOXETINE 30MG CAPSULE.DR 30 MG PO (08:44)
[2024-10-27] MEDS: AMLODIPINE 5MG TABLET 5 MG PO (08:45)
--- NOTE | 2024-10-27 09:18 | SW/DCPLANNER ---
Addendum entered by Mary Stratton 10/30/24 09:11: Patient will discharge to [facility] SNF level of care this AM. Addendum entered by [facility] 10/29/24 15:55: Patient is approved SNF level of care. Plan to discharge patient in the AM pending no setbacks. Addendum entered by [facility] 10/29/24 07:37: Additional information requested from [facility] and faxed this AM. Precert is still pending at this time. Addendum entered by Mary Stratton 10/28/24 09:57: Precert is still pending at this time. Addendum entered by [facility] 10/27/24 13:24: [facility] will start precert today. Original Note: I spoke w/ patient and her granddaughter regarding plans once medically stable for discharge. PT evaluated patient this AM and recommended SNF level of care. Patient is agreeable to placement and prefers [facility]. Per [facility] they do have female beds open at this time. Patient information will be faxed today. Discharge date is unknown at this time.
--- NOTE | 2024-10-27 09:57 | HMH.OTEV ---
OT Inpatient Evaluation Rehab OT IP Evaluation Start: 10/26/24 10:29 Freq: ONCE Status: Active Protocol: Document 10/27/24 09:45 KLEVER (Rec: 10/27/24 09:57 KLEVER [id number]) Rehab OT IP Assessment Subjective History PER HPI narrative: This patient is an 84-year-old female with a history of pancreatic cancer who recently completed radiation at the beginning of this month, B- cell lymphoma, hypertension, CKD presented to the emergency department for evaluation with concern for general weakness, loss of appetite, difficulty walking. She states that the beginning of the week, she was walking with her cane. Over the course of this week, she has had to switch to using a walker and now is barely able to walk at all. She states that she feels too weak to walk and has no energy. She has she feels that she is going to fall if she tries to walk. No headache, visual disturbance, unilateral numbness or tingling, chest pain, shortness of breath, abdominal pain, or other concerns. Subjective I am so tired. Pt was supine in bed when therapy arrived. Granddaughter also present. Pt orient x3. Pt reported they live in a mx level home with grandson. Pt reported 4 steps with handrails to get into home. Pt reported they use a rolling walker at home. Pt reported they have been weak and have had mx falls. pt reported that she usually has someone over but is alone at parts of the day. Pt reported they can fix their own food. Pt reported they have assistance with IADLs and someone usually drives her. Pt reported they are normally ind in ADLs. Pt reported they have a shower chair and grab bars in shower. pt reported they have grab bars by the toilet. Pt agreed to move to EOB. Pt was CGA to move from supine to EOB. Pt then demo good static sitting balance on EOB with SBA. Pt then able to move from EOB to supine with CGA. Pt able to readjust in bed with SBA. pt left supine in bed with call light and granddaughter present. Objective Patient Orientation Person,Place,Birthday Right Upper Extremity Gross ROM WFL Left Upper Extremity Gross ROM WFL Shoulder ROM Limitations Muscle Weakness Bed Mobility bed mobility-scooting,bed mobility - supine/sit Assist Level Contact Guard/Hand Hold Decrease in Endurance Yes Rehab OT IP prob,goals,plan Problems Date of Evaluation: 10/27/24 OT IP Problems Bed Mobility,Transfers,Balance ,Self care,Safety Rehab Potential Rehab Potential Good Equipment Needs Assistive Devices Standard Walker Plan OT intervention Plan Bed Mobility,Transfers,Balance ,Self care,Safety,Therapeutic Exercise OT Plan Frequency Daily Duration LOS Discharge Goals Bed Mobility Ability Standby Assistance Sit to Stand Chair Transfer Ability Supervision/Stand by Chair Transfer Assistive Devices Standard Walker Feeding Ability Assist with Tray Set Up Commode/Toilet Transfer Assistive Raised Toilet Seat,Grab Bars Devices Decrease in Endurance No Discharge Plan OT Discharge Plan At this time, pt would benefit from being seen by OT for skilled services and interventions to address functional limitations in occupational performance. Pt would benefit from skilled rehab services once DC from [facility] to address functional limitations in occupational performance with skilled OT services and interventions. Eval Complexity Eval Charge Codes 88186 - Moderate Complexity PHYSICIAN CERTIFICATION: I certify the specified therapy services for Laurie Bueno are required, authorized, and reviewed every 30 days.
--- NOTE | 2024-10-27 10:07 | HMH.PTEV ---
Physical Therapy Evaluation Rehab PT IP Evaluation Start: 10/25/24 17:05 Freq: .once Status: Active Protocol: Document 10/27/24 09:58 RENU (Rec: 10/27/24 10:07 RENU [id number]) Subjective/History History History Per H&P: Ms. Bueno is an 84- year-old female with a history of pancreatic cancer who recently completed radiation at the beginning of this month . She is followed by Dr. Christine , oncology [facility] and her radiation treatments have been in [place]. She also has history of B-cell lymphoma, hypertension and CKD. She presented to the emergency department with concern for general weakness, but more specifically with leg weakness . She has known polyneuropathy documented with difficulty walking. She states that the beginning of the week, she was walking with her cane. Over the course of this week, she has had to switch to using a walker and now is barely able to walk at all. She states that she feels too weak to walk and has no energy. She has she feels that she is going to fall if she tries to walk. No headache, visual disturbance, unilateral numbness or tingling, chest pain, shortness of breath, abdominal pain, or other concerns, though her appetite has been poor. Subjective Subjective My legs have been giving out on me Pt reports she lives at home with her grandson. Grandson is home most of the time but pt is home alone on occasion. Pt lives in a home with 4 TIFFANY. Pt reports she is usually IND with mobility using a RW but has declined recently and has had multiple falls d/t LE weakness. [facility] How much help from another person do you currently need... Turning from your back to your side A little while in a flat bed without using bedrails? Moving from lying on back to sitting on A little the side of a flat bed without using bedrails? Moving to and from a bed to a chair ( A lot including a wheelchair)? Standing up from a chair using your arms A lot ? (e.g., wheelchair, bedside chair) Walking in hospital room? A lot Climbing 3-5 steps with a railing? A lot Mobility Score [address] [facility] Mobility Calculator Mobility 4 Move to chair/ commode Rehab PT IP Eval Objective Appearance Patient Behavior Appropriate,Cooperative Patient Orientation Person Difficulty following instructions mild Speech Pattern Clear Ambulation Patient Able to Ambulate No Balance Ability to Arise Able, uses arms to help Sitting Balance Steady, safe Standing Balance Unsteady Dynamic Sitting Balance Ability Good Dynamic Standing Balance Ability Poor Transfers Bed Transfer Ability Moderate x 1 (50% assist) Sit to Stand Bed Transfer Ability Moderate x 1 (50% assist) Rehab PT IP prob,goals,plan Problems Date of Evaluation: 10/27/24 PT IP Problems Bed Mobility,Transfers,Gait, Balance,Self care,Safety Rehab Potential Rehab Potential Good Plan PT Intervention Plan Bed Mobility,Transfers,Gait, Balance,Self care,Safety, Therapeutic Exercise Other Intervention Plan 1-2 times PT Plan Frequency Daily Duration LOS Discharge Goals Bed Transfer Ability Minimal x 1 (25% assist) Sit to Stand Chair Transfer Ability Minimal x 1 (25% assist) Discharge Plan PT Discharge Plan Initial physical therapy evaluation performed. Patient presents below baseline at this time in functional mobility, transfers, and strength. Pt not safe to return home at this time d/t current level of functional mobility. PT recommending short-term rehabilitation stay upon d/c from [facility]. Pt would benefit from skilled PT while at [facility] to prevent further functional decline and maximize safety with mobility. Eval Complexity Eval Charge Codes 90120 - Moderate Complexity PHYSICIAN CERTIFICATION: I certify the specified therapy services for Laurie Bueno are required, authorized, and reviewed every 30 days.
--- NOTE | 2024-10-27 10:44 | IR_ITS ---
APPROVED REPORT Patient Location: Inpatient PROCEDURES Left heart catheterization Left ventriculogram Selective coronary angiogram Drug-eluting stent deployment to the ostial proximal LAD Drug-eluting stent deployment to the ostial proximal dominant right coronary INDICATION Acute non-ST elevation myocardial infarction, Coronary artery disease, Systolic congestive heart failure Informed consent was obtained prior to the procedure. COMPLICATIONS NONE Estimated Blood Loss: LESS THAN 10 ML TECHNIQUE One percent lidocaine used to anesthetize the right anterior aspect of the wrist. The right radial artery was accessed via the Seldinger technique. A 6 Guinean sheath was placed in the right radial artery. 2.5 mg of Verapamil, 800 mcg of nitroglycerin, 1mg Lidocaine and 5000 U Heparin were given through the arterial sheath. The JL3 catheter was also used to perform selective coronary angiogram. At the end the diagnostic angiogram therapeutic Was administered given a therapeutic ACT and the guide catheter is placed in the left main artery followed by Choice PT extra-support wire placed into the LAD. A 3 mm x 18 mm Yeison frontier stent was placed in the ostial proximal LAD and deployed at 20 michael. A 3.5 x 8 mm balloon was deployed at 22 michael in the ostial proximal midportion of the stent to further post dilate. Excellent angiograph results were obtained with DANIELLE-3 flow being present in the vessel before and after the procedure. Following this the guide catheter was placed in the right coronary artery and a Choice PT extra-support wire was placed distally into the right coronary followed by a 2.5 x 38 mm Yeison frontier stent placed in the proximal to mid right coronary artery and deployed at 20 michael. An additional 2.75 x 34 mm Yeison frontier stent was placed proximal to the first and still overlapping and deployed at 20 michael. The balloon was then advanced into the 2.5 mm stent and deployed at 20 michael and then 22 michael to further post dilate. Excellent angiograph results were obtained with DANIELLE-3 flow being present before and after the procedure. At the end the procedure the apparatus was removed the sheath was removed and hemostasis was achieved using TR banding patient was transferred to the postop putting in stable addition ANGIOGRAPHIC RESULTS The left main artery Normal The left anterior descending artery Has a proximal eccentric 80% stenosis followed by luminal regularities throughout The circumflex artery Nondominant with 10 to 20% stenosis The right coronary artery Dominant and tortuous with an ostial 40% stenosis followed by proximal 90% stenosis followed by additional 40 to 50% stenoses The BRUNNER ventriculogram reveals Not performed The left ventricular end-diastolic pressure Not measured IMPRESSION Critical two-vessel coronary artery disease involving the proximal LAD and ostial proximal dominant right coronary Successful stenting the ostial proximal LAD severe disease reduced to 0% with 1 drug-eluting stent Successful stenting of the ostial proximal and mid dominant right coronary severe disease reduced to 0% with 2 contiguous drug-eluting stents PLAN 1. Aspirin Plavix 2. Risk factor modification 3. Cardiac rehabilitation 4. LDL less than 55 achieved high intensity statin 5. GDMT for LV dysfunction and coronary artery disease Electronically signed by : Hero Correa MD 10/27/2024 17:01:23
[2024-10-27] MEDS: VERAPAMIL 2.5MG/ML 2ML VIAL 2.5 MG IV (11:28)
[2024-10-27] MEDS: LIDOCAINE 1% 10ML MDV 10 ML IJ (11:33)
[2024-10-27] MEDS: FAMOTIDINE 20MG/2ML VIAL 20 MG IV (11:34)
[2024-10-27] MEDS: HEPARIN 1,000 UNITS/500ML NS (CATH LAB) 3000 UNIT IV (11:34)
[2024-10-27] MEDS: 0.9 % SODIUM CHLORIDE 500 ML 25 ML IV (11:35)
[2024-10-27] MEDS: diphenhydrAMINE 50MG/ML VIAL 50 MG IV (11:35)
[2024-10-27] MEDS: HEPARIN 1,000 UNITS/ML 10ML VIAL (CATH LAB) 5000 UNIT IV (11:37)
[2024-10-27] MEDS: METHYLPREDNISOLONE SOD SUCC 125MG VIAL 125 MG IV (11:43)
--- NOTE | 2024-10-27 11:44 | EXP.CARD.CON ---
History of Present Illness History of Present Illness Consult date: 10/27/24 Requesting physician: Shahid Lopez Chief complaint: Weakness and fatigue History of present illness: This is an 84-year-old white female who presented to the emergency department with weakness and fatigue. The patient just completed radiation for pancreatic cancer. She also has a previous history of B-cell lymphoma approximately 8 years ago. She also has a history of hypertension, hyperlipidemia and chronic kidney disease. The patient presented to the emergency department with concerns of generalized weakness and more specifically weakness in her legs. She states that she felt fine at the beginning of the week and was walking with a cane but then noticed that she was having more difficulty walking and had to use a walker. On the day of admission she states that she woke up and could not move her legs at all and fell over her walker. She does report the night before her arms felt very weak and she was having pain in her bilateral arms. She states that the pain persisted throughout the night. She went to sleep and woke up and did not have the arm pain anymore but was having extreme weakness in her bilateral lower extremities. She denies any chest pain or pressure. She denies any shortness of breath or edema. She denies any fever, chills, nausea, vomiting or diarrhea. [facility] Disclaimer: The information contained in this section may have been updated after the patient was seen, as this information can be updated by other users. Medical History (Updated 10/27/24 @ 11:54 by Ute Beach APRN) Bilateral arm pain Atypical angina Non-STEMI (non-ST elevated myocardial infarction) Renal insufficiency Polyneuropathy Leg weakness, bilateral Finger laceration E. coli UTI SIRS (systemic inflammatory response syndrome) COVID-19 E. coli infect Infection due to Citrobacter Gram-negative bacteremia Postoperative anemia due to acute blood loss Adverse reaction to narcotic drug Left displaced femoral neck fracture Facial contusion Closed left hip fracture B-cell lymphoma Pneumonia Dental trauma Epistaxis Concussion with loss of consciousness Nasal fracture Facial fracture Stage III chronic kidney disease Hypertension History of B-cell lymphoma Surgical History Fracture of left hip requiring operative repair History of tooth extraction H/O hysterectomy for benign disease Family History Other Stroke Social History (Updated 10/25/24 @ 16:16 by Patricia Chun RN) Smoking Status: Never smoker alcohol intake: never substance use type: denies use current occupational status: retired Travel in the last 8 weeks?: None household members: family housing: house current occupational exposures/hazards: No caffeine: No Have you lived/traveled outside [place] in past 30 days?: No Contact w/someone who lives/traveled outside US past 30 days?: No Exposure to someone with infectious disease in past 14 days?: No Do you have a fever (greater than 100.4 F or 38 C)?: No Have you tested positive for COVID-19?: No Exposed to someone with COVID-19 in past 14 days?: No Do you have a sore throat?: No Do you have a cough?: No Do you have any weakness?: No Do you have any diarrhea?: No Are you experiencing any unusual bleeding?: No Do you have any muscle aches/pain?: No Do you have any abdominal pain?: No Are you experiencing loss of taste or smell?: No Review of Systems Review of Systems Review of systems:: pertinent systems reviewed and negative unless documented below Constitutional Constitutional: Reports fatigue, Reports lethargy and Reports weakness Eyes Eyes: Reports system reviewed and no additional complaints, except as documented ENT Ears, Nose, Mouth, and Throat: Reports disequilibrium *Cardiovascular Cardiovascular: Denies syncope *Respiratory Respiratory: Reports system reviewed and no additional complaints, except as documented *Gastrointestinal Gastrointestinal: Reports system reviewed and no additional complaints, except as documented *Genitourinary Genitourinary: Reports system reviewed and no additional complaints, except as documented *Musculoskeletal Musculoskeletal: Reports system reviewed and no additional complaints, except as documented and Reports other (Bilateral arm pain/heaviness) Integumentary/Breasts Skin/Breast: Reports system reviewed and no additional complaints, except as documented *Neurologic Neurologic: Reports system reviewed and no additional complaints, except as documented, Reports as per HPI, Denies abnormal movements, Denies convulsions, Reports disequilibrium, Reports localized weakness, Denies syncope and Reports weakness Psychiatric Psychiatric: Reports system reviewed and no additional complaints, except as documented Endocrine Endocrine: Reports system reviewed and no additional complaints, except as documented and Reports fatigue Hematologic/Lymphatic Hematologic/Lymphatic: Reports system reviewed and no additional complaints, except as documented Allergic/Immunologic Allergic/Immunologic: Reports system reviewed and no additional complaints, except as documented Exam Data for Last 24 hours Vital signs and Labs for Last 24 Hours: Temp Pulse Resp BP Pulse Ox O2 Del Method 98 F 88 16 155/75 H 98 Room Air 10/27/24 08:00 10/27/24 08:00 10/27/24 08:00 10/27/24 08:00 10/27/24 08:00 10/27/24 09:00 I & O for Last 24 hours: Intake & Output 10/24/24 10/25/24 10/26/24 10/27/24 23:59 23:59 23:59 23:59 Intake Total 440 / 440 985 / 1105 390 / 390 Output Total 0 / 0 0 / 0 0 / 0 Balance 440 / 440 985 / 1105 390 / 390 Weight 143 lb 2 oz 145 lb 14.4 oz 148 lb 3.2 oz Microbiology Reports for the Last 24 Hours: Microbiology 10/25/24 19:08 Urine,Clean Catch Urine Culture - Final Multiple organisms, suggests contamination. Constitutional Constitutional: no acute distress and average body habitus *Routine HEENT Exam Head: Present normocephalic and atraumatic ENT: Present mucous membranes moist *Routine Neck Exam Neck: Present supple, full ROM and normal carotid upstroke; Absent JVD, carotid bruit or lymphadenopathy *Routine Respiratory Exam Respiratory: Present CTA bilaterally, normal respiratory effort, able to speak in complete sentences and symmetric chest movement *Routine Cardiovascular Exam Cardiovascular: Present RRR, Normal S1 and Normal S2; Absent murmur or gallop *Routine Abdominal Exam Abdominal: Present soft and normoactive bowel sounds; Absent tenderness, distended or organomegaly *Routine Extremities Exam Extremities: Present full ROM, pulses intact and normal capillary refill; Absent cyanosis, clubbing or edema *Routine Skin Exam Skin: Present intact and warm; Absent erythema *Routine Neurological Exam Neurological: Present alert, oriented X3 and CN II-XII intact; Absent sensory deficit or motor deficit Routine Psychiatric Exam Psychiatric: Present normal affect Meds Home Medications and Allergies Home Medications ?Medication ?Instructions ?Recorded ?Confirmed ?Type acetaminophen 500 mg tablet 500 mg PO Q6HP PRN Mild 12/10/19 10/25/24 Rx Pain,Fever,Headache #60 tabs celecoxib 200 mg capsule (Celebrex) 200 mg PO BID 02/01/20 10/25/24 History mecobalamin (vitamin B12) 1,000 1,000 mcg PO DAILY Supplement 02/01/20 10/25/24 History mcg chewable tablet (B12 Active) lactobacillus combination no.9 4 4,000 mmu cells PO DAILY 05/09/21 10/25/24 History billion cell capsule (Adult 50 Plus Probiotic) montelukast 10 mg tablet 10 mg PO PM 11/27/21 10/25/24 History dicyclomine 20 mg tablet 20 mg PO BIDP PRN Stomach Pain 04/13/24 10/25/24 History duloxetine 30 mg capsule,delayed 30 mg PO DAILY 04/13/24 10/25/24 History release oxybutynin chloride 5 mg 5 mg PO DAILY 04/13/24 10/25/24 History tablet,extended release 24 hr amlodipine 5 mg tablet 5 mg PO DAILY #30 tabs 04/14/24 10/25/24 Rx atorvastatin 10 mg tablet 10 mg PO DAILY 10/26/24 10/25/24 History famotidine 20 mg tablet 20 mg PO HS 10/26/24 10/26/24 History gabapentin 100 mg capsule 100 mg PO TID 10/26/24 10/26/24 History levothyroxine 50 mcg tablet 50 mcg PO DAILY 10/26/24 10/25/24 History New Prescriptions to Start Prescriptions: Allergies Allergy/AdvReac Type Severity Reaction Status Date / Time cucumber (CUCUMBER) Allergy Severe HIVES, Verified 07/09/24 14:25 SWELLING, TROUBLE BREATHING alprazolam (From XANAX) Allergy Intermediate ADVERSE Verified 07/09/24 14:25 tetanus and diphtheria Allergy Mild Verified 07/09/24 14:25 toxoids (TETANUS AND DIPHTHERIA TOXOIDS) Iodinated Contrast Media Allergy Unknown Verified 07/09/24 14:25 (IODINATED CONTRAST MEDIA - ORAL AND) Assessment and Plan *Assessment and plan (1) Non-STEMI (non-ST elevated myocardial infarction): Status: Acute Category: Medical Code(s): I21.4 - Non-ST elevation (NSTEMI) myocardial infarction (2) Elevated troponin: Status: Acute Category: Medical Code(s): R79.89 - Other specified abnormal findings of blood chemistry (3) Atypical angina: Status: Acute Category: Medical Code(s): I20.89 - Other forms of angina pectoris (4) Bilateral arm pain: Status: Acute Category: Medical Code(s): M79.601 - Pain in right arm; M79.602 - Pain in left arm (5) Hypertension: Status: Chronic Qualifiers: Hypertension type: primary hypertension Qualified Code(s): I10 - Essential (primary) hypertension Category: Medical Code(s): I10 - Essential (primary) hypertension (6) Hyperlipidemia: Status: Acute Qualifiers: Hyperlipidemia type: mixed hyperlipidemia Qualified Code(s): E78.2 - Mixed hyperlipidemia Category: Medical Code(s): E78.5 - Hyperlipidemia, unspecified (7) Renal insufficiency: Status: Acute Category: Medical Code(s): N28.9 - Disorder of kidney and ureter, unspecified (8) History of B-cell lymphoma: Status: Chronic Category: Medical Code(s): Z85.72 - Personal history of non-Hodgkin lymphomas (9) Primary adenocarcinoma of body of pancreas: Status: Acute Category: Medical Code(s): C25.1 - Malignant neoplasm of body of pancreas (10) General weakness: Status: Acute Category: Medical Code(s): R53.1 - Weakness (11) Leg weakness, bilateral: Status: Acute Category: Medical Code(s): R29.898 - Other symptoms and signs involving the musculoskeletal system Plan Plan: 1. The patient was admitted to the hospital with leg weakness, fatigue and no energy. She was also having bilateral arm pain prior to the onset of the significant weakness and fatigue. She did have an elevated troponin consistent with a non-STEMI. This arm pain was most likely atypical angina. Will plan to proceed with left cardiac catheterization to evaluate for coronary artery disease due to her non-STEMI and atypical angina. 2. The patient has been educated the risk and benefits of proceeding with left cardiac catheterization. The patient verbalized understanding and is agreeable in proceeding with the procedure. 3. The patient will be n.p.o. in preparation for left cardiac catheterization. 4. Will obtain an echocardiogram to evaluate her LV function secondary to her non-STEMI. 5. Her blood pressure is slightly elevated. Start Toprol XL 25 mg p.o. daily for her blood pressure and non-STEMI. 6. Continue amlodipine for hypertension. 7. Her LDL goal is less than 55. Will get a liver and lipid panel in the morning. Will start her on Lipitor 40 mg p.o. nightly due to her non-STEMI. 8. The patient does have chronic kidney disease. Her creatinine is stable at 1.2. 9. The patient just finished radiation for pancreatic cancer. Will defer to the hospitalist. 10. Further recommendations will be made pending the patient's response to treatment and the results of her echocardiogram and left cardiac catheterization today. Thank you for the opportunity to help participate in the care of this patient. All recommendations and orders are per Dr. Peter.
[2024-10-27] MEDS: LABETALOL 20MG/4ML SYRINGE 20 MG IV (12:04)
[2024-10-27] MEDS: MIDAZOLAM HCL 1MG/ML 5ML VIAL 1 MG IV (12:05)
[2024-10-27] MEDS: FENTANYL 100MCG/2ML VIAL 50 MCG IV (12:06)
[2024-10-27] MEDS: CLOPIDOGREL 300MG TABLET 600 MG PO (12:28)
--- NOTE | 2024-10-27 13:36 | PC.NURSE ---
patient radial band oozing with a small amount of sanguineous fluid, 10 ml of air added to radial band. VSS. patient resting with eyes closed and family at bed side.
--- NOTE | 2024-10-27 14:50 | CA_ITS ---
APPROVED REPORT EXAM: Comprehensive 2D, Doppler, and color-flow Echocardiogram Curtain Hemmer Automatic: Charu Shah CRT Ht: 5 ft 6 in Wt: 145lbs BSA: 1.74 BP: 142/86 mmHg Indications: Hypertension/HDD, weakness, Pancreatic CA, just completed radiation, hx lymphoma, hx uterine CA, CKD 2D Dimensions LA Volume 28.30 mL LA Volume Index 15.80 mL/m2 (M/F) 16-34 M-Mode Dimensions RVDd 2.22 cm (0.9-2.6) LA Diam 3.10 cm (1.9-4.0) LVDd 3.98 cm (3.5-5.7) LVDs 2.00 cm (3.5-5.7) IVSd 2.16 cm (0.6-1.1) PWd 0.66 cm (0.6-1.1) EF (Teich) 81.60% FS 49.70% EDV (Teich) 69.20 mL TAPSE 2.33 (<1.7) ESV (Teich) 12.70 mL LV Diastology E Decel Time 77 (160-240 msec) E/A Ratio 0.66 MED A' 9.50 cm/s LAT A' 9.50 cm/s Aortic Valve AI PHT 375.00 ms AO Peak GR. 8.60 mmHg Mitral Valve MV A Velocity 97.0 (40-130 cm/s) E/A Ratio 0.66 Pulmonary Valve PV Peak Velocity 96.0 (50-150 cm/s) Tricuspid Valve TR P. Velocity 213.00 cm/s RAP Estimate 10.00 mmHg RVSP 28.10 mmHg Left Ventricle The left ventricle is normal size. The left ventricular systolic function is normal. The left ventricular ejection fraction is within the normal range. Proximal septal thickness is present. There is normal LV segmental wall motion. Diastolic function is indeterminate. LVEF is 60%. Right Ventricle The right ventricle is normal size. The right ventricular systolic function is normal. Atria The left atrium size is normal. The right atrium size is normal. There is no Doppler evidence of interatrial shunt. Aortic Valve Aortic valve is mildly thickened. There is no aortic valvular stenosis. Mild to moderate aortic regurgitation. Mitral Valve Mild mitral annular calcification. The mitral valve leaflets are mildly thickened. No evidence of mitral valve stenosis. Trace mitral regurgitation. Tricuspid Valve Tricuspid valve is grossly normal in structure and function. Trace tricuspid regurgitation. There is insufficient TR jet to estimate RVSP. Pulmonic Valve The pulmonary valve is normal in structure. Trace pulmonic regurgitation. Great Vessels The aortic root is normal in size. IVC is normal in size and collapses >50% with inspiration. Pericardium There is no pericardial effusion. Other Information Study Quality: Fair Conclusion Normal biventricular systolic function. Mild to moderate AI. Electronically signed by : Bisi Peter MD 10/27/2024 11:14:09
[2024-10-27] MEDS: IOPAMIDOL-370 (76%);100ML BOTTLE 60 ML IV (17:16)
[2024-10-27 17:30] LABS: CATHL Activated Clotting Time 302 SEC (74-125)
--- NOTE | 2024-10-27 18:21 | PC.NURSE ---
radial band removed at 1645, no drainage noted, sterile gauze and tegaderm applied. dressing C/D/I. NO C/O PAIN.
[2024-10-27] MEDS: ACETAMINOPHEN 325MG TAB 650 MG PO (20:55)
[2024-10-27] MEDS: ATORVASTATIN 40MG TABLET 40 MG PO (20:55)
[2024-10-28] VITALS (8 sets, daily range): BP systolic 129–151; BP diastolic 66–73; PULSE 77–97; RESP 14–17; TEMP 36.2–36.8; O2SAT 96–99; BMI 22.4
--- NOTE | 2024-10-28 02:24 | PC.NURSE ---
Pt AOx4. Doing well post cardiac cath. Right radial site clean dry and intact. Covered with gauze and tegaderm. Daughter at bedside. Pt currently resting in bed with eyes closed. Respirations even and unlabored. Bed low, locked, and call light in reach.
[2024-10-28] MEDS: LEVOTHYROXINE 50MCG (0.05MG) TAB 50 MCG PO (06:02)
[2024-10-28 06:42] LABS: Basophils % 0.1 % (0.1-2.0); Hemoglobin 11.3 g/dL (12.2-16.2); Immature Granulocytes # 0.05 10^3uL; Immature Granulocytes % 0.5 %; Lymphocytes # 0.7 K/mm3 (0.7-4.5); Lymphocytes % 6.3 % (10-50); Mean Corpuscular HGB Conc 32.3 g/dL (31.8-35.4); Mean Corpuscular Hemoglobin 28.6 pg (27.0-31.2); Mean Corpuscular Volume 88.6 fl (81-99); Mean Platelet Volume 11.3 fl (7.4-10.4); Monocytes # 0.4 K/mm3 (0.1-1.0); Monocytes % 3.5 % (1.7-9.3); Neutrophils # 9.5 K/mm3 (1.8-7.8); Neutrophils % 89.6 % (37.0-80.0); Nucleated Red Blood Cells # 0 10^3/uL; Nucleated Red Blood Cells % 0 %; Platelet Count 156 K/mm3 (142-424); Red Blood Count 3.95 M/mm3 (4.20-5.40); Red Cell Distribution Width 14.2 % (11.5-17.5); Red Cell Distribution Width-SD 45.5 fL; White Blood Count 10.6 K/mm3 (4.8-10.8)
[2024-10-28 07:05] LABS: Direct LDL Cholesterol 76.27 mg/dL (100-129)
[2024-10-28 07:22] LABS: Alanine Aminotransferase 75 U/L (12-78); Albumin Level 3.6 g/dl (3.5-5.0); Alkaline Phosphatase 275 U/L (38-126); Anion Gap 14.2 mEq/L (5-15); Aspartate Amino Transferase 59 U/L (14-36); Bilirubin,Direct 0.2 mg/dl (0.0-0.4); Bilirubin,Indirect 0.3 mg/dL (0.0-0.9); Bilirubin,Total 0.5 mg/dl (0.2-1.3); Bilirubin,Unconjugated 0.3 mg/dL (0.0-1.1); Blood Urea Nitrogen 25 mg/dl (7-17); Calcium 9.1 mg/dl (8.4-10.2); Carbon Dioxide 20 mmol/L (22.0-30.0); Chloride 106 mmol/L (98-107); Cholesterol 142 mg/dl (140-200); Creatinine Clearance Estimated 29 mL/min (50-200); Estimated Glomerular Filt Rate 36 ml/min (>60); GFR (African American) 43 ML/MIN (>60); Glucose 201 mg/dl (74-100); HDL Cholesterol 47 mg/dl (40-60); Potassium 4.2 mmoL/L (3.5-5.1); Sodium 136 mmol/L (136-145); Total Protein,Serum 6.2 g/dl (6.3-8.2); Triglycerides 46 mg/dl (30-150); VLDL Cholesterol 9 mg/dL (0-40)
--- NOTE | 2024-10-28 08:10 | P.PN_ITS ---
Subjective *Date: 10/28/24 *Time: 08:49 Interval history: Patient is feeling a little better today. She is more awake and alert than she was after her cath. She denies any pain. She is not hungry this am. She received 3 stents yesterday. Medical Exam Vital signs and Labs for Last 24 Hours: Vital Signs Temp Pulse Pulse Resp BP BP Pulse Ox 10/28/24 06:30 10/28/24 05:00 10/28/24 04:00 85 10/28/24 03:54 97.6 F 96 H 14 129/66 96 10/28/24 03:00 10/28/24 01:00 10/28/24 00:00 98.3 F 94 H 16 144/68 H 97 10/28/24 00:00 90 10/27/24 23:00 10/27/24 21:00 10/27/24 20:00 90 10/27/24 19:30 92 H 16 155/69 H 97 10/27/24 18:30 84 16 155/69 H 97 10/27/24 18:20 10/27/24 17:30 97.6 F 87 16 145/75 H 97 10/27/24 17:00 10/27/24 16:30 88 18 144/74 H 96 10/27/24 16:00 90 10/27/24 15:30 91 H 18 163/74 H 98 10/27/24 15:00 87 18 144/74 H 99 10/27/24 15:00 10/27/24 14:30 97.6 F 88 16 142/76 H 98 10/27/24 14:00 84 137/67 97 10/27/24 13:30 84 137/70 98 10/27/24 13:15 84 14 121/64 97 10/27/24 13:00 10/27/24 13:00 86 14 151/69 H 98 10/27/24 12:45 98.0 F 87 14 160/70 H 94 L 10/27/24 12:30 84 20 149/74 H 92 L 10/27/24 12:25 83 20 143/78 H 98 10/27/24 12:20 83 20 138/66 97 10/27/24 12:20 93 H 83 20 131/63 93 L 10/27/24 12:04 177/94 H 10/27/24 09:00 O2 Del Method O2 Flow Rate 10/28/24 06:30 Room Air 10/28/24 05:00 Room Air 10/28/24 04:00 10/28/24 03:54 Room Air 10/28/24 03:00 Room Air 10/28/24 01:00 Room Air 10/28/24 00:00 Room Air 10/28/24 00:00 10/27/24 23:00 Room Air 10/27/24 21:00 Room Air 10/27/24 20:00 10/27/24 19:30 Room Air 10/27/24 18:30 Room Air 10/27/24 18:20 Room Air 10/27/24 17:30 Room Air 10/27/24 17:00 Room Air 10/27/24 16:30 Room Air 10/27/24 16:00 10/27/24 15:30 Room Air 10/27/24 15:00 Nasal Cannula 10/27/24 15:00 Nasal Cannula 10/27/24 14:30 Nasal Cannula 2 10/27/24 14:00 Nasal Cannula 2 10/27/24 13:30 Nasal Cannula 2 10/27/24 13:15 Nasal Cannula 2 10/27/24 13:00 Nasal Cannula 2 10/27/24 13:00 Nasal Cannula 2 10/27/24 12:45 Room Air 10/27/24 12:30 10/27/24 12:25 Simple Mask 10/27/24 12:20 10/27/24 12:20 Simple Mask 6 10/27/24 12:04 10/27/24 09:00 Room Air Intake and Output 10/27/24 10/28/24 10/28/24 19:59 03:59 11:59 Intake Total 120 / 120 Output Total 0 / 0 Balance 120 / 120 Intake: Intake, Oral Amount 120 / 120 Output: Output, Urine Amount 0 / 0 Other: Number of Voids 2 Number of Unmeasured Voids 2 Weight 148 lb 2.41 oz 142 lb 12.8 oz Patient Weight 10/28/24 11:59 Weight 142 lb 12.8 oz Laboratory Results - last 24 hr 10/27/24 11:47: Activated Clotting Time 302 H* 10/28/24 05:55: WBC 10.6 D, RBC 3.95 L, Hgb 11.3 L, Hct 35.0 L, MCV 88.6, MCH 28.6, MCHC 32.3, RDW 14.2, Plt Count 156, MPV 11.3 H, Neut % (Auto) 89.6 H, Lymph % (Auto) 6.3 L, [place] % (Auto) 3.5, Eos % (Auto) 0.0 L, Baso % (Auto) 0.1, Neut # (Auto) 9.5 H, Lymph # (Auto) 0.7, [place] # (Auto) 0.4, Eos # (Auto) 0.0, Baso # (Auto) 0.0, Sodium 136, Potassium 4.2, Chloride 106, Carbon Dioxide 20 L, Anion Gap 14.2, BUN 25 H, Creatinine 1.40 H, Estimated Creat Clear 29, Estimated GFR 36 L, Est GFR ( Amer) 43 L, Glucose 201 H, Calcium 9.1, Total Bilirubin 0.5, Direct Bilirubin 0.2, Conjugated Bilirubin 0.0, Indirect Bilirubin 0.3, Unconjugated Bilirubin 0.3, AST 59 H, ALT 75, Alkaline Phosphatase 275 H, Total Protein 6.2 L, Albumin 3.6, Triglycerides 46, Cholesterol 142, LDL Cholesterol Direct 76.27 L, VLDL Cholesterol 9, HDL Cholesterol 47, Cholesterol/HDL Ratio 3.0 I & O for Labs for Last 24 Hours: Intake & Output 10/25/24 10/26/24 10/27/24 10/28/24 11:59 11:59 11:59 11:59 Intake Total 690 / 690 1125 / 1125 120 / 120 Output Total 0 / 0 0 / 0 0 / 0 Balance 690 / 690 1125 / 1125 120 / 120 Weight 135 lb 145 lb 14.4 oz 148 lb 3.2 oz 142 lb 12.8 oz Microbiology Reports for the Last 24 Hours: Microbiology 10/25/24 19:08 Urine,Clean Catch Urine Culture - Final Multiple organisms, suggests contamination. Constitutional: Present no acute distress Head: Present normocephalic Neck: Present normal inspection Respiratory: Present CTA bilaterally; Absent respiratory distress Cardiac: Present Reg Rate and Rhythm GI: Present soft; Absent distention or tenderness Rectal (female): Present deferred (female): Present deferred Extremities: Absent edema Skin: Present intact Neuro: Present alert and oriented x 3 Assessment and Plan *Assessment and plan (1) Non-STEMI (non-ST elevated myocardial infarction): Status: Acute Category: Medical Code(s): I21.4 - Non-ST elevation (NSTEMI) myocardial infarction (2) Elevated troponin: Status: Acute Category: Medical Code(s): R79.89 - Other specified abnormal findings of blood chemistry (3) Atypical angina: Status: Acute Category: Medical Code(s): I20.89 - Other forms of angina pectoris (4) Bilateral arm pain: Status: Acute Category: Medical Code(s): M79.601 - Pain in right arm; M79.602 - Pain in left arm (5) Hypertension: Status: Chronic Qualifiers: Hypertension type: primary hypertension Qualified Code(s): I10 - E ssential (primary) hypertension Category: Medical Code(s): I10 - Essential (primary) hypertension (6) Hyperlipidemia: Status: Acute Qualifiers: Hyperlipidemia type: mixed hyperlipidemia Qualified Code(s): E78.2 - Mixed hyperlipidemia Category: Medical Code(s): E78.5 - Hyperlipidemia, unspecified (7) Renal insufficiency: Status: Acute Category: Medical Code(s): N28.9 - Disorder of kidney and ureter, unspecified (8) History of B-cell lymphoma: Status: Chronic Category: Medical Code(s): Z85.72 - Personal history of non-Hodgkin lymphomas (9) Primary adenocarcinoma of body of pancreas: Status: Acute Category: Medical Code(s): C25.1 - Malignant neoplasm of body of pancreas (10) General weakness: Status: Acute Category: Medical Code(s): R53.1 - Weakness (11) Leg weakness, bilateral: Status: Acute Category: Medical Code(s): R29.898 - Other symptoms and signs involving the musculoskeletal system Plan Patient is feeling better. Renal function up slightly after cath. Cardiology to follow. Dr. Lopez entry - Saw patient, agree with above note. Plan discharge to SNF once insurance approval is obtained.
[2024-10-28] MEDS: METOPROLOL SUCCINATE XL 25MG TABLET 25 MG PO (09:32)
[2024-10-28] MEDS: DULOXETINE 30MG CAPSULE.DR 30 MG PO (09:32)
[2024-10-28] MEDS: ASPIRIN EC 81MG TABLET 81 MG PO (09:33)
[2024-10-28] MEDS: GABAPENTIN 100MG CAPSULE 100 MG PO ×2 (09:33→20:44)
[2024-10-28] MEDS: AMLODIPINE 5MG TABLET 5 MG PO (09:33)
[2024-10-28] MEDS: CLOPIDOGREL 75MG TAB 75 MG PO (09:33)
--- NOTE | 2024-10-28 18:40 | PC.NURSE ---
PATIENT IS A/OX4, REMAINS ON ROOM AIR TOLERATING WELL. PATIENT WAS ABLE TO STAND AND PIVOT BETTER TO [facility] [place] X2 ASSIST. PATIENT HAS TOLERATED DIET WELL AND HAS MORE OF AN APPETITE THIS SHIFT. NO C/O PAIN THIS SHIFT. RIGHT RADIAL SITE DRESSING C/D/I. FAMILY AT BEDSIDE, CALL LIGHT WITHIN REACH, NO FURTHER REQUESTS AT THIS TIME.
--- NOTE | 2024-10-28 20:29 | P.PN_ITS ---
Subjective Subjective Date: 10/28/24 Time: 10:00 Principal diagnosis: Non-STEMI Interval history: This is an 84-year-old female who presented to the emergency department with weakness and fatigue. The patient did have some bilateral arm numbness the day before having the profound weakness and fatigue. She was found to have an elevated troponin and underwent left cardiac catheterization. The patient had 1 stent placed to the LAD and 2 stents placed to the right coronary artery. She tolerated the procedure well. This morning she denies any chest pain or pressure. She denies any shortness of breath or edema. She denies any fever, chills, nausea, vomiting, diarrhea, PND orthopnea. She states that she still feels weak but is better than she was when she came to the hospital and is feeling much better. Exam Data for Last 24 hours Vital signs and Labs for Last 24 Hours: Temp Pulse Resp BP Pulse Ox O2 Del Method O2 Flow Rate 98.3 F 88 16 137/67 99 Room Air 2 10/28/24 16:00 10/28/24 16:00 10/28/24 16:00 10/28/24 16:00 10/28/24 16:00 10/28/24 18:39 10/27/24 14:30 Laboratory Results - last 24 hr 10/28/24 05:55: WBC 10.6 D, RBC 3.95 L, Hgb 11.3 L, Hct 35.0 L, MCV 88.6, MCH 28.6, MCHC 32.3, RDW 14.2, Plt Count 156, MPV 11.3 H, Neut % (Auto) 89.6 H, Lymph % (Auto) 6.3 L, [place] % (Auto) 3.5, Eos % (Auto) 0.0 L, Baso % (Auto) 0.1, Neut # (Auto) 9.5 H, Lymph # (Auto) 0.7, [place] # (Auto) 0.4, Eos # (Auto) 0.0, Baso # (Auto) 0.0, Sodium 136, Potassium 4.2, Chloride 106, Carbon Dioxide 20 L, Anion Gap 14.2, BUN 25 H, Creatinine 1.40 H, Estimated Creat Clear 29, Estimated GFR 36 L, Est GFR ( Amer) 43 L, Glucose 201 H, Calcium 9.1, Total Bilirubin 0.5, Direct Bilirubin 0.2, Conjugated Bilirubin 0.0, Indirect Bilirubin 0.3, Unconjugated Bilirubin 0.3, AST 59 H, ALT 75, Alkaline Phosphatase 275 H, Total Protein 6.2 L, Albumin 3.6, Triglycerides 46, Cholesterol 142, LDL Cholesterol Direct 76.27 L, VLDL Cholesterol 9, HDL Cholesterol 47, Cholesterol/HDL Ratio 3.0 I & O for Last 24 hours: Intake & Output 10/25/24 10/26/24 10/27/24 10/28/24 23:59 23:59 23:59 23:59 Intake Total 440 / 440 985 / 1105 510 / 510 910 / 910 Output Total 0 / 0 0 / 0 0 / 0 250 / 250 Balance 440 / 440 985 / 1105 510 / 510 660 / 660 Weight 143 lb 2 oz 145 lb 14.4 oz 148 lb 2.41 oz 142 lb 12.8 oz Constitutional Constitutional: no acute distress and average body habitus *Routine HEENT Exam Head: Present normocephalic and atraumatic ENT: Present mucous membranes moist *Routine Neck Exam Neck: Present supple, full ROM and normal carotid upstroke; Absent JVD, carotid bruit or lymphadenopathy *Routine Respiratory Exam Respiratory: Present CTA bilaterally, normal respiratory effort, able to speak in complete sentences and symmetric chest movement *Routine Cardiovascular Exam Cardiovascular: Present RRR, Normal S1 and Normal S2; Absent murmur or gallop *Routine Abdominal Exam Abdominal: Present soft and normoactive bowel sounds; Absent tenderness, distended or organomegaly *Routine Extremities Exam Extremities: Present full ROM, pulses intact and normal capillary refill; Absent cyanosis, clubbing or edema *Routine Skin Exam Skin: Present intact and warm; Absent erythema *Routine Neurological Exam Neurological: Present alert, oriented X3 and CN II-XII intact; Absent sensory deficit or motor deficit Routine Psychiatric Exam Psychiatric: Present normal affect Progress Note: A&P Assessment and plan (1) Non-STEMI (non-ST elevated myocardial infarction): Status: Acute (2) Elevated troponin: Status: Acute (3) Coronary artery disease: Status: Acute (4) Atypical angina: Status: Acute (5) Bilateral arm pain: Status: Acute (6) Hypertension: Status: Chronic (7) Hyperlipidemia: Status: Acute (8) Renal insufficiency: Status: Acute (9) History of B-cell lymphoma: Status: Chronic (10) Primary adenocarcinoma of body of pancreas: Status: Acute (11) General weakness: Status: Acute (12) Leg weakness, bilateral: Status: Acute Assessment and Plan Assessment and Plan for All Diagnoses:: Plan: 1. The patient was admitted to the hospital with weakness and fatigue. She was found to have an elevated troponin consistent with a non-STEMI. She underwent left cardiac catheterization yesterday and had 1 stent placed to the LAD and 2 stents placed to the right coronary artery. She tolerated the procedure well and will be on dual antiplatelet therapy with Plavix and aspirin. 2. Echocardiogram shows a normal ejection fraction with mild to moderate AI. 3. Coronary artery disease is likely stable. Continue aspirin and Plavix. 4. Her blood pressure is well-controlled. Continue amlodipine. Will start her on Toprol XL 25 mg p.o. daily for her non-STEMI and CAD. 5. Her LDL goal is less than 55. Her LDL is 76. She has been started on Lipitor 40 mg p.o. nightly. 6. The patient's creatinine is 1.4 today and stable. 7. No further recommendations at this time from a cardiac standpoint. The patient can be discharged today from a cardiac standpoint. She will need to fo llow-up in cardiology clinic in 1 week on an outpatient basis. 8. The patient can be discharged on the following cardiac medications: Aspirin 81 mg daily, amlodipine 5 mg daily, atorvastatin 40 mg p.o. nightly, Plavix 75 mg daily, Toprol-XL 25 mg daily. Thank you for the opportunity to help participate in the care of this patient. All recommendations and orders are per Dr. Peter.
[2024-10-28] MEDS: ATORVASTATIN 40MG TABLET 40 MG PO (20:44)
[2024-10-29] VITALS: BP 151/72; PULSE 77; PULSE 80; RESP 16; TEMP 36.4; O2SAT 97
[2024-10-29 04:00] VITALS: BP 164/73; PULSE 80; PULSE 83; RESP 16; TEMP 36.9; O2SAT 96; BMI 22.9
--- NOTE | 2024-10-29 06:06 | PC.NURSE ---
v/s, ox4, family at bedside. Pt pending placement at [facility]. No acute events to report. Plan of care ongoing.
[2024-10-29] MEDS: LEVOTHYROXINE 50MCG (0.05MG) TAB 50 MCG PO (06:52)
[2024-10-29 08:00] VITALS: BP 157/74; PULSE 80; PULSE 81; RESP 18; TEMP 36.6; O2SAT 95
--- NOTE | 2024-10-29 08:13 | P.PN_ITS ---
Subjective *Date: 10/29/24 *Time: 08:31 Interval history: Patient is feeling better today. She denies any pain and slept well. She has been eating her breakfast. Medical Exam Vital signs and Labs for Last 24 Hours: Vital Signs Temp Pulse Pulse Resp BP Pulse Ox O2 Del Method 10/29/24 08:00 97.8 F 81 18 157/74 H 95 Room Air 10/29/24 05:48 Room Air 10/29/24 04:30 Room Air 10/29/24 04:00 98.5 F 83 16 164/73 H 96 Room Air 10/29/24 04:00 80 10/29/24 03:00 Room Air 10/29/24 00:09 Room Air 10/29/24 00:00 97.6 F 77 16 151/72 H 97 Room Air 10/29/24 00:00 80 10/28/24 23:00 Room Air 10/28/24 22:00 97.6 F 77 16 151/72 H 97 Room Air 10/28/24 21:00 Room Air 10/28/24 20:00 Room Air 10/28/24 20:00 80 10/28/24 20:00 97.7 F 82 16 133/72 97 Room Air 10/28/24 18:39 Room Air 10/28/24 17:00 Room Air 10/28/24 16:00 98.3 F 88 16 137/67 99 10/28/24 16:00 90 10/28/24 14:36 Room Air 10/28/24 12:00 90 10/28/24 12:00 97.2 F L 96 H 16 134/73 98 Room Air 10/28/24 11:00 Room Air 10/28/24 09:00 Room Air Intake and Output 10/28/24 10/29/24 10/29/24 19:59 03:59 11:59 Intake Total 910 / 1010 100 / 1010 Output Total 250 / 850 0 / 850 600 / 850 Balance 660 / 160 100 / 160 -600 / 160 Intake: Intake, Oral Amount 910 / 1010 100 / 1010 Output: Output, Urine Amount 250 / 850 0 / 850 600 / 850 Other: Number of Unmeasured Voids 1 1 1 Number of Bowel Movements 1 Weight 146 lb 6 oz Patient Weight 10/29/24 11:59 Weight 146 lb 6 oz I & O for Labs for Last 24 Hours: Intake & Output 10/26/24 10/27/24 10/28/24 10/29/24 11:59 11:59 11:59 11:59 Intake Total 690 / 690 1125 / 1125 120 / 120 1010 / 1010 Output Total 0 / 0 0 / 0 0 / 0 850 / 850 Balance 690 / 690 1125 / 1125 120 / 120 160 / 160 Weight 145 lb 14.4 oz 148 lb 3.2 oz 142 lb 12.8 oz 146 lb 6 oz Constitutional: Present no acute distress Head: Present normocephalic Neck: Present normal inspection Respiratory: Present CTA bilaterally; Absent respiratory distress Cardiac: Present Reg Rate and Rhythm GI: Present soft; Absent distention or tenderness Extremities: Absent edema Skin: Present intact Neuro: Present alert and oriented x 3 Assessment and Plan *Assessment and plan (1) Non-STEMI (non-ST elevated myocardial infarction): Status: Acute Category: Medical Code(s): I21.4 - Non-ST elevation (NSTEMI) myocardial infarction (2) Elevated troponin: Status: Acute Category: Medical Code(s): R79.89 - Other specified abnormal findings of blood chemistry (3) Bilateral arm pain: Status: Acute Category: Medical Code(s): M79.601 - Pain in right arm; M79.602 - Pain in left arm (4) Hypertension: Status: Chronic Qualifiers: Hypertension type: primary hypertension Qualified Code(s): I10 - Essential (primary) hypertension Category: Medical Code(s): I10 - Essential (primary) hypertension (5) Hyperlipidemia: Status: Acute Qualifiers: Hyperlipidemia type: mixed hyperlipidemia Qualified Code(s): E78.2 - Mixed hyperlipidemia Category: Medical Code(s): E78.5 - Hyperlipidemia, unspecified (6) Renal insufficiency: Status: Acute Category: Medical Code(s): N28.9 - Disorder of kidney and ureter, unspecified (7) History of B-cell lymphoma: Status: Chronic Category: Medical Code(s): Z85.72 - Personal history of non-Hodgkin lymphomas (8) Primary adenocarcinoma of body of pancreas: Status: Acute Category: Medical Code(s): C25.1 - Malignant neoplasm of body of pancreas (9) General weakness: Status: Acute Category: Medical Code(s): R53.1 - Weakness (10) Leg weakness, bilateral: Status: Acute Category: Medical Code(s): R29.898 - Other symptoms and signs involving the musculoskeletal system Plan Awaiting an approval from [facility] for placement for rehab. Will discuss further care with Dr. Lopez. Dr. Lopez entry - Saw patient, agree with above note, will add ARB for HTN today and mucinex for nasal congestion.
[2024-10-29] MEDS: CLOPIDOGREL 75MG TAB 75 MG PO (09:10)
[2024-10-29] MEDS: METOPROLOL SUCCINATE XL 25MG TABLET 25 MG PO (09:10)
[2024-10-29] MEDS: IRBESARTAN 75MG TABLET 75 MG PO (09:10)
[2024-10-29] MEDS: ASPIRIN EC 81MG TABLET 81 MG PO (09:10)
[2024-10-29] MEDS: DULOXETINE 30MG CAPSULE.DR 30 MG PO (09:10)
[2024-10-29] MEDS: AMLODIPINE 5MG TABLET 5 MG PO (09:10)
[2024-10-29] MEDS: guaiFENesin 600 MG TAB.ER.12H PO ×2 (09:11→20:20)
[2024-10-29] MEDS: GABAPENTIN 100MG CAPSULE 100 MG PO ×2 (09:12→20:20)
[2024-10-29 12:00] VITALS: BP 125/58; PULSE 80; PULSE 83; RESP 18; TEMP 36.8; O2SAT 95
--- NOTE | 2024-10-29 15:58 | PC.NURSE ---
VS stable and patient remained on room air. Patient alert and oriented times 4. Patient able to sit in chair during lunch and afternoon. Lung sounds clear.
[2024-10-29 16:00] VITALS: BP 143/68; PULSE 76; PULSE 80; RESP 16; TEMP 36.6; O2SAT 97
[2024-10-29 20:00] VITALS: BP 133/68; PULSE 60; PULSE 79; RESP 16; TEMP 36.6; O2SAT 98
[2024-10-29] MEDS: ATORVASTATIN 40MG TABLET 40 MG PO (20:20)
[2024-10-30] VITALS: BP 152/67; PULSE 70; PULSE 84; RESP 16; TEMP 36.8; O2SAT 97
[2024-10-30 04:00] VITALS: BP 140/80; PULSE 76; PULSE 80; RESP 16; TEMP 36.8; O2SAT 95; BMI 23.1
[2024-10-30] MEDS: LEVOTHYROXINE 50MCG (0.05MG) TAB 50 MCG PO (06:22)
[2024-10-30 07:55] VITALS: BP 145/68; PULSE 71; RESP 18; TEMP 36.9; O2SAT 96
[2024-10-30 08:00] VITALS: PULSE 60
[2024-10-30] MEDS: DULOXETINE 30MG CAPSULE.DR 30 MG PO (08:27)
[2024-10-30] MEDS: METOPROLOL SUCCINATE XL 25MG TABLET 25 MG PO (08:27)
[2024-10-30] MEDS: guaiFENesin 600 MG TAB.ER.12H PO (08:27)
[2024-10-30] MEDS: AMLODIPINE 5MG TABLET 5 MG PO (08:27)
[2024-10-30] MEDS: ASPIRIN EC 81MG TABLET 81 MG PO (08:27)
[2024-10-30] MEDS: GABAPENTIN 100MG CAPSULE 100 MG PO (08:27)
[2024-10-30] MEDS: CLOPIDOGREL 75MG TAB 75 MG PO (08:27)
[2024-10-30] MEDS: IRBESARTAN 75MG TABLET 75 MG PO (08:27)
--- NOTE | 2024-10-30 08:32 | P.PN_ITS ---
Subjective *Date: 10/30/24 *Time: 08:32 Interval history: Patient feels better this morning, no new complaints. Medical Exam Vital signs and Labs for Last 24 Hours: Vital Signs Temp Pulse Pulse Resp BP Pulse Ox O2 Del Method 10/30/24 07:55 98.4 F 71 18 145/68 H 96 10/30/24 06:39 Room Air 10/30/24 05:00 Room Air 10/30/24 04:00 80 10/30/24 04:00 98.2 F 76 16 140/80 95 Room Air 10/30/24 03:00 Room Air 10/30/24 01:00 Room Air 10/30/24 00:00 70 10/30/24 00:00 98.2 F 84 16 152/67 H 97 Room Air 10/29/24 23:00 Room Air 10/29/24 21:00 Room Air 10/29/24 20:00 97.9 F 79 16 133/68 98 Room Air 10/29/24 20:00 60 10/29/24 20:00 Room Air 10/29/24 18:59 Room Air 10/29/24 17:00 Room Air 10/29/24 16:00 80 10/29/24 16:00 80 10/29/24 16:00 97.9 F 76 16 143/68 H 97 Room Air 10/29/24 15:00 Room Air 10/29/24 13:07 Room Air 10/29/24 12:00 80 10/29/24 12:00 98.2 F 83 18 125/58 L 95 Room Air 10/29/24 11:04 Room Air 10/29/24 09:06 Room Air Intake and Output 10/29/24 10/30/24 10/30/24 23:59 07:59 15:59 Intake Total 360 / 860 Output Total 0 / 600 0 / 0 Balance 360 / 260 0 / 0 Intake: Intake, Oral Amount 360 / 860 Output: Output, Urine Amount 0 / 600 0 / 0 Other: Number of Unmeasured Voids 1 1 Weight 147 lb 7 oz Patient Weight 10/30/24 23:59 Weight 147 lb 7 oz I & O for Labs for Last 24 Hours: Intake & Output 10/27/24 10/28/24 10/29/24 10/30/24 23:59 23:59 23:59 23:59 Intake Total 510 / 510 910 / 1010 860 / 860 Output Total 0 / 0 250 / 250 600 / 600 0 / 0 Balance 510 / 510 660 / 760 260 / 260 0 / 0 Weight 148 lb 2.41 oz 142 lb 12.8 oz 146 lb 6 oz 147 lb 7 oz Constitutional: Present no acute distress Head: Present normocephalic Neck: Present normal inspection Respiratory: Present CTA bilaterally; Absent respiratory distress Cardiac: Present Reg Rate and Rhythm GI: Present soft; Absent distention or tenderness Extremities: Absent edema Skin: Present intact Neuro: Present alert and oriented x 3 Assessment and Plan *Assessment and plan (1) Non-STEMI (non-ST elevated myocardial infarction): Status: Acute Category: Medical Code(s): I21.4 - Non-ST elevation (NSTEMI) myocardial infarction (2) Elevated troponin: Status: Acute Category: Medical Code(s): R79.89 - Other specified abnormal findings of blood chemistry (3) Bilateral arm pain: Status: Acute Category: Medical Code(s): M79.601 - Pain in right arm; M79.602 - Pain in left arm (4) Hypertension: Status: Chronic Qualifiers: Hypertension type: primary hypertension Qualified Code(s): I10 - Essential (primary) hypertension Category: Medical Code(s): I10 - Essential (primary) hypertension (5) Hyperlipidemia: Status: Acute Qualifiers: Hyperlipidemia type: mixed hyperlipidemia Qualified Code(s): E78.2 - Mixed hyperlipidemia Category: Medical Code(s): E78.5 - Hyperlipidemia, unspecified (6) Renal insufficiency: Status: Acute Category: Medical Code(s): N28.9 - Disorder of kidney and ureter, unspecified (7) History of B-cell lymphoma: Status: Chronic Category: Medical Code(s): Z85.72 - Personal history of non-Hodgkin lymphomas (8) Primary adenocarcinoma of body of pancreas: Status: Acute Category: Medical Code(s): C25.1 - Malignant neoplasm of body of pancreas (9) General weakness: Status: Acute Category: Medical Code(s): R53.1 - Weakness (10) Leg weakness, bilateral: Status: Acute Category: Medical Code(s): R29.898 - Other symptoms and signs involving the musculoskeletal system Plan OK for discharge to [facility].
--- NOTE | 2024-10-30 08:52 | EXP.DC.SUM ---
General Admission date:: 10/25/24 Discharge date: 10/30/24 HPI HPI HPI: Ms. Bueno is an 84-year-old female with a history of pancreatic cancer who recently completed radiation at the beginning of this month. She is followed by Dr. Christine, oncology [facility] and her radiation treatments have been in [place]. She also has history of B-cell lymphoma, hypertension and CKD. She presented to the emergency department with concern for general weakness, but more specifically with leg weakness. She has known polyneuropathy documented with difficulty walking. She states that the beginning of the week, she was walking with her cane. Over the course of this week, she has had to switch to using a walker and now is barely able to walk at all. She states that she feels too weak to walk and has no energy. She has she feels that she is going to fall if she tries to walk. No headache, visual disturbance, unilateral numbness or tingling, chest pain, shortness of breath, abdominal pain, or other concerns, though her appetite has been poor. Also in her past history is hysterectomy for uterine cancer. In the ER Troponin I was found elevated. EKG was stable compared to prior, not acute. She was admitted for further evaluation. Hospital Course Hospital Course Hospital Course: Patient was admitted to [facility] and found to have severe 2 vessels CAD. She was taken to the laboratory chief to have a left heart cath and had 3 stents placed. Her functional ability improved after the cath. She remains weak and has grweat difficulty standing and ambulating. Arrangememnts have been made to discharge to SNF to continue rehab. Exam Data for Last 24 hours Vital signs and Labs for Last 24 Hours: Temp Pulse Resp BP Pulse Ox O2 Del Method O2 Flow Rate 98.4 F 71 18 145/68 H 96 Room Air 2 10/30/24 07:55 10/30/24 07:55 10/30/24 07:55 10/30/24 07:55 10/30/24 07:55 10/30/24 06:39 10/27/24 14:30 I & O for Last 24 hours: Intake & Output 10/27/24 10/28/24 10/29/24 10/30/24 23:59 23:59 23:59 23:59 Intake Total 510 / 510 910 / 1010 860 / 860 Output Total 0 / 0 250 / 250 600 / 600 0 / 0 Balance 510 / 510 660 / 760 260 / 260 0 / 0 Weight 148 lb 2.41 oz 142 lb 12.8 oz 146 lb 6 oz 147 lb 7 oz Constitutional Constitutional: no acute distress *Routine HEENT Exam Head: Present normocephalic Eye: Present EOMI and PERRL ENT: Present mucous membranes moist *Routine Neck Exam Neck: Present supple; Absent lymphadenopathy *Routine Respiratory Exam Respiratory: Present CTA bilaterally *Routine Cardiovascular Exam Cardiovascular: Present RRR *Routine Abdominal Exam Abdominal: Present soft and normoactive bowel sounds; Absent tenderness *Routine Extremities Exam Extremities: Absent cyanosis, clubbing or edema *Routine Skin Exam Skin: Present warm; Absent rash *Routine Neurological Exam Neurological: Present alert, oriented X3 and moving all extremities (bilat. leg weakness) DS: Diagnosis Discharge Diagnosis (1) Non-STEMI (non-ST elevated myocardial infarction): Status: Acute Code(s): I21.4 - Non-ST elevation (NSTEMI) myocardial infarction (2) Elevated troponin: Status: Acute Code(s): R79.89 - Other specified abnormal findings of blood chemistry (3) Bilateral arm pain: Status: Acute Code(s): M79.601 - Pain in right arm; M79.602 - Pain in left arm (4) Hypertension: Status: Chronic Code(s): I10 - Essential (primary) hypertension Qualifiers: Hypertension type: primary hypertension Qualified Code(s): I10 - Essential (primary) hypertension (5) Hyperlipidemia: Status: Acute Code(s): E78.5 - Hyperlipidemia, unspecified Qualifiers: Hyperlipidemia type: mixed hyperlipidemia Qualified Code(s): E78.2 - Mixed hyperlipidemia (6) Renal insufficiency: Status: Acute Code(s): N28.9 - Disorder of kidney and ureter, unspecified (7) History of B-cell lymphoma: Status: Chronic Code(s): Z85.72 - Personal history of non-Hodgkin lymphomas (8) Primary adenocarcinoma of body of pancreas: Status: Acute Code(s): C25.1 - Malignant neoplasm of body of pancreas (9) General weakness: Status: Acute Code(s): R53.1 - Weakness (10) Leg weakness, bilateral: Status: Acute Code(s): R29.898 - Other symptoms and signs involving the musculoskeletal system Meds Home Medications and Allergies Home Medications ?Medication ?Instructions ?Recorded ?Confirmed ?Type acetaminophen 500 mg tablet 500 mg PO Q6HP PRN Mild 12/10/19 10/25/24 Rx Pain,Fever,Headache #60 tabs celecoxib 200 mg capsule (Celebrex) 200 mg PO BID 02/01/20 10/25/24 History mecobalamin (vitamin B12) 1,000 1,000 mcg PO DAILY Supplement 02/01/20 10/25/24 History mcg chewable tablet (B12 Active) lactobacillus combination no.9 4 4,000 mmu cells PO DAILY 05/09/21 10/25/24 History billion cell capsule (Adult 50 Plus Probiotic) montelukast 10 mg tablet 10 mg PO PM 11/27/21 10/25/24 History dicyclomine 20 mg tablet 20 mg PO BIDP PRN Stomach Pain 04/13/24 10/25/24 History duloxetine 30 mg capsule,delayed 30 mg PO DAILY 04/13/24 10/25/24 History release oxybutynin chloride 5 mg 5 mg PO DAILY 04/13/24 10/25/24 History tablet,extended release 24 hr amlodipine 5 mg tablet 5 mg PO DAILY #30 tabs 04/14/24 10/25/24 Rx atorvastatin 10 mg tablet 10 mg PO DAILY 10/26/24 10/25/24 History famotidine 20 mg tablet 20 mg PO HS 10/26/24 10/26/24 History levothyroxine 50 mcg tablet 50 mcg PO DAILY 10/26/24 10/25/24 History aspirin 81 mg tablet,delayed 81 mg PO DAILY #0 tabs 10/30/24 Rx release clopidogrel 75 mg tablet 75 mg PO DAILY #0 tabs 10/30/24 Rx gabapentin 100 mg capsule 100 mg PO TID #90 caps 10/30/24 Rx guaifenesin 600 mg tablet, 600 mg PO BID #0 tabs 10/30/24 Rx extended release 12 hr (Mucinex) irbesartan 75 mg tablet 75 mg PO DAILY #0 tabs 10/30/24 Rx metoprolol succinate 25 mg 25 mg PO DAILY #0 tabs 10/30/24 Rx tablet,extended release 24 hr nitroglycerin 0.4 mg sublingual 0.4 mg sublingual Q5MINP PRN Chest 10/30/24 Rx tablet (Nitrostat) Pain #0 tabs New Prescriptions to Start Prescriptions: Shahid Benitez Allergies Allergy/AdvReac Type Severity Reaction Status Date / Time cucumber (CUCUMBER) Allergy Severe HIVES, Verified 07/09/24 14:25 SWELLING, TROUBLE BREATHING alprazolam (From XANAX) Allergy Intermediate ADVERSE Verified 07/09/24 14:25 tetanus and diphtheria Allergy Mild Verified 07/09/24 14:25 toxoids (TETANUS AND DIPHTHERIA TOXOIDS) Iodinated Contrast Media Allergy Unknown Verified 07/09/24 14:25 (IODINATED CONTRAST MEDIA - ORAL AND) Discharge Plan Disposition Patient Disposition: er SNF Condition: Good Discharge Order Discharge Orders: Discharge Order (Routine); Ordered 10/30/24 Ordered By: Shahid Lopez Follow up Plan Follow up with: Richi Peter MD [Staff Physician, Cardiology] - 1 week Prescriptions/Medication Reconciliation: New clopidogrel 75 mg Tablet 75 mg PO DAILY Qty: 0 0RF aspirin 81 mg Tablet,Delayed Release (Dr/Ec) 81 mg PO DAILY Qty: 0 0RF nitroglycerin [Nitrostat] 0.4 mg Tablet, Sublingual 0.4 mg sublingual Q5MINP PRN (Reason: Chest Pain) Qty: 0 0RF irbesartan 75 mg Tablet 75 mg PO DAILY Qty: 0 0RF metoprolol succinate 25 mg Tablet Extended Release 24 Hr 25 mg PO DAILY Qty: 0 0RF guaifenesin [Mucinex] 600 mg Tablet Extended Release 12hr 600 mg PO BID Qty: 0 0RF Continued celecoxib [Celebrex] 200 mg capsule 200 mg PO BID B12 Active 1,000 mcg tablet,chewable 1,000 mcg PO DAILY Adult 50 Plus Probiotic 4 billion cell capsule 4,000 mmu cells PO DAILY Rx Instructions: administer with a meal atorvastatin 10 MG tablet 10 mg PO DAILY famotidine 20 MG tablet 20 mg PO HS levothyroxine 50 MCG tablet 50 mcg PO DAILY acetaminophen 500 MG tablet 500 mg PO Q6HP PRN (Reason: Mild Pain,Fever,Headache) Qty: 60 0RF montelukast 10 MG tablet 10 mg PO PM dicyclomine 20 mg tablet 20 mg PO BIDP PRN (Reason: Stomach Pain) oxybutynin chloride 5 mg tablet extended release 24hr 5 mg PO DAILY duloxetine 30 mg capsule,delayed release(DR/EC) 30 mg PO DAILY amlodipine 5 mg tablet 5 mg PO DAILY Qty: 30 0RF Changed gabapentin 100 mg capsule 100 mg PO TID Qty: 90 0RF Problem Reconciliation Problems Reviewed?: Yes Patient Discharge Instructions ACTIVITY: Continue current activity DIET: continue same diet Patient Instructions: DI for Heart Attack, Variant Angina: Heart Spasms Print Language: Mongolian Providers Primary Care Provider: Shahid Lopez Admit Provider: Ceci Peraza Attending Provider: Shahid Lopez
== END 2024-10-30 10:54 | DRG 322 ==
LOC: ER 14:52 → 2ND 15:15
PROVIDERS: Internal Medicine; Nurse Practitioner Family; Admitting Provider Family Medicine; Emergency Provider Emergency Medicine; PCP Family Medicine; Visit Provider Family Medicine
PROC: 4A023N7 Measurement of Cardiac Sampling and Pressure, Left Heart, Percutaneous Approach (ICD-10-PCS; CPT 93452; principal; 2024-10-27 11:30)
DX: I21.4 Non-ST elevation (NSTEMI) myocardial infarction (principal); C25.1 Malignant neoplasm of body of pancreas; G62.9 Polyneuropathy, unspecified; I12.9 Hypertensive chronic kidney disease with stage 1 through stage 4 chronic kidney disease, or unspecified chronic kidney disease; N18.9 Chronic kidney disease, unspecified; E78.5 Hyperlipidemia, unspecified; I25.10 Atherosclerotic heart disease of native coronary artery without angina pectoris; Z92.3 Personal history of irradiation; Z79.890 Hormone replacement therapy; Z85.72 Personal history of non-Hodgkin lymphomas; Z85.42 Personal history of malignant neoplasm of other parts of uterus; Z79.82 Long term (current) use of aspirin; Z79.02 Long term (current) use of antithrombotics/antiplatelets
CPT/HCPCS: 36415; 80048; 80053; 80061; 80076; 81001; 82550; 82607; 82803; 83605; 83735; 83880; 84100; 84443; 84484; 85025; 85347; 85651; 86803; 87086; 93005; 93306; 97110; 97116; 97162; 97166; 97530; 99152; 99153; 99285; C1725; C1769; C1874; J1200; J1644; J1920; J2250; J2919; J3010; Q9967

== ENCOUNTER 2024-11-23 11:30 | Inpatient (IN) | payer MEDICARE, SELFPAY ==
--- OUTSIDE RECORDS SUMMARY | 2024-06-24 09:30 | XMS_ITS ---
Author Organization [facility] Address [address] [facility] [address] [place] [id number] Care Team Providers Care Environmental Science Instructor Name Role Phone Shahid Lopez Primary Care Provider REASON FOR VISIT 6 months checkup, f/u on labs drawn at [facility] on 06/19/2024 Encounters Encounter Location Date Provider Diagnosis [facility] [address] [place] [id number] 06/24/2024 Shahid Lopez Plan Of Treatment No Information Progress Notes * DARIANA THOMASONDOB:1940 (84 yo F)Acc No.[id number]:06/24/2024 Progress Notes Patient: DARIANA WOODARD Provider: Marcio Lopez M.D. :1940 A ge:84 Y S ex:Female Date:06/24/2024 Address:[address] [place] [address], [place]-[id number] Subjective: * Chief Complaints: * 1 . 6 months checkup, f/u on labs drawn at [facility] on 06/19/2024. * Medical History: Objective: * Vitals: Assessment: Plan: * Treatment: * Billing Information: * Visit Code: * Procedure Codes: * Electronic signature of Skyla Loepz MD on 11/23/2024 at 12:08 PM EDT Sign off status: Pending * Provider: Marcio Lopez M.D. Date: 0 06/24/2024 Generated for Kimberly spear/Fernanda/Galeitting on: 0 11/23/2024 12:08 PM EDT
--- OUTSIDE RECORDS SUMMARY | 2024-06-24 09:30 | XMS_ITS ---
Author Organization [facility] Address [address] [facility] [address] [place] [id number] Care Team Providers Care Water Filtration Technician Name Role Phone Shahid Lopez Primary Care Provider REASON FOR VISIT 6 months checkup, f/u on labs drawn at [facility] on 06/19/2024 Encounters Encounter Location Date Provider Diagnosis [facility] [address] [place] [phone] 06/24/2024 Shahid Lopez Plan Of Treatment No Information Progress Notes * DARIANA THOMASONDOB:1940 (84 yo F)Acc No.[id number]:06/24/2024 Progress Notes Patient: DARIANA WOODARD Provider: Marcio Lopez M.D. :1940 A ge:84 Y S ex:Female Date:06/24/2024 Address:[address] [place] [address], [place]-[phone] Subjective: * Chief Complaints: * 1 . 6 months checkup, f/u on labs drawn at [facility] on 06/19/2024. * Medical History: Objective: * Vitals: Assessment: Plan: * Treatment: * Billing Information: * Visit Code: * Procedure Codes: * Electronic signature of Skyla Lopez MD on 11/24/2024 at 12:12 PM EDT Sign off status: Pending * Provider: Marcio Lopze M.D. Date: 0 06/24/2024 Generated for Kimberly spear/Fernanda/Galeitting on: 0 11/24/2024 12:12 PM EDT
--- OUTSIDE RECORDS SUMMARY | 2024-07-08 09:30 | XMS_ITS ---
Author Organization [facility] Address [address] [id number] Care Team Providers Care Immigration Services Officer Name Role Phone Shahid Lopez Primary Care Provider REASON FOR VISIT Flu shot Medications Medication SIG (Take, Route, Frequency, Duration) Notes Start Date End Date Status Atorvastatin Calcium 10 MG TAKE 1 TABLET BY MOUTH ONCE DAILY for 90 days Active DULoxetine HCl 30 MG TAKE 1 CAPSULE BY M OUTH ONCE DAILY for 90 days Active oxyBUTYnin Chloride ER 5 MG TAKE 1 TABLE T BY MOUTH ONCE DAILY for 90 days Active Montelukast Sodium 10 MG TAKE 1 TABLET B Y MOUTH ONCE DAILY for 90 days Active Macrobid 100 MG 1 capsule with food Orally every 12 hrs for 5 day(s) 06/01/2024 Active Gabapentin 100 MG 1 capsule Orally Thr ee times a day for 30 day(s) 05/06/2024 Active diazePAM 2 MG 1 or 2 tablet as nee ded Orally Once a day 04/17/2024 Active Celecoxib 200 MG TAKE 1 CAPSULE BY MO UTH TWICE DAILY WITH FOOD FOR INFLAMMATION for 30 Active amLODIPine Besylate 5 MG 1 tablet Orally Once a day 05/19/2024 Active Famotidine 20 MG 1 tablet at bedtime Orally At Bed Time for 90 days Active B COMPLEX 100 Active Probiotic Formula Ac tive Levothyroxine Sodium 50 MCG 1 tab(s) ora lly once a day for 90 days Active Vitamin D-3 125 MCG (5000 UT) 1 cap(s) orally once a week 03/11/2021 Active Benadryl Allergy 25 MG 1 cap(s) orally prn prn Active Dicyclomine HCl 20 MG 1 tab(s) orally tw o times a day as needed for 90 days Active Immunizations Vaccine Route Administration Date Status Comme nts Fluzone High Dose (65yr and older) IM Intramuscular 07/08/2024 Administered Encounters Encounter Location Date Provider Diagnosis [facility] [address] [facility] [address] [place] [phone] 07/08/2024 Shahid Lopez Encounter for immunization Z23 Assessments Encounter Date Diagnosis (ICD Code) Assessment Notes Treatment Notes Treatment Clinical Notes Section Notes 07/08/2024 Encounter for immunization (ICD-10 - Z23) Plan Of Treatment No Information Progress Notes * KATELINDARIANADOB:1940 (84 yo F)Acc No.[id number]:07/08/2024 Patient: DARIANA WOODARD Provider: Marcio Lopez M.D. :1940 A ge:84 Y S ex:Female Date:07/08/2024 Address:[address] [place] [address] [id number] Subjective: * Chief Complaints: * 1 . Flu shot. * Medical History: * Medications: T aking Dicyclomine HCl 20 MG Tablet 1 tab(s) orally two times a day as needed , Taking Benadryl Allergy 25 MG Capsule 1 cap(s) orally prn , Notes to Pharmacist: prn, Taking Probiotic Formula , Taking B COMPLEX 100 , Taking Vitamin D-3 125 MCG (5000 UT) Tablet 1 cap(s) orally once a week , Taking Levothyroxine Sodium 50 MCG Tablet 1 tab(s) orally once a day , Taking Celecoxib 200 MG Capsule TAKE 1 CAPSULE BY MOUTH TWICE DAILY WITH FOOD FOR INFLAMMATION , Taking diazePAM 2 MG Tablet 1 or 2 tablet as needed Orally Once a day , Taking Gabapentin 100 MG Capsule 1 capsule Orally Three times a day , Taking Famotidine 20 MG Tablet 1 tablet at bedtime Orally At Bed Time , Taking amLODIPine Besylate 5 MG Tablet 1 tablet Orally Once a day , Taking Macrobid 100 MG Capsule 1 capsule with food Orally every 12 hrs , Taking Montelukast Sodium 10 MG Tablet TAKE 1 TABLET BY MOUTH ONCE DAILY , Taking DULoxetine HCl 30 MG Capsule Delayed Release Particles TAKE 1 CAPSULE BY MOUTH ONCE DAILY , Taking Atorvastatin Calcium 10 MG Tablet TAKE 1 TABLET BY MOUTH ONCE DAILY , Taking oxyBUTYnin Chloride ER 5 MG Tablet Extended Release 24 Hour TAKE 1 TABLET BY MOUTH ONCE DAILY , Medication List reviewed and reconciled with the patient Objective: * Vitals: Assessment: * Assessment: 1. E ncounter for immunization - Z23 (Primary) Plan: * Treatment: * Immunizations: Fluzone High Dose (65yr and older) : 0.5 mL (Route: Intramuscular) given by Thalia Ware on Left Deltoid (Encounter for immunization) * Billing Information: * Visit Code: * Procedure Codes: * Electronic signature of Skyla Lopez MD on 11/24/2024 at 12:11 PM EDT Sign off status: Pending * Provider: Marcio Lopez M.D. Date: 0 07/08/2024 Generated for Kimberly spear/Fernanda/Christina on: 0 11/24/2024 12:11 PM EDT
--- OUTSIDE RECORDS SUMMARY | 2024-07-08 09:30 | XMS_ITS ---
Author Organization [facility] Address [address] [phone] Care Team Providers Care Customer Sales Distributor Name Role Phone Shahid Lopez Primary Care [...] Administered Encounters Encounter Location Date Provider Diagnosis [facility] [address] [facility] [address] [place] [phone] 07/08/2024 Shahid Lopez Encounter for immunization Z23 Assessments Encounter Date Diagnosis (ICD Code) Assessment Notes Treatment Notes Treatment Clinical Notes Section Notes 07/08/2024 Encounter for immunization (ICD-10 - Z23) Plan Of Treatment No Information Progress Notes * KATELINDARIANADOB:1940 (84 yo F)Acc No.[id number]:07/08/2024 Patient: DARIANA WOODARD Provider: Marcio Lopez M.D. :1940 A ge:84 Y S ex:Female Date:07/08/2024 Address:[address] [place] [address] [id number] Subjective: * Chief Complaints: * 1 . [...] Electronic signature of Skyla Lopez MD on 11/23/2024 at 12:07 PM EDT Sign off status: Pending * Provider: Marcio Lopez M.D. Date: 07/08/2024 Generated for Kimberly spear/Fernanda/Christina on: 11/23/2024 12:07 PM EDT
--- OUTSIDE RECORDS SUMMARY | 2024-10-02 13:00 | XMS_ITS | Encounter Summary ---
Author Organization [facility] Address [address] [place] [address] Care Team Providers Care Reverberatory Furnace Operator Name Role Phone Shahid Lopez MD Primary Care Provider + [phone] Yue Evans APRN Unavailable [phone] Reason for Visit * Reason Comments Labs Nurse Visit Encounter Details Date Type Department Care Team ([facility] Contact Info) Description 10/02/2024 1:00 PM EDT Clinical Support [facility] Therapy [facility] [address] [place] [address] [place] [address] Social History Tobacco Use Types Packs/Day Years Used Date Smoking Tobacco: Never Smokeless Tobacco: Never Alcohol Use Standard Drinks/Week Comments Not Currently 0 (1 standard drink = 0.6 oz pur e alcohol) PHQ-2 Answer Date Recorded Patient Health Questionnaire-2 Score 0 10/02/2024 PHQ-9 Answer Date Recorded Patient Health Questionnaire-9 Score 0 10/02/2024 Comments Unknown Sex and Gender Information Value Date Recorded Sex Assigned at Not on file Legal Sex Female 8:07 PM EDT Gender Identity Not on file Sexual Orientation Not on file 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 Not on file Not on file documented as of this encounter Plan of Treatment Upcoming Encounters Date Type Department Care Team ([facility] Contact Info) Description 10/04/2025 1:00 PM EDT Clinical Support [facility] [address] [place] [address] [place] [address] 10/04/2025 1:30 PM EDT Office Visit [facility] Therapy [facility] [address] [place], [place] [address] [place] [address] Michael Goel APRN [address] [facility] [address] [place] [phone] documented as of this encounter Visit Diagnoses Not on filedocumented in this encounter Additional Health Concerns Assessment Noted Time PHQ-9 Depression Total Score: 0 10/03/19 2:12 PM EDT A fall risk assessment has been complete d for the patient 10/02/2024 2:26 PM EDT documented as of this encounter Care Teams Reverberatory Furnace Operator Relationship Specialty Start Date End Date Shahid Lopez MD [address] [place] [address] PCP - General 10/14/20 Yue Evans APRN [address] [facility] [address] [phone] Nurse Practitioner Internal Medicine 12/11/21 documented as of this encounter
--- OUTSIDE RECORDS SUMMARY | 2024-10-02 13:00 | XMS_ITS | Encounter Summary ---
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 Not on file Not on file documented as of this encounter Plan of Treatment Upcoming Encounters Date Type Department Care Team ([facility] Contact Info) Description 10/04/2025 1:00 PM EDT Clinical Support [facility] Therapy [facility] [address] [place] [address] [place] [address] 10/04/2025 1:30 PM EDT Office Visit [facility] Cellular Therapy [facility] [address] [place], [place] [address] [place] [phone] Michael Goel APRN [address] [facility] [address] [place] [phone] documented as of this encounter Visit Diagnoses Not on filedocumented in this encounter Additional Health Concerns Assessment Noted Time PHQ-9 Depression Total Score: 0 10/03/19 2:12 PM EDT A fall risk assessment has been complete d for the patient 10/02/2024 2:26 PM EDT documented as of this encounter Care Teams Glass Vial Filler Relationship Specialty Start Date End Date Shahid Lopez MD [address] [place] [address] PCP - General 10/14/20 Yue Evans APRN [address] [facility] [address] [phone] Nurse Practitioner Internal Medicine 12/11/21 documented as of this encounter
--- OUTSIDE RECORDS SUMMARY | 2024-10-02 13:30 | XMS_ITS | Encounter Summary ---
Author Organization Healthcare Address [address] [place] [address] Care Team Providers Care Cheese Maker Name Role Phone Shahid Lopez MD Primary Care Provider + [phone] Yue Evans APRN Unavailable [phone] Encounter Details Date Type Department Care Team ([facility] st Contact Info) Description 10/02/2024 1:30 PM EDT Office Visit [facility] Hematology/BMT and Cellular Therapy Program [address] [facility], [facility] [address] Michael Goel, WINDING OPERATOR [facility] [address] [place] [id number] Diffuse large B-cell lymphoma, unspecified body region (CMS/HCC) (Primary Dx); Elevated serum creatinine; 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) Social History Tobacco Use Types Packs/Day Years [...] Job Start Date Job End 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 Not on file Not on file Not on file documented as of this encounter Last Filed Vital Signs Vital Sign Reading Time Taken Comments Blood Pressure 161/78 10/02/2024 1:55 PM EDT Pulse 91 10/02/2024 1:55 PM EDT Temperature 36.8 C (98.2 F) 10/02/2024 1:55 PM EDT Respiratory Rate 16 10/02/2024 1:55 PM EDT Oxygen Saturation 97% 10/02/2024 1:55 PM EDT Inhaled Oxygen Concentration - - Weight 67.2 kg (148 lb 2.4 oz) 10/02/2024 1:55 P M EDT Height - - Body Mass Index 22.85 10/03/2023 1:55 PM EDT documented in this encounter Functional Status * Over the past 2 weeks, how often have you been bothered by any of the following problems? Question Answer Date of Assessment Author Little interest or pleasure in doing things Not at all 10/02/2024 2:12 PM EDT Zoë Ness RN Feeling down, depressed, or hopeless Not at all 10/02/2024 2:12 PM EDT Zoë Ness RN Patient Health Questionnaire-2 Score 0 10/02/2024 2:12 PM EDT Zoë Ness RN * Question Answer Date of Assessment Author Trouble falling or staying asleep, or sleeping too much Not at all 10/02/2024 2:12 PM EDT Zoë Ness RN Feeling tired or having little energy Not at all 10/02/2024 2:12 PM EDT Zoë Ness RN Poor appetite or overeating Not at all 10/02/2024 2: 12 PM EDT Zoë Ness RN Feeling bad about yourself - or that you are a failure or have let yourself or your family down Not at all 10/02/2024 2:12 PM EDT Zoë Ness RN Trouble concentrating on things, such as reading the newspaper or watching television Not at all 10/02/2024 2:12 PM EDT Zoë Ness RN Moving or speaking so slowly that other people could have noticed? Or the opposite - being so fidgety or restless that you have been moving around a lot more than usual. Not at all 10/02/2024 2:12 PM EDT Zoë Ness RN Thoughts that you would be better off or hurting yourself in some way Not at all 10/02/2024 2:12 PM EDT Zoë Ness RN Patient Health Questionnaire-9 Score 0 10/02/2024 2:12 PM EDT Zoë Ness RN * If you checked off any problems on this questionnaire so far, Question Answer Date of Assessment Author How difficult have these problems made it for you to do your work, take care of things at home, or get along with other people? Not difficult at all 10/02/2024 2:12 PM EDT Zoë Ness RN documented as of this encounter Miscellaneous Notes * Progress Notes - Michael Goel, WINDING OPERATOR - 10/02/2024 1:30 PM EDT Images from the original note were not included. Division of Hematology and Blood & Marrow Transplant Follow-up Note Patient ID: Laurie Bueon is a 84 y.o. female. Referring Physician: No referring provider defined for this encounter. Primary Care Provider: Shahid Lopez MD Chief Complaint: History of DLBCL HEMATOLOGIC HISTORY Oncology History Overview Note Ms. Laurie Bueno is an 81-year-old woman with ABC subtype diffuse large B-cell lymphoma, currentlyon surveillance. HISTORY OF PRESENT ILLNESS: Ms. Bueno presented with shortness of breath. Patient was apparently in her normal state of healtharound MarchApril 2016 when she started getting some mid back pain in between her shoulder blades, more on the right. She saw an orthopedics doctor at [facility], Dr. Ye, who said it was bony spurs and perform the surgery on 10 of May. Immediately after that she had some dysphagia for a while which resolved. Patient had been having on and off upper respiratory symptoms which includes cough, shortness of breath, chest pain. Even though intermittent each episode was progressively getting worse- she was also having fevers in between. Cough was nonproductive, associated with chest pain, gets worse with deep inspiration and shortness of breath. Had bronchial stents placed due to bronchial compression. 08/18/16 CT showed large confluent bulky mediastinal mass 11 cm x 7 cm. There was also a 4 cm lesionin spleen concerning for lymphomatous involvement. No abdominoplevic adenopathy. 08/25/16: Endotracheal biopsy, involved by large B cell lymphoma, ABC subtype by Nikolai algorithm. Ki-67 80-90%. Triple-expresser phenotype. SUMMARY OF IMMUNOHISTOCHEMICAL STAINS CD10 A1 negative in tumor cells BCL6 A1 positive in tumor cells (>30%) MUM1 A1 positive in tumor cells (>30%) BCL2 A1 positive in tumor cells CMYC A1 positive in 50-60% tumor cells Ki-67 A1 positive in 80-90% tumor cells 08/31/16: Bone marrow biopsy: No evidence of bone marrow involvement by lymphoma. Her first [address] while she was hospitalized. 09/01/16: R-CHOP C#1. She completed radiation therapy to her mediastinal lesion in September 2016. 09/28/16: R-CVP C#2 with Zarxio. She was discharged to rehabilitation after her initial hospitalization. Cycle 3 was delayed due poor performance status, given on 10-26-16. Hospitalized for recurrent pneumonia. Decided to switch to Revlimid and Rituxan due to marginal performance status. Hypotension and dizziness secondary to Revlimid and held between Feb 2017 to Mar 2017. As a result, Revlimid dose reduced to 5 mg. Her [id number] PET scan on 04-30-17 showed that she continued to be in remission. Treatment history: RCHOP #1 on 09/01/16 XRT RCVP #2 on 09/28/16 RCHOP #3 on 10/26/16 Lenalidomide and rituximab started January 2017. Completed lenalidomide maintenance January 2019. Lymphoma (CMS/HCC) 01/01/2017 Initial Diagnosis Large B cell Lymphoma Interval History: Ms. Laurie Bueno presents to clinic 10/02/2024 for yearly follow up of DLBCL. She reports diagnosis of Pancreatic Cancer in the interim and has completed ISRT with Dr. Pascal in [place]. She notesincreased indigestion and associated small weight loss since diagnosis, which has improved since starting Megace. She denies any fevers, sweats, lymphadenopathy. Past Medical History Past Medical History: Diagnosis Date Anxiety Coronary artery disease Fracture of left hip requiring operative repair (CMS/HCC) HLD (hyperlipidemia) Hypertension Hypothyroidism Radiation pneumonitis (CMS/HCC) Recurrent pneumonia Uterine cancer (CMS/HCC) Surgical History: Past Surgical History: Procedure Laterality Date HYSTERECTOMY 1996 TOTAL HIP ARTHROPLASTY Left 12/2019 Social History: Social History Tobacco Use Smoking status: Never Smokeless tobacco: Never Substance Use Topics Alcohol use: Not Currently Drug use: Never Family History: Family History Problem Relation Name Age of Onset COPD Mother Stroke Mother Heart disease Mother Heart disease Father COPD Father Alzheimer's disease Brother Allergies Allergen Reactions Dilaudid [Hydromorphone] Shortness of breath Iv Contrast Other - please document in the comment field and Anaphylaxis patient becomes extremely hot and dizzy Pneumococcal Vaccines Anaphylaxis Tetanus Toxoids Swelling Tetanus-Diphtheria Toxoids Td Swelling Ativan [Lorazepam] Anxiety Codeine Other - please document in the comment field Severe stomach upset, even with food. Medication List Accurate as of October 02, 2024 8:24 AM. If you have any questions, ask your nurse or doctor. CONTINUE taking these medications atorvastatin 10 MG tablet; Commonly known as: Lipitor b complex vitamins capsule calcium citrate-vitamin D2 315-200 MG-UNIT tablet; Commonly known as: Citracal+D celecoxib 200 MG capsule; Commonly known as: CeleBREX D3-50 1.25 MG (65834 UT) capsule; Generic drug: cholecalciferol dicyclomine 20 MG tablet; Commonly known as: Bentyl DULoxetine [address] capsule; Commonly known as: Cymbalta famotidine 20 MG tablet; Commonly known as: Pepcid gabapentin 300 MG capsule; Commonly known as: Neurontin guaiFENesin 600 MG 12 hr tablet; Commonly known as: Mucinex irbesartan 75 MG tablet; Commonly known as: Avapro levothyroxine 50 MCG tablet; Commonly known as: Synthroid, Levoxyl meclizine 12.5 MG tablet; Commonly known as: Antivert montelukast 10 MG tablet; Commonly known as: Singulair ondansetron ODT 4 MG disintegrating tablet; Commonly known as: Zofran-ODT oxybutynin XL 5 MG 24 hr tablet; Commonly known as: Ditropan-XL Review of Systems: 14- point ROS is reviewed and negative except in HPI. Physical Exam: Visit Vitals BP (!) 161/78 (BP Location: Left arm, Patient Position: Standing, BP Cuff Size: Adult) Pulse 91 Temp 36.8 ??C (98.2 ??F) (Oral) Resp 16 Wt 67.2 kg (148 lb 2.4 oz) SpO2 97% BMI 22.85 kg/m?? Smoking Status Never BSA 1.79 m?? Performance Status: KPS: 90, Able to carry on normal activity; minor signs or symptoms of disease (ECOG equivalent 0) Physical Examination: General: Elderly female, appears stated age, no acute distress Skin: No rashes, no lesions. Head: normocephalic, atraumatic. Eyes: EOMI. Conjunctivae are pink and moist, non-erythematous. Sclera anicteric, noninjected. Lymph Nodes: No lymphadenopathy. Pulmonary: Breathing is non-labored. No cough. Lung sounds are CTA throughout bilaterally, no wheezes, rhonchi or crackles. Cardiovascular: regular heart rate and rhythm. No murmurs/rubs. Abdomen: non-distended. Extremities: No peripheral edema. Neurological: Alert and oriented x 3. Responds to verbal commands. Psychiatric: Appropriate mood and behavior. Good eye contact. Diagnostics: 10/03/2023 CBC Chemistries LFT WBC 6.89 Hb 12.1 Plts 195 Na 137 Cl 103 BUN 26 Glu 131 AST 40 ALP 338 T.Prot 6.6 LDH 237 ANC 5.30 H.crit 36.4 K 3.9 Co2 23 Cr 1.23 ALT 58 Bili 0.2 Alb 3.9 Assessment and Plan: Ms. Laurie Bueno is an 80-year-old woman with ABC subtype diffuse large B-cell lymphoma, who received 2 cycles of R-CHOP and one cycle of R-CVP. She did not tolerate further alkylator chemotherapy and switched to lenalidomide and rituximab. She completed 2 years of lenalidomide maintenance. 1. Diffuse large B-cell lymphoma, ABC subtype, double/triple expressor (MYC, BCL2, BCL6) Stage: assessed as III Risk: Her R-IPI score was 2 Status: Complete remission Current Therapy Plan: Active monitoring Brief Treatment history: RCHOP #1 on 09/01/16 XRT RCVP #2 on 09/28/16 RCHOP #3 on 10/26/16 RR started January 2017 Revlimid held mid February 2017. Restarted at lower dose March 2017. Lenalidomide completed Jan 2019. She continued lenalidomide at 5 mg daily for a total of 2 years until January 2019. Labs reviewed today, creatinine elevated but stable. She has been diagnosed with Pancreatic Cancer and following locally with Oncology and Radiation. Plan: - Continue yearly visits for H&P - Imaging not indicated in absence of symptoms - They are to notify clinic with any development of signs/symptoms of B-symptoms or concern for recurrence. ALLEN Foster [facility] CC HEMATOLOGY/BMT AND CELLULAR THERAPY PROGRAM [address] [facility] [phone] documented in this encounter Plan of Treatment Upcoming Encounters Date Type Department Care Team (Late st Contact Info) Description 10/04/2025 1:00 PM EDT Clinical Support [facility] Hematology/BMT and Cellular Therapy Program [address] [facility], [address] [place] [address] [place] [address] 10/04/2025 1:30 PM EDT Office Visit [facility] Hematology/BMT and Cellular Therapy Program [address] [facility], [address] [place] [phone] Michael Goel APRN [address] [facility] [address] [place] [phone] documented as of this encounter Procedures Procedure Name Priority Date/Time Associated Diagnosis Comments CBC WITH AUTO DIFFERENTIAL Routine 10/02/2024 1:08 PM EDT Diffuse large B-cell lymphoma, unspecified body region (CMS/HCC) LACTATE DEHYDROGENASE, PLASMA Routine 10/02/2024 1:08 PM EDT Diffuse large B-cell lymphoma, unspecified body region (CMS/HCC) COMPREHENSIVE METABOLIC PANEL, PLASMA Routine 10/02/2024 1:08 PM EDT Diffuse large B-cell lymphoma, unspecified body region (CMS/HCC) documented in this encounter Results * Lactate Dehydrogenase, Plasma (10/02/2024 1:08 PM EDT) LDH, Plasma 237 116 - 250 U/L 10/02/2024 2:13 PM EDT [facility] Blood Venous blood specimen / Unknown Venipuncture / Unknown 10/02/2024 1:08 PM EDT 10/02/2024 1:30 PM EDT us Michael Llanes Goel WINDING OPERATOR LAB BLOOD ORDERABLES Final Result [facility] [address] [place] [address] * (ABNORMAL) Comprehensive Metabolic Panel, Plasma (10/02/2024 1:08 PM EDT) Glucose, Plasma 131(H) 74 - 99 mg/dL 10/02/2024 2:13 PM EDT [facility] BUN, Plasma 26(H) 8 - 23 mg/dL 10/02/2024 2:13 PM EDT [facility] Creatinine, Plasma 1.23(H) 0.60 - 1.10 mg/dL 10/02/2024 2:13 PM EDT [facility] BUN/Creatinine Ratio 21 10/02/2024 2:13 PM EDT [facility] Sodium, Plasma 137 136 - 145 mmol/L 10/02/2024 2:13 PM EDT [facility] Potassium, Plasma 3.9 3.6 - 4.9 mmol/L 10/02/2024 2:13 PM EDT [facility] Chloride, Plasma 103 97 - 107 mmol/L 10/02/2024 2:13 PM EDT [facility] CO2, Plasma 23 22 - 29 mmol/L 10/02/2024 2:13 PM EDT [facility] Anion Gap 11 6 - 16 mmol/L 10/02/2024 2:13 PM EDT [facility] Total Calcium, Plasma 9.4 8.9 - 10.2 mg/dL 10/02/2024 2:13 PM EDT [facility] Total Protein 6.6 6.3 - 7.9 g/dL 10/02/2024 2:13 PM EDT [facility] Albumin, Plasma 3.9 3.5 - 5.2 g/dL 10/02/2024 2:13 PM EDT [facility] AST, Plasma 40(H) 10 - 35 U/L 10/02/2024 2:13 PM EDT [facility] ALT, Plasma 58(H) 10 - 35 U/L 10/02/2024 2:13 PM EDT [facility] Alkaline Phosphatase, Plasma 338(H) 46 - 142 U/L 10/02/2024 2:13 PM EDT [facility] Total Bilirubin, Plasma 0.2 0.2 - 1.1 mg/dL 10/02/2024 2:13 PM EDT [facility] eGFRcr 42.9 mL/min/1.7 3m*2 10/02/2024 2:13 PM EDT [facility] Comment:Reported eGFRcr in m L/min/1.73m2 is based the CKD-EPI 2020 equation that does not use a race coefficient. Blood Venous blood specimen / Unknown Venipuncture / Unknown 10/02/2024 1:08 PM EDT 10/02/2024 1:30 PM EDT Michael Goel WINDING OPERATOR LAB BLOOD ORDERABLES Final Result [facility] [address] [place] [address] * (ABNORMAL) CBC and Differential (10/02/2024 1:08 PM EDT) WBC Count 6.89 3.70 - 10.30 10*3/uL LAB HEMATOLOGY METHOD 10/02/2024 1:36 PM EDT [facility] RBC Count 4.17 3.90 - 5.20 10*6/uL LAB HEMATOLOGY METHOD 10/02/2024 1:36 PM EDT [facility] HGB 12.1 11.2 - 15.7 g/dL LAB HEMATOLOGY METHOD 10/02/2024 1:36 PM EDT [facility] HCT 36.4 34.0 - 45.0 % LAB HEMATOLOGY METHOD 10/02/2024 1:36 PM EDT [facility] Platelet Count 195 155 - 369 10*3/uL LAB HEMATOLOGY METHOD 10/02/2024 1:36 PM EDT [facility] MCV 87 79 - 98 fL LAB HEMATOLOGY METHOD 10/02/2024 1:36 PM EDT [facility] MCH 29.0 26.0 - 32.0 pg LAB HEMATOLOGY METHOD 10/02/2024 1:36 PM EDT [facility] MCHC 33.2 30.7 - 35.5 g/dL LAB HEMATOLOGY METHOD 10/02/2024 1:36 PM EDT [facility] RDW 15.0(H) 11.5 - 14.5 % LAB HEMATOLOGY METHOD 10/02/2024 1:36 PM EDT [facility] MPV 11.0 8.8 - 12.5 fL LAB HEMATOLOGY METHOD 10/02/2024 1:36 PM EDT [facility] nRBC 0.0 <=0.0 per 100 WBCs LAB HEMATOLOGY METHOD 10/02/2024 1:36 PM EDT [facility] Differential Type Automated LAB HEMATOLOGY METHOD 10/02/2024 1:36 PM EDT [facility] Neutrophils % 77 % LAB HEMATOLOGY METHOD 10/02/2024 1:36 PM EDT [facility] Lymphocytes % 12 % LAB HEMATOLOGY METHOD 10/02/2024 1:36 PM EDT [facility] Monocytes % 9 % LAB HEMATOLOGY METHOD 10/02/2024 1:36 PM EDT [facility] Eosinophils % 1 % LAB HEMATOLOGY METHOD 10/02/2024 1:36 PM EDT [facility] Basophils % 0 % LAB HEMATOLOGY METHOD 10/02/2024 1:36 PM EDT [facility] Immature Granulocytes % 1 % LAB HEMATOLOGY METHOD 10/02/2024 1:36 PM EDT [facility] Neutrophils Absolute 5.30 1.60 - 6.10 10*3/uL LAB HEMATOLOGY METHOD 10/02/2024 1:36 PM EDT [facility] Lymphocytes Absolute 0.84(L) 1.20 - 3.90 10*3/uL LAB HEMATOLOGY METHOD 10/02/2024 1:36 PM EDT [facility] Monocytes Absolute 0.61 0.30 - 0.90 10*3/uL LAB HEMATOLOGY METHOD 10/02/2024 1:36 PM EDT [facility] Eosinophils Absolute 0.07 0.00 - 0.50 10*3/uL LAB HEMATOLOGY METHOD 10/02/2024 1:36 PM EDT [facility] Basophils Absolute 0.03 0.00 - 0.10 10*3/uL LAB HEMATOLOGY METHOD 10/02/2024 1:36 PM EDT [facility] Immature Granulocytes Absolute 0.04 0.00 - 0.06 10*3/uL LAB HEMATOLOGY METHOD 10/02/2024 1:36 PM EDT [facility] Blood Venous blood specimen / Unknown Venipuncture / Unknown 10/02/2024 1:08 PM EDT 10/02/2024 1:27 PM EDT Narrative [facility] - 10/02/2024 1:36 PM EDT Therapeutic decision making should be based on absolute values, rather than percentages. 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) Malignant neoplasm of tail of pancreas documented in this encounter Additional Health Concerns Assessment Noted Time PHQ-9 Depression Total Score: 0 10/03/19 25 2:12 PM EDT A fall risk assessment has been complete d for the patient 10/02/2024 2:26 PM EDT documented as of this encounter Care Teams Cheese Maker Relationship Specialty Start Date End Date Shahid Lopez MD [facility] [address] [address] PCP - General 10/14/20 Yue Evans APRN [address] [place] [address] [phone] Nurse Practitioner Internal Medicine 12/11/21 documented as of this encounter
--- OUTSIDE RECORDS SUMMARY | 2024-10-02 13:30 | XMS_ITS | Encounter Summary ---
Author Organization Healthcare Address [address] [place] [place] [address] Care Team Providers Care Business Attorney Name Role Phone Shahid Lopez MD Primary Care Provider + [phone] Yue Evans APRN Unavailable [phone] Encounter Details Date Type Department Care Team ([facility] Contact Info) Description 10/02/2024 1:30 PM EDT Office Visit [facility] Hematology/BMT and Cellular Therapy Program [address] [facility], [facility] [place] [address] Michael Goel, DRAPERY OPERATOR [facility] [address] [place] [id number] Diffuse large B-cell lymphoma, unspecified body region [...] Job Start Date Job End Date 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 Division of Hematology and Blood & Marrow Transplant Follow-up Note Patient ID: Laurie Bueno is a 84 y.o. female. Referring Physician: [...] [facility], Dr. Ye, who said it was bony [...] Revlimid dose reduced to 5 mg. Her [id number] PET scan on 04-30-17 showed that she [...] has completed ISRT with Dr. Pascal in [place]. She notesincreased indigestion and associated small weight [...] Commonly known as: CeleBREX D3-50 1.25 MG (70472 UT) capsule; Generic drug: cholecalciferol dicyclomine 20 [...] B-symptoms or concern for recurrence. ALLEN Foster [facility] HEMATOLOGY/BMT AND CELLULAR THERAPY PROGRAM [address] [facility] [phone] documented in this encounter Plan of Treatment Upcoming Encounters Date Type Department Care Team (Late st Contact Info) Description 10/04/2025 1:00 PM EDT Clinical Support [facility] Hematology/BMT and Cellular Therapy Program [address] [facility], [address] [place] [address] [place] [address] 10/04/2025 1:30 PM EDT Office Visit [facility] Hematology/BMT and Cellular Therapy Program [address] [facility], [address] [place] [phone] Michael Goel APRN [address] [facility] [address] [place] [phone] documented as of this encounter Procedures [...] - 250 U/L 10/02/2024 2:13 PM EDT [facility] Blood Venous blood specimen / Unknown Venipuncture / Unknown 10/02/2024 1:08 PM EDT 10/02/2024 1:30 PM EDT us Michael Llanes Goel DRAPERY OPERATOR LAB BLOOD ORDERABLES Final Result [facility] [address] [place] [address] * (ABNORMAL) Comprehensive Metabolic Panel, Plasma (10/02/2024 1:08 PM EDT) Glucose, Plasma 131(H) 74 - 99 mg/dL 10/02/2024 2:13 PM EDT [facility] BUN, Plasma 26(H) 8 - 23 mg/dL 10/02/2024 2:13 PM EDT [facility] Creatinine, Plasma 1.23(H) 0.60 - 1.10 mg/dL 10/02/2024 2:13 PM EDT [facility] BUN/Creatinine Ratio 21 10/02/2024 2:13 PM EDT [facility] Sodium, Plasma 137 136 - 145 mmol/L 10/02/2024 2:13 PM EDT [facility] Potassium, Plasma 3.9 3.6 - 4.9 mmol/L 10/02/2024 2:13 PM EDT [facility] Chloride, Plasma 103 97 - 107 mmol/L 10/02/2024 2:13 PM EDT [facility] CO2, Plasma 23 22 - 29 mmol/L 10/02/2024 2:13 PM EDT [facility] Anion Gap 11 6 - 16 mmol/L 10/02/2024 2:13 PM EDT [facility] Total Calcium, Plasma 9.4 8.9 - 10.2 mg/dL 10/02/2024 2:13 PM EDT [facility] Total Protein 6.6 6.3 - 7.9 g/dL 10/02/2024 2:13 PM EDT [facility] Albumin, Plasma 3.9 3.5 - 5.2 g/dL 10/02/2024 2:13 PM EDT [facility] AST, Plasma 40(H) 10 - 35 U/L 10/02/2024 2:13 PM EDT [facility] ALT, Plasma 58(H) 10 - 35 U/L 10/02/2024 2:13 PM EDT [facility] Alkaline Phosphatase, Plasma 338(H) 46 - 142 U/L 10/02/2024 2:13 PM EDT [facility] Total Bilirubin, Plasma 0.2 0.2 - 1.1 mg/dL 10/02/2024 2:13 PM EDT [facility] eGFRcr 42.9 mL/min/1.7 3m*2 10/02/2024 2:13 PM EDT [facility] Comment:Reported eGFRcr in m L/min/1.73m2 is based the CKD-EPI 2020 equation that does not use a race coefficient. Blood Venous blood specimen / Unknown Venipuncture / Unknown 10/02/2024 1:08 PM EDT 10/02/2024 1:30 PM EDT Michael Goel DRAPERY OPERATOR LAB BLOOD ORDERABLES Final Result [facility] [address] [place] [address] * (ABNORMAL) CBC and Differential (10/02/2024 1:08 PM EDT) WBC Count 6.89 3.70 - 10.30 10*3/uL LAB HEMATOLOGY METHOD 10/02/2024 1:36 PM EDT [facility] RBC Count 4.17 3.90 - 5.20 10*6/uL LAB HEMATOLOGY METHOD 10/02/2024 1:36 PM EDT [facility] HGB 12.1 11.2 - 15.7 g/dL LAB HEMATOLOGY METHOD 10/02/2024 1:36 PM EDT [facility] HCT 36.4 34.0 - 45.0 % LAB HEMATOLOGY METHOD 10/02/2024 1:36 PM EDT [facility] Platelet Count 195 155 - 369 10*3/uL LAB HEMATOLOGY METHOD 10/02/2024 1:36 PM EDT [facility] MCV 87 79 - 98 fL LAB HEMATOLOGY METHOD 10/02/2024 1:36 PM EDT [facility] MCH 29.0 26.0 - 32.0 pg LAB HEMATOLOGY METHOD 10/02/2024 1:36 PM EDT [facility] MCHC 33.2 30.7 - 35.5 g/dL LAB HEMATOLOGY METHOD 10/02/2024 1:36 PM EDT [facility] RDW 15.0(H) 11.5 - 14.5 % LAB HEMATOLOGY METHOD 10/02/2024 1:36 PM EDT [facility] MPV 11.0 8.8 - 12.5 fL LAB HEMATOLOGY METHOD 10/02/2024 1:36 PM EDT [facility] nRBC 0.0 <=0.0 per 100 WBCs LAB HEMATOLOGY METHOD 10/02/2024 1:36 PM EDT [facility] Differential Type Automated LAB HEMATOLOGY METHOD 10/02/2024 1:36 PM EDT [facility] Neutrophils % 77 % LAB HEMATOLOGY METHOD 10/02/2024 1:36 PM EDT [facility] Lymphocytes % 12 % LAB HEMATOLOGY METHOD 10/02/2024 1:36 PM EDT [facility] Monocytes % 9 % LAB HEMATOLOGY METHOD 10/02/2024 1:36 PM EDT [facility] Eosinophils % 1 % LAB HEMATOLOGY METHOD 10/02/2024 1:36 PM EDT [facility] Basophils % 0 % LAB HEMATOLOGY METHOD 10/02/2024 1:36 PM EDT [facility] Immature Granulocytes % 1 % LAB HEMATOLOGY METHOD 10/02/2024 1:36 PM EDT [facility] Neutrophils Absolute 5.30 1.60 - 6.10 10*3/uL LAB HEMATOLOGY METHOD 10/02/2024 1:36 PM EDT [facility] Lymphocytes Absolute 0.84(L) 1.20 - 3.90 10*3/uL LAB HEMATOLOGY METHOD 10/02/2024 1:36 PM EDT [facility] Monocytes Absolute 0.61 0.30 - 0.90 10*3/uL LAB HEMATOLOGY METHOD 10/02/2024 1:36 PM EDT [facility] Eosinophils Absolute 0.07 0.00 - 0.50 10*3/uL LAB HEMATOLOGY METHOD 10/02/2024 1:36 PM EDT [facility] Basophils Absolute 0.03 0.00 - 0.10 10*3/uL LAB HEMATOLOGY METHOD 10/02/2024 1:36 PM EDT [facility] Immature Granulocytes Absolute 0.04 0.00 - 0.06 10*3/uL LAB HEMATOLOGY METHOD 10/02/2024 1:36 PM EDT [facility] Blood Venous blood specimen / Unknown Venipuncture / Unknown 10/02/2024 1:08 PM EDT 10/02/2024 1:27 PM EDT Narrative [facility] - 10/02/2024 1:36 PM EDT Therapeutic decision making should be based on absolute values, rather than percentages. us Michael Goel DRAPERY OPERATOR LAB BLOOD ORDERABLES Final Result [facility] [address] [place] [address] documented in this encounter Visit Diagnoses Diagnosis [...] documented as of this encounter Care Teams Business Attorney Relationship Specialty Start Date End Date Shahid Lopez MD [facility] [address] [address] PCP - General 10/14/20 Yue Evans APRN [address] [place] [address] [phone] Nurse Practitioner Internal Medicine 12/11/21 documented as of this encounter
--- OUTSIDE RECORDS SUMMARY | 2024-11-10 22:15 | XMS_ITS | Continuity of Care Document ---
Author Organization [facility] Phone Care Team Providers Care [employer] Name Role Phone ARLETTE BENITEZ Primary Attending Unavailable NO, DEFINED P Primary Care Unavailable ARLETTE BENITEZ Admitting Unavailable ALLERGIES AND ADVERSE REACTIONS ALLERGIES AND ADVERSE REACTIONS Code System Allergy Substance Adverse Reaction Date Reaction (Severity) Comment Status Reported By Updated By Diphtheria Toxoid-contai frank Vaccines Adverse reaction to substance Not Specified active [id number] on November 03, 2024 11:28:32 AM UTC Tetanus Toxoids Adverse reaction to substance Not Specified active [id number] on November 03, 2024 11:28:32 AM UTC 596 RXNorm Xanax Adverse reaction to substance Not Specified active [id number] on November 03, 2024 11:28:32 AM UTC [place] (Cucumis Sativus) (Free Text Allergy) Adverse reaction to substance Not Specified active [id number] on November 03, 2024 11:28:33 AM UTC RESULTS Patient: KATELIN WESTBROOK Date of : [birth year] 9 LABORATORY RESULTS ORDER 100: CBC AUTO W DIFF ( LOINC: 53891-1) ORDER DATE: November 03, 2024 10:44:00 AM UTC Specimen Source: EDTA Specimen Type: Blood specime n with EDTA PERFORMING LAB: [place] [id number] [facility] [id number] Result Comment: Final Result Date: November 03, 2024 10:54:00 AM UTC (TECH: PP) LOINC TEST FLAG RESULT REFERENCE RANGE UPDA NANDINI BY 6690-2 Leukocytes [#/volume] in Blood by Automated count N 8.5 K/ul 4.0 K/ul - 10.5 K/ul November 03, 2024 10:54:00 AM UTC (TECH: PP) 789-8 Erythrocytes [#/volume] in Blood by Automated count L 3.7 M/mm3 4.2 M/mm3 - 6.4 M/mm3 November 03, 2024 10:54:00 AM UTC (TECH: PP) 718-7 Hemoglobin [Mass/volume] in Blood L 10.8 gm/dl 12.5 gm/dl - 16.0 gm/dl November 03, 2024 10:54:00 AM UTC (TECH: PP) 63504-2 Hematocrit [Volume Fraction] of Blood L 33.1 % 37.0 % - 47.0 % November 03, 2024 10:54:00 AM UTC (TECH: PP) 787-2 Erythrocyte mean corpuscular volume [Entitic volume] by Automated count N 90.7 fl 78 fl - 100 fl November 03, 2024 10:54:00 AM UTC (TECH: PP) 785-6 Erythrocyte mean corpuscular hemoglobin [Entitic mass] by Automated count N 29.6 pg 27 pg - 31 pg November 03, 2024 10:54:00 AM UTC (TECH: PP) 786-4 Erythrocyte mean corpuscular hemoglobin concentration [Mass/volume] by Automated count N 32.6 g/dl 32 g/dl - 36 g/dl November 03, 2024 10:54:00 AM UTC (TECH: PP) 39877-3 Erythrocyte distribution width [Ratio] H 14.4 % 11.5 % - 14.0 % November 03, 2024 10:54:00 AM UTC (TECH: PP) 777-3 Platelets [#/volume] in Blood by Automated count L 148 K/ul 150 K/ul - 450 K/ul November 03, 2024 10:54:00 AM UTC (TECH: PP) 11636-2 Platelet mean volume [Entitic volume] in Blood by Automated count H 11.2 fl 6 fl - 9.5 fl November 03, 2024 10:54:00 AM UTC (TECH: PP) 43209-4 Neutrophils/100 leukocytes in Blood H 81.2 % 43 % - 65 % November 03, 2024 10:54:00 AM UTC (TECH: PP) 736-9 Lymphocytes/100 leukocytes in Blood by Automated count L 9.8 % 20.5 % - 45.5 % November 03, 2024 10:54:00 AM UTC (TECH: PP) 5905-5 Monocytes/100 leukocytes in Blood by Automated count N 7.5 % 5.5 % - 11.7 % November 03, 2024 10:54:00 AM UTC (TECH: PP) 713-8 Eosinophils/100 leukocytes in Blood by Automated count N 0.9 % 0.9 % - 2.9 % November 03, 2024 10:54:00 AM UTC (TECH: PP) 706-2 Basophils/100 leukocytes in Blood by Automated count N 0.2 % 0.2 % - 1.0 % November 03, 2024 10:54:00 AM UTC (TECH: PP) 63772-4 Immature granulocytes/100 leukocytes in Blood by Automated count N 0.4 % 0.0 % - 0.8 % November 03, 2024 10:54:00 AM UTC (TECH: PP) 05252-8 Nucleated cells [#/volume] in Blood N 0.0 % November 03, 2024 10:54:00 AM UTC (TECH: PP) 43852-1 Neutrophils [#/volume] in Blood H 6.9 K/uL 2.2 K/uL - 4.8 K/uL November 03, 2024 10:54:00 AM UTC (TECH: PP) 731-0 Lymphocytes [#/volume] in Blood by Automated count L 0.8 CELL/MCL 1.3 CELL/MCL - 2.9 CELL/MCL November 03, 2024 10:54:00 AM UTC (TECH: PP) 742-7 Monocytes [#/volume] in Blood by Automated count N 0.6 CELL/MCL 0.3 CELL/MCL - 0.8 CELL/MCL November 03, 2024 10:54:00 AM UTC (TECH: PP) 711-2 Eosinophils [#/volume] in Blood by Automated count N 0.1 CELL/MCL 0 CELL/MCL - 0.2 CELL/MCL November 03, 2024 10:54:00 AM UTC (TECH: PP) 704-7 Basophils [#/volume] in Blood by Automated count N 0.0 CELL/MCL 0.0 CELL/MCL - 1.0 CELL/MCL November 03, 2024 10:54:00 AM UTC (TECH: PP) 46329-4 Immature granulocytes [#/volume] in Blood N 0.03 K/ul November 03, 2024 10:54:00 AM [place] (TECH: PP) 31314-1 Nucleated cells [#/volume] in Blood N 0.00 K/uL November 03, 2024 10:54:00 AM UT (TECH: PP) 75666-3 Manual Differential panel - Blood N NO November 03, 2024 10:54:00 AM UTC (TECH: PP) ORDER 200: COMP METABOLIC PA KENNEDY (LOINC: 15342-1) ORDER DATE: November 03, 2024 10:44:00 AM UT Specimen Source: PLASMA Specimen Type: Plasma specim en PERFORMING LAB: [address] [id number] Result Comment: Final Result Date: November 03, 2024 11:16:00 AM UT (TECH: SHG) LOINC TEST FLAG RESULT REFERENCE RANGE UPDA NANDINI BY 2951-2 Sodium [Moles/volume ] in Serum or Plasma N 139 mmol/L 136 mmol/L - 145 mmol/L November 03, 2024 11:08:00 AM UT (TECH: SHG) 2823-3 Potassium [Moles/volume] in Serum or Plasma N 4.3 mmol/L 3.6 mmol/L - 5.0 mmol/L November 03, 2024 11:08:00 AM UT (TECH: SHG) 2075-0 Chloride [Moles/volume] in Serum or Plasma N 106 mmol/L 98 mmol/L - 107 mmol/L November 03, 2024 11:08:00 AM UT (TECH: SHG) 8-9 Carbon dioxide, tota l [Moles/volume] in Serum or Plasma N 23.5 mmol/L 21.0 mmol/L - 32.0 mmol/L November 03, 2024 11:08:00 AM [place] (TECH: SHG) 70954-4 Anion gap in Blood N 13.8 J 2024 11:08:00 AM UT (TECH: SHG) 2345-7 Glucose [Mass/volume ] in Serum or Plasma H 138 mg/dl 70 mg/dl - 120 mg/dl November 03, 2024 11:08:00 AM [place] (TECH: SHG) 6299-2 Urea nitrogen [Mass/volume] in Blood H 35 mg/dL 7 mg/dL - 18 mg/dL November 03, 2024 11:08:00 AM [facility] (TECH: Cipio) 15098-7 Creatinine [Moles/volume] in Blood H 1.4 mg/dL 0.6 mg/dL - 1.3 mg/dL November 03, 2024 11:08:00 AM [facility] (Laserlike: Cipio) 37421-6 Glomerular filtratio n rate/1.73 sq M.predicted by Creatinine-based formula (MDRD) L 37 mlpermin 60 mlpermin November 03, 2024 11:08:00 AM [facility] (TECH: Cipio) 89807-6 Osmolality of Serum or Plasma by calculated by sum of electrolytes N 299 mosm/kg 275 mosm/kg - 301 mosm/kg November 03, 2024 11:08:00 AM [facility] (Laserlike: Cipio) 2885-2 Protein [Mass/volume ] in Serum or Plasma N 6.4 g/dl 6.4 g/dl - 8.2 g/dl November 03, 2024 11:16:00 AM [facility] (Laserlike: Cipio) 1751-7 Albumin [Mass/volume ] in Serum or Plasma L 3.0 g/dl 3.4 g/dl - 5.0 g/dl November 03, 2024 11:16:00 AM [facility] (Laserlike: Cipio) 2336-6 Globulin [Mass/volum e] in Serum N 3.4 November 03, 2024 11:16:00 AM [facility] (Laserlike: Cipio) 1759-0 Albumin/Globulin [Ma ss Ratio] in Serum or Plasma N 0.9 0.7 - 2 November 03, 2024 11:16:00 AM [facility] (Laserlike: Cipio) 00081-7 Calcium [Mass/volume ] in Serum or Plasma N 9.2 mg/dl 8.5 mg/dl - 10.5 mg/dl November 03, 2024 11:08:00 AM [facility] (Laserlike: Cipio) 1975-2 Bilirubin.total [Mass/volume] in Serum or Plasma N 0.60 mg/dL 0.10 mg/dL - 1.00 mg/dL November 03, 2024 11:16:00 AM [facility] (TECH: Cipio) 1920-8 Aspartate aminotransferase [Enzymatic activity/volume] in Serum or Plasma H 52 U/L 0 U/L - 37 U/L November 03, 2024 11:16:00 AM UTC (TECH: SHG) 1742-6 Alanine aminotransferase [Enzymatic activity/volume] in Serum or Plasma H 99 U/L 0 U/L - 65 U/L November 03, 2024 11:16:00 AM UTC (TECH: SHG) 6768-6 Alkaline phosphatase [Enzymatic activity/volume] in Serum or Plasma H 496 U/L 46 U/L - 116 U/L November 03, 2024 11:16:00 AM UTC (TECH: SHG) ORDER 300: PT PROTHROMBIN TI ME W INR (LOINC: 93841-8) ORDER DATE: November 03, 2024 10:44:00 AM UTC Specimen Source: PLASMA Specimen Type: Plasma specim en PERFORMING LAB: [address] [id number] Result Comment: Final Result Date: November 03, 2024 11:13:00 AM UTC (TECH: PP) LOINC TEST FLAG [place] [address]-9 INR in Platelet poor plasma or blood by Coagulation assay N 10.6 SECONDS 9.3 SECONDS - 11.4 SECONDS November 03, 2024 11:13:00 AM UTC (TECH: PP) 6301-6 INR in Platelet poor plasma by Coagulation assay N 1.0 Ratio 0.97 Ratio - 1.05 Ratio November 03, 2024 11:13:00 AM UTC (TECH: PP) ORDER 400: PTT PARTIAL THROM B TIME (LOINC: 3173-2) ORDER DATE: November 03, 2024 10:44:00 AM UTC Specimen Source: PLASMA Specimen Type: Plasma specim en PERFORMING LAB: [address] [id number] Result Comment: Final Result Date: November 03, 2024 11:13:00 AM UTC (TECH: PP) LOINC TEST FLAG RESULT REFERENCE RANGE UPDA NANDINI BY 3173-2 Activated partial thromboplastin time (aPTT) in Blood by Coagulation assay L 22.1 SECONDS 24.5 SECONDS - 32.8 SECONDS November 03, 2024 11:13:00 AM UTC (TECH: PP) ORDER 500: URINE DRUG SCREEN (LOINC: 04366-7) ORDER DATE: November 03, 2024 10:44:00 AM UTC Specimen Source: URINE Specimen Type: Urine specime n PERFORMING LAB: [address] [id number] Result Comment: Final Result Date: November 03, 2024 12:20:00 PM UTC (TECH: PP) LOINC TEST FLAG RESULT REFERENCE RANGE UPDA NANDINI BY 3774-7 Methadone [Mass/volu me] in Urine N NEGATIVE NEGATIVE November 03, 2024 12:20:00 PM UTC (TECH: PP) 3530-3 Tetrahydrocannabinol [Mass/volume] in Urine N NEGATIVE NEGATIVE November 03 12:20:00 PM UTC (TECH: PP) 3398-5 Cocaine [Mass/volume ] in Urine N NEGATIVE NEGATIVE November 03, 2024 12:20:00 PM UTC (TECH: PP) 9426-8 Barbiturates [Mass/v olume] in Urine N NEGATIVE NEGATIVE November 03, 2024 12:20:00 PM UTC (TECH: PP) 9428-4 Benzodiazepines [Mass/volume] in Urine N NEGATIVE NEGATIVE November 03 12:20:00 PM UTC (TECH: PP) 8220-6 Opiates [Mass/volume ] in Urine N NEGATIVE NEGATIVE November 03, 2024 12:20:00 PM UTC (TECH: PP) 86145-2 Amphetamine [Mass/vo lume] in Urine N NEGATIVE NEGATIVE November 03, 2024 12:20:00 PM UTC (TECH: PP) 3937-0 Phencyclidine [Mass/volume] in Urine N NEGATIVE NEGATIVE November 03 12:20:00 PM UTC (TECH: PP) ORDER 600: URINALYSIS REFLEX MICROSCOPIC (LOINC: 43319-2) ORDER DATE: November 03, 2024 10:44:00 AM UTC Specimen Source: URINE Specimen Type: Urine specime n PERFORMING LAB: [address] [id number] Result Comment: Final Result Date: November 03, 2024 12:35:00 PM UTC (TECH: PP) LOINC TEST FLAG RESULT REFERENCE RANGE UPDA NANDINI BY 5778-6 Color of Urine N yellow YELLOW November 03, 2024 12:35:00 PM UTC (TECH: PP) 5767-9 Appearance of Urine N CLEAR CLEAR November 03, 2024 12:35:00 PM UTC (TECH: PP) 5792-7 Glucose [Mass/volume ] in Urine by Test strip N norm NORMAL November 03, 2024 12:35:00 PM UTC (TECH: PP) 37767-8 Bilirubin.total [Mass/volume] in Urine by Automated test strip N NEGATIVE NEGATIVE November 03, 2024 12:35:00 PM UTC (TECH: PP) 5797-6 Ketones [Mass/volume ] in Urine by Test strip N NEGATIVE NEGATIVE November 03, 2024 12:35:00 PM UTC (TECH: PP) 2965-2 Specific gravity of Urine L 1.015 1.016 - 1.022 November 03, 2024 12:35:00 PM UTC (TECH: PP) 48668-4 Erythrocytes [#/volume] in Urine by Automated test strip N 10 NEGATIVE November 03, 2024 12:35:00 PM UTC (TECH: PP) 35555-3 pH of Urine by Automated test strip N 6 5 - 9 November 03 12:35:00 PM UTC (TECH: PP) 70314-5 Protein [Presence] i n Urine by Test strip N TNP NEGATIVE November 03, 2024 12:35:00 PM UTC (TECH: PP) 97110-4 Urobilinogen [Mass/volume] in Urine by Automated test strip N norm NORMAL November 03, 2024 12:35:00 PM UTC (TECH: PP) 45613-6 Nitrate [Presence] i n Urine N NEGATIVE NEGATIVE November 03, 2024 12:35:00 PM UTC (TECH: PP) 14708-6 Leukocytes [#/volume ] in Urine by Test strip N NEGATIVE NEGATIVE November 03, 2024 12:35:00 PM UTC (TECH: PP) 90692-9 Urinalysis dipstick W Reflex Culture panel - Urine N NO November 03, 2024 12:35:00 PM UTC (TECH: PP) 94124-9 Erythrocytes [#/area ] in Urine sediment by Microscopy high power field N 1-5 NONE SEEN November 03, 2024 12:35:00 PM UTC (TECH: PP) 5821-4 Leukocytes [#/area] in Urine sediment by Microscopy high power field N 0-2 NONE SEEN November 03, 2024 12:35:00 PM UTC (TECH: PP) 36636-6 Epithelial cells.squamous [#/area] in Urine sediment by Microscopy high power field N 6-10 NONE SEEN November 03, 2024 12:35:00 PM UTC (TECH: PP) 5769-5 Bacteria [#/area] in Urine sediment by Microscopy high power field N TRACE NONE SEEN November 03, 2024 12:35:00 PM UTC (TECH: PP) ORDER 1400: MAGNESIUM (LOINC : 72430-3) ORDER DATE: November 03, 2024 10:44:00 AM UTC Specimen Source: PLASMA Specimen Type: Plasma specim en PERFORMING LAB: [address] [id number] Result Comment: Final Result Date: November 03, 2024 11:08:00 AM UTC (TECH: SHG) LOINC TEST FLAG [place] [address]-0 Magnesium [Mass/volume] in Serum or Plasma N 2.1 MG/DL 1.8 MG/DL - 2.4 MG/DL November 03 11:08:00 AM UTC (TECH: SHG) LABORATORY NARRATIVE RESULTS Information is not available RADIOLOGY RESULTS ORDER 800: CHEST PORTABLE (L OINC: 78137-9) ORDER DATE: November 03, 2024 10:44:00 AM UTC PERFORMING LAB: [address] [id number] Final Result Date: November 03 1:04:03 PM UTC [address] [address] Name: DARIANA THOMASON Exam Date: 11/03/2024 : 1940 Age 84 years Gender: F Physician: ARLETTE BENITEZ Facility: [facility] Facility HSV: Outpatient Exam: CHEST PORTABLE XR CHEST 1 VIEW PORTABLE Reason For Study: Blunt Chest Trauma COMPARISON:11/03/2024 TECHNIQUE An AP portable view of the chest was obtained. FINDINGS Atherosclerotic aorta. Heart size normal. No acute infiltrate or pleural effusion. Previous cervical spine surgery. IMPRESSION: No acute cardiopulmonary process. Electronically signed by: Ramon Corley MD 11/03/2024 09:04 AM EDT RP Dictated By: Ramon Corley Transcribed By: Transcribed On: 11/03/2024 9:04 AM Electronically signed by: Ramon Corley 11/03/2024 Thank you for referring DARIANA THOMASON to [facility]. Legally authenticated by GISELLA GARCIA 2024-11-03 09:04:03 ORDER 900: FOOT RT 3V (LOINC : 01725-3) ORDER DATE: November 03, 2024 10:44:00 AM [facility] PERFORMING LAB: [address] [id number] Final Result Date: November 03 1:56:[address] [address] Name: DARIANA THOMASON Exam Date: 11/03/2024 : 1940 Age 84 years Gender: F Physician: ARLETTE BENITEZ Facility: [facility] Facility HSV: Outpatient Exam: FOOT RT 3V XR FOOT 3 OR MORE VIEWS RIGHT Reason For Study: Swelling with Trauma/Injury COMPARISON:None TECHNIQUE: 3 views of the right foot were obtained. FINDINGS Large plantar calcaneal spur and small enthesopathy spur posterior calcaneus. It measures approximately 1.2 x 1 cm. There is hallux valgus deformity great toe and analgesia ununited bone corticated fragment or sesamoid measuring 4 x 5 mm medial to the first metatarsal. Lateral to the head of the metatarsal is another large sesamoid with arthritic change. It measures approximately 1.3 x 1 cm. There is mild DJD in the MTP joint and the bones are demineralized. 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 There is spurring of the base of the fifth metatarsal. Accessory ossicle around the cuboid. IMPRESSION: 1. No acute fracture or dislocation. 2. Large plantar calcaneal spur. 3. Hallux valgus deformity great toe. 4. Hypertrophy great toe sesamoids with surrounding swelling suggesting sesamoiditis 5. DJD Electronically signed by: Ramon Corley MD 11/03/2024 09:56 AM EDT RP Dictated By: Ramon Corley Transcribed By: Transcribed On: 11/03/2024 9:56 AM Electronically signed by: Ramon Corley 11/03/2024 Thank you for referring DARIANA THOMASON to [facility]. Legally authenticated by GISELLA GARCIA 2024-11-03 09:56:43 ORDER 1000: FOOT LT 3V (LOIN C: 71673-1) ORDER DATE: November 03, 2024 10:44:00 AM [facility] PERFORMING LAB: [address] [id number] Final Result Date: November 10, 2024 4:24:17 [place] [address] Name: DARIANA THOMASON Exam Date: 11/03/2024 : 1940 Age 84 years Gender: F Physician: ARLETTE BENITEZ Facility: [facility] Facility HSV: Outpatient Exam: FOOT LT 3V XR FOOT 3 OR MORE VIEWS LEFT Reason For Study: Swelling with Trauma/Injury COMPARISON:None TECHNIQUE: 3 views of the left foot were obtained. FINDINGS Large posterior plantar calcaneus spurring. Demineralized bones. Evidence of fracture involving distal aspect proximal phalanx second toe. IMPRESSION: Fracture distal aspect proximal phalanx second toe. Suggestion of possible healing. Electronically signed by: Ramon Corley MD 11/03/2024 09:44 AM EDT RP Dictated By: Ramon Corley Transcribed By: Transcribed On: 11/03/2024 9:44 AM Electronically signed by: Ramon Corley 11/03/2024 Thank you for referring DARIANA THOMASON to [facility]. Legally authenticated by GISELLA GARCIA 2024-11-03 09:44:16 [place] [address] Name: DARIANA THOMASON Exam Date: 11/03/2024 : 1940 Age 84 years Gender: F Physician: ARLETTE BENITEZ Facility: [facility] Facility HSV: Outpatient Exam: FOOT LT 3V XR FOOT 3 OR MORE VIEWS LEFT Reason For Study: Swelling with Trauma/Injury COMPARISON:None TECHNIQUE: 3 views of the left foot were obtained. FINDINGS Large posterior plantar calcaneus spurring. Demineralized bones. Evidence of fracture involving distal aspect proximal phalanx second toe. IMPRESSION: Fracture distal aspect proximal phalanx second toe. Suggestion of possible healing. Electronically signed by: Ramon Corley MD 11/03/2024 09:44 AM EDT RP Dictated By: Ramon Corley Transcribed By: Transcribed On: 11/03/2024 9:44 AM Electronically signed by: Ramon Corley 11/03/2024 Addendum 1 ADDENDUM #1 Addendum: The fracture involving the proximal phalanx and second toe is likely old. Electronically signed by: Ramon Corley MD 11/10/2024 12:24 PM EDT RP ORIGINAL REPORT XR FOOT 3 OR MORE VIEWS LEFT Reason For Study: Swelling with Trauma/Injury COMPARISON:None TECHNIQUE: 3 views of the left foot were obtained. FINDINGS Legally authenticated by GISELLA GARCIA 2024-11-10 12:24:17 Large posterior plantar calcaneus spurring. Demineralized bones. Evidence of fracture involving distal aspect proximal phalanx second toe. IMPRESSION: Fracture distal aspect proximal phalanx second toe. Suggestion of possible healing. Electronically signed by: Ramon Corley MD 11/03/2024 09:44 AM EDT RP Dictated By: Ramon Corley Dictated Date: 11/10/2024 12:24:17 PM Electronically signed by: Ramon Corley 11/10/2024 Thank you for referring DARIANA THOMASON to [facility]. Legally authenticated by GISELLA GARCIA 2024-11-10 12:24:17 ORDER 1100: ANKLE 3V LT (HENOK NC: 91760-0) ORDER DATE: November 03, 2024 10:44:00 AM [facility] PERFORMING LAB: [address] [id number] Final Result Date: November 03 1:38:42 PM [facility] [address] [place] [address] Name: DARIANA THOMASON Exam Date: 11/03/2024 : 1940 Age 84 years Gender: F Physician: ARLETTE BENITEZ Facility: [facility] Facility HSV: Outpatient Exam: ANKLE 3V LT XR ANKLE 3 OR MORE VIEWS LEFT Reason For Study: Swelling with Trauma/Injury COMPARISON:None TECHNIQUE: 3 views of the left ankle were obtained. FINDINGS: [Large posterior and plantar calcaneal spurring. Mild DJD and spurring of the distal fibula medial malleolus. Soft tissue swelling present around the ankle. Bones are demineralized. IMPRESSION: Soft tissue swelling. No acute fracture. Electronically signed by: Ramon Corley MD 11/03/2024 09:38 AM EDT Dictated By: Ramon Corley Transcribed By: Transcribed On: 11/03/2024 9:38 AM Electronically signed by: Ramon Corley 11/03/2024 Thank you for referring DARIANA THOMASON to [facility]. Legally authenticated by GISELLA GARCIA 2024-11-03 09:38:42 ORDER 1200: CT BRAIN W/O (LO INC: 39140-6) ORDER DATE: November 03, 2024 10:44:00 AM [place] PERFORMING LAB: [address] [id number] Final Result Date: November 03 1:02:37 PM [facility] [address] [place] [address] Name: DARIANA THOMASON Exam Date: 11/03/2024 : 1940 Age 84 years Gender: F Physician: ARLETTE BENITEZ Facility: [facility] Facility HSV: Outpatient Exam: CT BRAIN W/O EXAMINATION: CT HEAD WITHOUT CONTRAST CLINICAL INDICATION: Female, 84 years old. Mental Status Change TECHNIQUE: Axial CT images from the skull base to the vertex without intravenous contrast. Coronal and sagittal reformatted images were created from the data set. One or more of the following dose reduction techniques were used: Automated exposure control, adjustment of the mA and/or kV according to patient size, and/or iterative reconstruction. Unless otherwise specified, incidental findings do not require dedicated imaging follow-up. [id number]. COMPARISON: No prior exam. FINDINGS: No intracranial mass, hemorrhage or midline shift. There is pronounced atrophy and moderate chronic microvascular ischemic disease. There is a mucous retention cyst in the left maxillary sinus. The bony calvarium is unremarkable. IMPRESSION: Atrophy and chronic microvascular ischemic disease. Mucous retention cyst at the left maxillary sinus. Electronically signed by: Tony Daniel MD 11/03/2024 09:02 AM EDT Dictated By: TONY DANIEL Transcribed By: Transcribed On: 11/03/2024 9:02 AM Electronically signed by: TONY DANIEL 11/03/2024 Thank you for referring DARIANA THOMASON to [facility]. Legally authenticated by FREDY MCMULLEN 2024-11-03 09:02:37 ORDER 1300: CT CERVICAL SPIN E W/O (LOINC: 62550-4) ORDER DATE: November 03, 2024 10:44:00 AM [facility] PERFORMING LAB: [address] [id number] Final Result Date: November 03 1:06:10 PM [facility] [address] [address] Name: DARIANA THOMASON Exam Date: 11/03/2024 : 1940 Age 84 years Gender: F Physician: ARLETTE BENITEZ Facility: [facility] Facility HSV: Outpatient Exam: CT CERVICAL SPINE W/O EXAMINATION: CT CERVICAL SPINE WITHOUT CONTRAST CLINICAL INDICATION: Female, 84 years old. Pain with Trauma/Injury TECHNIQUE: Axial CT images through the cervical spine were obtained without intravenous contrast. Sagittal and coronal reformatted images were created from the data set. One or more of the following dose reduction techniques were used: Automated exposure control, adjustment of the mA and/or kV according to patient size, and/or iterative reconstruction. Unless otherwise specified, incidental findings do not require dedicated imaging follow-up. [id number]. COMPARISON: No prior exam. FINDINGS: Intact hardware associated with the anterior cervical fusion from see 4 to C6. Normal alignment. There is degenerative cervical disc disease and severe degenerative cervical facet arthropathy especially on the left from C2 to C5. No acute fracture. There is mild cervical spinal canal stenosis related to spurring at C3-4. There is intravertebral foraminal stenosis which is greatest at C3-4 on the left secondary to spurring. There is scarring at the right lung apex. The other extraspinal soft tissues are unremarkable. IMPRESSION: Degenerative cervical spondylosis. Postoperative changes. Electronically signed by: Tony Daniel MD 11/03/2024 09:06 AM EDT Dictated By: TONY DANIEL Transcribed By: Transcribed On: 11/03/2024 9:06 AM Electronically signed by: TONY DANIEL 11/03/2024 Thank you for referring DARIANA THOMASON to [facility]. Legally authenticated by FREDY MCMULLEN 2024-11-03 09:06:10 PATHOLOGY NARRATIVE RESULTS Information is not available MICROBIOLOGY RESULTS No Micro Labs/Results Exist for Patient BLOOD ADMIN RESULTS Information is not available MEDICATIONS HOME MEDICATIONS Status RXNORM [facility] Medication Dose Route Frequency Dates Comments Reported By Updated By Active [id number] 44135 23581 0 acetaminophe n 500 mg capsule 1.0 CAP ORAL PRN Last Dose: [id number] on November 03, 2024 12:01:15 PM [facility] Active 447523 98272 81720 1 amlodipine 5 mg tablet 1.0 TAB ORAL DAILY Last Dose: [id number] on November 03, 2024 12:01:15 PM [facility] Active 412266 29782 49611 2 aspirin 81 mg tablet 1.0 TAB ORAL DAILY Last Dose: [id number] on November 03, 2024 12:01:15 PM [facility] Active 023873 23838 47283 0 atorvastatin 10 mg tablet 1.0 TAB ORAL BEDTIME Last Dose: [id number] on November 03, 2024 12:01:15 PM [facility] Active 860066 43952 82958 1 celecoxib 200 mg capsule 1.0 CAP ORAL BID Last Dose: [id number] on November 03, 2024 12:01:15 PM [facility] Active 774291 17725 23952 0 Plavix 75 mg tablet 1.0 TAB ORAL DAILY Last Dose: [id number] on November 03, 2024 12:01:15 PM [facility] Active 620042 31208 06611 0 dicyclomine 20 mg tablet 1.0 TAB ORAL BID Last Dose: [id number] on November 03, 2024 12:01:16 PM [facility] Active 8555855 68785 93886 0 duloxetine 20 mg Capsule, Delayed Release Sprinkle 1.0 CAP ORAL DAILY Last Dose: [id number] on November 03, 2024 12:01:16 PM [facility] Active 152390 77749 80589 2 famotidine 20 mg tablet 1.0 TAB ORAL DAILY Last Dose: [id number] on November 03, 2024 12:01:16 PM [facility] Active 130941 03809 94576 1 gabapentin 100 mg capsule 1.0 CAP ORAL TID Last Dose: [id number] on November 03, 2024 12:01:16 PM [facility] Active 096300 73343 54394 6 guaifenesin 600 mg Tablet,Exten ded Release 12 hr 1.0 TAB ORAL DAILY Last Dose: [email or web address] on November 03, 2024 12:01:16 PM [facility] Active 538764 15088 17757 4 irbesartan 75 mg tablet 1.0 TAB ORAL DAILY Last Dose: [id number] on November 03, 2024 12:01:16 PM [facility] Active 06025 04920 0 Lactobacillu s acidophilus 1 billion cell capsule 0.0 ORAL DAILY Last Dose: [id number] on November 03, 2024 12:01:16 PM [facility] Active 537293 29778 94157 0 levothyroxin e 50 mcg tablet 0.0 ORAL DAILY Last Dose: [id number] on November 03, 2024 12:01:16 PM [facility] Active 426600 31057 41146 1 metoprolol tartrate 25 mg tablet 0.0 MG ORAL DAILY Last Dose: [id number] on November 03, 2024 12:01:17 PM [facility] Active 535449 03754 56485 1 nitroglyceri n 0.4 mg Tablet, Sublingual 1.0 TAB SUBLIN GUAL PRN Last Dose: [id number] on November 03, 2024 12:01:17 PM [facility] Active 717518 10866 70241 5 oxybutynin chloride 5 mg Tablet, Extended Release 24 hr 1.0 TAB ORAL DAILY Last Dose: [id number] on November 03, 2024 12:01:18 PM [facility] Active 03355 59463 2 cyanocobalam in (vitamin B-12) 1,000 mcg capsule 1.0 CAP ORAL DAILY Last Dose: [id number] on November 03, 2024 12:01:18 PM [facility] DISCHARGE MEDICATIONS Status RXNORM NDC Medication Dose Route Frequency Dates Comments Physician Updated By No Discharge Medication Info rmation Available INPATIENT MEDICATIONS Status RXNORM ND Medication Dose Route Frequency Rat e Quantity Dates Comments Physician Updated By No Inpatient Medication Info rmation Available SOCIAL HISTORY SOCIAL HISTORY SNOMED-CT Social History Element Description Effective Dates Offered Cessation Comment UpdatedBy [id number] Current Tobacco smoking status Never Smoked [email or web address] on November 03, 2024 10:36:33 AM [facility] SOCIAL HISTORY - Gender Sex: Female SOCIAL HISTORY - Status : status i nformation is not available Intention in Next Year: intention information is not available SOCIAL HISTORY - Sexual Behavior Sexual Orientation Gender Identity SNOMED-CT Description SNO MED -CT Description Activity Level No of Partners Partner Type UpdatedBy Information is not available VITAL SIGNS PATIENT VITAL SIGNS This section displays the mo st recent value for each vital sign as of November 11, 2024 2:15:20 AM [facility] Loinc Code Vital Sign Activity Date Result Updated By 8462-4 Diastolic blood pressure November 03, 2024 11:45:00 AM [facility] 58.0 mm[Hg] [id number] on November 03, 2024 11:59:53 AM [facility] 8867-4 Heart rate November 03, 2024 11:50:00 AM [facility] 156 /min [id number] on November 03, 2024 11:59:54 AM [facility] 22537-4 Oxygen saturation in Arterial blood by Pulse oximetry November 03, 2024 11:50:00 AM [facility] 99.0 % [id number] on November 03, 2024 11:59:54 AM [facility] 8480-6 Systolic blood pressure November 03, 2024 11:45:00 AM [facility] 140.0 mm[Hg] [id number] on November 03, 2024 11:59:53 AM [facility] PEDIATRIC GROWTH CHART - VITAL SIGNS This section displays Head C ircumference Percentile, Weight for Length Percentile and BMI Percentile Loinc Code Pediatric Measure Age (Months) Result Updat ed By No Pediatric Growth Chart Pe rcentile Information Available. HEALTH CONCERNS Problems Concern Status Health Concern problem infor mation not available. Smoking Status Status Years Used Consumed packs p er day Health Concern smoking histo ry information not available. Family History Concern Status Health Concern family histor y information not available. ENCOUNTERS ENCOUNTER INFORMATION Reason for Visit FALL INJURY Admission November 03, 2024 10:35:00 AM [facility] [address] [id number] Discharge November 03, 2024 2:00:00 PM [facility] DISC HARGED TO HOME OR SELF CARE ENCOUNTER DIAGNOSES Notes information is not monica ilable. Code System Diagnosis Onset Date Diagnosis information is not available. ABSTRACT DIAGNOSES Code System Diagnosis Updated By M79.672 ICD10 PAIN IN LEFT FOOT [id number] on November 05, 2024 7:20:04 AM [facility] M79.671 ICD10 PAIN IN RIGHT FOOT [id number] o n November 05, 2024 7:20:04 AM [facility] R41.0 ICD10 DISORIENTATION, UNSPECIFIED [id number] on November 05, 2024 7:20:04 AM [facility] S93.402A ICD10 SPRAIN OF UNSPEC IFIED LIGAMENT OF LEFT ANKLE, INITIAL ENCOUNTER [id number] on November 05, 2024 7:20:04 AM [facility] S90.32XA ICD10 CONTUSION OF LEF T FOOT, INITIAL ENCOUNTER [id number] on November 05, 2024 7:20:04 AM [facility] S90.31XA ICD10 CONTUSION OF RIG HT FOOT, INITIAL ENCOUNTER [id number] on November 05, 2024 7:20:04 AM [facility] E78.5 ICD10 HYPERLIPIDEMIA, UNSPECIFIED [id number] on November 05, 2024 7:20:04 AM [place] I12.9 ICD10 HYPERTENSIVE CHR ONIC KIDNEY DISEASE WITH STAGE 1 THROUGH STAGE 4 CHRONIC KIDNEY DISEASE, OR UNSPECIFIED CHRONIC KIDNEY DISEASE [id number] on November 05, 2024 7:20:04 AM [place] N18.9 ICD10 CHRONIC KIDNEY DISEASE, UNSP ECIFIED [id number] on November 05, 2024 7:20:04 AM [place] G62.9 ICD10 POLYNEUROPATHY, UNSPECIFIED [id number] on November 05, 2024 7:20:04 AM [place] Z88.7 ICD10 ALLERGY STATUS TO SERUM AND VACCINE [id number] on November 05, 2024 7:20:04 AM [place] Z91.041 ICD10 RADIOGRAPHIC DYE ALLERGY STA TUS [id number] on November 05, 2024 7:20:04 AM [place] Z79.82 ICD10 CUSTODIAL (CURRENT) USE OF A SPIRIN [id number] on November 05, 2024 7:20:04 AM [place] Z79.899 ICD10 OTHER CUSTODIAL (CURRENT) DRUG THERAPY [id number] on November 05, 2024 7:20:04 AM [place] W19.XXXA ICD10 UNSPECIFIED FALL, INITIAL EN COUNTER [id number] on November 05, 2024 7:20:04 AM [place] Y92.129 ICD10 UNSPECIFIED PLAC E IN FPC THE PLACE OF OCCURRENCE OF THE EXTERNAL CAUSE [id number] on November 05, 2024 7:20:04 AM [facility] CARE TEAM Care [employer] Role ARLETTE BENITEZ Primary Attending DEFINED NO Primary Care ARLETTE BENITEZ Admitting CARE TEAM CARE butadiene converter helper Role on Team Status Start Date End Date Update d By ELI CHONG Attending normal November 03, 2024 11:09:14 AM [facility] November 03, 2024 2:00:00 PM [facility] [id number] on November 03, 2024 11:09:14 AM [facility] ELI CHONG Admitting normal November 03, 2024 11:09:14 AM [facility] November 03, 2024 2:00:00 PM [facility] [id number] on November 03, 2024 11:09:14 AM [facility] NO DEFINED PRIMARY C PCP normal November 03, 2024 10:35:50 AM [facility] November 03, 2024 2:00:00 PM [facility] [id number] on November 03, 2024 11:09:14 AM [facility]
--- OUTSIDE RECORDS SUMMARY | 2024-11-18 10:00 | XMS_ITS ---
Author Organization [facility] Address [address] [id number] Care Team Providers Care Heat Treat Supervisor Name Role Phone Shahid Lopez Primary Care Provider Allergies Allergen (clinical drug ingredient) Drug/Non Drug Allergy documented on EMR Reaction Allergy Type Onset Date Status lorazepam Ativan Unknown Drug Allergy Active hydromorphone Dilaudid Unknown Drug Allergy Act anna Iodinated contrast media (substance) Iodinated Contrast Media Unknown Drug Allergy Active Tetanus Toxoids Unknown Drug Allergy A ctive Results Component Value Reference Range Notes Urinalysis - Inhouse Reviewed date:11/19/2024 09:00:09 AM Interpretation: Performing Lab: Notes/Report: Color/Clarity alaina/cloudy Leuk 1+ Nitrite Neg Urobili 16 Protein 2+ pH 8.0 Blood 2+ Sp. Gr. 1.020 Ketone Neg Bili Neg Gluc Neg TEN-UTI panel Reviewed date:11/23/2024 09:10:59 AM Interpretation:Abnormal Performing Lab: Notes/Report: Abnormal Reason For Referral Reason Please use [facility] Diagnosis 1 Debility (R53.81) Diagnosis 2 Generalized weakness (R53.1) [facility] Referring Provider First Name Shahid Referring Provider Last Name John Referring Provider Speciality Family Pra ctice Referred Provider Specialty Home Health Agency General Notes Yumiko Gomez 2024 02:51:15 PM > faxed to [facility] Referral Priority Routine REASON FOR VISIT mental status change Medications Medication SIG (Take, Route, Frequency, Duration) Notes Start Date End Date Status amLODIPine Besylate 5 MG 1 tablet Orally Once a day for 90 days Active Macrobid 100 MG 1 capsule with food Orally every 12 hrs for 5 days 11/18/2024 Active Gabapentin 100 MG 1 capsule Orally twi ce a day for 30 days 10/07/2024 Active DULoxetine HCl 60 MG TAKE 1 CAPSULE BY MOUTH ONCE DAILY Orally once daily for 90 days Active Levothyroxine Sodium 50 MCG TAKE 1 TABLET BY MOUTH ONCE DAILY for 90 Active Atorvastatin Calcium 10 MG TAKE 1 TABLET BY MOUTH ONCE DAILY for 90 days Active oxyBUTYnin Chloride ER 5 MG TAKE 1 TABLET BY MOUTH ONCE DAILY for 90 days Active Dicyclomine HCl 20 MG TAKE 1 TABLET BY M OUTH TWO TIMES A DAY NEEDED for 90 Active Famotidine 20 MG 1 tablet at bedtime Orally At Bed Time for 90 days Active Vitamin D-3 125 MCG (5000 UT) 1 cap(s) orally once a week 03/11/2021 Not-Taking Montelukast Sodium 10 MG TAKE 1 TABLET B Y MOUTH ONCE DAILY for 90 days Active B COMPLEX 100 Not-Ta nata Mucinex 600 MG 1 tablet as needed Orally every 12 hrs as needed Active Benadryl Allergy 25 MG 1 cap(s) orally prn prn Active Probiotic Formula No t-Taking Vital Signs Blood pressure systolic 123 mm Hg 11/19/19 25 Blood pressure diastolic 64 mm Hg 025 Heart Rate 48 /min 11/18/2024 Height 66 in 11/18/2024 Weight 00 lbs 11/18/2024 Encounters Encounter Location Date Provider Diagnosis [facility] [address] [facility] [address] [place] [phone] 11/18/2024 Shahid Lopez Acute UTI N39.0 ; Generalized weakness R53.1 and Debility R53.81 Assessments Encounter Date Diagnosis (ICD Code) Assessment Notes Treatment Notes Treatment Clinical Notes Section Notes 11/18/2024 Acute UTI (ICD-10 - N39.0) 11/18/2024 Generalized weakness (ICD-10 - R53.1) 11/18/2024 Debility (ICD-10 - R53.81) Plan Of Treatment Medication Medication Name Sig Start Date Stop Date Notes Macrobid 100 MG 1 capsule with food Orally every 12 hrs for 5 days 11/18/2024 Referrals Referral Date Details 11/18/2024 11/18/2024, Please u se [facility] Next Appt Details Follow Up: via phone to repo rt progress, Reason: Progress Notes * DARIANA THOMASONDOB:1940 (84 yo F)Acc No.[id number]:11/18/2024 Progress Notes Patient: DARIANA WOODARD Provider: Marcio Lopez M.D. :1940 A ge:84 Y S ex:Female Date:11/18/2024 Address:[address] [place], [place] [address], [id number] Subjective: * Chief Complaints: * 1 . Mental status change. * HPI: N eurology: 84 year old female presents with c/o memory loss. H PI: c/o Here for follow up on: T [facility] Pt's niece states the pt is having some confusion. Pt's niece states the pt is having a very strong odor to her urine and thinks she could have a UTI. * ROS: D ERMATOLOGY: no R hank. n o H gavin. n o A cne. G ASTROENTEROLOGY: no H eartburn. n o V omiting. n o D iarrhea. U ROLOGY: no D ifficulty urinating. n o B lood in urine. 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 * Surgical History: B one Spurs removed in Neck- [facility] 05/2016, Hysterectomy , LT Hip Repair 12/04/2019, Abscess Tooth Removal 02/2020. * Hospitalization/Major Diagno stic Procedure: L [facility]mphoma- [facility] 08[facility], [facility] 10/2016, Pneumonia- [facility] 11/23/2016-12/03/2016, Fall- [facility] 04/23/2018, Fall- [facility] 03/26/2019, [facility] [place] [facility] 12/09- 01/02/2020, Fall w/ Laceration of Right Hand - [facility] 03/09/2022. * Family History: F ather: . M other: , diagnosed with Stroke. S iblings: . Ayaan holt: alive. 1 brother(s) . 1 daughter(s) . . Father - COPD. * Social History: C URRENT TOBACCO USE S moking Status: P atient does NOT smoke, F ormer Smoker:?Yes Pt states that she smoked in her 20's. * Medications: T aking Mucinex 600 MG Tablet Extended Release 12 Hour 1 tablet as needed Orally every 12 hrs as needed , Taking Benadryl Allergy 25 MG Capsule 1 cap(s) orally prn , Notes to Pharmacist: prn, Taking Montelukast Sodium 10 MG Tablet TAKE 1 TABLET BY MOUTH ONCE DAILY , Taking Atorvastatin Calcium 10 MG Tablet TAKE 1 TABLET BY MOUTH ONCE DAILY , Taking oxyBUTYnin Chloride ER 5 MG Tablet Extended Release 24 Hour TAKE 1 TABLET BY MOUTH ONCE DAILY , Taking Dicyclomine HCl 20 MG Tablet TAKE 1 TABLET BY MOUTH TWO TIMES A DAY NEEDED , Taking Famotidine 20 MG Tablet 1 tablet at bedtime Orally At Bed Time , Taking DULoxetine HCl 60 MG Capsule Delayed Release Particles TAKE 1 CAPSULE BY MOUTH ONCE DAILY Orally once daily , Taking Levothyroxine Sodium 50 MCG Tablet TAKE 1 TABLET BY MOUTH ONCE DAILY , Taking amLODIPine Besylate 5 MG Tablet 1 tablet Orally Once a day , Taking Gabapentin 100 MG Capsule 1 capsule Orally twice a day , Not-Taking Probiotic Formula , Not-Taking B COMPLEX 100 , Not-Taking Vitamin D-3 125 MCG (5000 UT) Tablet 1 cap(s) orally once a week , Discontinued diazePAM 2 MG Tablet 1 or 2 tablet as needed Orally Once a day , Discontinued Macrobid 100 MG Capsule 1 capsule with food Orally every 12 hrs , Discontinued Celecoxib 200 MG Capsule TAKE 1 CAPSULE BY MOUTH TWICE DAILY WITH FOOD FOR INFLAMMATION , Medication List reviewed and reconciled with the patient * Allergies: I odinated Contrast Media, Tetanus Toxoids, Dilaudid, Ativan. Objective: * Vitals: W t: 00, Temp:97.4, BP: 123/64, HR: 48, Nurse: ELI/DELLA, Ht: 66. * Examination: G eneral Examination: General Appearance: N AD, sitting in a wheelchair. Heart: R SR. Back: n o CVA tenderness. Extremities: A FO in use on left leg. ? Assessment: * Assessment: 1. A cute UTI - N39.0 (Primary) 2 . G eneralized weakness - R53.1 ? 3 . D ebility - R53.81 Plan: * Treatment: Value Reference Range C olor/Clarity alaina/cloudy * L euk 1+ * N itrite Neg * U robili 16 * P rotein 2+ * p H 8.0 * B lood 2+ * S p. Gr. 1.020 * K etone Neg * B marciano Neg * G cedric Neg * Teresa Serna 11/18/2024 01 :52:40 PM EDT > Provider reviewed results while patient in office. ?LAB: TEN-UTI panel (Collection Date & Time - 11/18/2024)?Abnormal* Sandra Meneses 11/20/2024 07: 58:14 AM EDT > pt started on Macrobid.NataThalia 11/20/2024 01:22:46 PM EDT > LM for pt to return GuillerminaThalia 11/23/2024 09:10:22 AM EDT > Pt's granddaughter Tamiko informed of results 2.?Generalized weakness? Referral To:Home Health Agency ?Reason:Please use [facility] 3.?Debility? Referral To:Home Health Agency ?Reason:Please use [facility] * Procedure Codes: G 2211 Complex e/[place], [address] Urinalysis, no micro * Follow Up: v ia phone to report progress * Billing Information: * Visit Code: 34140 Office Visit, Est Pt., Level 3. * Procedure Codes: G2211 Complex e/[place] [address] Urinalysis, no micro. * Electronic signature of Skyla Lopez MD on 11/23/2024 at 12:07 PM EDT Sign off status: Pending * Provider: Marcio Lopez M.D. Date: 11/18/2024 Generated for Iaini ng/Faxing/eTransmitting on: 11/23/2024 12:07 PM EDT History and Physical Notes * HPI (History of Present Illness) Category Sub-Category Detail Notes Category Not es Neurology memory loss HPI Here for follow up on: The pt is here for a follow-up from [facility]. Pt's niece states the pt is having some confusion. Pt's niece states the pt is having a very strong odor to her urine and thinks she could have a UTI Examination Category Sub-Category Detail Notes Category Not es General Examination Heart: RSR Extremities: AFO in use on left l eg General Appearance: NAD, sitting in a wh eelchair Back: no CVA tenderness Consultation Request Notes Referral Date Referring Provider Referred Provider Not es 11/18/2024 Shahid Lopez , Please use [facility]
--- OUTSIDE RECORDS SUMMARY | 2024-11-18 10:00 | XMS_ITS ---
Author Organization [facility] Address [address] [phone] Care Team Providers Care Hand Shoes Sewer Name Role Phone Shahid Lopez Primary Care [...] Diagnosis 2 Generalized weakness (R53.1) [facility] Referring Provider First Name Shahid Referring Provider Last Name John Referring Provider Speciality Family Pra ctice Referred Provider Specialty Home Health Agency General Notes Yumiko Gomez 2024 02:51:15 PM > faxed to [facility] Referral Priority Routine REASON FOR VISIT mental [...] 11/18/2024 Encounters Encounter Location Date Provider Diagnosis [facility] [address] [facility] [address] [place] [id number] 11/18/2024 Shahid Lopez Acute UTI N39.0 ; [...] Notes * DARIANA THOMASONDOB:1940 (84 yo F)Acc No.[id number]:11/18/2024 Progress Notes Patient: DARIANA WOODARD Provider: Marcio Lopez M.D. :1940 A ge:84 Y S ex:Female Date:11/18/2024 Address:[address] [place], [place] [address], [phone] Subjective: * Chief Complaints: * 1 . Mental status change. * HPI: N eurology: 84 year old female presents with c/o memory loss. H PI: c/o Here for follow up on: [facility] Pt's niece states the pt is having [...] B one Spurs removed in Neck- [facility] 05/2016, Hysterectomy , LT Hip Repair 12/04/2019, Abscess Tooth Removal 02/2020. * Hospitalization/Major Diagno stic Procedure: [facility], [facility] 10/2016, Pneumonia- [facility] 11/23/2016-12/03/2016, Fall- [facility] 04/23/2018, Fall- [facility] 03/26/2019, [facility] 12/09- 01/02/2020, Fall w/ Laceration of Right Hand - [facility] 03/09/2022. * Family History: F ather: [...] G 2211 Complex e/[place], [address] Urinalysis, no micro * Follow Up: v ia phone to report progress * Billing Information: * Visit Code: 85386 Office Visit, Est Pt., Level 3. * Procedure Codes: G2211 Complex e/[place]. [address] Urinalysis, no micro. * Electronic signature of Skyla Lopez MD on 11/24/2024 at 12:11 PM EDT Sign off status: Pending * Provider: Marcio Lopez M.D. Date: 11/18/2024 Generated for Iaini ng/Faxing/eTransmitting on: 11/24/2024 12:11 PM EDT History and Physical Notes * HPI (History of Present Illness) Category Sub-Category Detail Notes Category Not es Neurology memory loss HPI Here for follow up on: The pt is here for a follow-up from [facility]. Pt's niece states the pt is [...]
[2024-11-23] VITALS (10 sets, daily range): BP systolic 111–159; BP diastolic 56–85; PULSE 74–88; RESP 10–18; TEMP 36.4–36.9; O2SAT 97–99; BMI 24.5; BMI 25.8
--- NOTE | 2024-11-23 11:46 | ECG_ITS ---
APPROVED REPORT Exam: Resting ECG HR:83 bpm ECG Measurements Heart Rate 83 AXES MT 164 P -74 QRSd 100 QRS 44 QT 383 T 88 QTc 423 Conclusion ECTOPIC ATRIAL RHYTHM ABNORMAL RHYTHM ECG UNCONFIRMED REPORT Electronically signed by : SAYRA PRYOR, 11/24/2024 06:33:58
--- OUTSIDE RECORDS SUMMARY | 2024-11-23 12:24 | XMS_ITS | Referral Summary ---
Author Organization [employer] Address [address] [place] [address] Care Team Providers Care Shell Trim Operator Name Role Phone Unavailable Primary Care Provider Unavailabl e Allergies Active Allergy Reactions Criticality Noted Date Comments Iodinated Contrast Media Other (See Comments) 06/24/2024 Went to sleep and doesn't remember Medications amLODIPine (NORVASC) 5 MG tablet Take 1 tablet (5 mg total) by mouth daily. Active gabapentin (NEURONTIN) 100 MG capsule Take 1 capsule (100 mg total) by mouth 3 (three) times daily. Max Daily Amount: 300 mg Active acetaminophen (TYLENOL) 500 MG tablet Take 1 tablet (500 mg total) by mouth every 6 (six) hours as needed for pain. Active Lactobac no.41/Bifidobac t no.7 (PROBIOTIC-10 ORAL) Take by mouth daily. Active atorvastatin (LIPITOR) 10 MG tablet Take 1 tablet (10 mg total) by mouth nightly. Active cyanocobalamin (vitamin B-12) 1000 MCG tablet Take 1 tablet (1,000 mcg total) by mouth daily. Active celecoxib (CeleBREX) 200 MG capsule Take 1 capsule (200 mg total) by mouth 2 (two) times daily Look-alike /Sound-alike medication . Active dicyclomine (BENTYL) 20 mg tablet Take 1 tablet (20 mg total) by mouth 2 (two) times daily as needed. Active levothyroxine (SYNTHROID) 50 MCG tablet Take 1 tablet (50 mcg total) by mouth Daily (0600). Active montelukast (SINGULAIR) 10 mg tablet Take 1 tablet (10 mg total) by mouth nightly. Active oxybutynin (DITROPAN) 5 MG tablet Take 1 tablet (5 mg total) by mouth daily. Active famotidine (PEPCID) 20 MG tablet Take 1 tablet (20 mg total) by mouth daily. Active Social History Tobacco Use Types Packs/Day Years Used Date Smoking Tobacco: Never Smokeless Tobacco: Never Tobacco Cessation:Counseling Given: Not Answered Comments No Sex and Gender Information Value Date Recorded Sex Assigned at Not on file Legal Sex Female 1:59 PM CDT Gender Identity Not on file Sexual Orientation Not on file Last Filed Vital Signs Vital Sign Reading Time Taken Comments Blood Pressure 164/87 06/24/2024 3:00 PM EST Pulse 79 06/24/2024 3:00 PM EST Temperature 36.6 C (97.8 F) 06/24/2024 10:06 AM EST Respiratory Rate 20 06/24/2024 3:00 PM EST Oxygen Saturation 97% 06/24/2024 3:00 PM EST room air Inhaled Oxygen Concentration - - Weight 65.8 kg (145 lb) 06/24/2024 10:06 AM EST Height 170.2 cm (5' 7 ) 06/24/2024 10:06 AM EST Body Mass Index 22.71 06/24/2024 10:06 AM EST Plan of Treatment Not on file Insurance [employer] [address] MEDICARE ADVANTAGE Advance Directives For more information, please contact: [phone] Documents on File Type Date Recorded Patient Steam Box Tender Expl anation Power of Painter And Paperhanger Apprentice-Patient 06/24/2024 9:19 AM POA (COPY OF UNCLE'S CERT HE LISTED ONE OF THE POA'S)
--- OUTSIDE RECORDS SUMMARY | 2024-11-23 12:24 | XMS_ITS | Encounter Summary ---
Author Organization [facility] Address [address] [place] [address] Care Team Providers Care Smocking Machine Operator Name Role Phone Unavailable Primary Care Provider Unavailabl e Encounter Details Date Type Department Care Team (Late st Contact Info) Description 06/17/2024 Outside Orders [facility] Central Scheduling [address] [place] [address] Jose De Jesus Christine MD [address] [place] [address] Other specified diseases of pancreas (Primary Dx) Social History Tobacco Use Types Packs/Day Years Used Date Smoking Tobacco: Never Assessed Comments Unknown Sex and Gender Information Value Date Recorded Sex Assigned at Not on file Legal Sex Female 1:59 PM CDT Gender Identity Not on file Sexual Orientation Not on file documented as of this encounter Plan of Treatment Not on file documented as of this encounter Visit Diagnoses Diagnosis Other specified diseases of pancreas- Primary documented in this encounter
--- OUTSIDE RECORDS SUMMARY | 2024-11-23 12:24 | XMS_ITS | Encounter Summary ---
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 Not on file Not on file documented as of this encounter Functional Status * Over the [...] Ness RN documented as of this encounter Plan of Treatment Upcoming Encounters Date Type Department Care Team (Late st Contact Info) Description 10/04/2025 1:00 PM EDT Clinical Support [facility]ology[facility] Therapy [facility] [address] [place] [phone] 10/04/2025 1:30 PM EDT Office Visit [facility] [address] [place] [address] Michael Goel, BIZTALK CONSULTANT 800 [facility] [address] [place] [phone] documented as of this encounter Visit Diagnoses Not on filedocumented in this encounter Additional Health Concerns Assessment Noted Time PHQ-9 Depression Total Score: 0 10/03/19 25 2:12 PM EDT A fall risk assessment has been complete d for the patient 10/02/2024 2:26 PM EDT documented as of this encounter Care Teams Editorial Director Relationship Specialty Start Date End Date Shahid Lopez MD [address] [place] [id number] PCP - General 10/14/20 Yue Evans APRN [address] [place] [address] Cancer [facility] [address] [place] [address] Nurse Practitioner Internal Medicine 12/11/21 documented as of this encounter
--- OUTSIDE RECORDS SUMMARY | 2024-11-23 12:24 | XMS_ITS | Encounter Summary ---
Author Organization [facility] Address [address] [place] [address] Care Team Providers Care Firer Low Pressure Name Role Phone Shahid Lopez MD Primary Care Provider + [phone] Yue Evans APRN Unavailable [phone] Encounter Details Date Type Department Care Team ([facility] Contact Info) Description 10/17/2020 Orders Only [facility]ology/BMT and Cellular Therapy Program [address] [place] [address] Isaac So MD Hematology/ BMT Clinic 800 [facility] [address] [place] [phone] Social History Tobacco Use Types Packs/Day Years Used Date Smoking Tobacco: Never Assessed Comments Unknown Sex and Gender Information Value Date Recorded Sex Assigned at Not on file Legal Sex Female 8:07 PM EDT Gender Identity Not on file Sexual Orientation Not on file documented as of this encounter Plan of Treatment Upcoming Encounters Date Type Department Care Team ([facility] Contact Info) Description 10/04/2025 1:00 PM EDT Clinical Support [facility] [address] [phone] 10/04/2025 1:30 PM EDT Office Visit [facility] Cellular Therapy [facility] [address] [place] [address] Michael Goel, HOSPITAL CLINIC ASSISTANT 800 [facility] [address] [place] [phone] documented as of this encounter Visit Diagnoses Not on filedocumented in this encounter Care Teams Firer Low Pressure Relationship Specialty Start Date End Date Shahid Lopez MD 1210 [facility] [address] [place] [address] PCP - General 10/14/20 Yue Evans APRN [address] [place] [address] Cancer [facility] [address] [place] [phone] Nurse Practitioner Internal Medicine 12/11/21 documented as of this encounter
--- OUTSIDE RECORDS SUMMARY | 2024-11-23 12:24 | XMS_ITS | Clinical Summary ---
Author Organization [facility] Address [address] [place] [address] Care Team Providers Care Rn Teacher Name Role Phone Unavailable Primary Care Provider [...] 06/24/2024 10:06 AM EST Plan of Treatment Health Maintenance Due Date Last Done Comments Depression Screening (12+) 1950 DTAP/TDAP/TD VACCINES (1 - Tdap) 1957 Shingles Vaccine (Zoster) (1 of 2) 1988 Respiratory Syncytial Virus (RSV) Adult or (1 - 1-dose 75+ series) 2013 Pneumococcal 50+ years (2 of 2 - PCV) 03/11/2018 03/11/2017 COVID-19 VACCINE (5 - 2023-2 5 season) 2024 03/30/2022, 03/10/2021, 09/07/2020, Additional history exists Falls Risk Screening 06/03/2024 Medicare IPPE (Welcome to Medicare) [id number] 06/03/2024 Influenza Vaccine (Season Ended) 2025 04/17/20 23, 04/06/2021 Tobacco Cessation Counseling and Screening (12+) 06/24/2025 06/24/2024 Insurance [place] [id number] [facility] MEDICARE ADVANTAGE Advance Directives For more information, please contact: [phone] Documents on File Type Date Recorded 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
--- OUTSIDE RECORDS SUMMARY | 2024-11-23 12:24 | XMS_ITS ---
Author Organization [facility] Care Team Providers Care Material Control Supervisor Name Role Phone Jose De Jesus Sepulveda Unavailable Unavailable Allergies and adverse reactions Code CodeSystem Substance Reaction Severity StartDate Concern Status Xanax Unknown 12/10/2019 active Tetanus Toxoids Unknown 12/10/[id number] Iodinated Diagno stic Agents Unknown 12/10/2019 active 5640 RXNORM Ibuprofen Unknown 12/10/2019 active Diphtheria Toxoid-containing Vaccines Unknown 12/10/2019 active Halsey Unknown 12/10/2019 active 161 RXNORM Acetaminophen Unknown 12/10/2019 active Care Team Name Role Address Phone Organization Dates Jose De Jesus Sepulveda PCP [address] [place] [address], [facility] [place] (Office): : [facility] 12/10/2019 - 01/02/2020 Goals Section Goals Description Status Target Date Resident will be clean warm and odor free through adequate toileting and Perineal Care Active 12/14/2020 Resident will have ADL care needs met daily as measured by clean, well groomed and odor free Active 12/14/2020 Resident will not develop co mplications of immobility/decreased mobility as measured by no pressure ulcers, contractures, pneumonia Active 12/14/2020 Skin Areas will heal and not display signs or symptoms of infection. Active 12/14/2020 The resident will ambulate u p to 100 feet, 1 x times daily 6-7xwk Active 12/14/2020 Immunizations Immunization Status Vaccine Details Vaccine Code CodeSystem Date Notes TB 2 Step Mantoux Skin Test completed tuberculin skin test; unspecified formulation lotNumber: [id number] expiry: 10/22/2021 Mfg: sanafi pasteur Given 0.1 ml Left Forearm intradermally Step 2 of Multi-step with next step required 98 CVX created date: 12/31/2019 consent date: 12/31/2019 administer ed date: 12/17/2019 Educated by Marija Faust on 12/31/2019 TB 2 Step Mantoux Skin Test completed tuberculin skin test; unspecified formulation lotNumber: [id number] expiry: 10/22/2021 Mfg: sanafi pasteur Given 0.1 ml Left Forearm subcutaneously Step 1 of Multi-step with next step required 98 CVX created date: 12/31/2019 consent date: 12/31/2019 administer ed date: 12/10/2019 Educated by Nick RN/DON on 12/10/[address] step given per Stanford Rincon RN. Consent confirmed and date consent confirmed per Matt Johnson RN/BORA. Mental Status Section Date Assessment Total Score Description 01/02/2020 BIMS 12 moderate cognit anna impairment CAM 0 No delirium ind icated PHQ-9 00 12/17/2019 BIMS 12 moderate cognit anna impairment CAM 0 No delirium ind icated PHQ-9 00 Problems Problem # Description Date of onset Resolved Date Code CodeSystem Concern Status 1 HYPOKALEMIA 12/31/[address] active 2 ACUTE POSTHEMORRHAGIC ANEMIA 12/10/[address] active 3 ADVERSE EFFECT OF UNSPECIFIED NARCOTICS, SEQUELA 12/10/[address] active 4 ADVERSE EFFECT OF UNSPECIFIED NARCOTICS, SUBSEQUENT ENCOUNTER 12/10/[address] active 5 DISORDER OF KIDNEY AND URETER, UNSPECIFIED 12/10/[address] active 6 ESSENTIAL (PRIMARY) HYPERTENSION 12/10/[address] active 7 FRACTURE OF UNSPECIFIED PART OF NECK OF LEFT FEMUR, SUBSEQUENT ENCOUNTER FOR CLOSED FRACTURE WITH ROUTINE HEALING 12/10/[address] active 8 LOW BACK PAIN 12/10/[address] act anna 9 OTHER BACTERIAL INFECTIONS OF UNSPECIFIED SITE 12/10/[address] active 10 OTHER RECURRENT DEPRESSIVE DISORDERS 12/10/[address] active 11 PRESENCE OF LEFT ARTIFICIAL HIP JOINT 12/10/[address] active 12 UNSPECIFIED B-CELL LYMPHOMA, UNSPECIFIED SITE 12/10/[address] active 13 URINARY TRACT INFECTION, SITE NOT SPECIFIED 12/10/[address] active Reason for Referral No Reasons for Referral Entered Social History Social History Observation Description Start Date End Date Code Code System Current Smoking Status Tobacco smoking consumption unknown 599414052 SNOMED CT Sex Assigned At Female 1940 55649-7 [facility] Gender Identity Vital Signs Code Code System Vitals Name Values and Units Timing Information 9279-1 [facility] Respiratory Rate Value=18.0 Units=/m in 01/02/2020 8462-4 [facility] Blood Pressure-Diastolic Value=64 Un its=mmHg 01/02/2020 8480-6 [facility] Blood Pressure-Systolic Updjh=112 Un its=mmHg 01/02/2020 8310-5 [facility] Body Temperature Value=97.8 Units= F 01/02/2020 8867-4 [facility] Heart rate Value=96.0 Units=/min 06/2019 11126-6 [facility] Pain Level Value=0.0 01/02/2020 59522-3 [facility] O2 % BldC Oximetry Value=97.0 Units= % 01/02/2020 84741-0 [facility] Weight Ihppv=268.6 Units=Lbs 8302-2 [facility] Height Value=67.0 Units=Inches 12/15/2019
--- OUTSIDE RECORDS SUMMARY | 2024-11-23 12:25 | XMS_ITS | Clinical Summary ---
Author Organization [facility] Address [address] [place] [address] Care Team Providers Care Blower Operator Name Role Phone Shahid Lopez MD Primary Care Provider + [phone] Yue Evans APRN Unavailable [phone] Allergies Active Allergy Reactions Criticality Noted Date Comments Lorazepam Anxiety Low 11/09/2020 Codeine Other - please document in the comment field Low 08/18/2016 Severe stomach upset, even with food. Hydromorphone Shortness of breath High 11/09/2020 Diphtheria Toxoid-Containing Vaccines Swelling High 12/10/2019 Iodinated Contrast Media Other - please document in the comment field,Unknown - Patient states they do not know rxn details Low 12/10/2019 Went to sleep and doesn't remember Iodinated contrast media (substance) Iv Contrast Other - please document in the comment field,Anaphylaxis High 05/04/2016 patient becomes extremely hot and dizzy Pneumococcal Vaccines Anaphylaxis High 11/09/2020 Tetanus Toxoids Swelling High 05/04/2016 Tetanus-Diphtheria Toxoids Td Swelling High 08/18/2016 Medications meclizine (Antivert) 12.5 MG tablet 1 tab(s) orally 1 to 3 times a day, As Needed Active atorvastatin (Lipitor) 10 MG tablet 1 tab(s) orally once a day Active celecoxib (CeleBREX) 200 MG capsule 1 cap(s) orally once a day Active famotidine (Pepcid) 20 MG tablet Take 0.5 tablets (10 mg) by mouth 1 (one) time each day. 10/27/19 17 Active guaiFENesin (Mucinex) 600 MG 12 hr tablet 1 tab(s) orally every 12 hours, As Needed Active levothyroxine (Synthroid, Levoxyl) 50 MCG tablet 1 tab(s) orally once a dayAttending physician: Dr Jurado Jamel 10/20/19 17 Active montelukast (Singulair) 10 MG tablet 1 tab(s) orally once a day Active b complex vitamins capsule Take 1 capsule by mouth 1 (one) time each day. 1000 daily Active calcium citrate-vitamin D2 (Citracal+D) 315-200 MG-UNIT tablet Take 1 tablet by mouth 1 (one) time each day. Active D3-50 1.25 MG (15051 UT) capsule 03/11/20 21 Active ondansetron ODT (Zofran-ODT) 4 MG disintegrating tablet if needed. 12/01/19 22 Active oxybutynin XL (Ditropan-XL) 5 MG 24 hr tablet 10/10/19 23 Active dicyclomine (Bentyl) 20 MG tablet Take 1 tablet (20 mg) by mouth if needed. 08/19/19 24 Active DULoxetine (Cymbalta) [address] capsule Take 1 capsule (30 mg) by mouth 1 (one) time each day. 09/09/19 24 Active gabapentin (Neurontin) 300 MG capsule Take 1 capsule (300 mg) by mouth if needed. 05/07/20 23 Active irbesartan (Avapro) 75 MG tablet Take 1 tablet (75 mg) by mouth 1 (one) time each day. 07/20/19 24 Active acetaminophen (Tylenol) 500 MG tablet Take 1 tablet by mouth every 6 hours as needed for pain, headaches or fever. Active amLODIPine (Norvasc) 5 MG tablet Take 1 tablet by mouth 1 time each day. Active cyanocobalamin 1000 MCG tablet Take 1 tablet by mouth 1 time each day. Active DULoxetine (Cymbalta) [address] capsule Take 1 capsule by mouth 2 times a day. 07/22/19 25 Active gabapentin (Neurontin) 100 MG capsule Take 1 capsule by mouth 3 times a day. 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 Overview (10/17/2020): Other diseases of bronchus, not elsewhere classified Encounters Date Type Department Care Team Description 10/02/2024 1:30 PM EDT Office Visit [facility] Hematology/BMT and Cellular Therapy Program [facility], [address] [place] [address] [place] [phone] Michael Goel APRN Diffuse large B-cell lymphoma, unspecified body region (CMS/HCC) (Primary Dx); Elevated serum creatinine; 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) 10/02/2024 1:00 PM EDT Clinical Support [facility] H[facility]ology/BMT and Cellular Therapy Program [facility], [address] [place] [address] [place] [phone] 10/02/2024 Travel from Last 3 Months Immunizations Immunization Administration Dates Next Due Hep A, Adult 11/10/2019,04/10/2019 Influenza, injectable, quadrivalent, preservativ e free 03/12/2017 Family History Medical History Relation Name Comments Alzheimer's disease Brother COPD Father Heart disease Father COPD Mother Heart disease Mother Stroke Mother Relation Name Status Comments Brother Father Mother Social History Tobacco Use Types Packs/Day Years Used Date Smoking Tobacco: Never Smokeless Tobacco: Never Tobacco Cessation:Counseling Given: Not Answered Alcohol Use Standard Drinks/Week Comments Not Currently [...] 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 Not on file Not on file Not on file Last Filed Vital Signs [...] oz) 10/02/2024 1:55 P M EDT Height 171.5 cm (5' 7.52 ) 10/03/2023 1:55 PM ED T Body Mass Index 22.85 10/03/2023 1:55 PM EDT Plan of Treatment Upcoming Encounters Date Type Department Care Team (Late st Contact Info) Description 10/04/2025 1:00 PM EDT Clinical Support [facility] Hematology/BMT and Cellular Therapy Program [facility], [facility] [place] [phone] 10/04/2025 1:30 PM EDT Office Visit [facility] Hematology/BMT and Cellular Therapy Program [facility], [facility] [place] [phone] Michael Goel, PHYSICIAN OBSTETRICIAN [facility] [address] [place] [phone] Health Maintenance Due Date Last Done Comments [facility]-Bone Density Scan 1938 [facility]-Medicare Annual Wellness (AWV) 1938 [facility]-Infant/Child/Adol SDOH Screenings 1938 [facility]- SDOH Screenings 1956 [facility]-Adult SDOH Screenings 1956 [facility]-DTaP,Tdap,and Td Vaccines (1 - Tdap) 1957 [facility]-Zoster Vaccines (1 of 2) 1957 [facility]-RSV Vaccine: 60+ Years or (1 - 1-dose 75+ series) 2013 [facility]-Pneumococcal Vaccine: 50+ Years (2 of 2 - PCV) 03/11/2018 03/11/2017 [id number] Vaccine (2023- season) 2024 03/30/2022, 03/10/2021, 09/07/2020, Additional history exists [facility]-Depression Screening 10/02/2025 10/02/2024, 07/2024 [facility]-Hepatitis A Vaccines Aged Out 11/10/2019, 01/2019 No longer eligible based on patient's age to complete this topic [facility]-Influenza Vaccine Completed 07/08/2024 , 04/17/2023, 04/06/2021, Additional history exists HPV Vaccines Aged Out No longer eligi ble based on patient's age to complete this topic [facility]-HIB Vaccines Aged Out No longer e ligible based on patient's age to complete this topic [facility]-IPV Vaccines Aged Out No longer e ligible based on patient's age to complete this topic [facility]-Rotavirus Vaccines Aged Out No lo nger eligible based on patient's age to complete this topic Procedures Procedure Name Priority Date/Time Associated Diagnosis Comments COMPREHENSIVE METABOLIC PANEL, PLASMA Routine 10/02/2024 1:08 PM EDT Diffuse large B-cell lymphoma, unspecified body region (CMS/HCC) CBC WITH AUTO DIFFERENTIAL Routine 10/02/2024 1:08 PM EDT Diffuse large B-cell lymphoma, unspecified body region (CMS/HCC) LACTATE DEHYDROGENASE, PLASMA Routine 10/02/2024 1:08 PM EDT Diffuse large B-cell lymphoma, unspecified body region (CMS/HCC) from Last 3 Months Results * (ABNORMAL) CBC and Differential (10/02/2024 1:08 PM EDT) WBC Count 6.89 3.70 - 10.30 10*3/uL LAB HEMATOLOGY METHOD 10/02/2024 1:36 PM EDT [facility] RBC Count 4.17 3.90 - 5.20 10*6/uL LAB HEMATOLOGY METHOD 10/02/2024 1:36 PM EDT [facility] HGB 12.1 11.2 - 15.7 g/dL LAB HEMATOLOGY METHOD 10/02/2024 1:36 PM EDT [facility] HCT 36.4 34.0 - 45.0 % LAB HEMATOLOGY METHOD 10/02/2024 1:36 PM EDT [facility] Platelet Count 195 155 - 369 10*3/uL LAB HEMATOLOGY METHOD 10/02/2024 1:36 PM EDT [facility] MCV 87 79 - 98 fL LAB HEMATOLOGY METHOD 10/02/2024 1:36 PM EDT [facility] MCH 29.0 26.0 - 32.0 pg LAB HEMATOLOGY METHOD 10/02/2024 1:36 PM EDT [facility] MCHC 33.2 30.7 - 35.5 g/dL LAB HEMATOLOGY METHOD 10/02/2024 1:36 PM EDT [facility] RDW 15.0(H) 11.5 - 14.5 % LAB HEMATOLOGY METHOD 10/02/2024 1:36 PM EDT [facility] MPV 11.0 8.8 - 12.5 fL LAB HEMATOLOGY METHOD 10/02/2024 1:36 PM EDT [facility] nRBC 0.0 <=0.0 per 100 WBCs LAB HEMATOLOGY METHOD 10/02/2024 1:36 PM EDT [facility] Differential Type Automated LAB HEMATOLOGY METHOD 10/02/2024 1:36 PM EDT [facility] Neutrophils % 77 % LAB HEMATOLOGY METHOD 10/02/2024 1:36 PM EDT [facility] Lymphocytes % 12 % LAB HEMATOLOGY METHOD 10/02/2024 1:36 PM EDT [facility] Monocytes % 9 % LAB HEMATOLOGY METHOD 10/02/2024 1:36 PM EDT [facility] Eosinophils % 1 % LAB HEMATOLOGY METHOD 10/02/2024 1:36 PM EDT [facility] Basophils % 0 % LAB HEMATOLOGY METHOD 10/02/2024 1:36 PM EDT [facility] Immature Granulocytes % 1 % LAB HEMATOLOGY METHOD 10/02/2024 1:36 PM EDT [facility] Neutrophils Absolute 5.30 1.60 - 6.10 10*3/uL LAB HEMATOLOGY METHOD 10/02/2024 1:36 PM EDT [facility] Lymphocytes Absolute 0.84(L) 1.20 - 3.90 10*3/uL LAB HEMATOLOGY METHOD 10/02/2024 1:36 PM EDT [facility] Monocytes Absolute 0.61 0.30 - 0.90 10*3/uL LAB HEMATOLOGY METHOD 10/02/2024 1:36 PM EDT [facility] Eosinophils Absolute 0.07 0.00 - 0.50 10*3/uL LAB HEMATOLOGY METHOD 10/02/2024 1:36 PM EDT [facility] Basophils Absolute 0.03 0.00 - 0.10 10*3/uL LAB HEMATOLOGY METHOD 10/02/2024 1:36 PM EDT [facility] Immature Granulocytes Absolute 0.04 0.00 - 0.06 10*3/uL LAB HEMATOLOGY METHOD 10/02/2024 1:36 PM EDT [facility] Blood Venous blood specimen / Unknown Venipuncture / Unknown 10/02/2024 1:08 PM EDT 10/02/2024 1:27 PM EDT Narrative [facility] - 10/02/2024 1:36 PM EDT Therapeutic decision making should be based on absolute values, rather than percentages. Michael Goel APRN LAB BLOOD ORDERABLES Final Result Performing Organization Address City/[facility]/ZIP Co de Phone Number [facility] [address] [place] [address] * Lactate Dehydrogenase, Plasma (10/02/2024 1:08 PM EDT) LDH, Plasma 237 116 - 250 U/L 10/02/2024 2:13 PM EDT [facility] Blood Venous blood specimen / Unknown Venipuncture / Unknown 10/02/2024 1:08 PM EDT 10/02/2024 1:30 PM EDT Michael Goel APRN LAB BLOOD ORDERABLES Final Result Performing Organization Address [facility] Co de Phone Number [facility] [address] [place] [address] * (ABNORMAL) Comprehensive Metabolic Panel, Plasma (10/02/2024 1:08 PM EDT) Glucose, Plasma 131(H) 74 - 99 mg/dL 10/02/2024 2:13 PM EDT [facility] BUN, Plasma 26(H) 8 - 23 mg/dL 10/02/2024 2:13 PM EDT [facility] Creatinine, Plasma 1.23(H) 0.60 - 1.10 mg/dL 10/02/2024 2:13 PM EDT [facility] BUN/Creatinine Ratio 21 10/02/2024 2:13 PM EDT [facility] Sodium, Plasma 137 136 - 145 mmol/L 10/02/2024 2:13 PM EDT [facility] Potassium, Plasma 3.9 3.6 - 4.9 mmol/L 10/02/2024 2:13 PM EDT [facility] Chloride, Plasma 103 97 - 107 mmol/L 10/02/2024 2:13 PM EDT [facility] CO2, Plasma 23 22 - 29 mmol/L 10/02/2024 2:13 PM EDT [facility] Anion Gap 11 6 - 16 mmol/L 10/02/2024 2:13 PM EDT [facility] Total Calcium, Plasma 9.4 8.9 - 10.2 mg/dL 10/02/2024 2:13 PM EDT [facility] Total Protein 6.6 6.3 - 7.9 g/dL 10/02/2024 2:13 PM EDT [facility] Albumin, Plasma 3.9 3.5 - 5.2 g/dL 10/02/2024 2:13 PM EDT [facility] AST, Plasma 40(H) 10 - 35 U/L 10/02/2024 2:13 PM EDT [facility] ALT, Plasma 58(H) 10 - 35 U/L 10/02/2024 2:13 PM EDT [facility] Alkaline Phosphatase, Plasma 338(H) 46 - 142 U/L 10/02/2024 2:13 PM EDT [facility] Total Bilirubin, Plasma 0.2 0.2 - 1.1 mg/dL 10/02/2024 2:13 PM EDT [facility] eGFRcr 42.9 mL/min/1.7 3m*2 10/02/2024 2:13 PM EDT [facility] Comment:Reported eGFRcr in m L/min/1.73m2 is based the CKD-EPI 2020 equation that does not use a race coefficient. Blood Venous blood specimen / Unknown Venipuncture / Unknown 10/02/2024 1:08 PM EDT 10/02/2024 1:30 PM EDT us Michael Goel APRN LAB BLOOD ORDERABLES Final Result [facility] [address] [place] [address] from Last 3 Months Insurance Care Teams Blower Operator Relationship Specialty Start Date End Date Shahid Lopez MD [address] [id number] PCP - General 10/14/20 Yue Evans APRN [address] [place] [address] [address] [place] [phone] Nurse Practitioner Internal Medicine 12/11/21
--- OUTSIDE RECORDS SUMMARY | 2024-11-23 12:25 | XMS_ITS | Patient Health Record ---
Author Organization [facility] Address [address] [id number] Care Team Providers Care Bridge Leverman Name Role Phone Shahid Lopez Primary Care [...] 09:10:59 AM Interpretation:Abnormal Performing Lab: Notes/Report: Abnormal Urinalysis - Inhouse Reviewed date:06/04/2024 08:54:27 AM Interpretation: Performing Lab: Notes/Report: H-BMP Reviewed date:06/24/2024 11:36:27 AM Interpretation:gfr 53, gluc 132 Performing Lab: Notes/Report: NA 137 136-145 mmol/L K 3.9 3.5-5.1 mmoL/L CL 102 98-107 mmol/L CO2 27 22.0-30.0 mmol/L GAP 11.9 5-15 mEq/L BUN 14 7-17 mg/dl CREATT 1.00 0.52-1.04 mg/dl GFRAA 64 >60 ML/MIN EGFR 53 >60 ml/min GLU 132 74-100 mg/dl CA 8.9 8.4-10.2 mg/dl H-TSH Reviewed date:10/27/2024 11:11:54 AM Interpretation: Performing Lab: Notes/Report: TSH 1.23 0.465-4.68 uIU/mL H-VITAMIN B12 Reviewed date:10/27/2024 11:11:54 AM Interpretation: Performing Lab: Notes/Report: VITB12 > 1000 239-931 pg/mL H-Sed Rate Reviewed date:10/27/2024 11:11:54 AM Interpretation: Performing Lab: Notes/Report: ESR 56 0-30 mm/hr H-Creatine Kinase Reviewed date:10/27/2024 11:11:54 AM Interpretation: Performing Lab: Notes/Report: CK 55 30-135 U/L HCVAB Reviewed date:10/27/2024 11:11:54 AM Interpretation: Performing Lab: Notes/Report: HCVAB NEGATIVE Negative All initial positives will be confirmed by 2 retests, if still positive they will be confirmed by [facility] Sendout. Urinalysis - Inhouse Reviewed date:05/22/2024 04:29:20 PM Interpretation: Performing Lab: Notes/Report: Color/Clarity Brownish Black Leuk neg Nitrite neg Urobili 16 Protein 3+ pH 8.5 Blood 3+ Sp. Gr. 1.020 Ketone trace Bili 2+ Gluc neg H-CA 19-9 Reviewed date:05/22/2024 04:29:20 PM Interpretation:129 Performing Lab: Notes/Report: CA199 129 0-35 U/mL [facility] Electrochemiluminescence Immunoassay (ECLIA) Values obtained with different assay methods or kits cannot be used interchangeably. Results cannot be interpreted as absolute evidence of the presence or absence of malignant disease. Performed at: [address] [id number] Cardiac Monitor Technician: Frank Fernandez PhD, Phone: [phone] TEN-UTI panel Reviewed date:05/25/2024 04:52:02 PM Interpretation: Performing Lab: Notes/Report: P-Basic Metabolic Panel (BMP ) Reviewed date:12/26/2023 08:42:41 AM Interpretation:gluc 119, Cr 1.07, gfr 51 Performing Lab: Notes/Report: Test performed by [facility] [address] [place] [address] , [address], [place] [address] Shahram Rice MD, Turn Down Attendant CLIA: [id number] Sodium 138 135-145 mmol/L Potassium 4.0 3.5-5.3 mmol/L Chloride 103 97-108 mmol/L CO2 25 22-32 mmol/L Glucose 119 65-99 mg/dL BUN 14 8-23 mg/dL Creatinine 1.07 0.50-1.00 mg/dL Calcium 9.2 8.6-10.4 mg/dL eGFR by Creatinine 51 >59 mL/min/1.73m2 P-Vitamin D 25-Hydroxy Reviewed date:12/26/2023 08:42:41 AM Interpretation:30 Performing Lab: Notes/Report: Test performed by [facility] [address] [place] [address] , [address], [place] [address] Shahram Rice MD, Turn Down Attendant CLIA: [id number] Vitamin D 25-Hydroxy 30.0 30.0-100.0 ng/mL Interpretation of Vitamin D 25 OH: < 20 ng/mL - Deficiency 20 - 29 ng/mL - Insufficiency 30 - 100 ng/mL - Sufficiency > 100 ng/mL - Super-therapeutic- toxicity may occur above this level. Clinical correlation required. 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) Referral Organization [facility] Referring Provider First Name Shahid Referring Provider Last Name Jhon [facility]erred Organization [facility] Referred Provider Rehana Matthew Referred Address [facility] [address] [address] [id number], Referred Provider Specialty Dermatology General Notes Yumiko Gomez 12/26/19 9:07:50 AM > tried to call but no answer; will try back later today, Yumiko Gomez 12/26/2023 9:38:08 AM > 03/10/2024 at 02:10pm; pt informed Referral Priority Routine Reason Please use [facility] Diagnosis 1 Debility (R53.81) Diagnosis 2 Generalized weakness (R53.1) Referral Organization [facility] Referring Provider First Name Shahid Referring Provider Last Name [place] Referring Provider Speciality [facility] Referred Provider Specialty Home Health Agency General Notes Yumiko Gomez 2024 02:51:15 PM > faxed to [facility] Referral Priority Routine Medications Medication SIG (Take, Route, Frequency, Duration) Notes Start Date End Date Status amLODIPine Besylate 5 MG 1 tablet Orally Once a day for 30 days 11/18/2024 Active Famotidine 20 MG 1 tablet at bedtime Orally At Bed Time for 90 days Active Irbesartan 75 MG 1 tablet Orally Once a day for 30 days 11/18/2024 Active DULoxetine HCl 60 MG TAKE 1 CAPSULE BY MOUTH ONCE DAILY Orally once daily for 90 days Active Metoprolol Tartrate 25 MG 1 tablet with food Orally daily for 30 days 11/18/2024 Active Levothyroxine Sodium 50 MCG TAKE 1 TABLET BY MOUTH ONCE DAILY for 90 Active Clopidogrel Bisulfate 75 MG 1 tablet Orally Once a day for 30 days 11/18/2024 Active Atorvastatin Calcium 10 MG TAKE 1 TABLET BY MOUTH ONCE DAILY for 90 days Active oxyBUTYnin Chloride ER 5 MG TAKE 1 TABLET BY MOUTH ONCE DAILY for 90 days Active Dicyclomine HCl 20 MG TAKE 1 TABLET BY M OUTH TWO TIMES A DAY NEEDED for 90 Active Vitamin D-3 125 MCG (5000 UT) 1 cap(s) orally once a week 03/11/2021 Not-Taking amLODIPine Besylate 5 MG 1 tablet Orally Once a day for 90 days Active Macrobid 100 MG 1 capsule with food Orally every 12 hrs for 5 days 11/18/2024 Active Gabapentin 100 MG 1 capsule Orally twi ce a day for 30 days 10/07/2024 Active Montelukast Sodium 10 MG TAKE 1 TABLET B Y MOUTH ONCE DAILY for 90 days Active Mucinex 600 MG 1 tablet as needed Orally every 12 hrs as needed Active Benadryl Allergy 25 MG 1 cap(s) orally prn prn Active Probiotic Formula No t-Taking B COMPLEX 100 Not-Ta nata Immunizations Vaccine Route Administration Date Status Comme nts xFluzone High Dose-private (65yr&older) Unknown 03/11/2017 Administered xFlu shot- 6months-36 months of gfl-SXOM-MPDD-trivalent Unknown 04/19/2016 Administered Prevnar (PCV20) IM Intramuscular 06/25/2022 Administered PNEUMOVAX 23 VACCINE Unknown 03/11/2017 Administered Hepatitis A (adult) Unknown 04/10/2019 Administered Hepatitis A (adult) Unknown 11/10/2019 Administered Fluzone High Dose (65yr and older) Unknown 03/20/2018 Administered Fluzone High Dose (65yr and older) IM Intramuscular 04/06/2019 Administered Fluzone High Dose (65yr and older) IM Intramuscular 03/03/2020 Administered Fluzone High Dose (65yr and older) Unknown 02/27/2022 Pending Fluzone High Dose (65yr and older) Unknown 04/17/2023 Administered Fluzone High Dose (65yr and older) IM Intramuscular 07/08/2024 Administered COVID 19 Pfizer Unknown 09/07/2020 Administered COVID 19 Pfizer Unknown 03/10/2021 Administered Problems Problem Type SNOMED Code ICD Code Onset Dates Problem Status W/U Status Risk Notes Problem 61893736 Essential (prima ry) hypertension (I10) Active confirmed Problem 23323229 Vitamin D defici ency (E55.9) Active confirmed Problem 25748817 Essential hypert ension (I10) Active confirmed Problem 87266014 Anxiety (F41.9) Active confirmed Problem 12154922 Polyarthralgia (M25.50) Active confirmed Problem 31449362 Polyneuropathy, unspecified (G62.9) Active confirmed Problem 99018617 Other chronic pa in (G89.29) Active confirmed Problem Chronic pain syndrome (255690113) Chronic pain syndrome (G89.4) Active confirmed Problem 943516049 Irritable bowel syndrome with diarrhea (K58.0) Active confirmed Problem 46596907 Urge incontinenc e (N39.41) Active confirmed Problem 08913192 Constipation, unspecified constipation type (K59.00) Active confirmed Problem 519191050 Acquired hypothyroidism (E03.9) Active confirmed Problem Osteoporosis (37884583) Osteoporosis (M81.0) Active confirmed Problem 69248363 Right sided scia dennys (M54.31) Active confirmed Problem 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) Active confirmed Problem 115043362 Pure hypercholesterolemia (E78.00) Active confirmed Problem 24071601 Allergic rhiniti s, unspecified seasonality, unspecified trigger (J30.9) Active confirmed Problem 934028186 History of B-giancarlo l lymphoma (Z85.72) Active confirmed Problem 393709138 Stage 3a chronic kidney disease (CKD) (N18.31) Active confirmed Problem 73070138 Irritable bowel syndrome with constipation and diarrhea (K58.2) Active confirmed Vital Signs Heart Rate 48 /min 11/18/2024 Blood pressure diastolic 64 mm Hg 11/18/2024 Height 66 in 11/18/2024 Blood pressure systolic 123 mm Hg 11/18/2024 Weight 00 lbs 11/18/2024 BMI 23.56 kg/m2 06/01/2024 Encounters Encounter Location Date Provider Diagnosis [facility] [address] [place], [place] [id number] 12/25/2023 Shahid [place] Essential (primary) hypertension I10 ; Stage 3a chronic kidney disease (CKD) N18.31 ; Vitamin D deficiency E55.9 and Neoplasm of uncertain behavior of skin D48.5 [facility] [address] [place], [place] [id number] 04/17/2024 Shahid [place] Right sided sciatica M54.31 and 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 [facility] [address] [place], [place] [id number] 05/21/2024 Shahid [place] Essential hypertensi on I10 ; Gross hematuria R31.0 and 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 [facility] [address] [facility] [address] [place], [place] [id number] 06/01/2024 Shahid [place] Acute UTI N39.0 [facility] [address] [facility] [address] [place], [place] [id number] 07/08/2024 Shahid [place] Encounter for immunization Z23 [facility] [address] [facility] [address] [place], [place] [id number] 11/18/2024 Shahid [place] Acute UTI N39.0 ; Generalized weakness R53.1 and Debility R53.81 [facility] [address] [facility] [address] [place], [place] [id number] 12/26/2023 Shahid [place] [facility] [address] [place], [place] [id number] 04/15/2024 Shahid [place] [facility] [address] [place] [id number] 05/06/2024 Shahid [place] Right sided sciatica M54.31 [facility] [address] [place], [place] [id number] 05/18/2024 Shahid [place] Essential (primary) hypertension I10 [facility] [address] [place] [id number] 05/19/2024 Shahid [place] [facility] [address] [place], [place] [id number] 05/22/2024 Shahid [place] [facility] [address] [place] [id number] 06/15/2024 Shahid [place] [facility] [address] [place], [place] [id number] 06/16/2024 Shahid [place] [facility] [address] [place] [id number] 06/18/2024 Shahid [place] Renal insufficiency N28.9 [facility] [address] [place], [place] [id number] 06/24/2024 Shahid [place] [facility] [address] [place] [id number] 07/21/2024 Shahid [place] [facility] [address] [place], [place] [id number] 10/07/2024 Shahid [place] Right sided sciatica M54.31 [facility] [address] [place], [place] [id number] 11/04/2024 Shahid [place] [facility] [address] [place], [place] [id number] 11/18/2024 Shahid [place] [facility] [address] [place], [place] [id number] 11/23/2024 Shahid Lopez Assessments Encounter Date Diagnosis (ICD Code) Assessment Notes Treatment Notes Treatment Clinical Notes Section Notes 12/25/2023 Stage 3a chronic kidney disease (CKD) (ICD-10 - N18.31) 04/17/2024 Right sided sciatica (ICD-10 - M54.31) 04/17/2024 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) 05/06/2024 Right sided sciatica (ICD-10 - M54.31) 05/18/2024 Essential (primary) hypertension (ICD-10 - I10) 05/21/2024 Essential hypertension (ICD-10 - I10) 05/21/2024 Gross hematuria (ICD-10 - R31.0) 12/25/2023 Essential (primary) hypertension (ICD-10 - I10) 06/01/2024 Acute UTI (ICD-10 - N39.0) 06/18/2024 Renal insufficiency (ICD-10 - N28.9) 07/08/2024 Encounter for immunization (ICD-10 - Z23) 10/07/2024 Right sided sciatica (ICD-10 - M54.31) 11/18/2024 Generalized weakness (ICD-10 - R53.1) 11/18/2024 Acute UTI (ICD-10 - N39.0) 11/18/2024 Debility (ICD-10 - R53.81) 12/25/2023 Vitamin D deficiency (ICD-10 - E55.9) 05/21/2024 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) MRCP results reviewed with patient 12/25/2023 Neoplasm of uncertain behavior of skin (ICD-10 - D48.5) Plan Of Treatment Pending Test Test Name Order Date X ray : Shoulder, right 04/20/2021 Insurance Providers Payer Name Payer Address Payer Phone Subscriber Number Group Number Insured Name Patient Relationship to Insured Coverage Start Date Coverage End Date [employer] [address] [address] [place], [place] [id number] DARIANA THOMASON Self - patient is the insured Medical (General) History Medical History History ICD Code Hypertension Hyperlipidemia Hyperthyroidism B-Cell Lymphoma, 08/2016 Pseudomonas Pneumonia, 11/2016 LT Hip Fracture 2019 LT Foot Drop Pancreatic cancer: Dx Jun 2024 Surgical History Surgery Date(Month/Year) Bone Spurs [facility] 05/2016 Hysterectomy LT Hip Repair 12/04/2019 Abscess Tooth Removal 02/2020 Hospitalization History Reason Date(Month/Year) Fall w/ Laceration of Right Hand - [facility] 03/09/2022 [facility] 12/09-01/02/20 20 Fall- [facility] 03/26/2019 Fall- [facility] 04/23/2018 Pneumonia- [facility] 11/23/2016- 7 [facility] 10/2016 Lymphoma- [facility] 08/2016
--- NOTE | 2024-11-23 12:45 | XR_ITS ---
FINAL REPORT CLINICAL HISTORY: short of breath COMPARISON: 11/27/2021 FINDINGS: No acute pulmonary opacity is present. No changes noted since the prior chest x-ray of 2021. Changes of emphysema are once again noted. There is no evidence of effusion or pneumothorax. Mediastinum is unremarkable. Heart size is normal. IMPRESSION: No acute abnormality. Reviewed, Interpreted and Dictated by Ceci Ruiz MD Transcribed by Ginger Gaines Authenticated and [facility]
--- NOTE | 2024-11-23 12:48 | ED_ITS ---
<Statement entered by Antonio Nicole MD - 11/23/24 16:13> GLADIS Attestation I was consulted by the GLADIS, and we discussed the complexity of problems being addressed. I approved the treatment and management plan for this patient's care in the emergency department, thus performing a substantial portion of the medical decision making. Antonio Nicole MD Discharge Plan Disposition Patient Disposition: Admitted Condition: Good Clinical Impressions Clinical Impression: Urinary tract infection Discharge ED Provider: Antonio Nicole General Adult HPI <Shonna Salmon (ED), PRIVACY SPECIALIST - Last Filed: 11/23/24 15:20> General Chief complaint: Urogenital-Female Stated complaint: dehydration, weakness, uti Time Seen by Provider: 11/23/24 12:32 Mode of Arrival: Ambulatory Source of Information: Patient Description of Symptoms (Recalled from ER Triage Doc. by RN): pt to the ED with a diagnosed UTC from Dr. Chavez's office. pt family stated the patient just finished her Macrobid this morning but is still having increased confusion and weakness. pt is alert and oriented to self. History of Present Illness HPI narrative: 84-year-old female presents to the ED today with a complaint of confusion, weakness, already diagnosed UTI. She has been on Macrobid for 5 days. She has already finished the last dose of Macrobid. Family states that she has recently been in [place] and [place]. She had a cath by Dr. Correa on October 27 and since then has declined significantly. She was walking and now is barely eating and drinking. She has become a total care within the last few days. Family is concerned. She has had pancreatic cancer and finished other radiation for that. She has become more incontinent than usual. She is more weak than usual and confused. She lives with the grandson. Related Data Home Medications ?Medication ?Instructions ?Recorded ?Confirmed celecoxib 200 mg capsule (Celebrex) 200 mg PO BID 01/0311/23/24 montelukast 10 mg tablet 10 mg PO PM 11/27/21 5 dicyclomine 20 mg tablet 20 mg PO BIDP PRN Stomach Pa in 04/13/24 11/23/24 duloxetine 30 mg capsule,delayed 30 mg PO DAILY 11/23/24 release oxybutynin chloride 5 mg 5 mg PO DAILY 04/13/2411/23 tablet,extended release 24 hr atorvastatin 10 mg tablet 10 mg PO DAILY 10/26/2411/02 famotidine 20 mg tablet 20 mg PO HS 10/26/24 5 levothyroxine 50 mcg tablet 50 mcg PO DAILY 10/26/24 0 11/23/24 metoprolol tartrate 25 mg tablet 12.5 mg PO BID 11/23/24 Previous Rx's ?Medication ?Instructions ?Recorded amlodipine 5 mg tablet 5 mg PO DAILY #30 tabs 04/14 aspirin 81 mg tablet,delayed 81 mg PO DAILY #0 tabs release clopidogrel 75 mg tablet 75 mg PO DAILY #0 tabs 10/30 gabapentin 100 mg capsule 100 mg PO TID #90 caps 10/30 guaifenesin 600 mg tablet, 600 mg PO BID #0 tabs 10/30 extended release 12 hr (Mucinex) irbesartan 75 mg tablet 75 mg PO DAILY #0 tabs 10/30 nitroglycerin 0.4 mg sublingual 0.4 mg sublingual Q5MI CARD STRIPPER PRN Chest 10/30/24 tablet (Nitrostat) Pain #0 tabs Allergies Allergy/AdvReac Type Severity Reaction Status Date / Time cucumber (CUCUMBER) Allergy Severe HIVES, Verified 07/09/24 14:25 SWELLING, TROUBLE BREATHING alprazolam (From XANAX) Allergy Intermediate ADVERSE Verified 07/09/24 14:25 tetanus and diphtheria Allergy Mild Verified 07/09/24 14:25 toxoids (TETANUS AND DIPHTHERIA TOXOIDS) Iodinated Contrast Media Allergy Unknown Verified 07/09/24 14:25 (IODINATED CONTRAST MEDIA - ORAL AND) [facility] <Shonna Salmon (ED), PRIVACY SPECIALIST - Last Filed: 11/23/24 15:20> [facility] Disclaimer: The information contained in this section may have been updated after the patient was seen, as this information can be updated by other users. Medical History (Updated 11/23/24 @ 16:17 by Kelly Ramesh, RN) B-cell lymphoma Uterine cancer Pancreatic cancer Coronary artery disease Bilateral arm pain Atypical angina Non-STEMI (non-ST elevated myocardial infarction) Renal insufficiency Polyneuropathy Leg weakness, bilateral Stage III chronic kidney disease Finger laceration E. coli UTI History of B-cell lymphoma SIRS (systemic inflammatory response syndrome) COVID-19 E. coli infect Infection due to Citrobacter Gram-negative bacteremia Postoperative anemia due to acute blood loss Adverse reaction to narcotic drug Left displaced femoral neck fracture Facial contusion Closed left hip fracture Hypertension B-cell lymphoma Pneumonia Dental trauma Epistaxis Concussion with loss of consciousness Nasal fracture Facial fracture Surgical History Fracture of left hip requiring operative repair History of tooth extraction H/O hysterectomy for benign disease Family History Other Stroke Social History (Updated 11/23/24 @ 16:17 by Kelly Ramesh RN) Smoking Status: Former smoker alcohol intake: never substance use type: denies use current occupational status: retired Travel in the last 8 weeks?: None household members: family housing: house current occupational exposures/hazards: No caffeine: No Have you lived/traveled outside [place] in past 30 days?: No Contact w/someone who lives/traveled outside US past 30 days?: No Exposure to someone with infectious disease in past 14 days?: No Do you have a fever (greater than 100.4 F or 38 C)?: No Have you tested positive for COVID-19?: No Exposed to someone with COVID-19 in past 14 days?: No Do you have a sore throat?: No Do you have a cough?: No Do you have any weakness?: Yes Do you have any diarrhea?: No Are you experiencing any unusual bleeding?: No Do you have any muscle aches/pain?: No Do you have any abdominal pain?: No Are you experiencing loss of taste or smell?: No Other Medical History Have you received the Flu Vaccine for this season: No Have you received the Pneumonia Vaccine: No <Shonna Salmon (ED), PRIVACY SPECIALIST - Last Filed: 11/23/24 15:20> ROS Obtained: Yes Systems reviewed as appropriate & no additional complaints except as documented Constitutional Constitutional: Reports as per HPI Physical Exam <Shonna Salmon (ED), PRIVACY SPECIALIST - Last Filed: 11/23/24 15:20> General General appearance: alert and in distress Head Head exam: normocephalic Eye Eye exam: Present PERRL and EOMI ENT ENT exam: Present normal oropharynx and mucous membranes moist Neck Neck exam: Present full ROM and trachea midline Respiratory Respiratory exam: Present normal lung sounds bilaterally Cardiovascular Cardiovascular exam: Present regular rate, normal rhythm, normal heart sounds, +S1 and +S2 Abdominal Exam Abdominal exam: Present soft and normal bowel sounds Extremities Exam Extremities exam: Present full ROM and normal capillary refill Neurological Exam Neurological exam: Present alert, oriented X3 and normal gait Skin Skin exam: Present warm, dry and intact Medical Decision Making <Shonna Salmon (ED), PRIVACY SPECIALIST - Last Filed: 11/23/24 15:20> Medical Records Screening: Per USPSTF and CDC recommendations, given the prevalence of disease in our region, it is our hospital?s policy to screen for HIV and viral Hepatitis for all patients aged 18 and over and those with ongoing risk factors. Eduardo Inquiry Pt receiving controlled substance: No Eduardo was queried for this patient: No Vital Signs: 11/23/24 11:44 11/23/24 13:30 11/23/24 13:58 Temperature 97.9 F Temperature Source Oral Pulse Rate Pulse Rate [Left Radial] 83 Respiratory Rate 17 Blood Pressure 130/56 L 111/85 Blood Pressure [Right Arm] 115/73 Blood Pressure Mean 65 93 Blood Pressure Mean [Right Arm] 87 Blood Pressure Source Blood Pressure Source [Right Arm] Automatic Cuff Blood Pressure Position [Right Arm] Sitting 02 Sat by Pulse Oximetry 98 Oxygen Delivery Method Room Air 11/23/24 14:00 11/23/24 14:30 11/23/24 15:01 Temperature Temperature Source Pulse Rate 74 79 Pulse Rate [Left Radial] Respiratory Rate 18 Blood Pressure 125/57 L 135/62 143/67 H Blood Pressure [Right Arm] Blood Pressure Mean 79 74 82 Blood Pressure Mean [Right Arm] Blood Pressure Source Blood Pressure Source [Right Arm] Blood Pressure Position [Right Arm] 02 Sat by Pulse Oximetry 97 97 Oxygen Delivery Method 11/23/24 15:31 11/23/24 15:48 11/23/24 15:59 Temperature 98.3 F Temperature Source Oral Pulse Rate 77 88 Pulse Rate [Left Radial] Respiratory Rate 18 16 Blood Pressure 158/69 H 159/68 H Blood Pressure [Right Arm] Blood Pressure Mean 82 Blood Pressure Mean [Right Arm] Blood Pressure Source Automatic Cuff Blood Pressure Source [Right Arm] Blood Pressure Position [Right Arm] 02 Sat by Pulse Oximetry 98 Oxygen Delivery Method Room Air Room Air Lab Data Lab Results 11/23/24 12:40: WBC 11.2 H, RBC 3.88 L, Hgb 11.5 L, Hct 35.7 L, MCV 92.0, MCH 29.6, MCHC 32.2, RDW 14.2, Plt Count 261, MPV 11.3 H, Neut % (Auto) 79.0, Lymph % (Auto) 10.2, [place] % (Auto) 8.8, Eos % (Auto) 1.1, Baso % (Auto) 0.4, Neut # (Auto) 8.8 H, Lymph # (Auto) 1.1, [place] # (Auto) 1.0, Eos # (Auto) 0.1, Baso # (Auto) 0.1, ESR 53 H, PT 12.1, INR 1.10, Sodium 137, Potassium 4.5, Chloride 101, Carbon Dioxide 26, Anion Gap 14.5, BUN 36 H, Creatinine 1.20 H, Estimated Creat Clear 31, Estimated GFR 43 L, Est GFR ( Amer) 52 L, Glucose 152 H, Lactate 1.3, Calcium 9.7, Magnesium 2.2, Total Bilirubin 1.0, AST 68 H, ALT 57, Alkaline Phosphatase 817 H, Total Creatine Kinase 50, Troponin I 0.03, C- Reactive Protein 94.1 H, Total Protein 7.1, Albumin 3.8, Globulin 3.3 H, Albumin/Globulin Ratio 1.2, Lipase 41 11/23/24 13:11: Urine Color Yellow, Urine Appearance Cloudy, Urine pH 7.0, Ur Specific [place] 1.020, Urine Protein 2+ A, Urine Glucose (UA) Negative, Urine Ketones 1+, Urine Blood 3+ A, Urine Nitrate Negative, Urine Bilirubin Negative, Urine Urobilinogen 1.0, Ur Leukocyte Esterase Trace, Urine RBC 10-20, Urine WBC Occasional, Ur Squamous Epith Cells 5-10, Urine Bacteria 2+ 11/23/24 12:40 11/23/24 12:40 Orders (Tests/Meds): ED MEDICATIONS Generic Name Dose Route Start Last Admin Trade Name Freq PRN Reason Stop Dose Admin Acetaminophen 1,000 mg 11/23/24 15:11 Acetaminophen 500mg Tab PO 12/23/24 15:10 Q6HP PRN Mild to Moderate Pain (1-6) Sodium Chloride 1,000 mls @ 100 mls/hr 11/23/24 15:15 Sod Chlor 0.9% 1000ml Bag IV 12/23/24 15:14 .Q10H ZULEYKA Discontinued Medications Generic Name Dose Route Start Last Admin Trade Name Freq PRN Reason Stop Dose Admin Sodium Chloride 1,000 mls @ 999 mls/hr 11/23/24 12:44 11/23/24 13:04 Sod Chlor 0.9% 1000ml Bag IV 11/23/24 13:44 999 mls/hr .Q1H1M ONE Administration Lactated Ringer's 1,770 mls @ 885 mls/hr 11/23/24 12:44 11/23/24 13:14 Lactated Ringer's 1000 Ml Bag 30 ml/kg infuse over 2 hr (1770 ml) 11/23/24 14:43 Not Given IV .Q2H ONE Protocol Ceftriaxone Sodium 2 gm/ 100 mls @ 200 mls/hr 11/23/24 12:44 11/23/24 13:03 Sodium Chloride IV 11/23/24 13:13 200 mls/hr ONCE ONE Administration ORDERS Category Date Time Status CT abdomen pelvis wo con Stat Cat Scan 11/23/24 13:17 Completed Chest XR -- portable [XR chest portable] Stat Exams 11/23/24 12:45 Completed C-Reactive Protein Stat Lab 11/23/24 12:40 Completed CBC [Complete Blood Count Auto Diff] Stat Lab 11/23/24 12:40 Completed Comprehensive Metabolic Panel Stat Lab 11/23/24 12:40 Completed Creatine Kinase Stat Lab 11/23/24 12:40 Completed Erythrocyte Sedimentation Rate Stat Lab 11/23/24 12:40 Completed Lactic Acid Stat Lab 11/23/24 12:40 Completed Lipase Stat Lab 11/23/24 12:40 Completed Magnesium Stat Lab 11/23/24 12:40 Completed PT INR [Prothrombin Time INR] Stat Lab 11/23/24 12:40 Completed Trop I [Troponin I] Stat Lab 11/23/24 12:40 Completed Troponin I Q3H Lab 11/23/24 15:45 Ordered Troponin I Q3H Lab 11/23/24 18:45 Ordered Urinalysis and Microscopic Stat Lab 11/23/24 13:11 Completed Urine Culture Stat Micro 11/23/24 13:11 Received Medical Decision Narrative: patient is a 84-year-old female presenting to the emergency department for evaluation of weakness, confusion and likely continuing urinary infection. Patient is hemodynamically stable and nontoxic-appearing upon arrival, afebrile. Differential diagnosis includes altered mental status, sepsis, UTI among others. Workup will be conducted with hematologic labs, specific imaging. Initial inventions include crystalloid bolus, Rocephin. Initial workup reviewed by me [hematologic labs are remarkable for elevated white count at 11.2, UTI, elevated BUN and creatinine at 36 and 1.2. Imaging informally interpreted by me and remarkable for stable pancreatic mass and gallstones. See radiology report for formal read. Patient continues to be slightly confused upon repeat evaluation. We are going to admit patient to Dr. Lopez. I have discussed with Dr. Lopez who agreed to admit patient and he will see her this evening after clinic. Patient and family is aware and agree on plan. Patient safe for admission. <Antonio Nicole MD - Last Filed: 11/23/24 16:28> Vital Signs: 11/23/24 11:44 11/23/24 13:30 11/23/24 13:58 Temperature 97.9 F Temperature Source Oral Pulse Rate Pulse Rate [Left Radial] 83 Respiratory Rate 17 Blood Pressure 130/56 L 111/85 Blood Pressure [Right Arm] 115/73 Blood Pressure Mean 65 93 Blood Pressure Mean [Right Arm] 87 Blood Pressure Source Blood Pressure Source [Right Arm] Automatic Cuff Blood Pressure Position [Right Arm] Sitting 02 Sat by Pulse Oximetry 98 Oxygen Delivery Method Room Air 11/23/24 14:00 11/23/24 14:30 11/23/24 15:01 Temperature Temperature Source Pulse Rate 74 79 Pulse Rate [Left Radial] Respiratory Rate 18 Blood Pressure 125/57 L 135/62 143/67 H Blood Pressure [Right Arm] Blood Pressure Mean 79 74 82 Blood Pressure Mean [Right Arm] Blood Pressure Source Blood Pressure Source [Right Arm] Blood Pressure Position [Right Arm] 02 Sat by Pulse Oximetry 97 97 Oxygen Delivery Method 11/23/24 15:31 11/23/24 15:48 11/23/24 15:59 Temperature 98.3 F Temperature Source Oral Pulse Rate 77 88 Pulse Rate [Left Radial] Respiratory Rate 18 16 Blood Pressure 158/69 H 159/68 H Blood Pressure [Right Arm] Blood Pressure Mean 82 Blood Pressure Mean [Right Arm] Blood Pressure Source Automatic Cuff Blood Pressure Source [Right Arm] Blood Pressure Position [Right Arm] 02 Sat by Pulse Oximetry 98 Oxygen Delivery Method Room Air Room Air Lab Data Lab Results 11/23/24 12:40: WBC 11.2 H, RBC 3.88 L, Hgb 11.5 L, Hct 35.7 L, MCV 92.0, MCH 29.6, MCHC 32.2, RDW 14.2, Plt Count 261, MPV 11.3 H, Neut % (Auto) 79.0, Lymph % (Auto) 10.2, [place] % (Auto) 8.8, Eos % (Auto) 1.1, Baso % (Auto) 0.4, Neut # (Auto) 8.8 H, Lymph # (Auto) 1.1, [place] # (Auto) 1.0, Eos # (Auto) 0.1, Baso # (Auto) 0.1, ESR 53 H, PT 12.1, INR 1.10, Sodium 137, Potassium 4.5, Chloride 101, Carbon Dioxide 26, Anion Gap 14.5, BUN 36 H, Creatinine 1.20 H, Estimated Creat Clear 31, Estimated GFR 43 L, Est GFR ( Amer) 52 L, Glucose 152 H, Lactate 1.3, Calcium 9.7, Magnesium 2.2, Total Bilirubin 1.0, AST 68 H, ALT 57, Alkaline Phosphatase 817 H, Total Creatine Kinase 50, Troponin I 0.03, C- Reactive Protein 94.1 H, Total Protein 7.1, Albumin 3.8, Globulin 3.3 H, Albumin/Globulin Ratio 1.2, Lipase 41 11/23/24 13:11: Urine Color Yellow, Urine Appearance Cloudy, Urine pH 7.0, Ur Specific [place] 1.020, Urine Protein 2+ A, Urine Glucose (UA) Negative, Urine Ketones 1+, Urine Blood 3+ A, Urine Nitrate Negative, Urine Bilirubin Negative, Urine Urobilinogen 1.0, Ur Leukocyte Esterase Trace, Urine RBC 10-20, Urine WBC Occasional, Ur Squamous Epith Cells 5-10, Urine Bacteria 2+ Orders (Tests/Meds): ED MEDICATIONS Generic Name Dose Route Start Last Admin Trade Name Freq PRN Reason Stop Dose Admin Acetaminophen 1,000 mg 11/23/24 15:11 Acetaminophen 500mg Tab PO 12/23/24 15:10 Q6HP PRN Mild to Moderate Pain (1-6) Sodium Chloride 1,000 mls @ 100 mls/hr 11/23/24 15:15 Sod Chlor 0.9% 1000ml Bag IV 12/23/24 15:14 .Q10H ZULEYKA Discontinued Medications Generic Name Dose Route Start Last Admin Trade Name Freq PRN Reason Stop Dose Admin Sodium Chloride 1,000 mls @ 999 mls/hr 11/23/24 12:44 11/23/24 13:04 Sod Chlor 0.9% 1000ml Bag IV 11/23/24 13:44 999 mls/hr .Q1H1M ONE Administration Lactated Ringer's 1,770 mls @ 885 mls/hr 11/23/24 12:44 11/23/24 13:14 Lactated Ringer's 1000 Ml Bag 30 ml/kg infuse over 2 hr (1770 ml) 11/23/24 14:43 Not Given IV .Q2H ONE Protocol Ceftriaxone Sodium 2 gm/ 100 mls @ 200 mls/hr 11/23/24 12:44 11/23/24 13:03 Sodium Chloride IV 11/23/24 13:13 200 mls/hr ONCE ONE Administration ORDERS Category Date Time Status CT abdomen pelvis wo con Stat Cat Scan 11/23/24 13:17 Completed Chest XR -- portable [XR chest portable] Stat Exams 11/23/24 12:45 Completed C-Reactive Protein Stat Lab 11/23/24 12:40 Completed CBC [Complete Blood Count Auto Diff] Stat Lab 11/23/24 12:40 Completed Comprehensive Metabolic Panel Stat Lab 11/23/24 12:40 Completed Creatine Kinase Stat Lab 11/23/24 12:40 Completed Erythrocyte Sedimentation Rate Stat Lab 11/23/24 12:40 Completed Lactic Acid Stat Lab 11/23/24 12:40 Completed Lipase Stat Lab 11/23/24 12:40 Completed Magnesium Stat Lab 11/23/24 12:40 Completed PT INR [Prothrombin Time INR] Stat Lab 11/23/24 12:40 Completed Trop I [Troponin I] Stat Lab 11/23/24 12:40 Completed Troponin I Q3H Lab 11/23/24 15:45 Ordered Troponin I Q3H Lab 11/23/24 18:45 Ordered Urinalysis and Microscopic Stat Lab 11/23/24 13:11 Completed Urine Culture Stat Micro 11/23/24 13:11 Received Critical Care <Antonio Nicole MD - Last Filed: 11/23/24 16:28> Critical Care Time Critical Care Time: No
[2024-11-23 12:55] LABS: Basophils # 0.1 K/mm3 (0-0.2); Basophils % 0.4 % (0.1-2.0); Eosinophils # 0.1 Kmm3 (0.0-0.4); Eosinophils % 1.1 % (0.1-12.0); Hematocrit 35.7 % (37.0-47.0); Hemoglobin 11.5 g/dL (12.2-16.2); Immature Granulocytes # 0.06 10^3uL; Immature Granulocytes % 0.5 %; Lymphocytes # 1.1 K/mm3 (0.7-4.5); Lymphocytes % 10.2 % (10-50); Mean Corpuscular HGB Conc 32.2 g/dL (31.8-35.4); Mean Corpuscular Hemoglobin 29.6 pg (27.0-31.2); Mean Platelet Volume 11.3 fl (7.4-10.4); Monocytes % 8.8 % (1.7-9.3); Neutrophils # 8.8 K/mm3 (1.8-7.8); Nucleated Red Blood Cells # 0 10^3/uL; Nucleated Red Blood Cells % 0 %; Platelet Count 261 K/mm3 (142-424); Red Blood Count 3.88 M/mm3 (4.20-5.40); Red Cell Distribution Width 14.2 % (11.5-17.5); Red Cell Distribution Width-SD 47.9 fL; White Blood Count 11.2 K/mm3 (4.8-10.8)
[2024-11-23 13:02] LABS: Prothrombin Time 12.1 seconds (10.1-12.5)
[2024-11-23 13:03] LABS: Albumin Level 3.8 g/dl (3.5-5.0); Chloride 101 mmol/L (98-107); Potassium 4.5 mmoL/L (3.5-5.1); Sodium 137 mmol/L (136-145)
[2024-11-23] MEDS: CEFTRIAXONE SODIUM 2 GM in 0.9 % SODIUM CHLORIDE 100 ML IV (13:03)
[2024-11-23] MEDS: 0.9 % SODIUM CHLORIDE 1000ML 1,000 ML 999 ML IV (13:04)
[2024-11-23 13:05] LABS: Alanine Aminotransferase 57 U/L (12-78); Anion Gap 14.5 mEq/L (5-15); Aspartate Amino Transferase 68 U/L (14-36); Blood Urea Nitrogen 36 mg/dl (7-17); Carbon Dioxide 26 mmol/L (22.0-30.0); Creatinine Clearance Estimated 31 mL/min (50-200); Estimated Glomerular Filt Rate 43 ml/min (>60); GFR (African American) 52 ML/MIN (>60)
[2024-11-23 13:06] LABS: Albumin/Globulin Ratio 1.2 (1.1-1.8); Alkaline Phosphatase 817 U/L (38-126); Calcium 9.7 mg/dl (8.4-10.2); Creatine Kinase 50 U/L (30-135); Globulin 3.3 g/dL (1.3-3.2); Glucose 152 mg/dl (74-100); Lipase 41 U/L (23-300); Magnesium 2.2 mg/dl (1.6-2.3); Total Protein,Serum 7.1 g/dl (6.3-8.2)
[2024-11-23 13:07] LABS: Lactic Acid 1.3 mmol/L (0.7-2.1)
[2024-11-23 13:11] LABS: C-Reactive Protein 94.1 mg/L (0-4)
[2024-11-23 13:17] LABS: Microscopic, Urine URINE MICROSCOPIC (MICROSCOPIC)
--- NOTE | 2024-11-23 13:17 | CT_ITS ---
FINAL REPORT TECHNIQUE: Noncontrast CT exam of the abdomen and pelvis. This study was performed with techniques to keep radiation doses as low as reasonably achievable (ALARA). Individualized dose reduction techniques using automated exposure control or adjustment of mA and/or kV according to the patient's size were employed. CLINICAL HISTORY: abdominal pain COMPARISON: CTA of the abdomen and pelvis from 04/12/2024 FINDINGS: Abdomen: Lung bases are clear. Liver, spleen and adrenal glands have a normal CT appearance in their limited unenhanced state. There is a hypodense focus in the body of the pancreas, not well-defined without contrast, also noted on the prior CTA of 2023. There is distal pancreatic ductal dilatation, similar to the prior exam. There is probable cholelithiasis without evidence of acute gallbladder disease or biliary obstruction. The kidneys show no stone disease or obstruction. Parapelvic cysts are noted in the left kidney. No obvious renal mass is present. No ureteral stones are present. The bowel is unremarkable. Pelvis: No distal ureteral stones are seen. The appendix is normal. There is mild fecal impaction in the rectal vault. Bladder is unremarkable. No fluid collection or adenopathy is seen. IMPRESSION: No bowel obstruction or acute inflammatory changes. Grossly stable appearance of the known pancreatic mass, although this is not well-visualized without intravenous contrast. Probable cholelithiasis without acute gallbladder disease or biliary obstruction. Reviewed, Interpreted and Dictated by Ceci Ruiz MD Transcribed by Ginger Gaines Authenticated and . [facility]
[2024-11-23 13:20] LABS: Troponin I 0.03 ng/ml (0.00-0.034)
[2024-11-23 13:22] LABS: Erythrocyte Sedimentation Rate 53 mm/hr (0-30)
[2024-11-23 13:26] LABS: Appearance,Urine CLOUDY (Clear); Bilirubin,Urine Negative (Negative); Blood, Urine 3+ (Negative); Color,Urine YELLOW (Yellow); Glucose,Urine (UA) Negative (Negative); Ketones,Urine 1+ (Negative); Leukocyte Esterase,Urine TRACE (Negative); Nitrate,Urine Negative (Negative); Protein,Urine 2+ (Negative)
[2024-11-23 14:03] LABS: Bacteria,Urine 2+ /lpf; WBC,Urine Occasional #/hpf (0-3)
--- NOTE | 2024-11-23 14:33 | PC.NURSE ---
moved pt of the blue sliding sheet. no needs at this time
--- NOTE | 2024-11-23 15:12 | PC.NURSE ---
speaking with hospitalist for admission
--- NOTE | 2024-11-23 15:14 | HMH.PHAINT1 ---
Pharmacy Intervention Comments: MEDICATION RECONCILIATION COMPLETED ON PATIENT USING EXTERNAL FILL HISTORY FROM PHARMACY AND DISCHARGE SUMMARY FROM PREVIOUS ADMISSION. -KIRSTEN SIMPSON, JHD
--- NOTE | 2024-11-23 15:47 | PC.NURSE ---
Report called to Walter YOO.
--- NOTE | 2024-11-23 16:00 | PC.NURSE ---
arrived by stretcher from ED
[2024-11-23 17:13] LABS: Troponin I 0.02 ng/ml (0.00-0.034)
--- NOTE | 2024-11-23 19:01 | EXP.HP ---
History of Present Illness *Admission Date: 11/23/24 *Reason for visit:: Confusion, recent UTI *History of present illness: Ms. Bueno is an 84 year old female patient of [facility], who was seen in the office last week due to weakess and confusion on the day she discharged from a SNF. She was found to have a UTI and was treated with Macrobid. Urine PCR showed E. coli sensitive to Macrobid. She failed to improve and was having trouble eating and had progressive weakness, resulting in some falls at home so she was brought to the ER tofdau for further evaluation. Patient was recently admitted to [facility], about 4 weeks ago due to a NSTEMI and had a left heart cath with stents placed. After that admission she wasd discharged to a SNF but did not do well during that stay. Patient was diagnosed with pancreatic cancer about 6 months ago and completed radiiation treatment about 2 months ago. [facility] Disclaimer: The information contained in this section may have been updated after the patient was seen, as this information can be updated by other users. Medical History (Updated 11/23/24 @ 19:09 by Shahid Lopez MD) Foot drop B-cell lymphoma Uterine cancer Pancreatic cancer Coronary artery disease Bilateral arm pain Atypical angina Non-STEMI (non-ST elevated myocardial infarction) Renal insufficiency Polyneuropathy Leg weakness, bilateral Stage III chronic kidney disease Finger laceration E. coli UTI History of B-cell lymphoma SIRS (systemic inflammatory response syndrome) COVID-19 E. coli infect Infection due to Citrobacter Gram-negative bacteremia Postoperative anemia due to acute blood loss Adverse reaction to narcotic drug Left displaced femoral neck fracture Facial contusion Closed left hip fracture Hypertension B-cell lymphoma Pneumonia Dental trauma Epistaxis Concussion with loss of consciousness Nasal fracture Facial fracture Surgical History (Updated 11/23/24 @ 19:09 by Shahid Lopez MD) History of coronary artery stent placement Fracture of left hip requiring operative repair History of tooth extraction H/O hysterectomy for benign disease Family History Stroke Social History Smoking Status: Former smoker alcohol intake: never substance use type: denies use current occupational status: retired Travel in the last 8 weeks?: None household members: family housing: house current occupational exposures/hazards: No caffeine: No Have you lived/traveled outside US in past 30 days?: No Contact w/someone who lives/traveled outside US past 30 days?: No Exposure to someone with infectious disease in past 14 days?: No Do you have a fever (greater than 100.4 F or 38 C)?: No Have you tested positive for COVID-19?: No Exposed to someone with COVID-19 in past 14 days?: No Do you have a sore throat?: No Do you have a cough?: No Do you have any weakness?: Yes Do you have any diarrhea?: No Are you experiencing any unusual bleeding?: No Do you have any muscle aches/pain?: No Do you have any abdominal pain?: No Are you experiencing loss of taste or smell?: No Other Medical History Have you received the Flu Vaccine for this season: No Have you received the Pneumonia Vaccine: Yes Review of Systems Constitutional Constitutional: Denies chills, Denies fever(s) and Reports frequent falls ENT Ears, Nose, Mouth, and Throat: Denies dizziness *Cardiovascular Cardiovascular: Denies chest pain and Denies dyspnea *Respiratory Respiratory: Denies dyspnea *Gastrointestinal Gastrointestinal: Denies abdominal pain *Genitourinary Genitourinary: Reports as per HPI *Musculoskeletal Musculoskeletal: Denies arthralgias *Neurologic Neurologic: Denies dizziness and Reports frequent falls Meds Home Medications and Allergies Home Medications ?Medication ?Instructions ?Recorded ?Confirmed ?Type celecoxib 200 mg capsule (Celebrex) 200 mg PO BID 02/01/20 11/23/24 History montelukast 10 mg tablet 10 mg PO PM 11/27/21 11/23/24 History dicyclomine 20 mg tablet 20 mg PO BIDP PRN Stomach Pain 04/13/24 11/23/24 History duloxetine 30 mg capsule,delayed 30 mg PO DAILY 04/13/24 11/23/24 History release oxybutynin chloride 5 mg 5 mg PO DAILY 04/13/24 11/23/24 History tablet,extended release 24 hr amlodipine 5 mg tablet 5 mg PO DAILY #30 tabs 04/14/24 11/23/24 Rx atorvastatin 10 mg tablet 10 mg PO DAILY 10/26/24 11/23/24 History famotidine 20 mg tablet 20 mg PO HS 10/26/24 11/23/24 History levothyroxine 50 mcg tablet 50 mcg PO DAILY 10/26/24 11/23/24 History aspirin 81 mg tablet,delayed 81 mg PO DAILY #0 tabs 10/30/24 11/23/24 Rx release clopidogrel 75 mg tablet 75 mg PO DAILY #0 tabs 10/30/24 11/23/24 Rx gabapentin 100 mg capsule 100 mg PO TID #90 caps 10/30/24 11/23/24 Rx guaifenesin 600 mg tablet, 600 mg PO BID #0 tabs 10/30/24 11/23/24 Rx extended release 12 hr (Mucinex) irbesartan 75 mg tablet 75 mg PO DAILY #0 tabs 10/30/24 11/23/24 Rx nitroglycerin 0.4 mg sublingual 0.4 mg sublingual Q5MINP PRN Chest 10/30/24 11/23/24 Rx tablet (Nitrostat) Pain #0 tabs metoprolol tartrate 25 mg tablet 12.5 mg PO BID 11/23/24 11/23/24 History New Prescriptions to Start Prescriptions: Allergies Allergy/AdvReac Type Severity Reaction Status Date / Time cucumber (CUCUMBER) Allergy Severe HIVES, Verified 07/09/24 14:25 SWELLING, TROUBLE BREATHING alprazolam (From XANAX) Allergy Intermediate ADVERSE Verified 07/09/24 14:25 tetanus and diphtheria Allergy Mild Verified 07/09/24 14:25 toxoids (TETANUS AND DIPHTHERIA TOXOIDS) Iodinated Contrast Media Allergy Unknown Verified 07/09/24 14:25 (IODINATED CONTRAST MEDIA - ORAL AND) Exam Data for Last 24 hours Vital signs and Labs for Last 24 Hours: Temp Pulse Resp BP Pulse Ox O2 Del Method 97.6 F 81 16 131/62 98 Room Air 11/23/24 16:00 11/23/24 16:00 11/23/24 16:00 11/23/24 16:00 11/23/24 16:00 11/23/24 18:05 Laboratory Results - last 24 hr 11/23/24 12:40: WBC 11.2 H, RBC 3.88 L, Hgb 11.5 L, Hct 35.7 L, MCV 92.0, MCH 29.6, MCHC 32.2, RDW 14.2, Plt Count 261, MPV 11.3 H, Neut % (Auto) 79.0, Lymph % (Auto) 10.2, [place] % (Auto) 8.8, Eos % (Auto) 1.1, Baso % (Auto) 0.4, Neut # (Auto) 8.8 H, Lymph # (Auto) 1.1, [place] # (Auto) 1.0, Eos # (Auto) 0.1, Baso # (Auto) 0.1, ESR 53 H, PT 12.1, INR 1.10, Sodium 137, Potassium 4.5, Chloride 101, Carbon Dioxide 26, Anion Gap 14.5, BUN 36 H, Creatinine 1.20 H, Estimated Creat Clear 31, Estimated GFR 43 L, Est GFR ( Amer) 52 L, Glucose 152 H, Lactate 1.3, Calcium 9.7, Magnesium 2.2, Total Bilirubin 1.0, AST 68 H, ALT 57, Alkaline Phosphatase 817 H, Total Creatine Kinase 50, Troponin I 0.03, C-Reactive Protein 94.1 H, Total Protein 7.1, Albumin 3.8, Globulin 3.3 H, Albumin/Globulin Ratio 1.2, Lipase 41 11/23/24 13:11: Urine Color Yellow, Urine Appearance Cloudy, Urine pH 7.0, Ur Specific [place] 1.020, Urine Protein 2+ A, Urine Glucose (UA) Negative, Urine Ketones 1+, Urine Blood 3+ A, Urine Nitrate Negative, Urine Bilirubin Negative, Urine Urobilinogen 1.0, Ur Leukocyte Esterase Trace, Urine RBC 10-20, Urine WBC Occasional, Ur Squamous Epith Cells 5-10, Urine Bacteria 2+ 11/23/24 16:26: Troponin I 0.02 I & O for Last 24 hours: Intake & Output 11/20/24 11/21/24 11/22/24 11/23/24 23:59 23:59 23:59 23:59 Weight 136 lb 12.8 oz Constitutional Constitutional: no acute distress Comments: alert, confused about why she is in the hospital, wants to go home *Routine HEENT Exam Head: Present normocephalic Eye: Present EOMI and PERRL ENT: Present mucous membranes moist *Routine Neck Exam Neck: Present supple; Absent lymphadenopathy *Routine Respiratory Exam Respiratory: Present CTA bilaterally *Routine Cardiovascular Exam Cardiovascular: Present RRR *Routine Abdominal Exam Abdominal: Present soft and normoactive bowel sounds; Absent tenderness *Routine Rectal Exam Rectal:: deferred *Routine Genitalia Exam Genitalia:: deferred *Routine Extremities Exam Extremities: Absent cyanosis, clubbing or edema *Routine Skin Exam Skin: Present warm; Absent rash *Routine Neurological Exam Neurological: Present alert and moving all extremities Comments: generalized weakness Assessment and Plan *Assessment and plan (1) Urinary tract infection: Status: Acute Category: Medical Code(s): N39.0 - Urinary tract infection, site not specified (2) Failure of outpatient treatment: Status: Acute Category: Medical Code(s): Z78.9 - Other specified health status (3) General weakness: Status: Acute Category: Medical Code(s): R53.1 - Weakness (4) Hyperlipidemia: Status: Acute Qualifiers: Hyperlipidemia type: mixed hyperlipidemia Qualified Code(s): E78.2 - Mixed hyperlipidemia Category: Medical Code(s): E78.5 - Hyperlipidemia, unspecified (5) Hypertension: Status: Chronic Qualifiers: Hypertension type: primary hypertension Qualified Code(s): I10 - Essential (primary) hypertension Category: Medical Code(s): I10 - Essential (primary) hypertension (6) Coronary artery disease: Status: Acute Category: Medical Code(s): I25.10 - Atherosclerotic heart disease of [place] coronary artery without angina pectoris (7) Renal insufficiency: Status: Acute Category: Medical Code(s): N28.9 - Disorder of kidney and ureter, unspecified (8) Polyneuropathy: Status: Acute Category: Medical Code(s): G62.9 - Polyneuropathy, unspecified (9) Leg weakness, bilateral: Status: Acute Category: Medical Code(s): R29.898 - Other symptoms and signs involving the musculoskeletal system (10) Confusion: Status: Acute Category: Medical Code(s): R41.0 - Disorientation, unspecified (11) Foot drop: Status: Acute Category: Medical Code(s): M21.379 - Foot drop, unspecified foot Plan Patient admitted for further evaluation and management. Antibiotics changed to Rocephin, cultures ordered, continue ASA and Plvix, see orders.
[2024-11-23] MEDS: FAMOTIDINE 20MG TABLET 20 MG PO (20:01)
[2024-11-23 20:39] LABS: Troponin I 0.02 ng/ml (0.00-0.034)
--- NOTE | 2024-11-23 20:59 | PC.NURSE ---
patient pleasantly confused this evening - seeing snakes on the ceiling but when redirected she is aware that its her imagination. purewick in place, urine very dark and tea colored.
[2024-11-24 04:00] VITALS: BP 138/55; PULSE 91; RESP 18; TEMP 36.8; O2SAT 98; BMI 26.3
[2024-11-24 06:29] LABS: Basophils % 0.5 % (0.1-2.0); Eosinophils # 0.2 Kmm3 (0.0-0.4); Eosinophils % 1.9 % (0.1-12.0); Immature Granulocytes # 0.03 10^3uL; Immature Granulocytes % 0.3 %; Lymphocytes % 11.3 % (10-50); Mean Corpuscular HGB Conc 31.9 g/dL (31.8-35.4); Mean Corpuscular Hemoglobin 29.2 pg (27.0-31.2); Mean Corpuscular Volume 91.4 fl (81-99); Mean Platelet Volume 11.4 fl (7.4-10.4); Monocytes # 0.8 K/mm3 (0.1-1.0); Neutrophils # 6.6 K/mm3 (1.8-7.8); Nucleated Red Blood Cells # 0 10^3/uL; Nucleated Red Blood Cells % 0 %; Platelet Count 161 K/mm3 (142-424); Red Blood Count 3.39 M/mm3 (4.20-5.40); Red Cell Distribution Width 14.2 % (11.5-17.5); Red Cell Distribution Width-SD 47.4 fL; White Blood Count 8.6 K/mm3 (4.8-10.8)
[2024-11-24 06:36] LABS: Hemoglobin 10.1 g/dL (12.2-16.2)
--- NOTE | 2024-11-24 06:38 | PC.NURSE ---
new IV placed 22g OMAIRA
[2024-11-24 06:55] LABS: Chloride 103 mmol/L (98-107); Sodium 138 mmol/L (136-145)
[2024-11-24 06:56] LABS: Potassium 4.1 mmoL/L (3.5-5.1)
[2024-11-24 06:58] LABS: Blood Urea Nitrogen 30 mg/dl (7-17); Creatinine Clearance Estimated 37 mL/min (50-200); Estimated Glomerular Filt Rate 47 ml/min (>60); GFR (African American) 57 ML/MIN (>60)
[2024-11-24 06:59] LABS: Anion Gap 14.1 mEq/L (5-15); Calcium 8.8 mg/dl (8.4-10.2); Carbon Dioxide 25 mmol/L (22.0-30.0); Glucose 120 mg/dl (74-100)
[2024-11-24 07:31] VITALS: BP 124/57; PULSE 100; RESP 18; TEMP 37.1; O2SAT 98
--- NOTE | 2024-11-24 08:19 | P.PN_ITS ---
Subjective *Date: 11/24/24 *Time: 08:19 Interval history: Patient states she does not feel well today. She does not believe she slept during the night. She does not want to eat any breakfast. She denies chest pain and shortness of breath. She also denies nausea. White blood cell count this morning has improved to 8.6. Hemoglobin is 10.1 with hematocrit of 31. Electrolytes are normal. BUN is 30 and creatinine is 1.1 CT of the abdomen pelvis showed no bowel obstruction or acute inflammatory changes. Grossly stable appearance of the known pancreatic mass. Probable cholelithiasis without acute gallbladder disease or biliary obstruction Son-in-law is in the room and states she has had weight loss with barely eating and drinking at home. She has not walked since being home from [facility]. He states she did not walk there as well. Exam Data for Last 24 hours Vital signs and Labs for Last 24 Hours: Temp Pulse Resp BP Pulse Ox O2 Del Method 98.7 F 100 H 18 124/57 L 98 Room Air 11/24/24 07:31 11/24/24 07:31 11/24/24 07:31 11/24/24 07:31 11/24/24 07:31 11/24/24 07:31 Laboratory Results - last 24 hr 11/23/24 12:40: WBC 11.2 H, RBC 3.88 L, Hgb 11.5 L, Hct 35.7 L, MCV 92.0, MCH 29.6, MCHC 32.2, RDW 14.2, Plt Count 261, MPV 11.3 H, Neut % (Auto) 79.0, Lymph % (Auto) 10.2, [place] % (Auto) 8.8, Eos % (Auto) 1.1, Baso % (Auto) 0.4, Neut # (Auto) 8.8 H, Lymph # (Auto) 1.1, [place] # (Auto) 1.0, Eos # (Auto) 0.1, Baso # (Auto) 0.1, ESR 53 H, PT 12.1, INR 1.10, Sodium 137, Potassium 4.5, Chloride 101, Carbon Dioxide 26, Anion Gap 14.5, BUN 36 H, Creatinine 1.20 H, Estimated Creat Clear 31, Estimated GFR 43 L, Est GFR ( Amer) 52 L, Glucose 152 H, Lactate 1.3, Calcium 9.7, Magnesium 2.2, Total Bilirubin 1.0, AST 68 H, ALT 57, Alkaline Phosphatase 817 H, Total Creatine Kinase 50, Troponin I 0.03, C- Reactive Protein 94.1 H, Total Protein 7.1, Albumin 3.8, Globulin 3.3 H, Albumin/Globulin Ratio 1.2, Lipase 41 11/23/24 13:11: Urine Color Yellow, Urine Appearance Cloudy, Urine pH 7.0, Ur Specific [place] 1.020, Urine Protein 2+ A, Urine Glucose (UA) Negative, Urine Ketones 1+, Urine Blood 3+ A, Urine Nitrate Negative, Urine Bilirubin Negative, Urine Urobilinogen 1.0, Ur Leukocyte Esterase Trace, Urine RBC 10-20, Urine WBC Occasional, Ur Squamous Epith Cells 5-10, Urine Bacteria 2+ 11/23/24 16:26: Troponin I 0.02 11/23/24 20:00: Troponin I 0.02 11/24/24 05:33: WBC 8.6, RBC 3.39 L, Hgb 10.1 L D, Hct 31.0 L, MCV 91.4, MCH 29.2, MCHC 31.9, RDW 14.2, Plt Count 161 D, MPV 11.4 H, Neut % (Auto) 77.0, Lymph % (Auto) 11.3, [place] % (Auto) 9.0, Eos % (Auto) 1.9, Baso % (Auto) 0.5, Neut # (Auto) 6.6, Lymph # (Auto) 1.0, [place] # (Auto) 0.8, Eos # (Auto) 0.2, Baso # (Auto) 0.0, Sodium 138, Potassium 4.1, Chloride 103, Carbon Dioxide 25, Anion Gap 14.1, BUN 30 H, Creatinine 1.10 H, Estimated Creat Clear 37, Estimated GFR 47 L, Est GFR ( Amer) 57 L, Glucose 120 H D, Calcium 8.8 I & O for Last 24 hours: Intake & Output 11/21/24 11/22/24 11/23/24 11/24/24 11:59 11:59 11:59 11:59 Intake Total 420 / 420 Output Total 352 / 352 Balance Weight 130 lb 139 lb 9.6 oz Microbiology Reports for the Last 24 Hours: Microbiology 11/23/24 13:11 Urine,Clean Catch Urine Culture - Preliminary Gram Negative Rods Constitutional Constitutional: no acute distress and thin *Routine HEENT Exam Head: Present normocephalic and atraumatic Eye: Present PERRL; Absent conjunctival icterus, scleral injection or conjunc tivae pink ENT: Present mucous membranes dry *Routine Neck Exam Neck: Present supple; Absent carotid bruit, lymphadenopathy or thyromegaly *Routine Respiratory Exam Respiratory: Present CTA bilaterally (Anteriorly and posteriorly) *Routine Cardiovascular Exam Cardiovascular: Present RRR *Routine Abdominal Exam Abdominal: Present soft and normoactive bowel sounds; Absent tenderness or distended *Routine Exam Comments: Pure wick in place *Routine Extremities Exam Extremities: Absent edema, calf tenderness, tenderness or joint swelling Comments: Can move all extremities although very slow. Pain with movement of the left leg. She cannot identify where the pain is. No tenderness with palpation of the left knee or left hip. *Routine Neurological Exam Neurological: Present alert (Oriented x 2), motor deficit (Both arms and legs) and moving all extremities (Does moan with movement of the left leg.); Absent normal speech (Very soft) Comments: Cannot perform [id number]. Assessment and Plan *Assessment and plan (1) Urinary tract infection: Status: Acute Category: Medical Code(s): N39.0 - Urinary tract infection, site not specified (2) Failure of outpatient treatment: Status: Acute Category: Medical Code(s): Z78.9 - Other specified health status (3) General weakness: Status: Acute Category: Medical Code(s): R53.1 - Weakness (4) Hyperlipidemia: Status: Acute Qualifiers: Hyperlipidemia type: mixed hyperlipidemia Qualified Code(s): E78.2 - Mixed hyperlipidemia Category: Medical Code(s): E78.5 - Hyperlipidemia, unspecified (5) Hypertension: Status: Chronic Qualifiers: Hypertension type: primary hypertension Qualified Code(s): I10 - Essential (primary) hypertension Category: Medical Code(s): I10 - Essential (primary) hypertension (6) Coronary artery disease: Status: Acute Category: Medical Code(s): I25.10 - Atherosclerotic heart disease of [place] coronary artery without angina pectoris (7) Renal insufficiency: Status: Acute Category: Medical Code(s): N28.9 - Disorder of kidney and ureter, unspecified (8) Polyneuropathy: Status: Acute Category: Medical Code(s): G62.9 - Polyneuropathy, unspecified (9) Leg weakness, bilateral: Status: Acute Category: Medical Code(s): R29.898 - Other symptoms and signs involving the musculoskeletal system (10) Confusion: Status: Acute Category: Medical Code(s): R41.0 - Disorientation, unspecified (11) Foot drop: Status: Acute Category: Medical Code(s): M21.379 - Foot drop, unspecified foot Plan Will continue with Rocephin for UTI. PT and OT have been consulted. Will restart metoprolol.
--- NOTE | 2024-11-24 09:25 | HMH.PTEV ---
Physical Therapy Evaluation Rehab PT IP Evaluation Start: 11/24/24 08:36 Freq: DAILY Status: Active Protocol: Document 11/24/24 09:19 RENU (Rec: 11/24/24 09:25 RENU [id number]) Subjective/History History History Per H&P: Ms. Bueno is an 84 year old female patient of [facility], who was seen in the office last week due to weakess and confusion on the day she discharged from a SNF. She was found to have a UTI and was treated with Macrobid. Urine PCR showed E. coli sensitive to Macrobid. She failed to improve and was having trouble eating and had progressive weakness, resulting in some falls at home so she was brought to the ER tofdau for further evaluation. Patient was recently admitted to [facility], about 4 weeks ago due to a NSTEMI and had a left heart cath with stents placed. After that admission she wasd discharged to a SNF but did not do well during that stay. Patient was diagnosed with pancreatic cancer about 6 months ago and completed radiiation treatment about 2 months ago. Subjective Subjective Pt's family in room to assist with history taking. PLOF: ambulating small household distances with assistance. Primarily using w/c since returning home from SNF. HOME: 2 story home with 4 TIFFANY. Available assistance: has 24/12 assistance if needed. [facility] How much help from another person do you currently need... Turning from your A little back to your side while in a flat bed without using bedrails? Moving from lying on A lot back to sitting on the side of a flat bed without using bedrails? Moving to and from a A lot bed to a chair ( including a wheelchair)? Standing up from a A lot chair using your arms? (e.g., wheelchair, bedside chair) Walking in hospital A lot room? Climbing 3-5 steps A lot with a railing? Mobility Score 13 Mobility Level [facility] Mobility 4 Move to chair/commode Mobility Calculator Rehab PT IP Eval Objective Appearance Patient Behavior Appropriate,Cooperative Patient Orientation Situation Difficulty following mild instructions Speech Pattern Soft-Spoken Ambulation Patient Able to No Ambulate Balance Ability to Arise Able, uses arms to help Sitting Balance Leans or slides in chair Standing Balance Unsteady Transfers Bed Transfer Ability Moderate x 1 (50% assist) Rehab PT IP prob,goals,plan Problems Date of Evaluation: 11/24/24 PT IP Problems Bed Mobility,Transfers,Gait,Balance,Self care,Safety Rehab Potential Rehab Potential Good Plan PT Intervention Plan Bed Mobility,Transfers,Gait,Balance,Self care,Safety, Therapeutic Exercise Other Intervention 1-2 times Plan PT Plan Frequency Daily Duration LOS Discharge Goals Bed Transfer Ability Minimal x 1 (25% assist) Sit to Stand Chair Moderate x 1 (50% assist) Transfer Ability Discharge Plan PT Discharge Plan Pt presents below baseline in functional mobility. Pt not safe to return home d/t current level of mobility and significant weakness. Pt was not able to sit without Mod A and was unable to stand at this time. PT recommending inpatient rehabilitation placement upon d/c from [facility]. Pt would benefit from skilled acute care PT while at [facility] to address deficits and prevent further functional decline. Eval Complexity Eval Charge Codes 89747 - Moderate Complexity PHYSICIAN CERTIFICATION: I certify the specified therapy services for Laurie Bueno are required, authorized, and reviewed every 30 days.
--- NOTE | 2024-11-24 09:45 | HMH.OTEV ---
OT Inpatient Evaluation Rehab OT IP Evaluation Start: 11/24/24 08:36 Freq: DAILY Status: Active Protocol: Document 11/24/24 09:37 KLEVER (Rec: 11/24/24 09:45 KLEVER [id number]) Rehab OT IP Assessment Subjective History PER HPI narrative: 84-year-old female presents to the ED today with a complaint of confusion, weakness, already diagnosed UTI . She has been on Macrobid for 5 days. She has already finished the last dose of Macrobid. Family states that she has recently been in [place] and DC'd Saturday. She had a cath by Dr. Correa on October 27 and since then has declined significantly. She was walking and now is barely eating and drinking. She has become a total care within the last few days. Family is concerned. She has had pancreatic cancer and finished other radiation for that. She has become more incontinent than usual. She is more weak than usual and confused. She lives with the grandson. Subjective Okay. Pt orient x3. Pt's family present to assist with Hx and background. Family reported pt's PLOF was functional mobility in small distances with assist. Family reported pt is at SNF and goal is to return home after SNF. Primarily using w/c since returning home from SNF. HOME: 2 story home with 4 TIFFANY, pt does not have to use steps inside home. Pt does not have shower chair, does have grab bars and raised toilet seat. Available assistance: has 24/ assistance if needed. Pt agreed to sit on EOB. Pt went from supine to EOB with Mod A and unable to complete a sit to stand transfer at this time. Pt reported they wanted to lie back in bed. Pt went from EOb to supine with Mod A. Pt left with family present and call light and all other needs within reach. Objective Patient Orientation Person,Place,Birthday Right Upper Min Limitation <25% Extremity Gross ROM Left Upper Extremity Min Limitation <25% Gross ROM Shoulder ROM Muscle Weakness Limitations Elbow ROM Muscle Weakness Limitations Bed Mobility bed mobility-scooting,bed mobility - supine/sit Assist Level Moderate x 1 (50% assist) Decrease in Yes Endurance Rehab OT IP prob,goals,plan Problems Date of Evaluation: 11/24/24 OT IP Problems Bed Mobility,Transfers,Balance,Self care,Safety Rehab Potential Rehab Potential Good Equipment Needs Assistive Devices Standard Walker,Rolling / Wheeled Walker,Wheelchair Plan OT intervention Plan Bed Mobility,Transfers,Balance,Self care,Safety, Therapeutic Exercise OT Plan Frequency Daily Duration LOS Discharge Goals Bed Mobility Ability Assistance x1 Sit to Stand Chair Minimal x 1 (25% assist) Transfer Ability Chair Transfer Minimal x 1 (25% assist) Ability Chair Transfer Sit to/from Ambulatory Technique Chair Transfer Standard Walker Assistive Devices Feeding Ability Assist with Tray Set Up Commode/Toilet Raised Toilet Seat,Grab Bars Transfer Assistive Devices Decrease in No Endurance Discharge Plan OT Discharge Plan Pt presents below baseline in functional mobility, endurance, and self-care. Pt is not safe to return home . . OT recommending inpatient rehabilitation placement upon d/c from [facility] to address functional limitations in occupational performance. Pt would benefit from skilled acute care OT while at [facility] to address deficits and prevent further functional decline. Eval Complexity Eval Charge Codes 71362 - Moderate Complexity PHYSICIAN CERTIFICATION: I certify the specified therapy services for Laurie Bueno are required, authorized, and reviewed every 30 days.
[2024-11-24] MEDS: CEFTRIAXONE 1 GM 1 GM in 0.9 % SODIUM CHLORIDE 50 ML IV (09:46)
[2024-11-24] MEDS: ASPIRIN EC 81MG TABLET 81 MG PO (10:09)
[2024-11-24] MEDS: METOPROLOL TARTRATE 25MG TABLET 12.5 MG PO ×2 (10:09→20:19)
[2024-11-24] MEDS: PT OWN MED *CLOPIDOGREL 75 MG TAB 1 EACH PO (10:10)
[2024-11-24] MEDS: LEVOTHYROXINE 50 MCG 1 EACH PO (10:10)
--- NOTE | 2024-11-24 10:49 | SW/DCPLANNER ---
Addendum entered by [facility] 11/27/24 15:16: I have updated MD that per Atul auth will on 11/29. Addendum entered by [facility] 11/27/24 15:05: Per Atul mcgovern/ Dinh Bedolla patient has been approved SNF level of care. I have updated Dr Lopez. Patient is not ready for discharge today but could be over the weekend. Addendum entered by [facility] 11/27/24 13:43: Per Atul froilan/ Dinh Bedolla auth is still pending at this time. Addendum entered by [facility] 11/26/24 09:18: Wrong patient regarding [facility]. [facility] will start auth this AM. Addendum entered by [facility] 11/26/24 09:16: Per Mariana w/ [facility] patient has been approved SNF level of care and will discharge today. Addendum entered by [facility] 11/26/24 09:06: Updated patient information has been faxed to Atul w/ [facility] Bedolla to start auth today. Per Atul he will have a bed open tomorrow. I will call and update patient's family. Addendum entered by [facility] 11/25/24 13:18: Per Atul mcgovern/ Dinh Bedolla he can accept this patient but will not have a bed open till 11/30. I will continue to follow up w/ patient, family and MD. Addendum entered by [facility] 11/25/24 09:54: Atul mcgovern/ Dinh Bedolla is reviewing patient information. Original Note: I spoke w/ patient's family (MARIANO Olivier) via phone regarding discharge planning. Charline stated at this time they would be interested in placement at [facility]. Charline also stated that if [facility] is unable to accept patient they would prefer patient return home w/ family and 24-7 care. I will fax patient information to [facility] this AM and continue to follow up. Discharge date is unknown at this time.
--- OUTSIDE RECORDS SUMMARY | 2024-11-24 12:12 | XMS_ITS | Clinical Summary ---
Author Organization [employer] [facility] Address [address] [place] [address] Care Team Providers Care Technical Support Representative Name Role Phone Unavailable Primary Care Provider [...] Screening (12+) 06/24/2025 06/24/2024 Insurance Mane [place] [id number] [facility] MEDICARE ADVANTAGE Advance Directives For more information, please contact: [phone] Documents on File Type Date Recorded Patient Table Operator Expl anation Power of Linseed Oil Temperer-Patient 06/24/2024 9:19 AM POA (COPY OF UNCLE'S CERT HE LISTED ONE OF THE POA'S)
--- OUTSIDE RECORDS SUMMARY | 2024-11-24 12:12 | XMS_ITS | Referral Summary ---
Author Organization [employer] [facility] Address [address] [place] [address] Care Team Providers Care Fiscal Economist Name Role Phone Unavailable Primary Care Provider [...] Treatment Not on file Insurance Mane TUCKER [address] MEDICARE ADVANTAGE Advance Directives For more information, please contact: [phone] Documents on File Type Date Recorded Patient Cashier Manager Expl anation Power of Fisher Crab-Patient 06/24/2024 9:19 AM POA (COPY OF UNCLE'S CERT HE LISTED ONE OF THE POA'S)
--- OUTSIDE RECORDS SUMMARY | 2024-11-24 12:12 | XMS_ITS | Encounter Summary ---
Author Organization [employer] [facility] Address [address] [place] [address] Care Team Providers Care Gang Supervisor Pipe Lines Name Role Phone Unavailable Primary Care Provider Unavailabl e Encounter Details Date Type Department Care Team (Late st Contact Info) Description 06/17/2024 Outside Orders [facility] Central Scheduling [address] [place] [address] Jose De Jesus Christine MD [address] [place] [address] Other specified diseases of pancreas [...]
--- OUTSIDE RECORDS SUMMARY | 2024-11-24 12:12 | XMS_ITS | Encounter Summary ---
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 Not on file Not [...] CC Hematology/BMT and Cellular Therapy Program [address] [place] [phone] 10/04/2025 1:30 PM EDT Office Visit [facility] Hematology/BMT and Cellular Therapy Program [address] [place] [address] Michael Goel, PROGRAM EVALUATION CONSULTANT 800 [facility] [address] [place] [phone] documented as of this encounter Visit Diagnoses Not on filedocumented in this encounter Additional Health Concerns Assessment Noted Time PHQ-9 Depression Total Score: 0 10/03/19 25 2:12 PM EDT A fall risk assessment has been complete d for the patient 10/02/2024 2:26 PM EDT documented as of this encounter Care Teams Surg Nurse Relationship Specialty Start Date End Date Shahid Lopez MD [address] [place] [phone] PCP - General 10/14/20 Yue Evans APRN [address] [place] [address] Cancer [facility] [address] [place] [address] Nurse Practitioner Internal Medicine 12/11/21 documented as of this encounter
--- OUTSIDE RECORDS SUMMARY | 2024-11-24 12:12 | XMS_ITS | Clinical Summary ---
Author Organization [facility] Address [address] [place] [address] Care Team Providers Care Lung Puller Name Role Phone Shahid Lopez MD Primary Care Provider + [phone] Yue Evans APRN Unavailable [phone] Allergies Active Allergy Reactions Criticality Noted Date [...] time each day. 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) 10/02/2024 1:00 PM EDT Clinical Support [facility] Hematology/BMT and Cellular Therapy Program 750 [facility], [address] [place] [address] [place] [address] 10/02/2024 Travel from Last 3 Months Immunizations [...] 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 Not on file [...] CC Hematology/BMT and Cellular Therapy Program 750 [facility], [facility] [place] [phone] 10/04/2025 1:30 PM EDT Office Visit [facility] Hematology/BMT and Cellular Therapy Program 750 [facility], [facility] [place] [phone] Michael Goel, KEG VARNISHER 800 [facility] [address] [place] [phone] Health Maintenance Due Date Last Done Comments [facility]-Bone Density Scan 1938 [facility]-Medicare Annual Wellness (AWV) 1938 [facility]-Infant/Child/Adol SDOH Screenings 1938 [facility]- SDOH Screenings 1956 [facility]-Adult SDOH Screenings 1956 [facility]-DTaP,Tdap,and Td Vaccines (1 - Tdap) 1957 [facility]-Zoster Vaccines (1 of 2) 1957 [facility]-RSV Vaccine: 60+ Years or (1 - 1-dose 75+ series) 2013 [facility]-Pneumococcal Vaccine: 50+ Years (2 of 2 - PCV) 03/11/2018 03/11/2017 [facility]-FNICS-24 Vaccine (2023- season) 2024 03/30/2022, 03/10/2021, 09/07/2020, [...] LAB HEMATOLOGY METHOD 10/02/2024 1:36 PM EDT [facility] RBC Count 4.17 3.90 - 5.20 10*6/uL LAB HEMATOLOGY METHOD 10/02/2024 1:36 PM EDT [facility] HGB 12.1 11.2 - 15.7 g/dL LAB HEMATOLOGY METHOD 10/02/2024 1:36 PM EDT [facility] HCT 36.4 34.0 - 45.0 % LAB HEMATOLOGY METHOD 10/02/2024 1:36 PM EDT [facility] Platelet Count 195 155 - 369 10*3/uL LAB HEMATOLOGY METHOD 10/02/2024 1:36 PM EDT [facility] MCV 87 79 - 98 fL LAB HEMATOLOGY METHOD 10/02/2024 1:36 PM EDT [facility] MCH 29.0 26.0 - 32.0 pg LAB HEMATOLOGY METHOD 10/02/2024 1:36 PM EDT [facility] MCHC 33.2 30.7 - 35.5 g/dL LAB HEMATOLOGY METHOD 10/02/2024 1:36 PM EDT [facility] RDW 15.0(H) 11.5 - 14.5 % LAB HEMATOLOGY METHOD 10/02/2024 1:36 PM EDT [facility] MPV 11.0 8.8 - 12.5 fL LAB HEMATOLOGY METHOD 10/02/2024 1:36 PM EDT [facility] nRBC 0.0 <=0.0 per 100 WBCs LAB HEMATOLOGY METHOD 10/02/2024 1:36 PM EDT [facility] Differential Type Automated LAB HEMATOLOGY METHOD 10/02/2024 1:36 PM EDT [facility] Neutrophils % 77 % LAB HEMATOLOGY METHOD 10/02/2024 1:36 PM EDT [facility] Lymphocytes % 12 % LAB HEMATOLOGY METHOD 10/02/2024 1:36 PM EDT [facility] Monocytes % 9 % LAB HEMATOLOGY METHOD 10/02/2024 1:36 PM EDT [facility] Eosinophils % 1 % LAB HEMATOLOGY METHOD 10/02/2024 1:36 PM EDT [facility] Basophils % 0 % LAB HEMATOLOGY METHOD 10/02/2024 1:36 PM EDT [facility] Immature Granulocytes % 1 % LAB HEMATOLOGY METHOD 10/02/2024 1:36 PM EDT [facility] Neutrophils Absolute 5.30 1.60 - 6.10 10*3/uL LAB HEMATOLOGY METHOD 10/02/2024 1:36 PM EDT [facility] Lymphocytes Absolute 0.84(L) 1.20 - 3.90 10*3/uL LAB HEMATOLOGY METHOD 10/02/2024 1:36 PM EDT [facility] Monocytes Absolute 0.61 0.30 - 0.90 10*3/uL LAB HEMATOLOGY METHOD 10/02/2024 1:36 PM EDT [facility] Eosinophils Absolute 0.07 0.00 - 0.50 10*3/uL LAB HEMATOLOGY METHOD 10/02/2024 1:36 PM EDT [facility] Basophils Absolute 0.03 0.00 - 0.10 10*3/uL LAB HEMATOLOGY METHOD 10/02/2024 1:36 PM EDT [facility] Immature Granulocytes Absolute 0.04 0.00 - 0.06 10*3/uL LAB HEMATOLOGY METHOD 10/02/2024 1:36 PM EDT [facility] Blood Venous blood specimen / Unknown Venipuncture / Unknown 10/02/2024 1:08 PM EDT 10/02/2024 1:27 PM EDT Narrative [facility] - 10/02/2024 1:36 PM EDT Therapeutic decision making should be based on absolute values, rather than percentages. Michael Goel APRN LAB BLOOD ORDERABLES Final Result Performing Organization Address City/[facility]/ZIP Co de Phone Number [facility] [address] [place] [address] * Lactate Dehydrogenase, Plasma (10/02/2024 1:08 PM EDT) LDH, Plasma 237 116 - 250 U/L 10/02/2024 2:13 PM EDT [facility] Blood Venous blood specimen / Unknown Venipuncture / Unknown 10/02/2024 1:08 PM EDT 10/02/2024 1:30 PM EDT Michael Goel APRN LAB BLOOD ORDERABLES Final Result Performing Organization Address [facility] Co de Phone Number [facility] [address] [place] [address] * (ABNORMAL) Comprehensive Metabolic Panel, Plasma (10/02/2024 1:08 PM EDT) Glucose, Plasma 131(H) 74 - 99 mg/dL 10/02/2024 2:13 PM EDT [facility] BUN, Plasma 26(H) 8 - 23 mg/dL 10/02/2024 2:13 PM EDT [facility] Creatinine, Plasma 1.23(H) 0.60 - 1.10 mg/dL 10/02/2024 2:13 PM EDT [facility] BUN/Creatinine Ratio 21 10/02/2024 2:13 PM EDT [facility] Sodium, Plasma 137 136 - 145 mmol/L 10/02/2024 2:13 PM EDT [facility] Potassium, Plasma 3.9 3.6 - 4.9 mmol/L 10/02/2024 2:13 PM EDT [facility] Chloride, Plasma 103 97 - 107 mmol/L 10/02/2024 2:13 PM EDT [facility] CO2, Plasma 23 22 - 29 mmol/L 10/02/2024 2:13 PM EDT [facility] Anion Gap 11 6 - 16 mmol/L 10/02/2024 2:13 PM EDT [facility] Total Calcium, Plasma 9.4 8.9 - 10.2 mg/dL 10/02/2024 2:13 PM EDT [facility] Total Protein 6.6 6.3 - 7.9 g/dL 10/02/2024 2:13 PM EDT [facility] Albumin, Plasma 3.9 3.5 - 5.2 g/dL 10/02/2024 2:13 PM EDT [facility] AST, Plasma 40(H) 10 - 35 U/L 10/02/2024 2:13 PM EDT [facility] ALT, Plasma 58(H) 10 - 35 U/L 10/02/2024 2:13 PM EDT [facility] Alkaline Phosphatase, Plasma 338(H) 46 - 142 U/L 10/02/2024 2:13 PM EDT [facility] Total Bilirubin, Plasma 0.2 0.2 - 1.1 mg/dL 10/02/2024 2:13 PM EDT [facility] eGFRcr 42.9 mL/min/1.7 3m*2 10/02/2024 2:13 PM EDT [facility] Comment:Reported eGFRcr in m L/min/1.73m2 is based the CKD-EPI 2020 equation that does not use a race coefficient. Blood Venous blood specimen / Unknown Venipuncture / Unknown 10/02/2024 1:08 PM EDT 10/02/2024 1:30 PM EDT us Michael Goel APRN LAB BLOOD ORDERABLES Final Result [facility] [address] [place] [address] from Last 3 Months Insurance Care Teams Lung Puller Relationship Specialty Start Date End Date Shahid Lopez MD [address] [address] PCP - General 10/14/20 Yue Evans APRN [address] [place] [address] [address] [place] [phone] Nurse Practitioner Internal Medicine 12/11/21
--- OUTSIDE RECORDS SUMMARY | 2024-11-24 12:12 | XMS_ITS | Encounter Summary ---
Author Organization [facility] Address [address] [place] [place] [address] Care Team Providers Care Astronomy Professor Name Role Phone Shahid Lopez MD Primary Care Provider + [phone] Yue Evans APRN Unavailable [phone] Encounter Details Date Type Department Care Team ([facility] Contact Info) Description 10/17/2020 Orders Only [facility] Hematology/BMT and Cellular Therapy Program [address] [place] [address] Isaac So MD Hematology/ BMT Clinic 800 [facility] [address] [place] [phone] Social History Tobacco Use Types Packs/Day Years Used Date Smoking Tobacco: Never Assessed Comments Unknown Sex and Gender Information Value Date Recorded Sex Assigned at Not on file Legal Sex Female 8:07 PM EDT Gender Identity Not on file Sexual Orientation Not on file documented as of this encounter Plan of Treatment Upcoming Encounters Date Type Department Care Team ([facility] Contact Info) Description 10/04/2025 1:00 PM EDT Clinical Support [facility] Hematology/BMT and Cellular Therapy Program [address] [phone] 10/04/2025 1:30 PM EDT Office Visit [facility] Hematology/BMT and Cellular Therapy Program [address] [place] [address] Michael Goel, BULK PLANT AGENT 800 [facility] [address] [place] [phone] documented as of this encounter Visit Diagnoses Not on filedocumented in this encounter Care Teams Astronomy Professor Relationship Specialty Start Date End Date Shahid Lopez MD 1210 [facility] [address] [place] [address] PCP - General 10/14/20 Yue Evans APRN [address] [place] [address] Cancer [facility] [address] [place] [phone] Nurse Practitioner Internal Medicine 12/11/21 documented as of this encounter
--- OUTSIDE RECORDS SUMMARY | 2024-11-24 12:12 | XMS_ITS | Patient Health Record ---
Author Organization [facility] Address [address] [id number] Care Team Providers Care Stator Plate Washer Name Role Phone Shahid Lopez Primary Care Provider [phone] Allergies Allergen (clinical drug ingredient) Drug/Non Drug [...] 09:10:59 AM Interpretation:Abnormal Performing Lab: Notes/Report: Abnormal H-BMP (Not yet reviewed by steve navarro) Interpretation: Performing Lab: Notes/Report: NA 138 136-145 mmol/L K 4.1 3.5-5.1 mmoL/L CL 103 98-107 mmol/L CO2 25 22.0-30.0 mmol/L GAP 14.1 5-15 mEq/L BUN 30 7-17 mg/dl CREATT 1.10 0.52-1.04 mg/dl CRCLE 37 50-200 mL/min GFRAA 57 >60 ML/MIN EGFR 47 >60 ml/min GLU 120 74-100 mg/dl Delta: 152 on 0 11/23/24-1240 CA 8.8 8.4-10.2 mg/dl H-CBC (Not yet reviewed by steve navarro) Interpretation: Performing Lab: Notes/Report: WBC 8.6 4.8-10.8 K/mm3 RBC 3.39 4.20-5.40 M/mm3 HGB 10.1 12.2-16.2 g/dL Delta: 11.5 o n 11/23/24-1239 HCT 31.0 37.0-47.0 % MCV 91.4 81-99 fl MCH 29.2 27.0-31.2 pg MCHC 31.9 31.8-35.4 g/dL RDW-SD 47.4 RDW 14.2 11.5-17.5 % PLT 161 142-424 K/mm3 Delta: 261 on 11/23/24-1239 MPV 11.4 7.4-10.4 fl NE% 77.0 37.0-80.0 % LY% 11.3 10-50 % MO% 9.0 1.7-9.3 % EO% 1.9 0.1-12.0 % BA% 0.5 0.1-2.0 % NRBC% 0 IG% 0.3 NE# 6.6 1.8-7.8 K/mm3 LY# 1.0 0.7-4.5 K/mm3 MO# 0.8 0.1-1.0 K/mm3 EO# 0.2 0.0-0.4 Kmm3 BA# 0.0 0-0.2 K/mm3 NRBC# 0 IG# 0.03 TEN-UTI panel Reviewed date:05/25/2024 04:52:02 PM Interpretation: Performing Lab: Notes/Report: H-CA 19-9 Reviewed date:05/22/2024 04:29:20 PM Interpretation:129 Performing Lab: Notes/Report: CA199 129 0-35 U/mL [facility] Electrochemiluminescence Immunoassay (ECLIA) Values obtained with different assay methods or kits cannot be used interchangeably. Results cannot be interpreted as absolute evidence of the presence or absence of malignant disease. Performed at: [address] [id number] Director Of Customer Acquisition: Frank Fernandez PhD, Phone: [phone] Urinalysis - Inhouse Reviewed date:05/22/2024 04:29:20 PM Interpretation: Performing Lab: Notes/Report: Color/Clarity Brownish Black Leuk neg Nitrite neg Urobili 16 Protein 3+ pH 8.5 Blood 3+ Sp. Gr. 1.020 Ketone trace Bili 2+ Gluc neg Urinalysis - Inhouse Reviewed date:06/04/2024 08:54:27 AM Interpretation: Performing Lab: Notes/Report: HCVAB Reviewed date:10/27/2024 11:11:54 AM Interpretation: Performing Lab: Notes/Report: HCVAB NEGATIVE Negative All initial positives will be confirmed by 2 retests, if still positive they will be confirmed by [facility] Sendout. H-Creatine Kinase Reviewed date:10/27/2024 11:11:54 AM Interpretation: Performing Lab: Notes/Report: CK 55 30-135 U/L H-Sed Rate Reviewed date:10/27/2024 11:11:54 AM Interpretation: Performing Lab: Notes/Report: ESR 56 0-30 mm/hr H-VITAMIN B12 Reviewed date:10/27/2024 11:11:54 AM Interpretation: Performing Lab: Notes/Report: VITB12 > 1000 239-931 pg/mL H-TSH Reviewed date:10/27/2024 11:11:54 AM Interpretation: Performing Lab: Notes/Report: TSH 1.23 0.465-4.68 uIU/mL P-Basic Metabolic Panel (BMP ) Reviewed date:12/26/2023 08:42:41 AM Interpretation:gluc 119, Cr 1.07, gfr 51 Performing Lab: Notes/Report: Test performed by [facility] [employer] [address] [place] [address] , [address], [place] [address] Shahram Rice MD, Fork Truck Operator CLIA: [id number] Sodium 138 135-145 mmol/L Potassium 4.0 3.5-5.3 mmol/L Chloride 103 97-108 mmol/L CO2 25 22-32 mmol/L Glucose 119 65-99 mg/dL BUN 14 8-23 mg/dL Creatinine 1.07 0.50-1.00 mg/dL Calcium 9.2 8.6-10.4 mg/dL eGFR by Creatinine 51 >59 mL/min/1.73m2 P-Vitamin D 25-Hydroxy Reviewed date:12/26/2023 08:42:41 AM Interpretation:30 Performing Lab: Notes/Report: Test performed by [facility] [employer] [address] [place] [address] , [address], [place] [address] Shahram Rice MD, [employer] Operator CLIA: [id number] Vitamin D 25-Hydroxy 30.0 30.0-100.0 ng/mL Interpretation of Vitamin D 25 OH: < 20 ng/mL - Deficiency 20 - 29 ng/mL - Insufficiency 30 - 100 ng/mL - Sufficiency > 100 ng/mL - Super-therapeutic- toxicity may occur above this level. Clinical correlation required. 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) Referral Organization [facility] Referring Provider First Name Shahid Referring Provider Last Name John Referring Provider Speciality Family Pra ctice Referred Organization [facility] OP Referred Provider Rehana Matthew Referred Address [address] [place] [address] [id number], Referred Provider Specialty Dermatology General Notes Yumiko [...] Gomez 2024 02:51:15 PM > faxed to [facility] Referral Priority Routine Medications Medication SIG (Take, [...] 03/11/2017 Administered xFlu shot- 6months-36 months of ilj-HXFX-NFMR-trivalent Unknown 04/19/2016 Administered Prevnar (PCV20) IM Intramuscular [...] Problem Status W/U Status Risk Notes Problem 13016930 Essential (prima ry) hypertension (I10) Active confirmed Problem 63118295 Vitamin D defici ency (E55.9) Active confirmed Problem 08406037 Essential hypert ension (I10) Active confirmed Problem 08696191 Anxiety (F41.9) Active confirmed Problem 90048668 Polyarthralgia (M25.50) Active confirmed Problem 09191140 Polyneuropathy, unspecified (G62.9) Active confirmed Problem 33702473 Other chronic pa in (G89.29) Active confirmed Problem Chronic pain syndrome (078094016) Chronic pain syndrome (G89.4) Active confirmed Problem 831229428 Irritable bowel syndrome with diarrhea (K58.0) Active confirmed Problem 85614724 Urge incontinenc e (N39.41) Active confirmed Problem 00437139 Constipation, unspecified constipation type (K59.00) Active confirmed Problem 997685939 Acquired hypothyroidism (E03.9) Active confirmed Problem Osteoporosis (03274185) Osteoporosis (M81.0) Active confirmed Problem 78794271 Right sided scia dennys (M54.31) Active confirmed Problem Diffuse large B cell malignant lymphoma (morphologic abnormality) (9786999805) Large B-cell lymphoma (C85.10) Active confirmed Problem 561841265 Pure hypercholesterolemia (E78.00) Active confirmed Problem 48277857 Allergic rhiniti s, unspecified seasonality, unspecified trigger (J30.9) Active confirmed Problem 885494909 History of B-giancarlo l lymphoma (Z85.72) Active confirmed Problem 700906534 Stage 3a chronic kidney disease (CKD) (N18.31) Active confirmed Problem 15104509 Irritable bowel syndrome with constipation and diarrhea (K58.2) Active confirmed Vital Signs Heart Rate 48 /min 11/18/2024 Blood pressure diastolic 64 mm Hg 11/18/2024 Height 66 in 11/18/2024 Blood pressure systolic 123 mm Hg 11/18/2024 Weight 00 lbs 11/18/2024 BMI 23.56 kg/m2 06/01/2024 Encounters Encounter Location Date Provider Diagnosis [facility] [address] [place], [place] [id number] 12/25/2023 Shahid [place] Essential (primary) hypertension I10 ; Stage 3a chronic kidney disease (CKD) N18.31 ; Vitamin D deficiency E55.9 and Neoplasm of uncertain behavior of skin D48.5 [facility] [address] [facility] [address] [place], [place] [id number] 04/17/2024 Shahid [place] Right sided sciatica M54.31 and 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 [facility] [address] [place], [place] [id number] 05/21/2024 Shahid [place] Essential hypertensi on I10 ; Gross hematuria R31.0 and 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 [facility] [address] [place], [place] [id number] 06/01/2024 Shahid [place] Acute UTI N39.0 [facility] [address] [place], [place] [id number] 07/08/2024 Shahid [place] Encounter for immunization Z23 [facility] [address] [place], [place] [id number] 11/18/2024 Shahid [place] Acute UTI N39.0 ; Generalized weakness R53.1 and Debility R53.81 [facility] [address] [place], [place] [id number] 12/26/2023 Shahid [place] [facility] [address] [place] [id number] 04/15/2024 Shahid [place] [facility] [address] [place] [id number] 05/06/2024 Shahid [place] Right sided sciatica M54.31 [facility] [address] [place], [place] [id number] 05/18/2024 Shahid [place] Essential (primary) hypertension I10 [facility] [address] [place], [place] [id number] 05/19/2024 Shahid [place] [facility] [address] [place] [id number] 05/22/2024 Shahid [place] [facility] [address] [place] [id number] 06/15/2024 Shahid [place] [facility] [address] [place] [id number] 06/16/2024 Shahid [place] [facility] [address] [place], [place] [id number] 06/18/2024 Shahid [place] Renal insufficiency N28.9 [facility] [address] [place] [id number] 06/24/2024 Shahid [place] [facility] [address] [place] [id number] 07/21/2024 Shahid [place] [facility] [address] [place] [id number] 10/07/2024 Shahid [place] Right sided sciatica M54.31 [facility] [address] [place] [id number] 11/04/2024 Shahid [place] [facility] [address] [place] [id number] 11/18/2024 Shahid [place] [facility] [address] [place] [id number] 11/23/2024 Shahid [place] Assessments Encounter Date Diagnosis (ICD Code) Assessment [...] Date X ray : Shoulder, right 04/20/2021 H-CBC 11/24/2024 H-BMP 11/24/2024 Insurance Providers Payer Name Payer Address Payer Phone Subscriber Number Group Number Insured Name Patient Relationship to Insured Coverage Start Date Coverage End Date [employer] [address] [address] [place], [place] [id number] DARIANA THOMASON Self - patient is the [...] Fall w/ Laceration of Right Hand - [facility] R 03/09/2022 [facility] Assisted 12/09-01/02/20 20 Fall- [facility] ER 03/26/2019 Fall- [facility] ER 04/23/2018 Pneumonia- [facility] 11/23/2016- 7 [facility] 10/2016 Lymphoma- 08/2016
--- OUTSIDE RECORDS SUMMARY | 2024-11-24 12:12 | XMS_ITS | Data Portability ---
Author Organization [facility] CALEB GonzalezS [facility] Address [address] [facility] [address] [facility] [address] [place] [address] Care Team Providers Care Supervisor Phosphatic Fertilizer Name Role Phone PERLAJERRY Primary Care Provider [phone] SHIRLEY CELIS Recovery Rn Assessment No assessment recorded. Plan of Treatment Reminders Order Date Submit Date Provider Last Modified By Organization Details Last Modified Time Details Appointments None record ed. Lab None record ed. Referral None record ed. Procedures None record ed. Surgeries None record ed. Imaging None record ed. Medication Orders None record ed. Patient TargetsNo targets recorded. Patient Instructions Encounter Date Encounter Id Patient Instructions Last Modified By Organization Details Last Modified Time 07/31/2021 [id number] MR with +3.00 NL recheck 1 yr dkielar Not available 07/31/2021 14:54:52 She is encourage d to bring her med list with her next time dkielar Not available 07/31/2021 14:55:10 Reason for Referral None Reported. Problems Name Problem SNOMED Code Status Onset Date Resolution Date Notes Provider Name and Address Organization Details Recorded Time Combined form of senile cataract 46636510 Active 2021 SHIRLEY CELIS MD [address] [place] [address], [phone], [facility] 2 14:54:03 Posterior vitreous detachment 248129443 Active 2021 SHIRLEY CELIS MD [address] [place] [address], [phone], [facility] 2 14:54:13 Myopia 38822693 Active 2021 SHIRLEY CELIS MD [address] [place] [address], [phone], [facility] 2 14:54:29 Regular astigmatism 96435745 Active 2021 SHIRLEY CELIS MD [address] [place] [address], [address], [facility] 2 14:54:35 Presbyopia 11422514 Active 2021 SHIRLEY CELIS MD [address] [place] [address], [phone], [facility] 2 14:54:36 Problem Notes None recorded. 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 Procedure Notes None recorded. Medical Equipment None Reported. Allergies Allergen ID Allergen Name Allergen Category Reaction Reaction Severity Criticality Documentation Date Start Date Code Code System Note Provider Name and Address Organization Details Recorded Time 671695 Iodinated contrast media (substanc e) medicatio n Not available Not available Not available 07/31/2021 58833 2003 [facility] 14:[facility] Medications Name Sig Start Date Stop Date Status Note LastModified by Organization Details LastModified Time Multiple Vitamin capsule Daily active Duration : 30 days;Paresh quency: daily;Me dication Descript ion: multivit farr; Dosage:1 ; Route:or al; refills: 3; Quantity :100 capsule Not Available Not Available Not Available Celebrex 200 mg capsule Daily 2005 active Frequenc y: daily;Me dication Descript ion: celecoxi b; Dosage:1 ; Route:or al; refills: 5; Quantity :30 capsule Not Available Not Available Not Available Tylenol 500 mg tablet active Duration : 30 days;Med ication Descript ion: acetamin ophen; Route:or al; refills: 0 Not Available Not Available Not Available aspirin 81 mg tablet Daily 07/31 completed Duration : 30 days;Paresh quency: daily;Me dication Descript ion: aspirin; Dosage:1 ; refills: 0; Quantity :30 Not Available Not Available Not Available calcium active Medicati on Descript ion: calcium carbonat e; Route:or al; refills: 0 Not Available Not Available Not Available Lipitor As Directed 2005 active Frequenc y: as direct.; Medicati on Descript ion: atorvast atin; Dosage:1 ; refills: 0; Quantity :30 Not Available Not Available Not Available Vitals None Recorded Social History None recorded. Functional Status None recorded. Mental Status None recorded. Family History Relationship Description Onset Age of this Age Resolved Age Notes LastModified by Organization Details LastModified Time Mother Cataract [email or web address] Not availab le 07/31/2021 14:06:21 Unspecified Relation Hypertensive disorder runs in family [email or web address] Not available 07/31/2021 14:06:54 Medical History Condition Response Glasses/Contacts Y Gynecological HistoryNo gynecological history recorded. Obstetrics History GPAL:G 0 P 0 0 0 0 Past Encounters Encounter ID Performer Location Encounter Start Date Encounter Closed Date Diagnosis/Indication Diagnosis SNOMED-CT Code Diagnosis ICD10 Code Diagnosis Note [id number] SHIRLEY CELIS MD OPHTHALMO [address] [place] [address] 07/31/2021 13:51:23 07/31/2021 15:21:04 Combined form of senile cataract 01116770 H25.813 Posterior vitreous detachment 218206673 H43.813 Myopia 94129198 H52.13 Regular astigmatism 6890 5002 H52.222 Presbyopia 84865155 H52. 4 Health Concerns Section Related Observation LastModified by Organization Detai ls LastModified Time None Recorded Concern Status LastModified by Organization Details LastModified Time None Recorded Advance Directives Directive None Recorded Payers Insurance Date Sequence Insurance Name Policy Number Policy Adler Covered Member ID Adler Member ID Guarantor Name 07/30/2022 1 [facility] (MEDICARE REPLACEMENT/A DVANTAGE - PPO) [id number] Laurie Bueno [id number] Laurie Bueno OBBaljit Episode No OBEpisode recorded.
--- OUTSIDE RECORDS SUMMARY | 2024-11-24 12:12 | XMS_ITS ---
Author Organization [facility] Care Team Providers Care [place] Paver Name Role Phone Jose De Jesus Sepulveda Unavailable Unavailable Allergies and adverse reactions Code CodeSystem Substance Reaction Severity StartDate Concern Status Xanax Unknown 12/10/2019 active Tetanus Toxoids Unknown 12/10/[address] Iodinated Diagno stic Agents Unknown 12/10/2019 active 5640 RXNORM Ibuprofen Unknown 12/10/2019 active Diphtheria Toxoid-containing Vaccines Unknown 12/10/2019 active [place] Unknown 12/10/2019 active 161 RXNORM Acetaminophen Unknown 12/10/2019 active Care Team Name Role Address Phone Organization Dates Jose De Jesus Sepulveda PCP [address] [place] [address], [facility] [place] (Office): : [facility] 12/10/2019 - 01/02/2020 [...] completed tuberculin skin test; unspecified formulation lotNumber: [id number] expiry: 10/22/2021 Mfg: sanafi pasteur Given 0.1 ml Left Forearm intradermally Step 2 of Multi-step with next step required 98 CVX created date: 12/31/2019 consent date: 12/31/2019 administer ed date: 12/17/2019 Educated by Marija Faust on 12/31/2019 TB 2 Step Mantoux Skin Test completed tuberculin skin test; unspecified formulation lotNumber: [id number] expiry: 10/22/2021 Mfg: sanafi pasteur Given 0.1 [...] Code CodeSystem Concern Status 1 HYPOKALEMIA 12/31/[address] active 2 ACUTE POSTHEMORRHAGIC ANEMIA 12/10/[address] active 3 ADVERSE EFFECT OF UNSPECIFIED NARCOTICS, SEQUELA 12/10/[address] active 4 ADVERSE EFFECT OF UNSPECIFIED NARCOTICS, SUBSEQUENT ENCOUNTER 12/10/[address] active 5 DISORDER OF KIDNEY AND URETER, UNSPECIFIED 12/10/[address] active 6 ESSENTIAL (PRIMARY) HYPERTENSION 12/10/[address] active 7 FRACTURE OF UNSPECIFIED PART OF NECK OF LEFT FEMUR, SUBSEQUENT ENCOUNTER FOR CLOSED FRACTURE WITH ROUTINE HEALING 12/10/[address] active 8 LOW BACK PAIN 12/10/[address] act anna 9 OTHER BACTERIAL INFECTIONS OF UNSPECIFIED SITE 12/10/[address] active 10 OTHER RECURRENT DEPRESSIVE DISORDERS 12/10/[address] active 11 PRESENCE OF LEFT ARTIFICIAL HIP JOINT 12/10/[address] active 12 UNSPECIFIED B-CELL LYMPHOMA, UNSPECIFIED SITE 12/10/[address] active 13 URINARY TRACT INFECTION, SITE NOT SPECIFIED 12/10/[address] active Reason for Referral No Reasons for Referral Entered Social History Social History Observation Description Start Date End Date Code Code System Current Smoking Status Tobacco smoking consumption unknown 858003731 SNOMED CT Sex Assigned At Female 1940 41563-3 [facility] Gender Identity Vital Signs Code Code System Vitals Name Values and Units Timing Information 9279-1 [facility] Respiratory Rate Value=18.0 Units=/m in 01/02/2020 8462-4 [facility] Blood Pressure-Diastolic Value=64 Un its=mmHg 01/02/2020 8480-6 [facility] Blood Pressure-Systolic Wfllg=609 Un its=mmHg 01/02/2020 8310-5 [facility] Body Temperature Value=97.8 Units= F 01/02/2020 8867-4 [facility] Heart rate Value=96.0 Units=/min 06/2019 79155-9 [facility] Pain Level Value=0.0 01/02/2020 02122-3 [facility] O2 % BldC Oximetry Value=97.0 Units= % 01/02/2020 51600-2 [facility] Weight Weokk=772.6 Units=Lbs 8302-2 [facility] Height Value=67.0 Units=Inches 12/15/2019
[2024-11-24] MEDS: 0.9 % SODIUM CHLORIDE 1000ML 1,000 ML 100 ML IV (15:43)
[2024-11-24 16:00] VITALS: BP 142/60; PULSE 88; RESP 15; TEMP 36.6; O2SAT 97
--- NOTE | 2024-11-24 16:21 | PC.NURSE ---
Patient alert to self and place but not time or situation. VS stable and patient remained on room air. Lung sounds clear. Patient able to sit in chair before dinner and tolerated well. IV antibiotics given and tolerated well.
[2024-11-24 20:00] VITALS: BP 128/78; PULSE 86; RESP 14; TEMP 36.5; O2SAT 98
--- NOTE | 2024-11-24 20:13 | PC.NURSE ---
patient is very confused, bed alarm is on, three bed rails are up, and call light is near 2014
--- NOTE | 2024-11-25 04:00 | PC.NURSE ---
Pt is very agitated and is demanding to go home. Her orientation to place is reiterated by staff. She refused vitals being taken at 0334. Nurse is aware
[2024-11-25] MEDS: HALOPERIDOL LACTATE 5 MG/ML VIAL IM (04:15)
--- NOTE | 2024-11-25 04:28 | PC.NURSE ---
patient has became increasingly confused and disoriented t/o shift - hallucinating, refusing patient care, and becoming a danger to herself attempting to get out of bed numerous times. patient has spoke with her granddaughter who stated she will be back at 0730 this morning. patient has became impossible to redirect and was got up to chair with tab alarm and sitting at the nursing station with staff. patient refusing vital signs, weight and PO medications. call center manager Stu notified and order halodol IM, administered medication and patient tolerated well. 20 minutes later patient still sitting at the nursing station, but cooperative in chair, talking to staff members.
--- NOTE | 2024-11-25 05:55 | PC.NURSE ---
Water pitcher was filled, table wiped, and linen and trash bags were empty if full. Patient does not need anything at this time. 05:55
--- NOTE | 2024-11-25 05:55 | PC.NURSE ---
Patient was up to chair since 429, patient is now in bed at 05:50 and asleep
[2024-11-25 06:23] LABS: Basophils % 0.5 % (0.1-2.0); Eosinophils # 0.1 Kmm3 (0.0-0.4); Eosinophils % 1.2 % (0.1-12.0); Hematocrit 33.6 % (37.0-47.0); Hemoglobin 10.4 g/dL (12.2-16.2); Immature Granulocytes # 0.03 10^3uL; Immature Granulocytes % 0.5 %; Lymphocytes # 0.8 K/mm3 (0.7-4.5); Mean Corpuscular Volume 96.8 fl (81-99); Mean Platelet Volume 10.9 fl (7.4-10.4); Monocytes # 0.5 K/mm3 (0.1-1.0); Neutrophils # 5.1 K/mm3 (1.8-7.8); Neutrophils % 77.8 % (37.0-80.0); Nucleated Red Blood Cells # 0 10^3/uL; Nucleated Red Blood Cells % 0 %; Platelet Count 131 K/mm3 (142-424); Red Blood Count 3.47 M/mm3 (4.20-5.40); Red Cell Distribution Width 14.2 % (11.5-17.5); Red Cell Distribution Width-SD 50.1 fL; White Blood Count 6.5 K/mm3 (4.8-10.8)
[2024-11-25 06:55] LABS: Albumin Level 3.2 g/dl (3.5-5.0); Chloride 104 mmol/L (98-107); Potassium 3.9 mmoL/L (3.5-5.1); Sodium 136 mmol/L (136-145)
[2024-11-25 06:58] LABS: Alanine Aminotransferase 54 U/L (12-78); Albumin/Globulin Ratio 1.1 (1.1-1.8); Alkaline Phosphatase 756 U/L (38-126); Anion Gap 15.9 mEq/L (5-15); Aspartate Amino Transferase 72 U/L (14-36); Bilirubin,Total 0.7 mg/dl (0.2-1.3); Blood Urea Nitrogen 21 mg/dl (7-17); Carbon Dioxide 20 mmol/L (22.0-30.0); Creatinine Clearance Estimated 40 mL/min (50-200); Estimated Glomerular Filt Rate 59 ml/min (>60); GFR (African American) 72 ML/MIN (>60); Total Protein,Serum 6.2 g/dl (6.3-8.2)
[2024-11-25 06:59] LABS: Calcium 8.8 mg/dl (8.4-10.2); Glucose 131 mg/dl (74-100)
[2024-11-25 08:00] VITALS: BP 137/65; PULSE 107; RESP 17; TEMP 36.7
--- NOTE | 2024-11-25 08:04 | P.PN_ITS ---
Subjective *Date: 11/25/24 *Time: 08:57 Interval history: Patient states she is feeling a little better today. She denies any pain. She is tired this am. She was able to eat a small amount. Medical Exam Vital signs and Labs for Last 24 Hours: Vital Signs Temp Pulse Resp BP Pulse Ox O2 Del Method 11/25/24 06:31 Room Air 11/25/24 05:00 Room Air 11/25/24 03:00 Room Air 11/25/24 01:00 Room Air 11/24/24 23:00 Room Air 11/24/24 21:00 Room Air 11/24/24 20:00 Room Air 11/24/24 20:00 97.7 F 86 14 128/78 98 Room Air 11/24/24 18:46 Room Air 11/24/24 17:00 Room Air 11/24/24 16:00 97.8 F 88 15 142/60 H 97 Room Air 11/24/24 15:10 Room Air 11/24/24 13:10 Room Air 11/24/24 11:13 Room Air 11/24/24 09:11 Room Air 11/24/24 08:30 Room Air Intake and Output 11/24/24 11/25/24 11/25/24 19:59 03:59 11:59 Intake Total 970 / 1210 240 / 1210 Output Total 0 / 250 250 / 250 0 / 250 Balance 970 / 960 -10 / 960 0 / 960 Intake: Intake, Oral Amount 120 / 360 240 / 360 Intake, Total IV Amount 850 / 850 0.9 % Sodium Chloride 1000ML 1, 800 / 800 000 ml @ 100 mls/hr IV .Q10H ZULEYKA Rx#:[id number] Ceftriaxone 1 gm 1 gm In 0.9 % 50 / 50 Sodium Chloride 50 ml @ 100 mls /hr IV Q24H ZULEYKA Rx#:[id number] Output: Output, Urine Amount 0 / 250 250 / 250 0 / 250 Other: Number of Unmeasured Voids 1 0 1 Laboratory Results - last 24 hr 11/25/24 06:06: WBC 6.5, RBC 3.47 L, Hgb 10.4 L, Hct 33.6 L, MCV 96.8, MCH 30.0, MCHC 31.0 L, RDW 14.2, Plt Count 131 L, MPV 10.9 H, Neut % (Auto) 77.8, Lymph % (Auto) 12.0, [place] % (Auto) 8.0, Eos % (Auto) 1.2, Baso % (Auto) 0.5, Neut # (Auto) 5.1, Lymph # (Auto) 0.8, [place] # (Auto) 0.5, Eos # (Auto) 0.1, Baso # (Auto) 0.0, Sodium 136, Potassium 3.9, Chloride 104, Carbon Dioxide 20 L, Anion Gap 15.9 H, BUN 21 H D, Creatinine 0.90, Estimated Creat Clear 40, Estimated GFR 59, Est GFR ( Amer) 72 D, Glucose 131 H, Calcium 8.8, Total Bilirubin 0.7, AST 72 H, ALT 54, Alkaline Phosphatase 756 H, Total Protein 6.2 L, Albumin 3.2 L, Globulin 3.0, Albumin/Globulin Ratio 1.1 I & O for Labs for Last 24 Hours: Intake & Output 11/22/24 11/23/24 11/24/24 11/25/24 11:59 11:59 11:59 11:59 Intake Total 420 / 420 1210 / 1210 Output Total 352 / 352 250 / 250 Balance 68 / 68 960 / 960 Weight 130 lb 139 lb 9.6 oz Microbiology Reports for the Last 24 Hours: Microbiology 11/23/24 13:11 Urine,Clean Catch Urine Culture - Final Escherichia coli 11/23/24 19:39 Blood Blood Culture - Preliminary NO GROWTH AFTER 24 HOURS 11/23/24 12:40 Blood Blood Culture - Preliminary NO GROWTH AFTER 24 HOURS Constitutional: Present no acute distress Head: Present normocephalic Neck: Present normal inspection Respiratory: Present CTA bilaterally; Absent respiratory distress Cardiac: Present Reg Rate and Rhythm GI: Present soft; Absent distention or tenderness Extremities: Absent edema Skin: Present intact Neuro: Present alert and oriented x 3 Assessment and Plan *Assessment and plan (1) Urinary tract infection: Status: Acute Category: Medical Code(s): N39.0 - Urinary tract infection, site not specified (2) Failure of outpatient treatment: Status: Acute Category: Medical Code(s): Z78.9 - Other specified health status (3) General weakness: Status: Acute Category: Medical Code(s): R53.1 - Weakness (4) Hyperlipidemia: Status: Acute Qualifiers: Hyperlipidemia type: mixed hyperlipidemia Qualified Code(s): E78.2 - Mixed hyperlipidemia Category: Medical Code(s): E78.5 - Hyperlipidemia, unspecified (5) Hypertension: Status: Chronic Qualifiers: Hypertension type: primary hypertension Qualified Code(s): I10 - Essential (primary) hypertension Category: Medical Code(s): I10 - Essential (primary) hypertension (6) Coronary artery disease: Status: Acute Category: Medical Code(s): I25.10 - Atherosclerotic heart disease of [place] coronary artery without angina pectoris (7) Renal insufficiency: Status: Acute Category: Medical Code(s): N28.9 - Disorder of kidney and ureter, unspecified (8) Polyneuropathy: Status: Acute Category: Medical Code(s): G62.9 - Polyneuropathy, unspecified (9) Leg weakness, bilateral: Status: Acute Category: Medical Code(s): R29.898 - Other symptoms and signs involving the musculoskeletal system (10) Confusion: Status: Acute Category: Medical Code(s): R41.0 - Disorientation, unspecified (11) Foot drop: Status: Acute Category: Medical Code(s): M21.379 - Foot drop, unspecified foot Plan Will continue with Rocephin for E. Coli UTI. Will discuss further care with Dr. Lopez. Dr. Lopez entry - Saw patient, agree with above note. Labs have improved but she seems a little more confused this morning. May need to check a head CT, plan to assess again later today.
[2024-11-25] MEDS: CEFTRIAXONE 1 GM 1 GM in 0.9 % SODIUM CHLORIDE 50 ML IV (08:47)
[2024-11-25] MEDS: LEVOTHYROXINE 50 MCG 1 EACH PO (08:50)
[2024-11-25] MEDS: ASPIRIN EC 81MG TABLET 81 MG PO (08:51)
[2024-11-25] MEDS: PT OWN MED *CLOPIDOGREL 75 MG TAB 1 EACH PO (08:51)
[2024-11-25] MEDS: METOPROLOL TARTRATE 25MG TABLET 12.5 MG PO ×2 (08:51→21:06)
[2024-11-25] MEDS: ACETAMINOPHEN 500MG TAB 1000 MG PO (08:53)
--- NOTE | 2024-11-25 12:57 | CT_ITS ---
FINAL REPORT TECHNIQUE: Axial imaging of the head was obtained with contrast. This study was performed with techniques to keep radiation doses as low as reasonably achievable, (ALARA). Individualized dose reduction techniques using automated exposure control or adjustment of mA and/or kV according to the patient's size were employed. CLINICAL HISTORY: confusion COMPARISON: 04/12/2024 FINDINGS: CT HEAD WITH CONTRAST: CT examination of the head was performed after the administration of intravenous contrast. Mild age-appropriate atrophy is identified. No enhancement is present. No extra-axial fluid collections are noted. No areas of abnormal parenchymal density are seen. No mass effect or midline shift is noted. There is a stable mucous retention cyst in the left maxillary sinus. IMPRESSION: Mild age-appropriate atrophy without acute intracranial abnormality identified. Reviewed, Interpreted and Dictated by Ceci Ruiz MD Transcribed by Ginger Gaines Authenticated and . [facility]
[2024-11-25] MEDS: KETOROLAC 30MG/ML VIAL 30 MG IV (13:33)
[2024-11-25] MEDS: FAMOTIDINE 20MG/2ML VIAL 20 MG IV (13:34)
[2024-11-25] MEDS: METHYLPREDNISOLONE SOD SUCC 125MG VIAL 125 MG IV (13:34)
[2024-11-25] MEDS: diphenhydrAMINE 50MG/ML VIAL 25 MG IV (13:34)
[2024-11-25] MEDS: IOPAMIDOL-300 (61%) 100ML VIAL 100 ML IV (14:08)
[2024-11-25] MEDS: SODIUM CHLORIDE 0.9% 10ML SYR (RAD ONLY) 10 ML IV (14:12)
[2024-11-25 16:00] VITALS: BP 173/72; PULSE 98; RESP 16; TEMP 36.6; O2SAT 100
--- NOTE | 2024-11-25 16:50 | PC.NURSE ---
Patient alert to self only. Patient complained of headache this am, tylenol given with some relief noted but pain still present. Dr. Lopez notified and ct of head ordered. VS stable and patient remained on room air. Lung sounds clear
[2024-11-25] MEDS: 0.9 % SODIUM CHLORIDE 1000ML 1,000 ML 100 ML IV (17:18)
[2024-11-25 20:00] VITALS: BP 171/87; PULSE 114; RESP 16; TEMP 36.7; O2SAT 97
[2024-11-25] MEDS: MELATONIN 5MG TABLET 5 MG PO (21:06)
--- NOTE | 2024-11-26 02:31 | PC.NURSE ---
Pt alert to self. Family member at bedside. Administered melatonin HS as ordered. Seemed to help pt sleep for a few hours. Pt has been intermittently sleeping. 22g R wrist, receiving normal saline at 100mL/hr. Pt denies pain and denies any additional needs at this time. Respirations even and unlabored. Bed is low, locked, and call light is in reach.
[2024-11-26] MEDS: 0.9 % SODIUM CHLORIDE 1000ML 1,000 ML 100 ML IV (03:08)
[2024-11-26 04:00] VITALS: BMI 26.4
--- NOTE | 2024-11-26 04:25 | PC.NURSE ---
Patient just went to sleep around 03:30, and has not slept well within the past few days. So, I was instructed by nurse to skip 0400 vitals. Patient it clean and dry. Blue bags and trashes were taken out at this time 0426. Patient's call light is within reach and does not need anything
--- NOTE | 2024-11-26 05:09 | PC.NURSE ---
Blue bags and trashes were taken out at this time 0500. Patient's call light is within reach and pt does not need anything
[2024-11-26] MEDS: LEVOTHYROXINE 50 MCG 1 EACH PO (06:13)
--- NOTE | 2024-11-26 06:29 | PC.NURSE ---
Ice filled and table is wiped. call light within reach, patient does not need anything at this time. [id number]
[2024-11-26 07:55] VITALS: BP 165/78; PULSE 90; RESP 17; TEMP 36.6; O2SAT 96
[2024-11-26] MEDS: METOPROLOL TARTRATE 25MG TABLET 12.5 MG PO ×2 (08:19→20:58)
[2024-11-26] MEDS: ASPIRIN EC 81MG TABLET 81 MG PO (08:19)
[2024-11-26] MEDS: CEFTRIAXONE 1 GM 1 GM in 0.9 % SODIUM CHLORIDE 50 ML IV (08:19)
[2024-11-26] MEDS: PT OWN MED *CLOPIDOGREL 75 MG TAB 1 EACH PO (08:21)
--- NOTE | 2024-11-26 08:22 | EXP.ACUTE.PN ---
Subjective *Date: 11/26/24 *Time: 08:28 Interval history: Patient is feeling about the same today. She is tired. She has not eaten breakfast yet. She is c/o some back pain. Medical Exam Vital signs and Labs for Last 24 Hours: Vital Signs Temp Pulse Resp BP Pulse Ox O2 Del Method 11/26/24 07:55 97.9 F 90 17 165/78 H 96 Room Air 11/26/24 06:37 Room Air 11/26/24 05:00 Room Air 11/26/24 03:00 Room Air 11/26/24 01:00 Room Air 11/25/24 23:00 Room Air 11/25/24 21:00 Room Air 11/25/24 20:00 98.1 F 114 H 16 171/87 H 97 Room Air 11/25/24 20:00 Room Air 11/25/24 18:42 Room Air 11/25/24 16:51 Room Air 11/25/24 16:00 98 F 98 H 16 173/72 H 100 11/25/24 15:10 Room Air 11/25/24 13:10 Room Air 11/25/24 11:00 Room Air 11/25/24 09:00 Room Air Intake and Output 11/25/24 11/26/24 11/26/24 19:59 03:59 11:59 Intake Total 1602 / 1602 Output Total 150 / 500 100 / 500 250 / 500 Balance 1452 / 1102 -100 / 1102 -250 / 1102 Intake: Intake, Oral Amount 220 / 220 Intake, Total IV Amount 1382 / 1382 0.9 % Sodium Chloride 1000ML 1, 684 / 684 000 ml @ 100 mls/hr IV .Q10H [facility] Rx#:[id number] Ceftriaxone 1 gm 1 gm In 0.9 % 698 / 698 Sodium Chloride 50 ml @ 100 mls /hr IV Q24H [facility]KA Rx#:[id number] Output: Output, Urine Amount 150 / 500 100 / 500 250 / 500 Other: Number of Unmeasured Voids 0 0 1 Weight 140 lb 1.6 oz Patient Weight 11/26/24 11:59 Weight 140 lb 1.6 oz I & O for Labs for Last 24 Hours: Intake & Output 11/23/24 11/24/24 11/25/24 11/26/24 11:59 11:59 11:59 11:59 Intake Total 420 / 420 1210 / 1210 1602 / 1602 Output Total 352 / 352 450 / 450 500 / 500 Balance 68 / 68 760 / 760 1102 / 1102 Weight 130 lb 139 lb 9.6 oz 140 lb 1.6 oz Microbiology Reports for the Last 24 Hours: Microbiology 11/23/24 19:39 Blood Blood Culture - Preliminary NO GROWTH AFTER 48 HOURS 11/23/24 12:40 Blood Blood Culture - Preliminary NO GROWTH AFTER 48 HOURS 11/23/24 13:11 Urine,Clean Catch Urine Culture - Final Escherichia coli Constitutional: Present no acute distress Head: Present normocephalic Neck: Present normal inspection Respiratory: Present CTA bilaterally; Absent respiratory distress Cardiac: Present Reg Rate and Rhythm GI: Present soft; Absent distention or tenderness Extremities: Absent edema Skin: Present intact Neuro: Present alert and oriented x 3 Assessment and Plan *Assessment and plan (1) Urinary tract infection: Status: Acute Category: Medical Code(s): N39.0 - Urinary tract infection, site not specified (2) Failure of outpatient treatment: Status: Acute Category: Medical Code(s): Z78.9 - Other specified health status (3) General weakness: Status: Acute Category: Medical Code(s): R53.1 - Weakness (4) Hyperlipidemia: Status: Acute Qualifiers: Hyperlipidemia type: mixed hyperlipidemia Qualified Code(s): E78.2 - Mixed hyperlipidemia Category: Medical Code(s): E78.5 - Hyperlipidemia, unspecified (5) Hypertension: Status: Chronic Qualifiers: Hypertension type: primary hypertension Qualified Code(s): I10 - Essential (primary) hypertension Category: Medical Code(s): I10 - Essential (primary) hypertension (6) Coronary artery disease: Status: Acute Category: Medical Code(s): I25.10 - Atherosclerotic heart disease of [place] coronary artery without angina pectoris (7) Renal insufficiency: Status: Acute Category: Medical Code(s): N28.9 - Disorder of kidney and ureter, unspecified (8) Polyneuropathy: Status: Acute Category: Medical Code(s): G62.9 - Polyneuropathy, unspecified (9) Leg weakness, bilateral: Status: Acute Category: Medical Code(s): R29.898 - Other symptoms and signs involving the musculoskeletal system (10) Confusion: Status: Acute Category: Medical Code(s): R41.0 - Disorientation, unspecified (11) Foot drop: Status: Acute Category: Medical Code(s): M21.379 - Foot drop, unspecified foot Plan Head CT showed nothing acute. Will continue antibiotics and encourage her to eat. Dr. Lopez entry - Saw patient, agree with above note. She has been slow to improve mentally, she has very little po intake. Will likely need placememnt at time of discharge.
[2024-11-26] MEDS: IRBESARTAN 75MG TABLET 75 MG PO (08:35)
[2024-11-26 08:36] VITALS: BP 165/78; PULSE 90; RESP 17; TEMP 36.6; O2SAT 96
[2024-11-26] MEDS: ACETAMINOPHEN 500MG TAB 1000 MG PO (09:13)
[2024-11-26 13:43] VITALS: BMI 26.4
[2024-11-26 16:00] VITALS: BP 135/63; PULSE 84; RESP 20; TEMP 36.6; O2SAT 98
[2024-11-26 20:00] VITALS: BP 149/70; PULSE 85; RESP 19; TEMP 37.1; O2SAT 94
[2024-11-26] MEDS: MELATONIN 5MG TABLET 5 MG PO (20:58)
--- NOTE | 2024-11-26 21:44 | PC.NURSE ---
Patient turned to right side to prevent bed sores. Pt. is clean and dry. [id number]
--- NOTE | 2024-11-27 01:12 | PC.NURSE ---
Pt was given bed bath and room trash emptied at 0030 by laz RIGGS and Chloe Stoner.
--- NOTE | 2024-11-27 03:14 | PC.NURSE ---
Pt alert to self. Pt seems to be resting better tonight. Received melatonin HS. Pt is resting in bed with eyes closed. Respirations even and unlabored. Bed is low, locked, and call light is in reach. Bed alarm is on and functioning.
[2024-11-27 04:00] VITALS: BP 172/84; PULSE 89; RESP 18; TEMP 36.4; O2SAT 98; BMI 26.7
--- NOTE | 2024-11-27 04:23 | PC.NURSE ---
This SRNA and SRNA Praneeth moved pt onto right side at 04:00
[2024-11-27] MEDS: LEVOTHYROXINE 50 MCG 1 EACH PO (06:27)
[2024-11-27 06:48] LABS: Basophils % 0.1 % (0.1-2.0); Eosinophils % 0.3 % (0.1-12.0); Hematocrit 29.1 % (37.0-47.0); Hemoglobin 9.6 g/dL (12.2-16.2); Immature Granulocytes # 0.04 10^3uL; Immature Granulocytes % 0.4 %; Lymphocytes # 0.9 K/mm3 (0.7-4.5); Lymphocytes % 9.8 % (10-50); Mean Corpuscular Volume 90.9 fl (81-99); Mean Platelet Volume 11.2 fl (7.4-10.4); Monocytes # 0.7 K/mm3 (0.1-1.0); Monocytes % 7.1 % (1.7-9.3); Neutrophils # 7.8 K/mm3 (1.8-7.8); Neutrophils % 82.3 % (37.0-80.0); Nucleated Red Blood Cells # 0 10^3/uL; Nucleated Red Blood Cells % 0 %; Platelet Count 148 K/mm3 (142-424); Red Cell Distribution Width 14.3 % (11.5-17.5); White Blood Count 9.5 K/mm3 (4.8-10.8)
[2024-11-27 06:52] LABS: Albumin Level 3.1 g/dl (3.5-5.0); Chloride 106 mmol/L (98-107); Sodium 138 mmol/L (136-145)
[2024-11-27 06:55] LABS: Alanine Aminotransferase 59 U/L (12-78); Albumin/Globulin Ratio 1.2 (1.1-1.8); Alkaline Phosphatase 743 U/L (38-126); Anion Gap 11.4 mEq/L (5-15); Aspartate Amino Transferase 67 U/L (14-36); Bilirubin,Total 0.5 mg/dl (0.2-1.3); Blood Urea Nitrogen 17 mg/dl (7-17); Calcium 8.6 mg/dl (8.4-10.2); Carbon Dioxide 24 mmol/L (22.0-30.0); Creatinine Clearance Estimated 41 mL/min (50-200); Estimated Glomerular Filt Rate 59 ml/min (>60); GFR (African American) 72 ML/MIN (>60); Globulin 2.5 g/dL (1.3-3.2); Glucose 118 mg/dl (74-100); Potassium 3.4 mmoL/L (3.5-5.1); Total Protein,Serum 5.6 g/dl (6.3-8.2)
--- NOTE | 2024-11-27 07:40 | P.PN_ITS ---
Subjective *Date: 11/27/24 *Time: 07:40 Medical Exam Vital signs and Labs for Last 24 Hours: Vital Signs Temp Pulse Resp BP Pulse Ox O2 Del Method 11/27/24 06:44 Room Air 11/27/24 05:00 Room Air 11/27/24 04:00 97.5 F L 89 18 172/84 H 98 Room Air 11/27/24 03:00 Room Air 11/27/24 01:00 Room Air 11/26/24 23:00 Room Air 11/26/24 21:00 Room Air 11/26/24 20:00 Room Air 11/26/24 20:00 98.7 F 85 19 149/70 H 94 L Room Air 11/26/24 19:00 Room Air 11/26/24 17:00 Room Air 11/26/24 16:00 97.9 F 84 20 135/63 98 Room Air 11/26/24 13:00 Room Air 11/26/24 11:00 Room Air 11/26/24 09:00 Room Air 11/26/24 08:36 97.9 F 90 17 165/78 H 96 Room Air 11/26/24 08:00 Room Air 11/26/24 07:55 97.9 F 90 17 165/78 H 96 Room Air Intake and Output 11/26/24 11/26/24 11/27/24 15:59 23:59 07:59 Intake Total 60 / 360 300 / 360 Output Total 0 / 350 1000 / 1000 Balance 60 / 10 300 / 10 -1000 / -1000 Intake: Intake, Oral Amount 60 / 360 300 / 360 Output: Output, Urine Amount 0 / 350 1000 / 1000 Other: Number of Unmeasured Voids 0 0 Number of Bowel Movements 1 Weight 63.54 kg 64.274 kg Patient Weight 11/27/24 23:59 Weight 64.274 kg Laboratory Results - last 24 hr 11/27/24 05:27: WBC 9.5 D, RBC 3.20 L, Hgb 9.6 L, Hct 29.1 L, MCV 90.9, MCH 30.0, MCHC 33.0, RDW 14.3, Plt Count 148, MPV 11.2 H, Neut % (Auto) 82.3 H, Lymph % (Auto) 9.8 L, [place] % (Auto) 7.1, Eos % (Auto) 0.3, Baso % (Auto) 0.1, Neut # (Auto) 7.8, Lymph # (Auto) 0.9, [place] # (Auto) 0.7, Eos # (Auto) 0.0, Baso # (Auto) 0.0, Sodium 138, Potassium 3.4 L, Chloride 106, Carbon Dioxide 24, Anion Gap 11.4, BUN 17, Creatinine 0.90, Estimated Creat Clear 41, Estimated GFR 59, Est GFR ( Amer) 72, Glucose 118 H, Calcium 8.6, Total Bilirubin 0.5, AST 67 H, ALT 59, Alkaline Phosphatase 743 H, Total Protein 5.6 L, Albumin 3.1 L , Globulin 2.5, Albumin/Globulin Ratio 1.2 I & O for Labs for Last 24 Hours: Intake & Output 11/24/24 11/25/24 11/26/24 11/27/24 23:59 23:59 23:59 23:59 Intake Total 1090 / 1330 1842 / 1842 360 / 360 Output Total 350 / 350 350 / 350 350 / 350 1000 / 1000 Balance 740 / 980 1492 / 1492 10 -1000 / -1000 Weight 63.321 kg 63.54 kg 64.274 kg The patient's infection will respond to the chosen ABx?: Yes (URINE CX = E COLI SENSITIVE TO ROCEPHIN, AFEBRILE OVER 24 HR.) Is the patient receiving the right drug, dose, and route?: Yes Could a more targeted ABx be ordered?: No How long ABx needed (days)?: 7 (UTI)
[2024-11-27 08:00] VITALS: BP 155/63; PULSE 96; RESP 18; TEMP 36.8; O2SAT 97
--- NOTE | 2024-11-27 08:19 | EXP.ACUTE.PN ---
Subjective *Date: 11/27/24 *Time: 09:03 Interval history: Patient is feeling a little better today. She did not rest well. She has only eaten a few bites of breakfast. She denies any pain. Medical Exam Vital signs and Labs for Last 24 Hours: Vital Signs Temp Pulse Resp BP Pulse Ox O2 Del Method 11/27/24 06:44 Room Air 11/27/24 05:00 Room Air 11/27/24 04:00 97.5 F L 89 18 172/84 H 98 Room Air 11/27/24 03:00 Room Air 11/27/24 01:00 Room Air 11/26/24 23:00 Room Air 11/26/24 21:00 Room Air 11/26/24 20:00 Room Air 11/26/24 20:00 98.7 F 85 19 149/70 H 94 L Room Air 11/26/24 19:00 Room Air 11/26/24 17:00 Room Air 11/26/24 16:00 97.9 F 84 20 135/63 98 Room Air 11/26/24 13:00 Room Air 11/26/24 11:00 Room Air 11/26/24 09:00 Room Air 11/26/24 08:36 97.9 F 90 17 165/78 H 96 Room Air Intake and Output 11/26/24 11/27/24 11/27/24 19:59 03:59 11:59 Intake Total 300 / 300 Output Total 0 / 1000 800 / 1000 200 / 1000 Balance 300 / -700 -800 / -700 -200 / -700 Intake: Intake, Oral Amount 300 / 300 Output: Output, Urine Amount 0 / 1000 800 / 1000 200 / 1000 Other: Number of Unmeasured Voids 0 0 0 Number of Bowel Movements 1 Weight 140 lb 1.307 oz 141 lb 11.2 oz Patient Weight 11/27/24 11:59 Weight 141 lb 11.2 oz Laboratory Results - last 24 hr 11/27/24 05:27: WBC 9.5 D, RBC 3.20 L, Hgb 9.6 L, Hct 29.1 L, MCV 90.9, MCH 30.0, MCHC 33.0, RDW 14.3, Plt Count 148, MPV 11.2 H, Neut % (Auto) 82.3 H, Lymph % (Auto) 9.8 L, [place] % (Auto) 7.1, Eos % (Auto) 0.3, Baso % (Auto) 0.1, Neut # (Auto) 7.8, Lymph # (Auto) 0.9, [place] # (Auto) 0.7, Eos # (Auto) 0.0, Baso # (Auto) 0.0, Sodium 138, Potassium 3.4 L, Chloride 106, Carbon Dioxide 24, Anion Gap 11.4, BUN 17, Creatinine 0.90, Estimated Creat Clear 41, Estimated GFR 59, Est GFR ( Amer) 72, Glucose 118 H, Calcium 8.6, Total Bilirubin 0.5, AST 67 H, ALT 59, Alkaline Phosphatase 743 H, Total Protein 5.6 L, Albumin 3.1 L, Globulin 2.5, Albumin/Globulin Ratio 1.2 I & O for Labs for Last 24 Hours: Intake & Output 11/24/24 11/25/24 11/26/24 11/27/24 11:59 11:59 11:59 11:59 Intake Total 420 / 420 1210 / 1210 1662 / 1662 300 / 300 Output Total 352 / 352 450 / 450 500 / 500 1000 / 1000 Balance 68 / 68 760 / 760 1162 / 1162 -700 / -700 Weight 139 lb 9.6 oz 140 lb 1.6 oz 141 lb 11.2 oz Constitutional: Present no acute distress Head: Present normocephalic Neck: Present normal inspection Respiratory: Present CTA bilaterally; Absent respiratory distress Cardiac: Present Reg Rate and Rhythm GI: Present soft; Absent distention or tenderness Extremities: Absent edema Skin: Present intact Neuro: Present alert and oriented x 3 Assessment and Plan *Assessment and plan (1) Urinary tract infection: Status: Acute Category: Medical Code(s): N39.0 - Urinary tract infection, site not specified (2) Failure of outpatient treatment: Status: Acute Category: Medical Code(s): Z78.9 - Other specified health status (3) General weakness: Status: Acute Category: Medical Code(s): R53.1 - Weakness (4) Hyperlipidemia: Status: Acute Qualifiers: Hyperlipidemia type: mixed hyperlipidemia Qualified Code(s): E78.2 - Mixed hyperlipidemia Category: Medical Code(s): E78.5 - Hyperlipidemia, unspecified (5) Hypertension: Status: Chronic Qualifiers: Hypertension type: primary hypertension Qualified Code(s): I10 - Essential (primary) hypertension Category: Medical Code(s): I10 - Essential (primary) hypertension (6) Coronary artery disease: Status: Acute Category: Medical Code(s): I25.10 - Atherosclerotic heart disease of [place] coronary artery without angina pectoris (7) Renal insufficiency: Status: Acute Category: Medical Code(s): N28.9 - Disorder of kidney and ureter, unspecified (8) Polyneuropathy: Status: Acute Category: Medical Code(s): G62.9 - Polyneuropathy, unspecified (9) Leg weakness, bilateral: Status: Acute Category: Medical Code(s): R29.898 - Other symptoms and signs involving the musculoskeletal system (10) Confusion: Status: Acute Category: Medical Code(s): R41.0 - Disorientation, unspecified (11) Foot drop: Status: Acute Category: Medical Code(s): M21.379 - Foot drop, unspecified foot (12) Severe protein-calorie malnutrition: Status: Acute Category: Medical Code(s): E43 - Unspecified severe protein-calorie malnutrition (13) Anemia: Status: Acute Category: Medical Code(s): D64.9 - Anemia, unspecified Plan She has improved mentally. Will likely need placement at time of discharge. Will discuss further care with Dr. Lopez. Dr. Masha clark - Saw patient, agree with above note. She is slowly improving.
[2024-11-27] MEDS: CEFTRIAXONE 1 GM 1 GM in 0.9 % SODIUM CHLORIDE 50 ML IV (08:36)
[2024-11-27] MEDS: ASPIRIN EC 81MG TABLET 81 MG PO (08:36)
[2024-11-27] MEDS: IRBESARTAN 75MG TABLET 75 MG PO (08:36)
[2024-11-27] MEDS: METOPROLOL TARTRATE 25MG TABLET 12.5 MG PO ×2 (08:36→20:53)
[2024-11-27] MEDS: PT OWN MED *CLOPIDOGREL 75 MG TAB 1 EACH PO (08:37)
[2024-11-27 16:00] VITALS: BP 139/62; PULSE 82; RESP 16; TEMP 36.6; O2SAT 99
--- NOTE | 2024-11-27 19:02 | PC.NURSE ---
pt has been pleasant and down well. no significant changes from previous shift. pt was up to the chair at majority of the day with family in and out. new iv placed in LUE other 2 ivs dc.
[2024-11-27 19:45] VITALS: BP 159/68; PULSE 90; RESP 15; TEMP 36.8; O2SAT 99
[2024-11-27] MEDS: MELATONIN 5MG TABLET 5 MG PO (20:52)
[2024-11-28 03:53] VITALS: BP 158/68; PULSE 83; RESP 16; TEMP 37; O2SAT 98; BMI 26.8
[2024-11-28] MEDS: ACETAMINOPHEN 500MG TAB 1000 MG PO ×2 (03:55→20:45)
--- NOTE | 2024-11-28 03:56 | PC.NURSE ---
This SRNA emptied pt room linen bag and both trash cans at 0352
--- NOTE | 2024-11-28 05:00 | PC.NURSE ---
Fresh Ice water given by this SRNA at 2105
[2024-11-28] MEDS: LEVOTHYROXINE 50 MCG 1 EACH PO (06:45)
[2024-11-28 07:34] VITALS: BP 174/66; PULSE 82; RESP 16; TEMP 36.6; O2SAT 98
[2024-11-28 07:47] LABS: Basophils % 0.3 % (0.1-2.0); Eosinophils # 0.1 Kmm3 (0.0-0.4); Hemoglobin 9.9 g/dL (12.2-16.2); Immature Granulocytes # 0.03 10^3uL; Immature Granulocytes % 0.4 %; Lymphocytes # 0.9 K/mm3 (0.7-4.5); Lymphocytes % 10.9 % (10-50); Mean Corpuscular Hemoglobin 30.1 pg (27.0-31.2); Mean Corpuscular Volume 91.2 fl (81-99); Mean Platelet Volume 10.9 fl (7.4-10.4); Monocytes # 0.7 K/mm3 (0.1-1.0); Neutrophils # 6.1 K/mm3 (1.8-7.8); Neutrophils % 78.4 % (37.0-80.0); Nucleated Red Blood Cells # 0 10^3/uL; Nucleated Red Blood Cells % 0 %; Platelet Count 116 K/mm3 (142-424); Red Blood Count 3.29 M/mm3 (4.20-5.40); Red Cell Distribution Width 14.3 % (11.5-17.5); White Blood Count 7.8 K/mm3 (4.8-10.8)
[2024-11-28 08:00] VITALS: O2SAT 98
[2024-11-28 08:04] LABS: Albumin Level 3.3 g/dl (3.5-5.0); Chloride 103 mmol/L (98-107); Potassium 3.6 mmoL/L (3.5-5.1); Sodium 137 mmol/L (136-145)
[2024-11-28 08:06] LABS: Blood Urea Nitrogen 15 mg/dl (7-17); Creatinine Clearance Estimated 41 mL/min (50-200); Estimated Glomerular Filt Rate 59 ml/min (>60); GFR (African American) 72 ML/MIN (>60)
[2024-11-28 08:07] LABS: Alanine Aminotransferase 75 U/L (12-78); Albumin/Globulin Ratio 1.3 (1.1-1.8); Alkaline Phosphatase 778 U/L (38-126); Anion Gap 12.6 mEq/L (5-15); Aspartate Amino Transferase 90 U/L (14-36); Bilirubin,Total 0.6 mg/dl (0.2-1.3); Calcium 8.8 mg/dl (8.4-10.2); Carbon Dioxide 25 mmol/L (22.0-30.0); Globulin 2.5 g/dL (1.3-3.2); Glucose 126 mg/dl (74-100); Total Protein,Serum 5.8 g/dl (6.3-8.2)
[2024-11-28] MEDS: METOPROLOL TARTRATE 25MG TABLET 12.5 MG PO ×2 (08:23→20:45)
[2024-11-28] MEDS: PT OWN MED *CLOPIDOGREL 75 MG TAB 1 EACH PO (08:23)
[2024-11-28] MEDS: IRBESARTAN 75MG TABLET 75 MG PO (08:23)
[2024-11-28] MEDS: ASPIRIN EC 81MG TABLET 81 MG PO (08:24)
[2024-11-28] MEDS: CEFTRIAXONE 1 GM 1 GM in 0.9 % SODIUM CHLORIDE 50 ML IV (08:24)
--- NOTE | 2024-11-28 10:17 | EXP.ACUTE.PN ---
Subjective *Date: 11/28/24 *Time: 10:17 Interval history: Patient feels a little better today. Still has not eaten much at all. Medical Exam Vital signs and Labs for Last 24 Hours: Vital Signs Temp Pulse Resp BP Pulse Ox O2 Del Method 11/28/24 08:00 98 Room Air 11/28/24 07:34 97.8 F 82 16 174/66 H 98 Room Air 11/28/24 07:00 Room Air 11/28/24 05:00 Room Air 11/28/24 03:53 98.6 F 83 16 158/68 H 98 Room Air 11/28/24 03:00 Room Air 11/28/24 01:00 Room Air 11/27/24 22:57 Room Air 11/27/24 21:00 Room Air 11/27/24 19:45 98.2 F 90 15 159/68 H 99 Room Air 11/27/24 19:00 Room Air 11/27/24 17:00 Room Air 11/27/24 16:00 97.9 F 82 16 139/62 99 Room Air 11/27/24 13:00 Room Air 11/27/24 11:00 Room Air Intake and Output 11/27/24 11/28/24 11/28/24 23:59 07:59 15:59 Output Total 500 / 2050 1200 / 1200 Balance -500 / -1730 -1200 / -1200 Output: Output, Urine Amount 500 / 2050 1200 / 1200 Other: Number of Unmeasured Voids 0 0 Number of Bowel Movements 1 Weight 142 lb 3 oz Patient Weight 11/28/24 23:59 Weight 142 lb 3 oz Laboratory Results - last 24 hr 11/28/24 06:45: WBC 7.8, RBC 3.29 L, Hgb 9.9 L, Hct 30.0 L, MCV 91.2, MCH 30.1, MCHC 33.0, RDW 14.3, Plt Count 116 L, MPV 10.9 H, Neut % (Auto) 78.4, Lymph % (Auto) 10.9, [place] % (Auto) 9.0, Eos % (Auto) 1.0, Baso % (Auto) 0.3, Neut # (Auto) 6.1, Lymph # (Auto) 0.9, [place] # (Auto) 0.7, Eos # (Auto) 0.1, Baso # (Auto) 0.0, Sodium 137, Potassium 3.6, Chloride 103, Carbon Dioxide 25, Anion Gap 12.6, BUN 15, Creatinine 0.90, Estimated Creat Clear 41, Estimated GFR 59, Est GFR ( Amer) 72, Glucose 126 H, Calcium 8.8, Total Bilirubin 0.6, AST 90 H D, ALT 75 D, Alkaline Phosphatase 778 H, Total Protein 5.8 L, Albumin 3.3 L, Globulin 2.5, Albumin/Globulin Ratio 1.3 I & O for Labs for Last 24 Hours: Intake & Output 11/25/24 11/26/24 11/27/24 11/28/24 23:59 23:59 23:59 23:59 Intake Total 1842 / 1842 360 / 360 320 / 320 Output Total 350 / 350 350 / 350 2049 1200 / 1200 Balance 1492 / 1492 -1730 / -1730 -1200 / -1200 Weight 140 lb 1.307 oz 141 lb 11.2 oz 142 lb 3 oz Microbiology Reports for the Last 24 Hours: Microbiology 11/23/24 19:39 Blood Blood Culture - Preliminary NO GROWTH AFTER 4 DAYS 11/23/24 12:40 Blood Blood Culture - Preliminary NO GROWTH AFTER 4 DAYS Constitutional: Present no acute distress Head: Present normocephalic Neck: Present normal inspection Respiratory: Present CTA bilaterally; Absent respiratory distress Cardiac: Present Reg Rate and Rhythm GI: Present soft; Absent distention or tenderness Extremities: Absent edema Skin: Present intact Neuro: Present alert and oriented x 3 Assessment and Plan *Assessment and plan (1) Urinary tract infection: Status: Acute Category: Medical Code(s): N39.0 - Urinary tract infection, site not specified (2) Failure of outpatient treatment: Status: Acute Category: Medical Code(s): Z78.9 - Other specified health status (3) General weakness: Status: Acute Category: Medical Code(s): R53.1 - Weakness (4) Hyperlipidemia: Status: Acute Qualifiers: Hyperlipidemia type: mixed hyperlipidemia Qualified Code(s): E78.2 - Mixed hyperlipidemia Category: Medical Code(s): E78.5 - Hyperlipidemia, unspecified (5) Hypertension: Status: Chronic Qualifiers: Hypertension type: primary hypertension Qualified Code(s): I10 - Essential (primary) hypertension Category: Medical Code(s): I10 - Essential (primary) hypertension (6) Coronary artery disease: Status: Acute Category: Medical Code(s): I25.10 - Atherosclerotic heart disease of [place] coronary artery without angina pectoris (7) Renal insufficiency: Status: Acute Category: Medical Code(s): N28.9 - Disorder of kidney and ureter, unspecified (8) Polyneuropathy: Status: Acute Category: Medical Code(s): G62.9 - Polyneuropathy, unspecified (9) Leg weakness, bilateral: Status: Acute Category: Medical Code(s): R29.898 - Other symptoms and signs involving the musculoskeletal system (10) Confusion: Status: Acute Category: Medical Code(s): R41.0 - Disorientation, unspecified (11) Foot drop: Status: Acute Category: Medical Code(s): M21.379 - Foot drop, unspecified foot (12) Severe protein-calorie malnutrition: Status: Acute Category: Medical Code(s): E43 - Unspecified severe protein-calorie malnutrition (13) Anemia: Status: Acute Category: Medical Code(s): D64.9 - Anemia, unspecified Plan Slowly improving. Plan discharge to [facility] tomorrow for continued rehab care.
[2024-11-28 16:00] VITALS: BP 148/67; PULSE 82; RESP 16; TEMP 36.8; O2SAT 98
--- NOTE | 2024-11-28 18:18 | PC.NURSE ---
Patient remained confused, alert to self and birthday. Turned q2, lung sounds diminished. Patient remained on room air and receiving IV antibiotics.
[2024-11-28 20:00] VITALS: BP 155/56; PULSE 87; RESP 12; TEMP 36.8; O2SAT 97
[2024-11-28] MEDS: MELATONIN 5MG TABLET 5 MG PO (20:45)
[2024-11-29 04:00] VITALS: BP 159/65; PULSE 85; RESP 16; TEMP 36.8; O2SAT 98; BMI 25.5
--- NOTE | 2024-11-29 04:52 | PC.NURSE ---
Pt frequently tried to climb out of bed. Pt was redirected and reoriented. v/s, alert to self only, RA satting in 90's. No acute events to report. Plan of care ongoing.
[2024-11-29] MEDS: LEVOTHYROXINE 50 MCG 1 EACH PO (06:16)
[2024-11-29 08:00] VITALS: BP 149/65; PULSE 88; RESP 16; TEMP 36.9; O2SAT 98
[2024-11-29] MEDS: CEFTRIAXONE 1 GM 1 GM in 0.9 % SODIUM CHLORIDE 50 ML IV (08:39)
[2024-11-29] MEDS: ASPIRIN EC 81MG TABLET 81 MG PO (08:39)
[2024-11-29] MEDS: IRBESARTAN 75MG TABLET 75 MG PO (08:39)
[2024-11-29] MEDS: METOPROLOL TARTRATE 25MG TABLET 12.5 MG PO (08:39)
[2024-11-29] MEDS: SODIUM CHLORIDE 0.9% 10ML FLUSH SYRINGE 10 ML IV (08:40)
[2024-11-29] MEDS: PT OWN MED *CLOPIDOGREL 75 MG TAB 1 EACH PO (08:46)
--- NOTE | 2024-11-29 10:14 | EXP.ACUTE.PN ---
Subjective *Date: 11/29/24 *Time: 10:14 Interval history: Patient feels a little better today, ate a little better yesterday. Medical Exam Vital signs and Labs for Last 24 Hours: Vital Signs Temp Pulse Resp BP Pulse Ox O2 Del Method 11/29/24 08:52 Room Air 11/29/24 08:00 98.4 F 88 16 149/65 H 98 Room Air 11/29/24 08:00 Room Air 11/29/24 06:30 Room Air 11/29/24 04:47 Room Air 11/29/24 04:00 98.2 F 85 16 159/65 H 98 Room Air 11/29/24 03:00 Room Air 11/29/24 00:42 Room Air 11/28/24 23:00 Room Air 11/28/24 21:00 Room Air 11/28/24 20:00 Room Air 11/28/24 20:00 98.3 F 87 12 155/56 H 97 Room Air 11/28/24 18:59 Room Air 11/28/24 17:10 Room Air 11/28/24 16:00 98.2 F 82 16 148/67 H 98 Room Air 11/28/24 15:00 Room Air 11/28/24 13:10 Room Air 11/28/24 11:00 Room Air Intake and Output 11/28/24 11/29/24 11/29/24 23:59 07:59 15:59 Intake Total 410 / 460 100 / 100 Output Total 350 / 1850 500 / 500 Balance 60 / -1390 -500 / -400 100 / -400 Intake: Intake, Oral Amount 360 / 360 100 / 100 Intake, Total IV Amount 50 / 100 Ceftriaxone 1 gm 1 gm In 0.9 % 50 / 100 Sodium Chloride 50 ml @ 100 mls /hr IV Q24H [facility] Rx#:[id number] Output: Output, Urine Amount 350 / 1850 500 / 500 Other: Number of Unmeasured Voids 0 Number of Bowel Movements 1 1 Weight 135 lb 4 oz Patient Weight 11/29/24 23:59 Weight 135 lb 4 oz I & O for Labs for Last 24 Hours: Intake & Output 11/26/24 11/27/24 11/28/24 11/29/24 23:59 23:59 23:59 23:59 Intake Total 360 / 360 320 / 320 460 / 460 100 / 100 Output Total 350 / 350 2050 / 2050 1850 / 1850 500 / 500 Balance -1730 / -1730 -1390 / -1390 -400 / -400 Weight 140 lb 1.307 oz 141 lb 11.2 oz 142 lb 3 oz 135 lb 4 oz Microbiology Reports for the Last 24 Hours: Microbiology 11/23/24 19:39 Blood Blood Culture - Final NO GROWTH AFTER 5 DAYS 11/23/24 12:40 Blood Blood Culture - Final NO GROWTH AFTER 5 DAYS Constitutional: Present no acute distress Head: Present normocephalic Neck: Present normal inspection Respiratory: Present CTA bilaterally; Absent respiratory distress Cardiac: Present Reg Rate and Rhythm GI: Present soft; Absent distention or tenderness Extremities: Absent edema Skin: Present intact Neuro: Present alert Assessment and Plan *Assessment and plan (1) Urinary tract infection: Status: Acute Category: Medical Code(s): N39.0 - Urinary tract infection, site not specified (2) Failure of outpatient treatment: Status: Acute Category: Medical Code(s): Z78.9 - Other specified health status (3) General weakness: Status: Acute Category: Medical Code(s): R53.1 - Weakness (4) Hyperlipidemia: Status: Acute Qualifiers: Hyperlipidemia type: mixed hyperlipidemia Qualified Code(s): E78.2 - Mixed hyperlipidemia Category: Medical Code(s): E78.5 - Hyperlipidemia, unspecified (5) Hypertension: Status: Chronic Qualifiers: Hypertension type: primary hypertension Qualified Code(s): I10 - Essential (primary) hypertension Category: Medical Code(s): I10 - Essential (primary) hypertension (6) Coronary artery disease: Status: Acute Category: Medical Code(s): I25.10 - Atherosclerotic heart disease of [place] coronary artery without angina pectoris (7) Renal insufficiency: Status: Acute Category: Medical Code(s): N28.9 - Disorder of kidney and ureter, unspecified (8) Polyneuropathy: Status: Acute Category: Medical Code(s): G62.9 - Polyneuropathy, unspecified (9) Leg weakness, bilateral: Status: Acute Category: Medical Code(s): R29.898 - Other symptoms and signs involving the musculoskeletal system (10) Confusion: Status: Acute Category: Medical Code(s): R41.0 - Disorientation, unspecified (11) Foot drop: Status: Acute Category: Medical Code(s): M21.379 - Foot drop, unspecified foot (12) Severe protein-calorie malnutrition: Status: Acute Category: Medical Code(s): E43 - Unspecified severe protein-calorie malnutrition (13) Anemia: Status: Acute Category: Medical Code(s): D64.9 - Anemia, unspecified Plan OK for discharge to [place] today, will give a few more days of oral antibiotic for her UTI.
--- NOTE | 2024-11-29 10:22 | EXP.DC.SUM ---
General Admission date:: 11/23/24 Discharge date: 11/29/24 HPI HPI HPI: Ms. Bueno is an 84 year old female patient of [facility], who was seen in the office last week due to weakess and confusion on the day she discharged from a SNF. She was found to have a UTI and was treated with Macrobid. Urine PCR showed E. coli sensitive to Macrobid. She failed to improve and was having trouble eating and had progressive weakness, resulting in some falls at home so she was brought to the ER tofdau for further evaluation. Patient was recently admitted to [facility], about 4 weeks ago due to a NSTEMI and had a left heart cath with stents placed. After that admission she wasd discharged to a SNF but did not do well during that stay. Patient was diagnosed with pancreatic cancer about 6 months ago and completed radiiation treatment about 2 months ago. Hospital Course Hospital Course Hospital Course: Patient was admitted to [facility] after not improving with outpatient, oral treatment for an E. Coli UTI. She was treated with Rocephin IV and eventually improved. During her admission she had poor oral intake and generalized weakness. She was confused at times. She is in need of skilled care for strengthening and improvinment in transfers as she is anxious to return home. Exam Data for Last 24 hours Vital signs and Labs for Last 24 Hours: Temp Pulse Resp BP Pulse Ox O2 Del Method 98.4 F 88 16 149/65 H 98 Room Air 11/29/24 08:00 11/29/24 08:00 11/29/24 08:00 11/29/24 08:00 11/29/24 08:00 11/29/24 08:52 I & O for Last 24 hours: Intake & Output 11/26/24 11/27/24 11/28/24 11/29/24 23:59 23:59 23:59 23:59 Intake Total 360 / 360 320 / 320 460 / 460 100 / 100 Output Total 350 / 350 0 / 0 1850 / 1850 500 / 500 Balance -1730 / -1730 -1390 / -1390 -400 / -400 Weight 140 lb 1.307 oz 141 lb 11.2 oz 142 lb 3 oz 135 lb 4 oz Microbiology Reports for the Last 24 Hours: Microbiology 11/23/24 19:39 Blood Blood Culture - Final NO GROWTH AFTER 5 DAYS 11/23/24 12:40 Blood Blood Culture - Final NO GROWTH AFTER 5 DAYS Constitutional Constitutional: no acute distress and thin *Routine HEENT Exam Head: Present normocephalic and atraumatic Eye: Present PERRL; Absent conjunctival icterus, scleral injection or conjunctivae pink ENT: Present mucous membranes dry *Routine Neck Exam Neck: Present supple; Absent carotid bruit, lymphadenopathy or thyromegaly *Routine Respiratory Exam Respiratory: Present CTA bilaterally (Anteriorly and posteriorly) *Routine Cardiovascular Exam Cardiovascular: Present RRR *Routine Abdominal Exam Abdominal: Present soft and normoactive bowel sounds; Absent tenderness or distended *Routine Rectal Exam Patient deferred: visual exam and digital exam *Routine Exam Patient deferred: groin exam *Routine Extremities Exam Extremities: Absent edema, calf tenderness, tenderness or joint swelling Comments: Can move all extremities although very slow. Pain with movement of the left leg. She cannot identify where the pain is. No tenderness with palpation of the left knee or left hip. *Routine Neurological Exam Neurological: Present alert (Oriented x 2), motor deficit (Both arms and legs), moving all extremities and normal speech DS: Diagnosis Discharge Diagnosis (1) Urinary tract infection: Status: Acute Code(s): N39.0 - Urinary tract infection, site not specified (2) Failure of outpatient treatment: Status: Acute Code(s): Z78.9 - Other specified health status (3) General weakness: Status: Acute Code(s): R53.1 - Weakness (4) Hyperlipidemia: Status: Acute Code(s): E78.5 - Hyperlipidemia, unspecified Qualifiers: Hyperlipidemia type: mixed hyperlipidemia Qualified Code(s): E78.2 - Mixed hyperlipidemia (5) Hypertension: Status: Chronic Code(s): I10 - Essential (primary) hypertension Qualifiers: Hypertension type: primary hypertension Qualified Code(s): I10 - Essential (primary) hypertension (6) Coronary artery disease: Status: Acute Code(s): I25.10 - Atherosclerotic heart disease of [place] coronary artery without angina pectoris (7) Renal insufficiency: Status: Acute Code(s): N28.9 - Disorder of kidney and ureter, unspecified (8) Polyneuropathy: Status: Acute Code(s): G62.9 - Polyneuropathy, unspecified (9) Leg weakness, bilateral: Status: Acute Code(s): R29.898 - Other symptoms and signs involving the musculoskeletal system (10) Confusion: Status: Acute Code(s): R41.0 - Disorientation, unspecified (11) Foot drop: Status: Acute Code(s): M21.379 - Foot drop, unspecified foot (12) Severe protein-calorie malnutrition: Status: Acute Code(s): E43 - Unspecified severe protein-calorie malnutrition (13) Anemia: Status: Acute Code(s): D64.9 - Anemia, unspecified Meds Home Medications and Allergies Home Medications ?Medication ?Instructions ?Recorded ?Confirmed ?Type celecoxib 200 mg capsule (Celebrex) 200 mg PO BID 02/01/20 11/23/24 History montelukast 10 mg tablet 10 mg PO PM 11/27/21 11/23/24 History dicyclomine 20 mg tablet 20 mg PO BIDP PRN Stomach Pain 04/13/24 11/23/24 History duloxetine 30 mg capsule,delayed 30 mg PO DAILY 04/13/24 11/23/24 History release oxybutynin chloride 5 mg 5 mg PO DAILY 04/13/24 11/23/24 History tablet,extended release 24 hr amlodipine 5 mg tablet 5 mg PO DAILY #30 tabs 04/14/24 11/23/24 Rx atorvastatin 10 mg tablet 10 mg PO DAILY 10/26/24 11/23/24 History famotidine 20 mg tablet 20 mg PO HS 10/26/24 11/23/24 History levothyroxine 50 mcg tablet 50 mcg PO DAILY 10/26/24 11/23/24 History aspirin 81 mg tablet,delayed 81 mg PO DAILY #0 tabs 10/30/24 11/23/24 Rx release clopidogrel 75 mg tablet 75 mg PO DAILY #0 tabs 10/30/24 11/23/24 Rx guaifenesin 600 mg tablet, 600 mg PO BID #0 tabs 10/30/24 11/23/24 Rx extended release 12 hr (Mucinex) irbesartan 75 mg tablet 75 mg PO DAILY #0 tabs 10/30/24 11/23/24 Rx nitroglycerin 0.4 mg sublingual 0.4 mg sublingual Q5MINP PRN Chest 10/30/24 11/23/24 Rx tablet (Nitrostat) Pain #0 tabs metoprolol tartrate 25 mg tablet 12.5 mg PO BID 11/23/24 11/23/24 History cefdinir 300 mg capsule 300 mg PO BID #10 caps 11/29/24 Rx gabapentin 100 mg capsule 100 mg PO TID #90 caps 11/29/24 Rx New Prescriptions to Start Prescriptions: cefdinir Shahid Lopez gabapentin Shahid Lopez Allergies Allergy/AdvReac Type Severity Reaction Status Date / Time cucumber (CUCUMBER) Allergy Severe HIVES, Verified 07/09/24 14:25 SWELLING, TROUBLE BREATHING alprazolam (From XANAX) Allergy Intermediate ADVERSE Verified 07/09/24 14:25 tetanus and diphtheria Allergy Mild Verified 07/09/24 14:25 toxoids (TETANUS AND DIPHTHERIA TOXOIDS) Iodinated Contrast Media Allergy Unknown Verified 07/09/24 14:25 (IODINATED CONTRAST MEDIA - ORAL AND) Discharge Plan Disposition Patient Disposition: er SNF Condition: Fair Discharge Order Discharge Orders: Discharge Order (Routine); Ordered 11/29/24 Ordered By: Shahid Lopez Follow up Plan Follow up with: Shahid Lopez MD [Primary Care Provider, Medical] - Enter time for follow up Referral Note: At [place] Prescriptions/Medication Reconciliation: New cefdinir 300 mg capsule 300 mg PO BID Qty: 10 0RF Continued celecoxib [Celebrex] 200 mg capsule 200 mg PO BID atorvastatin 10 MG tablet 10 mg PO DAILY famotidine 20 MG tablet 20 mg PO HS levothyroxine 50 MCG tablet 50 mcg PO DAILY clopidogrel 75 mg Tablet 75 mg PO DAILY Qty: 0 0RF aspirin 81 mg Tablet,Delayed Release (Dr/Ec) 81 mg PO DAILY Qty: 0 0RF nitroglycerin [Nitrostat] 0.4 mg Tablet, Sublingual 0.4 mg sublingual Q5MINP PRN (Reason: Chest Pain) Qty: 0 0RF irbesartan 75 mg Tablet 75 mg PO DAILY Qty: 0 0RF guaifenesin [Mucinex] 600 mg Tablet Extended Release 12hr 600 mg PO BID Qty: 0 0RF metoprolol tartrate 25 mg tablet 12.5 mg PO BID gabapentin 100 mg capsule 100 mg PO TID Qty: 90 0RF montelukast 10 MG tablet 10 mg PO PM dicyclomine 20 mg tablet 20 mg PO BIDP PRN (Reason: Stomach Pain) oxybutynin chloride 5 mg tablet extended release 24hr 5 mg PO DAILY duloxetine 30 mg capsule,delayed release(DR/EC) 30 mg PO DAILY amlodipine 5 mg tablet 5 mg PO DAILY Qty: 30 0RF Problem Reconciliation Problems Reviewed?: Yes Patient Discharge Instructions ACTIVITY: Continue current activity DIET: continue same diet Patient Instructions: Urinary Tract Infection, DI for Urinary Tract Infection (UTI), Stop Light Infection Print Language: Turkmen Providers Primary Care Provider: Shahid Lopez Admit Provider: Shahid Lopez Attending Provider: Shahid Lopez
--- NOTE | 2024-11-29 12:03 | PC.NURSE ---
Report called to Hermann YOO at [facility].
== END 2024-11-29 14:23 | disposition home or self-care (01) ==
LOC: ER 15:10 → 2ND 15:23
PROVIDERS: Nurse Practitioner; Admitting Provider Family Medicine; Emergency Provider Student in an Organized Health Care Education/Training Program; PCP Family Medicine; Visit Provider Family Medicine
DX: N39.0 Urinary tract infection, site not specified (principal); E43 Unspecified severe protein-calorie malnutrition; I21.4 Non-ST elevation (NSTEMI) myocardial infarction; C25.9 Malignant neoplasm of pancreas, unspecified; R53.1 Weakness; E78.2 Mixed hyperlipidemia; I10 Essential (primary) hypertension; I25.10 Atherosclerotic heart disease of native coronary artery without angina pectoris; N28.9 Disorder of kidney and ureter, unspecified; G62.9 Polyneuropathy, unspecified; B96.20 Unspecified Escherichia coli [E. coli] as the cause of diseases classified elsewhere; D64.9 Anemia, unspecified; R41.0 Disorientation, unspecified; M21.379 Foot drop, unspecified foot; Z87.891 Personal history of nicotine dependence; Z86.16 Personal history of COVID-19; Z85.07 Personal history of malignant neoplasm of pancreas; Z79.82 Long term (current) use of aspirin; Z79.899 Other long term (current) drug therapy; Z95.5 Presence of coronary angioplasty implant and graft; Z79.02 Long term (current) use of antithrombotics/antiplatelets; Z68.25 Body mass index [BMI] 25.0-25.9, adult
CPT/HCPCS: 36415; 70460; 71045; 74176; 80048; 80053; 81001; 82550; 83605; 83690; 83735; 84484; 85025; 85610; 85651; 86140; 87040; 87086; 87088; 87186; 93005; 97110; 97162; 97166; 97530; J0696; J1200; J1630; J1885; J2919; J7030; Q9967